=== PATIENT | female | born 1950 | race Caucasian/White ===

== ENCOUNTER 2024-04-02 16:11 | Outpatient (AMB) | payer MEDICARE, SELFPAY ==
--- NOTE | 2024-04-02 16:16 | A.OFFPC_ITS ---
Vital Signs 04/02/24 16:38 Height 4 ft 9 in Weight 235 lb BMI 50.8 BP 140/72 H Blood Pressure Location Rt brachial Position Sitting Respiration 16 Pulse 80 Pulse Source Pulse Oximeter Temp 98.1 F Temp Source Oral Pulse Oximetry (%) 96 Oxygen Delivery Method Room Air Intake Visit Reasons: Establish Care not a transfer Intake Note: patient here for new patient visit. Chiller Hand Required: No Is last menstrual period known: No Post menopausal: No Patient : No Allergies codeine Allergy (Unknown, Verified 04/02/24 16:25) Hives asprin Allergy (Mild, Uncoded 04/02/24 16:25) Stomach Upset Tobacco use date assessed: 04/02/24 Fall risk assessment: 2 + Falls in past year Last assessed Fall Risk: 04/02/24 Dental Screening Dental Screen Date: 04/02/24 Did you have a dental visit in the last 12 months?: Yes Did you have a dental problem in the last 6 months where you did not have access to dental care?: No Was dental information given to patient?: Patient has dentist HPI HPI Comments History of Present Illness Details 73-year-old female with a past medical h istory of myasthenia gravis, post-polio syndrome, lung nodules, asthma/COPD and epilepsy presents to establish care. She transferred from [facility] and [facility]. Records transfer pending. I am seeing the patient for Dr. Stephen who will be PCP. She is here with sister, Sarah. She lives locally. She lives alone. 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 She needs to referrals to pulmonology for COPD/asthma, lung nodules and KAVYA. She was seeing Dr. Hewitt, but her insurance is no longer accepted at [facility]. She needs a referral to a new urologist for overactive bladder. Myasthenia gravis, seizure disorder-her prior neurologist retired. She has aneurology consult with Dr. Johnson on April 21. Rheumatoid/OA-[facility]. [facility]quez [facility]. Last hospitalization was in 01/06/2024 after she fell twice. ROS: Constitutional: No unexplained weight loss, fever, chills Respiratory: No shortness of breath Cardiovascular: No chest pain Psychiatric: No depression or anxiety. No SI/HI. Physical exam: Constitutional: Alert, in no distress. Ambulates with walker. Neck: Supple, Full range of motion. No lymphadenopathy. Respiratory: Clear to auscultation. Cardiovascular: S1 S2 regular. No murmurs. Neurologic: Monotone, mildly slurred speech. [facility] Medical History (Updated 04/02/24 @ 17:23 by YULIANA Womack) Intertrigo Detrusor instability of bladder KAVYA (obstructive sleep apnea) Asthma-COPD overlap syndrome Former smoker Myasthenia gravis Post-polio syndrome Lung nodules Rheumatoid arthritis Osteoarthritis of knees, bilateral Allergic rhinitis Elevated blood pressure reading Seizure disorder Glaucoma Epilepsy Surgical History (Updated 04/02/24 @ 16:53 by YULIANA Womack) History of bilateral cataract extraction Family History (Updated 04/02/24 @ 16:51 by YULIANA oWmack) Father Alcohol abuse Colon cancer CAD (coronary artery disease) Brother Glioblastoma Social History Housing: Apartment Patient Tobacco Use Status: Never used Tobacco e-Cigarette/Vaping Use: Never Used Second Hand Smoke Exposure: No service: No Current occupational status: retired Current occupational exposures/hazards: No Cognitive needs: No Hearing needs: No Vision needs: Yes Questionnaire AUDIT C Alcohol Use Questionnaire (AUDIT-C) 1. How often do you have a drink containing alcohol?: Never Total Score: 0 Score Reviewed/Action Taken: Yes ACT Questionnaire In the past 4 weeks, how much of the time did your asthma keep you from getting as much done at work, school or at home?: None of the time During the past 4 weeks, how often have you had shortness of breath?: Not at all During the past 4 weeks, how often did your asthma symptoms wake you up at night or earlier than usual in the morning?: Not at all During the past 4 weeks, how often have you had to use your rescue inhaler or nebulizer medication?: 2-3 times a week How would you rate your asthma control during the past 4 weeks?: Well controlled Score: 22 Physical exam (Primary Care) Vital Signs: Last Vital Signs Temp 98.1 F 04/02/24 16:38 Pulse 80 04/02/24 16:38 Resp 16 04/02/24 16:38 BP 140/72 H 04/02/24 16:38 Pulse Ox 96 04/02/24 16:38 Oxygen Delivery Method Room Air 04/02/24 16:38 BMI result Body Mass Index 50.8 Tobacco/Smoking Status: Tobacco use Status Tobacco use date assessed 04/02/24 04/02/24 16:43 Patient Tobacco Use Status Never used Tobacco 04/02/24 16:43 e-Cigarette/Vaping Use Never Used 04/02/24 16:43 Assessment and Plan Assessment & Plan (1) Intertrigo: Code(s): L30.4 - Erythema intertrigo (2) Detrusor instability of bladder: Code(s): N32.81 - Overactive bladder (3) Asthma-COPD overlap syndrome: Code(s): J44.89 - Other specified chronic obstructive pulmonary disease (4) KAVYA (obstructive sleep apnea): Code(s): G47.33 - Obstructive sleep apnea (adult) (pediatric) (5) Myasthenia gravis: Code(s): G70.00 - Myasthenia gravis without (acute) exacerbation (6) Rheumatoid arthritis: Code(s): M06.9 - Rheumatoid arthritis, unspecified Qualifiers: Rheumatoid arthritis location: multiple sites Rheumatoid factor presence: unspecified presence Qualified Code(s): M06.9 - Rheumatoid arthritis, unspecified (7) Seizure disorder: Code(s): G40.909 - Epilepsy, unspecified, not intractable, without status epilepticus (8) Elevated blood pressure reading: Code(s): R03.0 - Elevated blood-pressure reading, without diagnosis of hypertension Plan Patient will continue her current medications. She gets intermittent intertrigo so I sent topical medication for her to use as needed. Preventative strategies reviewed. Her blood pressure is mildly elevated today. She does not have a history of hypertension. We will schedule follow up in 6 weeks for recheck. Patient says she is having knee pain today so that might be why it is elevated. Referrals placed for Urogynecology and pulmonology. She has an upcoming appointment with a new neurologist. She is followed by Rheumatology for RA and OA. Patient said she just had blood work done within the past month so we will await transfer records. Follow up in [address] Stephen-30 minutes for complex visit. Orders: Referrals Urogynecology Referral N32.81 - Overactive bladder Pulmonology Referral G47.33 - Obstructive sleep apnea (adult) (pediatric), J44.89 - Other specified chronic obstructive pulmonary disease, R91.8 - Other nonspecific abnormal finding of lung field Medications: New ketoconazole 2% 1 appl topical BID 10 days 30 grams 5RF Coding Level of Care Code New Pt Level 4 (84436) Complex EM visit Add On G2211 Diagnoses Intertrigo L30.4 Detrusor instability of bladder N32.81 Asthma-COPD overlap syndrome J44.89 KAVYA (obstructive sleep apnea) G47.33 Myasthenia gravis G70.00 Rheumatoid arthritis involving multiple sites, unspecified whether rheumatoid factor present M06.9 Rheumatoid arthritis location: multiple sites Rheumatoid factor presence: unspecified presence Seizure disorder G40.909 Elevated blood pressure reading R03.0
[2024-04-02 16:38] VITALS: BP 140/72; PULSE 80; RESP 16; TEMP 36.7; O2SAT 96; BMI 50.8
== END 2024-04-02 17:18 | disposition home or self-care (01) ==
PROVIDERS: PCP Physician Assistant Medical; Visit Provider Physician Assistant Medical
DX: J44.89 Other specified chronic obstructive pulmonary disease (principal); G70.00 Myasthenia gravis without (acute) exacerbation; M06.9 Rheumatoid arthritis, unspecified; G40.909 Epilepsy, unspecified, not intractable, without status epilepticus; L30.4 Erythema intertrigo; N32.81 Overactive bladder; G47.33 Obstructive sleep apnea (adult) (pediatric); R03.0 Elevated blood-pressure reading, without diagnosis of hypertension
CPT/HCPCS: 99204; G2211

== ENCOUNTER 2024-05-22 14:41 | Outpatient (AMB) | payer MEDICARE, SELFPAY ==
--- NOTE | 2024-05-22 14:43 | A.OFFPC_ITS ---
Intake Visit Reasons: 30 minutes complex follow up, BP chec Allergies codeine Allergy (Unknown, Verified 04/02/24 16:25) Hives asprin Allergy (Mild, Uncoded 04/02/24 16:25) Stomach Upset Tobacco use date assessed: 04/02/24 Dental Screening Dental Screen Date: 04/02/24 [facility] Medical History (Updated 04/02/24 @ 17:23 by YULIANA Womack) Intertrigo Detrusor instability of bladder KAVYA (obstructive sleep apnea) Asthma-COPD overlap syndrome Former smoker Myasthenia gravis Post-polio syndrome Lung nodules Rheumatoid arthritis Osteoarthritis of knees, bilateral Allergic rhinitis Elevated blood pressure reading Seizure disorder Glaucoma Epilepsy Surgical History (Updated 04/02/24 @ 16:53 by YULIANA Womack) History of bilateral cataract extraction Family History (Updated 04/02/24 @ 16:51 by YULIANA Womack) Father Alcohol abuse Colon cancer CAD (coronary artery disease) Brother Glioblastoma Social History Housing: Apartment Patient Tobacco Use Status: Never used Tobacco e-Cigarette/Vaping Use: Never Used Second Hand Smoke Exposure: No service: No Current occupational status: retired Current occupational exposures/hazards: No Cognitive needs: No Hearing needs: No Vision needs: Yes Questionnaire PHQ-9 Over the last 2 weeks, how often have you been bothered by any of the following problems? 1. Little interest or pleasure in doing things: not at all 2. Feeling down, depressed, or hopeless: not at all 3. Trouble falling or staying asleep, or sleeping too much: more than half the days 4. Feeling tired or having little energy: more than half the days 5. Poor appetite or overeating: not at all 6. Feeling bad about yourself - or that you are a failure or have let yourself or your family down: not at all 7. Trouble concentrating on things, such as reading the newspaper or watching television: not at all 8. Moving or speaking so slowly that other people could have noticed. Or the opposite - being so fidgety or restless that you have been moving around a lot more than usual: not at all 9. Thoughts that you would be better off or of hurting yourself in some way: not at all Total score: 4 Source: Developed by Drs. Trevin Medrano, Tova Patel, Jared Rose and colleagues, with an educational martinez from [employer]. Thrive Questionnaire Date Thrive assessed: 05/15/24 I am a: Patient What is your living situation today?: I have a steady place to live Within the past 12 months, did the food you bought not last and you didn't have the money to get more?: Never true Within the past 12 months, did you worry whether your food would run out before you got money to buy more?: Never true Do you have trouble paying for medicines?: No Do you have trouble getting transportation to medical appointments?: No Do you have trouble paying your heating and electricity bill?: No Do you have trouble taking care of your child, family member or friend?: No Do you have trouble with day-to-day activities such as bathing, preparing meals, shopping, managing finances, etc.?: Yes Are you currently unemployed and looking for a job?: No Are you interested in more education?: No Please select the resources that you would like help with: None Currently or been in a relationship where the following occur: No concerns reported THRIVE Score: 0 AUDIT C Alcohol Use Questionnaire (AUDIT-C) 1. How often do you have a drink containing alcohol?: Never Total Score: 0 MIYA-7 AMB Questionnaire MIYA-7 Feeling nervous, anxious, or on edge: 0 = Not at all Not being able to stop or control worryin = Not at all Worrying too much about different things: 0 = Not at all Trouble relaxin = Not at all Being so restless that it is hard to sit still: 0 = Not at all Becoming easily annoyed or irritable: 0 = Not at all Feeling afraid as if something awful might happen: 0 = Not at all Total MYIA-7 score (0-4 normal; 5-9 mild; 10-14 moderate; 15-21 severe): 0 Source: Developed by Drs. Trevin Medrano, Jared Putnam and colleagues, with an educational martinez from [employer]. Physical exam (Primary Care) Tobacco/Smoking Status: Tobacco use Status Tobacco use date assessed 04/02/24 04/02/24 16:43 Patient Tobacco Use Status Never used Tobacco 04/02/24 16:43 e-Cigarette/Vaping Use Never Used 04/02/24 16:43 Thrive Assessment: Date of Thrive Assessment Date Thrive assessed 05/15/24 05/15/24 12:29 Currently or been in a relationship where the following occur: No concerns reported Coding
--- NOTE | 2024-05-22 14:44 | A.OFFPC_ITS ---
Vital Signs 05/22/24 14:54 BMI Reason not done Patient refused/unable BP 134/86 Blood Pressure Location Rt brachial Position Sitting Pulse 62 Pulse Source Pulse Oximeter Pulse Oximetry (%) 96 Oxygen Delivery Method Room Air Intake Visit Reasons: 30 minutes complex follow up, BP chec Intake Note: Follow up Allergies codeine Allergy (Unknown, Verified 05/22/24 14:51) Hives asprin Allergy (Mild, Uncoded 05/22/24 14:51) Stomach Upset Tobacco use date assessed: 04/02/24 Dental Screening Dental Screen Date: 04/02/24 HPI HPI Comments History of Present Illness Details 74-year-old female with a past medical h istory of myasthenia gravis, post-polio syndrome, lung nodules, asthma/COPD and epilepsy presents for follow up. Previously seen at [facility], established here recently by geremias Armenta She is here with sister, Sarah. She lives locally. COPD/asthma, lung nodules and KAVYA. Referred to pulmonology. Previously seen by but her insurance is no longer accepted at [facility]. Myasthenia gravis, seizure disorder-Sees neurology Dr Cardozo. She lives alone but has a [employer] for 3 hours per day. Her sister Sarah also helps her day to day. Last hospitalization was in 01/06/2024 after she fell twice. Home nursing provides foot care Rheumatoid/OA-Dr. Henriquez at the [facility] treatment [facility]. She has been having low back pain, leg weakness, heaviness. Urology-Followed with Dr Baez. OAB. Referral to urogynecology Dr Vaughan eye Due for mammogram ROS see HPI PHYSICAL EXAM: GENERAL: Alert and oriented x 3. NAD EYES: EOMI. Anicteric. HENT: Moist mucous membranes. No scleral icterus. No cervical lymphadenopathy. LUNGS: Clear to auscultation bilaterally. CARDIOVASCULAR: Regular rate and rhythm. No murmur. No JVD. ABDOMEN: Soft, non-tender +bs EXTREMITIES: No edema. Non-tender. SKIN: No rashes or lesions. Warm. NEUROLOGIC: No focal neurological deficits. CN II-XII grossly intact PSYCHIATRIC: Cooperative. Appropriate mood and affect [facility] Medical History Intertrigo Detrusor instability of bladder KAVYA (obstructive sleep apnea) Asthma-COPD overlap syndrome Former smoker Myasthenia gravis Post-polio syndrome Lung nodules Rheumatoid arthritis Osteoarthritis of knees, bilateral Allergic rhinitis Elevated blood pressure reading Seizure disorder Glaucoma Epilepsy Surgical History History of bilateral cataract extraction Family History Father Alcohol abuse Colon cancer CAD (coronary artery disease) Brother Glioblastoma Social History Housing: Apartment Patient Tobacco Use Status: Never used Tobacco e-Cigarette/Vaping Use: Never Used Second Hand Smoke Exposure: No service: No Current occupational status: retired Current occupational exposures/hazards: No Cognitive needs: No Hearing needs: No Vision needs: Yes Questionnaire PHQ-9 Over the last 2 weeks, how often have you been bothered by any of the following problems? 1. Little interest or pleasure in doing things: not at all 2. Feeling down, depressed, or hopeless: not at all 3. Trouble falling or staying asleep, or sleeping too much: more than half the days 4. Feeling tired or having little energy: more than half the days 5. Poor appetite or overeating: not at all 6. Feeling bad about yourself - or that you are a failure or have let yourself or your family down: not at all 7. Trouble concentrating on things, such as reading the newspaper or watching television: not at all 8. Moving or speaking so slowly that other people could have noticed. Or the opposite - being so fidgety or restless that you have been moving around a lot more than usual: not at all 9. Thoughts that you would be better off or of hurting yourself in some way: not at all Total score: 4 Depression Screening Interpretation: Negative Depression Screening Done: Yes Source: Developed by Drs. Trevin Medrano, Tova Patel, Jared Rose and colleagues, with an educational martinez from [employer]. Thrive Questionnaire Date Thrive assessed: 05/15/24 I am a: Patient What is your living situation today?: I have a steady place to live Within the past 12 months, did the food you bought not last and you didn't have the money to get more?: Never true Within the past 12 months, did you worry whether your food would run out before you got money to buy more?: Never true Do you have trouble paying for medicines?: No Do you have trouble getting transportation to medical appointments?: No Do you have trouble paying your heating and electricity bill?: No Do you have trouble taking care of your child, family member or friend?: No Do you have trouble with day-to-day activities such as bathing, preparing meals, shopping, managing finances, etc.?: Yes Are you currently unemployed and looking for a job?: No Are you interested in more education?: No Please select the resources that you would like help with: None Currently or been in a relationship where the following occur: No concerns reported THRIVE Score: 0 AUDIT C Alcohol Use Questionnaire (AUDIT-C) 1. How often do you have a drink containing alcohol?: Never Total Score: 0 MIYA-7 AMB Questionnaire MIYA-7 Feeling nervous, anxious, or on edge: 0 = Not at all Not being able to stop or control worryin = Not at all Worrying too much about different things: 0 = Not at all Trouble relaxin = Not at all Being so restless that it is hard to sit still: 0 = Not at all Becoming easily annoyed or irritable: 0 = Not at all Feeling afraid as if something awful might happen: 0 = Not at all Total MIYA-7 score (0-4 normal; 5-9 mild; 10-14 moderate; 15-21 severe): 0 Source: Developed by Drs. Trevin Medrano, Tova Patel, Jared Rose and colleagues, with an educational martinez from [employer]. Physical exam (Primary Care) Vital Signs: Last Vital Signs Pulse 62 05/22/24 14:54 BP 134/86 05/22/24 14:54 Pulse Ox 96 05/22/24 14:54 Oxygen Delivery Method Room Air 05/22/24 14:54 Tobacco/Smoking Status: Tobacco use Status Tobacco use date assessed 04/02/24 05/22/24 14:52 Patient Tobacco Use Status Never used Tobacco 05/22/24 14:52 e-Cigarette/Vaping Use Never Used 05/22/24 14:52 PHQ-9: PHQ-9 Score PHQ-9: Total score 4 05/22/24 15:20 Depression Screening Interpretation: Negative Thrive Assessment: Date of Thrive Assessment Date Thrive assessed 05/15/24 05/22/24 14:52 Currently or been in a relationship where the following occur: No concerns reported Coding Level of Care Code Est Pt Level 5 (61806) Diagnoses Weakness of both lower extremities R29.898 Laterality: bilateral Detrusor instability of bladder N32.81 Asthma-COPD overlap syndrome J44.89 Myasthenia gravis G70.00 Seizure disorder G40.909 Rheumatoid arthritis involving multiple sites, unspecified whether rheumatoid factor present M06.9 Rheumatoid arthritis location: multiple sites Rheumatoid factor presence: unspecified presence Time Spent (min) 43 Assessment & Plan Assessment & Plan (1) Leg weakness: Code(s): R29.898 - Other symptoms and signs involving the musculoskeletal system Category: Medical Qualifiers: Laterality: bilateral Qualified Code(s): R29.898 - Other symptoms and signs involving the musculoskeletal system Plan: xray LS ordered Discussed maybe sequelae of MG (2) Detrusor instability of bladder: Code(s): N32.81 - Overactive bladder Category: Medical Plan: referral to urogynecology placed (3) Asthma-COPD overlap syndrome: Code(s): J44.89 - Other specified chronic obstructive pulmonary disease Category: Medical Plan: referral pending to pulm (4) Myasthenia gravis: Code(s): G70.00 - Myasthenia gravis without (acute) exacerbation Category: Medical Plan: stable. following with neurology (5) Seizure disorder: Code(s): G40.909 - Epilepsy, unspecified, not intractable, without status epilepticus Category: Medical Plan: stable on meds. continue neurology f/up (6) Rheumatoid arthritis: Code(s): M06.9 - Rheumatoid arthritis, unspecified Category: Medical Qualifiers: Rheumatoid arthritis location: multiple sites Rheumatoid factor presence: unspecified presence Qualified Code(s): M06.9 - Rheumatoid arthritis, unspecified Plan: c/w rheumatology Orders: Orders Complete Blood Count Auto Diff 05/22/24 R29.898 - Other symptoms and signs involving the musculoskeletal system, R29.6 - Repeated falls Comprehensive Met. Panel 05/22/24 R29.898 - Other symptoms and signs involving the musculoskeletal system, R29.6 - Repeated falls Hemoglobin A1c 05/22/24 R29.898 - Other symptoms and signs involving the musculoskeletal system, R29.6 - Repeated falls MM screening mammo BI 05/22/24 Z12.31 - Encounter for screening mammogram for malignant neoplasm of breast, R29.898 - Other symptoms and signs involving the musculoskeletal system, R29.6 - Repeated falls TSH reflex Free T4 05/22/24 R29.898 - Other symptoms and signs involving the musculoskeletal system, R29.6 - Repeated falls XR lumbar spine 2-3V 05/28/24 R29.898 - Other symptoms and signs involving the musculoskeletal system, R29.6 - Repeated falls
[2024-05-22 14:54] VITALS: BP 134/86; PULSE 62; O2SAT 96
== END 2024-05-22 15:38 | disposition home or self-care (01) ==
PROVIDERS: PCP Physician Assistant Medical; Visit Provider Internal Medicine
DX: J44.89 Other specified chronic obstructive pulmonary disease (principal); G70.00 Myasthenia gravis without (acute) exacerbation; G40.909 Epilepsy, unspecified, not intractable, without status epilepticus; M06.9 Rheumatoid arthritis, unspecified; R29.898 Other symptoms and signs involving the musculoskeletal system; N32.81 Overactive bladder

== ENCOUNTER → 2024-05-22 14:41 | Outpatient (BNVA) | payer MEDICARE, SELFPAY | PROVIDERS: PCP Physician Assistant Medical; Visit Provider Internal Medicine | DX: R29.898 Other symptoms and signs involving the musculoskeletal system (principal); N32.81 Overactive bladder; J44.89 Other specified chronic obstructive pulmonary disease; G70.00 Myasthenia gravis without (acute) exacerbation; G40.909 Epilepsy, unspecified, not intractable, without status epilepticus; M06.9 Rheumatoid arthritis, unspecified | CPT/HCPCS: 96127; 99212 ==

== ENCOUNTER 2024-05-22 15:43 | Outpatient (REF) | payer MEDICARE, SELFPAY ==
[2024-05-22 17:46] LABS: MANUAL DIFF FLAG NO
[2024-05-22 19:00] LABS: Alanine Aminotransferase 37 U/L (0-31); Albumin Level 4.2 g/dL (3.5-5.0); Alkaline Phosphatase 63 U/L (39-117); Anion Gap 8 (12-20); Aspartate Amino Transferase 32 U/L (5-31); Bilirubin Total 0.2 mg/dL (0.0-1.0); Blood Urea Nitrogen 28 mg/dL (9-16); Calcium 10.4 mg/dL (8.4-10.2); Carbon Dioxide 26 mmol/L (22-29); Chloride 113 mmol/L (96-108); Estimated Glomerular Filt Rate > 60; Glucose Random 100 mg/dL (60-115); Potassium 4.4 mmol/L (3.3-5.1); Sodium 143 mmol/L (135-145); Total Protein 7.2 g/dL (6.5-8.0)
[2024-05-22 19:01] LABS: Estimated Average Glucose 105 mg/dL; Hemoglobin A1C 109.5654 umol/L; Hemoglobin A1c % 5.3 % (<6.0); Total Hemoglobin (HGBA1C) 3219.2961 umol/L
[2024-05-22 19:15] LABS: TSH reflex Free T4 1.82 uIU/mL (0.32-4.0)
[2024-05-22 19:21] LABS: Basophils Absolute Auto 0.1 X10*3/uL (0.0-0.2); Basophils Percent Auto 0.7 % (0-2); Eosinophils Absolute Auto 0.2 X10*3/uL (0.0-0.4); Eosinophils Percent Auto 2.1 % (0-4); Hematocrit 38.2 % (37.0-47.0); Hemoglobin 12.9 g/dl (12.0-16.0); Imm Gran Abs Auto 0.09 X10*3/uL (0.00-0.03); Lymphocytes Absolute Auto 1.7 X10*3/uL (1.2-4.9); Mean Corpuscular HGB Conc 33.8 g/dl (31.0-35.0); Mean Corpuscular Hemoglobin 36.8 pg (27.0-33.0); Mean Corpuscular Volume 108.8 fL (80.0-98.0); Mean Platelet Volume 10.1 fL (9.4-12.3); Monocytes Absolute Auto 1.2 X10*3/uL (0.1-1.2); Monocytes Percent Auto 14.4 % (2-11); Neutrophils Absolute Auto 5.3 x10*3/uL (2.0-8.3); Neutrophils Percent Auto 61.8 % (45-73); Platelet Count 395 X10*3/uL (160-400); Red Blood Count 3.51 X10*6/uL (4.20-5.50); Red Cell Distribution Width 13.8 % (11.0-16.0); White Blood Count 8.6 X10*3/uL (4.8-10.8)
== END 2024-05-22 15:44 | disposition home or self-care (01) ==
LOC: HO.WFDLDS 15:43
PROVIDERS: Visit Provider Internal Medicine
DX: R29.898 Other symptoms and signs involving the musculoskeletal system (principal); R29.6 Repeated falls
CPT/HCPCS: 36415; 80053; 83036; 84443; 85025

== ENCOUNTER 2024-05-28 14:34 | Outpatient (REF) | payer OTHER, SELFPAY | END 2024-05-28 14:35 | disposition home or self-care (01) | LOC: HO.XRAY 14:34 | PROVIDERS: PCP Family Medicine; Visit Provider Internal Medicine | DX: R29.898 Other symptoms and signs involving the musculoskeletal system (principal); R29.6 Repeated falls | CPT/HCPCS: 72100 ==

== ENCOUNTER 2024-06-16 13:17 | Outpatient (AMB) | payer MEDICARE, SELFPAY ==
[2024-06-16 13:30] VITALS: PULSE 63; O2SAT 98; BMI 52.0
--- NOTE | 2024-06-16 13:30 | A.OFFVIS_ITS ---
Vital Signs 06/16/24 13:30 Height 4 ft 9 in Weight 240 lb 4.862 oz BMI 52.0 Pulse 63 Pulse Source Pulse Oximeter Pulse Oximetry (%) 98 Oxygen Delivery Method Room Air Intake Visit Reasons: kavya Clinical Consultant Required: No Allergies codeine Allergy (Unknown, Verified 06/16/24 13:32) Hives asprin Allergy (Mild, Uncoded 06/16/24 13:32) Stomach Upset HPI Comments Details: The patient is here for pulmonary evaluation. The patient is a 74-year-old woman with a very complicated past medical history. 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 Subsequently after that the patient was diagnosed with myasthenia gravis and treated by Neurology and also diagnosed with rheumatoid arthritis. Treated by Rheumatology. She has been on multiple immunosuppressive agents throughout her life. More recently she is on methotrexate 6 tablets weekly. She also takes her medications for the myasthenia gravis. The patient does have history of asthma and she has been on inhalers such as Arnuity and she does also uses a rescue inhaler. I do believe that the patient with her current neuromuscular conditions will benefit from a nebulizer. The patient states that she sometimes has a hard time eating. She does get meals from meals on wheels and she does live alone and has help from a ELECTROMEDICAL EQUIPMENT TECHNICIAN. The patient does use a walker and then when she leaves the home she does have transferred chair. At nighttime the patient does use CPAP. The CPAP therapy has been provided through [employer]. She gets supplies regularly and she does use a nasal mask. She is it move more than 4 hours a night in the therapy has been affecting beneficial for her. The patient does not have any recent x-rays or pulmonary function studies. At this point will request that she undergo a modified barium swallow to assess swallow make sure she is adequately eating without risk of aspiration. And will request pulmonary function studies and a chest x-ray to assess her lung capacity. Depending on the findings we can consider performing a blood gas to make sure that she is not having issues with hypercarbia. Will follow-up after her pulmonary function studies and other studies. [facility] Medical History (Updated 06/16/24 @ 22:12 by Chato Tesfaye MD) Asthma Intertrigo Detrusor instability of bladder KAVYA (obstructive sleep apnea) Asthma-COPD overlap syndrome Former smoker Myasthenia gravis Post-polio syndrome Lung nodules Rheumatoid arthritis Osteoarthritis of knees, bilateral Allergic rhinitis Elevated blood pressure reading Seizure disorder Glaucoma Epilepsy Surgical History History of bilateral cataract extraction Family History Father Alcohol abuse Colon cancer CAD (coronary artery disease) Brother Glioblastoma Social History Housing: Apartment Patient Tobacco Use Status: Never used Tobacco e-Cigarette/Vaping Use: Never Used Second Hand Smoke Exposure: No service: No Current occupational status: retired Current occupational exposures/hazards: No Cognitive needs: No Hearing needs: No Vision needs: Yes Review of Systems Const Denies fever(s) Eyes Reports as per HPI ENT Reports dysphagia and Reports nasal congestion Card Denies chest pain Resp Reports chest congestion, Reports cough and Reports wheezing GI Reports dysphagia Musc Reports as per HPI, Reports abnormal gait and Reports muscle weakness Skin/Breast Denies rash Neuro Reports abnormal gait Gabriel/Lymph Reports no additional complaints Aller/Immun Reports wheezing Physical Exam Vital Signs: Last Vital Signs Pulse 63 06/16/24 13:30 Pulse Ox 98 06/16/24 13:30 Oxygen Delivery Method Room Air 06/16/24 13:30 BMI result Body Mass Index 52.0 Const General: comfortable Limitations: physical limitations, ambulation with walker and wheelchair HEENT Head: Yes normocephalic Neck Neck: Yes supple Chest Chest palpation & inspection: normal inspection of the chest Resp Effort & Inspection: normal respiratory effort Cardio Heart sounds: S1 normal heart sound present and S2 normal heart sound present GI Palpation (GI): Soft to palpation Skin General skin exam: no rashes or lesions noted Extrem General: Yes no clubbing, cyanosis or edema Immunizations pneumoc 20-miles conj-dip cr(PF) 0.5 mL IM syringe Performing Provider: Chato Tesfaye MD Performing Location: [facility] Administered by: Barbie Thompson LPN on 06/16/24 15:21 Dose Route Admin Location Dispensed Lot Number Expiration Date [employer] 0.5 mL IM Right Deltoid 0.5 mL [id number] 08/18/25 3930-1272-52 [employer] VIS Given Date VIS Provided VIS Publication Date 06/16/24 Single Vaccine 22 Eligibility Eligibility Date Funding Source Not [facility] Eligible 06/16/24 Private Assessment & Plan Assessment & Plan (1) Myasthenia gravis: Code(s): G70.00 - Myasthenia gravis without (acute) exacerbation Category: Medical (2) Allergic rhinitis: Code(s): J30.9 - Allergic rhinitis, unspecified Category: Medical Qualifiers: Allergic rhinitis trigger: unspecified Allergic rhinitis seasonality: unspecified Qualified Code(s): J30.9 - Allergic rhinitis, unspecified (3) Asthma-COPD overlap syndrome: Code(s): J44.89 - Other specified chronic obstructive pulmonary disease Category: Medical (4) Rheumatoid arthritis: Code(s): M06.9 - Rheumatoid arthritis, unspecified Category: Medical Qualifiers: Rheumatoid arthritis location: multiple sites Rheumatoid factor presence: unspecified presence Qualified Code(s): M06.9 - Rheumatoid arthritis, unspecified Plan Needs a nebulizer CXR PFTs MBS conitnue Arnuity HERMILA as needed f/u 2-3 Months Orders: Orders FL Modified Barium Swallow Today G70.00 - Myasthenia gravis without (acute) exacerbation XR chest 2V Today G70.00 - Myasthenia gravis without (acute) exacerbation PFT pulmonary function test Today G70.00 - Myasthenia gravis without (acute) exacerbation Pneumococcal 20 Immunization Today Z23 - Encounter for immunization Medications: New albuterol sulfate 2.5 mg (3 mL) inhalation Q6H 30 days PRN 180 mL 11RF shortness of breath or wheezing albuterol sulfate 90 mcg/actuation 2 inhalations inhalation Q6H 30 days PRN 18 grams 12RF shortness of breath or wheezing J44.9 - Chronic obstructive pulmonary disease, unspecified Coding Level of Care Code New Pt Level 4 (59556) Diagnoses Myasthenia gravis G70.00 Allergic rhinitis, unspecified seasonality, unspecified trigger J30.9 Allergic rhinitis trigger: unspecified Allergic rhinitis seasonality: unspecified Asthma-COPD overlap syndrome J44.89 Rheumatoid arthritis involving multiple sites, unspecified whether rheumatoid factor present M06.9 Rheumatoid arthritis location: multiple sites Rheumatoid factor presence: unspecified presence Time Spent (min) 45
== END 2024-06-16 15:52 | disposition home or self-care (01) ==
LOC: HO.HPS 13:18
PROVIDERS: PCP Family Medicine; Visit Provider Hospitalist
DX: G70.00 Myasthenia gravis without (acute) exacerbation (principal); J30.9 Allergic rhinitis, unspecified; J44.89 Other specified chronic obstructive pulmonary disease; M06.9 Rheumatoid arthritis, unspecified; Z23 Encounter for immunization
CPT/HCPCS: 99204

== ENCOUNTER → 2024-06-16 13:17 | Outpatient (BNVA) | payer MEDICARE, SELFPAY | PROVIDERS: PCP Family Medicine; Visit Provider Hospitalist | DX: J44.89 Other specified chronic obstructive pulmonary disease (principal); J30.9 Allergic rhinitis, unspecified; G47.33 Obstructive sleep apnea (adult) (pediatric); G70.00 Myasthenia gravis without (acute) exacerbation; M06.9 Rheumatoid arthritis, unspecified; Z23 Encounter for immunization; Z99.89 Dependence on other enabling machines and devices | CPT/HCPCS: 90471; 90677; 99202 ==

== ENCOUNTER 2024-06-29 14:17 | Outpatient (REF) | payer MEDICARE, SELFPAY ==
--- NOTE | ~2024-06-29 | FL_ITS ---
EXAMINATION: Modified Barium Swallow CLINICAL INFORMATION: Dysphagia COMPARISON: None TECHNIQUE: Modified barium swallow was performed under lateral fluoroscopy with patient in standing position. Barium mixed with solids and liquids of different consistencies was administered by the speech pathologist. Examination was recorded in the fluoroscopy suite. FINDINGS: No laryngeal penetration or aspiration was observed during this examination. There is moderate cricopharyngeal achalasia present. FLUOROSCOPY TIME: 1 minute 32 seconds Number of Spot Images: N/A DOSE AREA PRODUCT: 747.2 uGy-m2 (microgray-meter squared) FL/FL Modified Barium Swallow IMPRESSION: 1. No laryngeal penetration or aspiration was observed. 2. Moderate cricopharyngeal achalasia. Refer to the speech therapy report for further clarification This procedure was performed by Jong Boucher PA-C, and supervised by Dr. Briceño Electronically signed by: Flavio Briceño MD 06/30/2024 11:04 AM [facility]
--- NOTE | 2024-06-29 15:46 | MHC.SL.IMP ---
Date of Plan of Treatment: 06/29/24 Onset of Symptoms/Illness: 06/16/24 Date Treatment Started: 06/29/24 Admitting Diagnosis: G70.00 Myasthenia gravis without (acute) exacerbation Primary Speech & Language Diagnosis: R13.12 Oropharyngeal Phase Dysphagia Reason for Today's Visit: 30552 Modified Barium Swallow Study Medical History: Modified Barium Swallow Study Fluoroscopic Evaluation of Swallowing Function CPT Code 52667 Evaluation Year: 2023 Reason for Study: Patient reporting difficulty swallowing. Referring Physician: Chato Tesfaye MD Evaluating Clinician: Dena Jimenez MA, CCC-ASSISTANT PROFESSOR NURSE EDUCATION Study Number: 1 Patient Name: Chely Qureshi Status: Outpatient, Wheelchair Age: 74 Gender: Female Medical History Medical History (Updated 06/16/24 @ 22:12 by Chato Tesfaye MD) Asthma Intertrigo Detrusor instability of bladder KAVYA (obstructive sleep apnea) Asthma-COPD overlap syndrome Former smoker Myasthenia gravis Post-polio syndrome Lung nodules Rheumatoid arthritis Osteoarthritis of knees, bilateral Allergic rhinitis Elevated blood pressure reading Seizure disorder Glaucoma Epilepsy Surgical History History of bilateral cataract extraction Current (pre-evaluation) Intake/Diet: Route: PO Diet Grade: Regular Liquid Consistencies: Thin Pre-Study Functional Oral Intake Scale (FOIS): 7- Total oral intake with no restrictions Pain: None reported at time of study SUBJECTIVE: Patient is a 74 year old female with past medical history significant for asthma, KAVYA, myasthenia gravis, post-polio syndrome, rheumatoid arthritis, osteoarthritis, allergic rhinitis, and seizure disorder. She presents today for a modified barium swallow study, referred by her milk powder grinder. Patient reports difficulty swallowing mainly solids. She says it ?feels like it gets stuck,? which makes her cough. She denies having trouble swallowing liquids. Patient says she eats regular texture foods and thin liquids and does not feel the need to avoid any particular foods. She receives Meals on Wheels and lives alone w/ DATA INTEGR[employer] SPECIALIST hours. Patient is accompanied to this exam by her sister, Sarah. Oral Motor Exam Facial Symmetry: Symmetrical Mouth Occlusion: Normal Oral-Facial Teeth Characteristics: Intact/Normal Oral-Facial Lip Pucker Description: Normal Oral-Facial Smile (Lips) Description: Normal Oral-Facial Puff Cheeks Description: Normal Tongue Size: Normal Tongue Excursion Description: Normal Tongue Range of Movement Description: Normal Tongue Speed of Movement Description: Normal Tongue Strength of Movement (against opposing pressure): Normal Tongue Movement Characteristics: Normal/Absent Food and Liquid Trials: Oral Impairment: Lip Closure: Did not test Oral Impairment: Tongue Control During Bolus Hold: 1=Escape to lateral buccal cavity/floor of mouth (FOM) Oral Impairment: Bolus Preparation/Mastication: 1=Slow prolonged chewing/mashing with complete re-collection Oral Impairment: Bolus Transport/Lingual Motion: 2=Slowed tongue motion Oral Impairment: Oral Residue: 1=Trace residue lining oral structures Oral Impairment:Initiation of Pharyngeal Swallow: 2=Bolus head at posterior laryngeal surface of epiglottis Pharyngeal Impairment: Soft Palate Elevation: 0=No bolus between soft palate (SP)/pharyngeal wall (PW) Pharyngeal Impairment: Laryngeal Elevation: 0=Complete superior movement of thyroid cartilage (see description) Pharyngeal Impairment: Anterior Hyoid Excursion: 1=Partial anterior movement Pharyngeal Impairment: Epiglottic Movement: 1=Partial inversion Pharyngeal Impairment: Laryngeal Vestibular Closure:: 1=Incomplete: narrow column air/contrast in laryngeal vestibule Pharyngeal Impairment: Pharyngeal Stripping Wave: 0=Present: complete Pharyngeal Impairment: Pharyngeal Contraction: Did not test Pharyngeal Impairment: Pharyngoesophageal Segment Openin=Complete distension and complete duration: no obstruction of flow Pharyngeal Impairment: Tongue Base (TB) Retraction: 1=Trace column of contrast/air between TB and posterior PW Pharyngeal Impairment: Pharyngeal Residue: 2=Collection of residue within or on pharyngeal structures Pharyngeal Impairment: Esophageal Clearance Upright Position: Did not test Impressions and Recommendations Clinical Observations: OBJECTIVE: Time-out: performed at 15:00 Evaluation Start: 14:30; Stop: 14:35 Patient Positioning: Seated 70-90 degrees Viewing Planes: LATERAL ONLY Contrast: MBSImP? Standardized Protocol using commercially prepared, standardized Barium viscosities, including: Varibar? THIN LIQUID (40% w/v, <15 cps) , Varibar? PUDDING (40% w/v, <1299-4988 cps) , 1/2 Shortbread Cookie (1 x1 x.25 ) MBSImP ID: [id number] MBSImP Results: Lip closure for intraoral bolus containment could not be assessed due to logistical reasons not related to physiologic impairment. Tongue control during bolus hold allowed bolus escape to the lateral buccal cavity/floor of mouth. Bolus preparation and mastication resulted in slow, prolonged chewing/mashing but with complete re-collection. Bolus transport/lingual motion was with slowed tongue motion. Oral residue was a collection on oral structures. Initiation of the pharyngeal swallow occurred as the bolus head was at the posterior laryngeal surface of the epiglottis. Soft palate elevation resulted in no bolus between the soft palate and the pharyngeal wall. Laryngeal elevation demonstrated complete superior movement of the thyroid cartilage with complete approximation of the arytenoids to the epiglottic petiole. Anterior hyoid excursion demonstrated partial anterior movement. Epiglottic movement resulted in partial inversion. Laryngeal vestibular closure was incomplete, with a narrow column of air/contrast noted within the laryngeal vestibule at the height of the swallow. Pharyngeal stripping wave was present and complete. Pharyngeal contraction could not be determined due to logistical reasons not related to physiologic impairment. Pharyngoesophageal segment opening was completely distended for complete duration with no obstruction of bolus flow. Tongue base retraction allowed a trace column of contrast or air between the retracted tongue base and the posterior pharyngeal wall. Pharyngeal residue was a collection of residue within or on pharyngeal structures. Esophageal clearance in the upright position could not be assessed due to logistical reasons not related to physiologic impairment. Oral Impairment Score: 8 (absence of score, component 1) Pharyngeal Impairment Score: 5 (absence of score, component 13) Esophageal Impairment Score: --- (absence of score, component 17) Laryngeal Penetration and Aspiration: Penetration was observed in today's study. Thin Contrast entered the airway, remained above the vocal folds, and was ejected from the airway. ASSESSMENT: Clinician Assessment: This exam was conducted by the radiologist and the speech pathologist. Patient was seated upright in a wheelchair for lateral view only. She was able to feed herself without difficulty and trialed the following consistencies: thin liquid barium (single cup sips), puree, ground/soft solid, regular solid. There was some pooling of contrast to the floor of mouth before posterior bolus transport. Lingual motion was slowed. Mastication was also slowed and prolonged. There was mild residue coating the tongue, with patient swallowing twice to clear the oral cavity on each trial. Pharyngeal swallow trigger initiated as the bolus head reached the posterior laryngeal surface of the epiglottis. No evidence of nasopharyngeal reflux. Partial epiglottic inversion and partial laryngeal vestibular closure. There was singular episode of flash penetration with thin liquid. Trace amount of contrast entered the airway above the vocal folds and spontaneously cleared. No evidence of aspiration during this exam. Mild collection of residue on the tongue base, in the valleculae, and in the pyriform sinuses. Reduced residue with self-initiated dry swallows. The following compensatory strategies have not been used until today's study, but when employed, improved swallowing function: Additional Swallow(s) per Bolus decreased Oral Residue, Pharyngeal Residue Liquid Intake Recommendation: Thin Liquid Intake Strategies: Small Sips Dietary Recommendations: Regular Medication Administration: Whole with Liquid Please contact the pharmacy regarding appropriate crushable or liquid drug formulations that are available whenever modified delivery is recommended. Compensatory Strategies Recommended: Sitting Upright (90 deg), Double Swallow, Small Bites and Sips, Alternate Liquids/Solids, Rate of Ingestion Change Recommendation for Speech Therapy: NA:Typical Evaluation Text Comment: Intake Recommendations: Route: PO Diet Grade: Regular Liquid Consistencies: Thin Post-Study Functional Oral Intake Scale (FOIS): 7- Total oral intake with no restrictions Singular episode of flash penetration with spontaneous clearing. No evidence of aspiration during this exam. Mild oral and pharyngeal residue was mostly cleared with self-initiated dry swallows. Discussed behavioral strategies with patient and caregiver after the exam. Patient is recommended strategies to promote oral and pharyngeal clearance: take small bites, chew food well, make sure mouth is clear before taking more bites, dry swallow between bites, alternate bites with sips of liquid. Patient denied having any questions at this time. Recommend patient continue monitoring her dysphagia. If there are any changes or worsening of symptoms, contact PCP/referring provider, at which point a repeat-assessment may be warranted. Therapy Recommendations: Therapy will be discontinued Clinician - Supplemental, Miscellaneous Communication: It is important to note MBSS objective studies are snapshots in time and Patient function might vary with factors such as time of day or concomitant medical conditions. For this reason, the final treatment plan for this patient should rest with their medical care team. Additional recommendations should be considered with the totality of the Patient in mind. Thank for the opportunity to participate in the care of this patient. If you have any questions about the content of this report, please contact the [facility] at [facility]. Education: Education regarding findings from today's study and plans for therapy were provided to Patient and family/caregiver through Verbal Instruction. Understanding was expressed by the Patient and family/caregiver. Ice Skating Teacher Clinician/Clinical Fellow: No Supervisory Statement: N/A Speech Language Pathologist: Dena Jimenez M.A., [facility]-ASSISTANT PROFESSOR NURSE EDUCATION
== END 2024-06-29 14:18 | disposition home or self-care (01) ==
LOC: HO.XRAY 14:17
PROVIDERS: PCP Internal Medicine; Visit Provider Hospitalist
DX: G70.00 Myasthenia gravis without (acute) exacerbation (principal)
CPT/HCPCS: 74230; 92611

== ENCOUNTER → 2024-06-29 14:30 | Outpatient (BNV) | payer MEDICARE, SELFPAY | PROVIDERS: PCP Internal Medicine; Visit Provider Physician Assistant Surgical | DX: R13.10 Dysphagia, unspecified (principal) | CPT/HCPCS: 74230 ==

== ENCOUNTER 2024-07-30 13:33 | Outpatient (AMB) | payer OTHER, SELFPAY ==
--- NOTE | 2024-07-30 14:42 | MHC.OFFWIV ---
Intake Vital Signs 07/30/24 15:14 Height 4 ft 9 in Weight 240 lb BMI 51.9 BP 130/90 H Blood Pressure Location Rt brachial Position Sitting Pulse 74 Pulse Source Pulse Oximeter Temp 98.0 F Temp Source Oral Pulse Oximetry (%) 98 Oxygen Delivery Method Room Air Intake Visit Reasons: EP LT lower leg swollen, hot Intake Note: Patient here is here for left leg pain and swelling and warm to the touch and has been present for a couple of days and worsening. Patient Tobacco Use Status: Never used Tobacco Allergies codeine Allergy (Unknown, Verified 07/30/24 15:17) Hives asprin Allergy (Mild, Uncoded 07/30/24 15:17) Stomach Upset Do you need a note to return to daycare/school/sports/work: No HPI HPI Comments History of Present Illness Details PT is a 74 yo female complaining of left lower extremity pain and redness after dropping a glass 3 days ago and it shattering and cutting her left lower leg. She denies being diabetic or having heart failure or using lasix. She denies fevers. She states her ankles are alwyas a little swollen. She does not wear compression stockings but she raises her legs which alleviates her sweling. Denies hx of MRSA infections. [facility] Medical History (Updated 07/30/24 @ 15:37 by Savanna Mathis PA-C) Asthma Intertrigo Detrusor instability of bladder KAVYA (obstructive sleep apnea) Asthma-COPD overlap syndrome Former smoker Myasthenia gravis Post-polio syndrome Lung nodules Rheumatoid arthritis Osteoarthritis of knees, bilateral Allergic rhinitis Elevated blood pressure reading Seizure disorder Glaucoma Epilepsy Surgical History History of bilateral cataract extraction Family History Father Alcohol abuse Colon cancer CAD (coronary artery disease) Brother Glioblastoma Social History Housing: Apartment Patient Tobacco Use Status: Never used Tobacco e-Cigarette/Vaping Use: Never Used Second Hand Smoke Exposure: No service: No Current occupational status: retired Current occupational exposures/hazards: No Cognitive needs: No Hearing needs: No Vision needs: Yes Review of Systems Const All systems reviewed & are unremarkable except as noted in HPI and below Physical Exam Vital Signs: Last Vital Signs Temp 98.0 F 07/30/24 15:14 Pulse 74 07/30/24 15:14 BP 130/90 H 07/30/24 15:14 Pulse Ox 98 07/30/24 15:14 Oxygen Delivery Method Room Air 07/30/24 15:14 BMI result Body Mass Index 51.9 Const General: cooperative, healthy appearing, comfortable, no acute distress and well developed Orientation/consciousness: patient oriented x3 Limitations: wheelchair HEENT Head: Yes normal to inspection Ears: hearing grossly normal bilaterally General nose exam: Normal external nose present Face and sinus: Yes normal facial exam Eyes General: appearance normal, both eyes and all related structures Neck Neck: Yes normal visual inspection and Yes full ROM Resp Effort & Inspection: normal respiratory effort and able to speak in complete sentences Skin General skin exam: no rashes or lesions noted Neuro General: patient oriented x3 Extrem Other: left lower extremity 1+ pitting edema, erythema and warmth on circumference of ankle to mid calf Assessment & Plan Assessment & Plan (1) Cellulitis: Code(s): L03.90 - Cellulitis, unspecified Qualifiers: Site of cellulitis: extremity Site of cellulitis of extremity: lower extremity Laterality: left Qualified Code(s): L03.116 - Cellulitis of left lower limb Plan: Sent kefflex to pharmacy - if symptoms persist, can come back to add Doxy but no history of MRSA Medications: New cephalexin 500 mg PO Q6H 7 days 28 caps 0RF Coding Level of Care Code Est Pt Level 3 (72978) Diagnoses Cellulitis of left lower extremity L03.116 Site of cellulitis: extremity Site of cellulitis of extremity: lower extremity Laterality: left
[2024-07-30 15:14] VITALS: BP 130/90; PULSE 74; TEMP 36.7; O2SAT 98; BMI 51.9
== END 2024-07-30 16:02 | disposition home or self-care (01) ==
PROVIDERS: PCP Internal Medicine; Visit Provider Physician Assistant
DX: L03.116 Cellulitis of left lower limb (principal)

== ENCOUNTER → 2024-07-30 13:33 | Outpatient (BNVA) | payer OTHER, SELFPAY | PROVIDERS: PCP Internal Medicine; Visit Provider Physician Assistant | DX: L03.116 Cellulitis of left lower limb (principal) | CPT/HCPCS: 99212 ==

== ENCOUNTER 2024-07-31 10:08 | Emergency (ER) | payer OTHER, SELFPAY ==
--- NOTE | ~2024-07-31 | CT_ITS ---
EXAMINATION: CT HEAD WITHOUT CONTRAST CLINICAL INFORMATION: Fall with scalp lac COMPARISON: None available. TECHNIQUE: Contiguous axial imaging was performed from the skull base to vertex without intravenous administration of contrast. This CT examination was performed using dose optimization techniques as appropriate, variously including the following: *Automated exposure control *Adjustment of mA and/or kV according to patient size (this includes techniques or standardized protocols for targeted exams where dose is matched to indication/reason for exam; i.e. extremities or head) *Use of iterative reconstruction technique DLP: 752 mGy-cm FINDINGS: Subcutaneous emphysema and small soft tissue contusion posterior left parietal soft tissue scalp. The bony calvarium is intact. Questionable old traumatic deformity nasal bones. Skull base is intact. No acute intracranial hemorrhage, mass effect, midline shift, hydrocephalus or herniation. Smith-white matter differentiation is normal. Posterior cranial fossa contents demonstrated no acute intracranial hemorrhage or mass effect. Bilateral multifocal patchy deep periventricular white matter hypodensities. Old lacunar infarcts in the basal ganglia/extracapsular and garza radiata white matter. Prominence of the extra-axial CSF spaces, cerebral sulci, cerebellar folia and ventricles. Calcified plaques in the V4 segment right vertebral artery and cavernous supraclinoid segments both ICA. No hematoma within the intraconal or the extraconal compartments of the orbits. No air-fluid levels in the included paranasal sinuses. For pneumatization of the frontal sinuses. Tympanic cavities and mastoid air cells are aerated. Sellar/suprasellar region demonstrated no gross masses.. CT/CT head/brain wo IV con IMPRESSION: Soft tissue contusion and subcutaneous emphysema posterior left parietal without acute calvarial fracture. No acute intracranial hemorrhage. Small vessel occlusive disease. Electronically signed by: Otoniel Solares MD 07/31/2024 01:06 PM [facility]
--- NOTE | ~2024-07-31 | CT_ITS ---
EXAMINATION: CT CERVICAL SPINE WITHOUT CONTRAST CLINICAL INFORMATION: Status post fall. Scalp laceration. COMPARISON: None available. TECHNIQUE: Contiguous axial images through the cervical spine using 3 mm collimation with bone and soft tissue algorithm. Sagittal and coronal reformatted images acquired. This CT examination was performed using dose optimization techniques as appropriate, variously including the following: *Automated exposure control *Adjustment of mA and/or kV according to patient size (this includes techniques or standardized protocols for targeted exams where dose is matched to indication/reason for exam; i.e. extremities or head) *Use of iterative reconstruction technique DLP: 508 mGy-cm FINDINGS: Craniocervical junction is intact. Levoconvex curvature apex at C6-7. Rudimentary ribs at C7, bilaterally. Ankylosis, C6-7. Marginal osteophyte formation, subchondral cyst formation, endplate sclerosis and loss intervertebral disc height, C3-4 and to a lesser extent C4-5. C1 is intact. C2 is intact. C3 is intact. C4 is intact. C5 is intact. C6 is intact. C7 is intact. No prevertebral compartment hematoma. Calcified plaque in the left ICA. Tympanic cavities and mastoid air cells are aerated. CT/CT cervical spine wo IV con IMPRESSION: Multilevel spondylosis, C3-4 to C5-6 and ankylosis C6-7 with a levoconvex scoliosis at cervical thoracic junction. No acute fracture or trauma-related listhesis. Rudimentary ribs at C7, bilaterally. Fleischner guidelines were followed. Electronically signed by: Otoniel Solares MD 07/31/2024 01:12 PM [facility]
--- NOTE | ~2024-07-31 | XR_ITS ---
EXAMINATION: XR BILATERAL HIPS WITH AP PELVIS CLINICAL INFORMATION: pain after fall COMPARISON: None available. TECHNIQUE: AP view of the pelvis and single views of each hip were obtained. FINDINGS: Crosstable lateral view limited by habitus. Otherwise, no definite fracture, dislocation, or suspicious bone lesion. Normal alignment. Mild osteoarthritis in both hip joints. Soft tissues appear normal. XR/XR hip BI w PEL1V IMPRESSION: No acute findings pelvis or bilateral hips. Electronically signed by: Flavio Briceño MD 07/31/2024 12:42 PM [facility]
[2024-07-31 10:13] VITALS: BP 150/62; PULSE 74; RESP 18; TEMP 37; O2SAT 96; BMI 49.8
--- NOTE | 2024-07-31 10:28 | ED_ITS ---
HPI - Fall General Chief Complaint: Fall Stated Complaint: FALL HEAD LAC Time Seen by Provider: 07/31/24 10:13 Source: patient Mode of arrival: EMS History of Present Illness ED Provider: Sky HERNÁNDEZ Narrative: 74-year-old female with history of COPD, seizure disorder, RA, history of multiple falls and myasthenia gravis presents today after a fall where she landed on her bottom and struck the back of her head without loss of consciousness, she denies any use of chronic anticoagulation and now reports some neck pain and hip pain but declined C-collar. Related Data Home Medications ?Medication ?Instructions ?Recorded ?Confirmed acetaminophen 650 mg 650 mg PO Q8H 04/02/24 tablet,extended release fluticasone furoate 100 1 inh inhalation DAILY 04/02/24 mcg/actuation blister powder for inhalation (Arnuity Ellipta) levetiracetam 750 mg tablet 750 mg PO BID 04/02/24 pyridostigmine bromide 60 mg/5 mL 60 mg PO Q6H 04/02/24 oral syrup topiramate 200 mg tablet 200 mg PO DAILY 04/02/24 vibegron 75 mg tablet (Gemtesa) 75 mg PO DAILY 05/22/24 CPAP (CPAP Machine/Device) 06/16/24 calcium carbonate 600 mg PO DAILY 06/16/24 estradiol 0.01% (0.1 mg/gram) 1 g vaginal 2XW 06/16/24 vaginal cream fluticasone propionate 50 2 spray intranasal DAILY 06/16/24 mcg/actuation nasal spray,suspension folic acid 1 mg tablet 1 mg PO DAILY 06/16/24 methotrexate sodium 2.5 mg tablet 2.5 mg PO QWEEK 06/16/24 mirabegron 25 mg tablet,extended 25 mg PO DAILY 06/16/24 release 24 hr (Myrbetriq) multivitamin 1 tab PO DAILY 06/16/24 vitamin E (dl, acetate) 180 mg 180 mg PO DAILY 06/16/24 (400 unit) capsule vitamins A,C,T-baad-hkkgqt 4,296 1 cap PO BID 06/16/24 mcg-226 mg-90 mg capsule (PreserVision AREDS) Previous Rx's ?Medication ?Instructions ?Recorded ketoconazole 2 % topical cream 1 appl topical BID 10 days #30 04/02/24 grams albuterol sulfate 2.5 mg/3 mL 2.5 mg (3 mL) inhalation Q6H PRN 06/16/24 (0.083 %) solution for nebulization shortness of breath or wheezing 30 days #180 mL albuterol sulfate 90 mcg/actuation 2 inh inhalation Q6H PRN shortness 06/16/24 aerosol inhaler of breath or wheezing 30 days #18 grams cephalexin 500 mg capsule 500 mg PO Q6H 7 days #28 caps 07/30/24 amoxicillin 875 mg-potassium 1 tab PO BID 5 days #10 tabs 07/31/24 clavulanate 125 mg tablet Allergies Allergy/AdvReac Type Severity Reaction Status Date / Time codeine Allergy Unknown Hives Verified 07/31/24 10:28 asprin Allergy Mild Stomach Uncoded 07/31/24 10:28 Upset Review of Systems 2 Review of Systems: Pertinent positives and negatives as stated in HPI [facility] Past Medical History Source: nursing notes reviewed Medical History Asthma Intertrigo Detrusor instability of bladder KAVYA (obstructive sleep apnea) Asthma-COPD overlap syndrome Former smoker Myasthenia gravis Post-polio syndrome Lung nodules Rheumatoid arthritis Osteoarthritis of knees, bilateral Allergic rhinitis Elevated blood pressure reading Seizure disorder Glaucoma Epilepsy Surgical History History of bilateral cataract extraction Family History Family History Father Alcohol abuse Colon cancer CAD (coronary artery disease) Brother Glioblastoma Social History Social History Housing: Apartment Patient Tobacco Use Status: Never used Tobacco e-Cigarette/Vaping Use: Never Used Second Hand Smoke Exposure: No Advance Directives: Yes Advance Directives Information Provided: Yes Advance Directives on File: No Do you have a plan to hurt others: No Plan service: No Current occupational status: retired Current occupational exposures/hazards: No Cognitive needs: No Hearing needs: No Vision needs: Yes Physical Exam 2 Vital Signs: Vital Signs: Last Vital Signs Temp 98.6 F 07/31/24 10:13 Pulse 74 07/31/24 10:13 Resp 18 07/31/24 10:13 BP 150/62 H 07/31/24 10:13 Pulse Ox 96 07/31/24 10:13 O2 Del Method Room Air 07/31/24 10:13 BMI result Body Mass Index 49.8 VITAL SIGNS: Reviewed. GENERAL: elevated BMI,Well developed, well nourished, in no acute distress. HEAD: Normocephalic/atraumatic EYES: PERRLA, EOMI EARS: Ext canals without abnormality NOSE: Nares patent bilateral OROPHARYNX: no oral lesions noted, posterior pharynx clear NECK: Supple, no adenopathy LUNGS: Normal breath sounds. No adventitious sounds or accessory muscle use. CARDIOVASCULAR: Regular rate and rhythm without noted murmurs, no JVD or lower extremity edema. ABDOMEN: Soft, non-tender, non-distended with bowel sounds. PELVIS: stable, mild tenderness, no concerning extremity position MUSCULOSKELETAL: No tenderness, deformities, or effusions noted on gross inspection. EXTREMITIES: No cyanosis, clubbing or edema. SKIN: Inspection of the skin reveals no rashes NEUROLOGIC: Alert and oriented x 4. Strength and sensation to light touch were grossly intact x 4. Medical Decision Making Medical Decision Making [facility] Narrative: 74-year-old female with history and clinical presentation, DD DX: Fall will rule out cervical spine / head/pelvic pathologies, patient did have noted erythema and warmth to the left lower extremity / ankle area and will ensure this is no underlying bony abnormality versus a possible cellulitis. I reviewed and interpreted all investigations and there is a leukocytosis without anemia or thrombocytopenia. There is no demonstrate DOUGLAS /electrolyte or liver enzyme derangements. Urinalysis is positive for UTI, in addition patient certainly has a cellulitis and will provide antibiotics that will cover both. My interpretation of CT scan of the head and neck are that there is no evidence of intracranial hemorrhage/ mass effect/fracture or subluxation and otherwise my interpretation is in agreement with radiology's impression. X-ray of the hips negative for fracture or dislocation otherwise my interpretation is in agreement with radiology's impression. Patient has a UTI and a left lower extremity cellulitis which will be treated with Augmentin. Differential Diagnosis Differential Diagnoses: The differential diagnosis associated with the presentation includes As above Admission/Observation Consideration of admission/observation: Escalation of care including admission/observation considered Patient considered for admission but does not meet inpatient level of care. Lab Data [facility] Lab Attestation statement: I reviewed the patient's lab results. See above 07/31/24 11:19 07/31/24 11:19 Labs: Lab Results 07/31/24 07/31/24 Range/Units 11:19 13:03 WBC 13.0 H (4.8-10.8) X10*3/uL RBC 3.56 L (4.20-5.50) X10*6/uL Hgb 12.8 (12.0-16.0) g/dl Hct 37.3 (37.0-47.0) % MCV 104.8 H (80.0-98.0) fL MCH 36.0 H (27.0-33.0) pg MCHC 34.3 (31.0-35.0) g/dl RDW 12.6 (11.0-16.0) % Plt Count 269 D (160-400) X10*3/uL MPV 9.2 L (9.4-12.3) fL Immature Gran % (Auto) 0.8 H (0.0-0.4) % Neut % (Auto) 80.1 H (45-73) % Lymph % (Auto) 8.1 L (20-40) % Edgar % (Auto) 10.5 (2-11) % Eos % (Auto) 0.3 (0-4) % Baso % (Auto) 0.2 (0-2) % Lymph # (Auto) 1.1 L (1.2-4.9) X10*3/uL Edgar # (Auto) 1.4 H (0.1-1.2) X10*3/uL Eos # (Auto) 0.0 (0.0-0.4) X10*3/uL Baso # (Auto) 0.0 (0.0-0.2) X10*3/uL Abs Immat Gran (auto) 0.10 H (0.00-0.03) X10*3/uL Absolute Neuts (auto) 10.4 H (2.0-8.3) x10*3/uL Absolute Nucleated RBC 0.000 (0.0-0.012) X10*3/uL Nucleated RBC % (auto) 0.0 (0.0-0.2) /100WBC Sodium 143 (135-145) mmol/L Potassium 4.4 (3.3-5.1) mmol/L Chloride 114 H (96-108) mmol/L Carbon Dioxide 23 (22-29) mmol/L Anion Gap 10 L (12-20) BUN 30 H (9-16) mg/dL Creatinine 0.73 (0.5-1.4) mg/dL Estim Creat Clear Calc 68.2 Estimated GFR > 60 Random Glucose 97 (60-115) mg/dL Calcium 10.2 (8.4-10.2) mg/dL Total Bilirubin 0.6 (0.0-1.0) mg/dL AST 31 (5-31) U/L ALT 28 (0-31) U/L Alkaline Phosphatase 56 (39-117) U/L Total Protein 6.8 (6.5-8.0) g/dL Albumin 3.8 (3.5-5.0) g/dL Urine Color Yellow Urine Appearance Clear Urine pH 6.5 (5.0-9.0) Ur Specific [place] 1.015 (1.005-1.025) Urine Protein Trace (Neg-Trace) mg/dL Urine Glucose (UA) Negative (Negative) mg/dL Urine Ketones Negative (Negative) mg/dL Urine Blood Negative (Negative) Urine Nitrite Negative (Negative) Ur Leukocyte Esterase Moderate (2+) H (Negative) Urine RBC 0-2 (0-2) /HPF Urine WBC 11-20 H (0-5) /HPF Ur Squamous Epith Cells 6-10 (0-2) /HPF Urine Bacteria None Seen (None Seen) Hyaline Casts 0-2 (0-2) /LPF Independent Interpretation I performed an independent interpretation of an: Plain X-Ray Radiology Impression Discussion of test interpretation with radiology: I have reviewed the radiologist's reading. Radiologist Impression: see above External Record Review External record reviewed: Prior outpatient labs and Prior outpatient radiology Critical Care Time Critical Care Time Critical Care Time: Yes Total Critical Care Time: 30 Attestation: I personally attest to this time spent taking care of the patient. Discharge Plan Discharge Clinical Impression: Falls, Cellulitis, Urinary tract infection Patient Disposition: Home, Self-Care Instructions: Cellulitis (ED), Fall Prevention for Older Adults (ED), Urinary Tract Infection in Older Adults (ED) Additional Instructions: Resume all home medications as prescribed. You have been placed on a course of antibiotics and should complete the entire course, this is to treat both the cellulitis of your left lower leg as well as your urinary tract infection. Please follow-up with your primary care doctor in the next 2-3 days. Return to the ER for any worsening symptoms. Prescriptions: New amoxicillin-pot clavulanate 875-125 mg tablet 1 tab PO BID 5 Days Qty: 10 0RF No Action Arnuity Ellipta 100 mcg/actuation blister with device 1 inh inhalation DAILY levetiracetam 750 mg tablet 750 mg PO BID pyridostigmine bromide 60 mg/5 mL syrup 60 mg PO Q6H topiramate 200 mg tablet 200 mg PO DAILY acetaminophen 650 mg tablet extended release 650 mg PO Q8H ketoconazole 2 % cream 1 appl topical BID 10 Days Qty: 30 5RF Gemtesa 75 mg tablet 75 mg PO DAILY methotrexate sodium 2.5 mg tablet 2.5 mg PO QWEEK folic acid 1 mg tablet 1 mg PO DAILY (DME) CPAP Machine/Device Device See Rx Instructions .ROUTE Rx Instructions: As directed fluticasone propionate 50 mcg/actuation spray,suspension 2 spray intranasal DAILY Rx Instructions: administer into each nostril mirabegron [Myrbetriq] 25 mg tablet extended release 24 hr 25 mg PO DAILY estradiol 0.01 % (0.1 mg/gram) cream 1 g vaginal 2XW PreserVision AREDS 4,296 mcg-226 mg-90 mg capsule 1 cap PO BID calcium carbonate 600 mg calcium (1,500 mg) tablet 600 mg PO DAILY multivitamin Tablet 1 tab PO DAILY vitamin E (dl, acetate) 180 mg (400 unit) capsule 180 mg PO DAILY albuterol sulfate 2.5 mg /3 mL (0.083 %) solution for nebulization 2.5 mg inhalation Q6H PRN (Reason: shortness of breath or wheezing) 30 Days Qty: 180 11RF albuterol sulfate 90 mcg/actuation HFA aerosol inhaler 2 inh inhalation Q6H PRN (Reason: shortness of breath or wheezing) 30 Days Qty: 18 12RF cephalexin 500 mg capsule 500 mg PO Q6H 7 Days Qty: 28 0RF Referrals: Barbie Stephen MD [Primary Care Provider] - Print Language: Yemeni
[2024-07-31 11:23] LABS: MANUAL DIFF FLAG NO
[2024-07-31 11:24] LABS: Basophils Percent Auto 0.2 % (0-2); Eosinophils Percent Auto 0.3 % (0-4); Hematocrit 37.3 % (37.0-47.0); Hemoglobin 12.8 g/dl (12.0-16.0); Imm Gran Pct Auto 0.8 % (0.0-0.4); Lymphocytes Absolute Auto 1.1 X10*3/uL (1.2-4.9); Lymphocytes Percent Auto 8.1 % (20-40); Mean Corpuscular HGB Conc 34.3 g/dl (31.0-35.0); Mean Corpuscular Volume 104.8 fL (80.0-98.0); Mean Platelet Volume 9.2 fL (9.4-12.3); Monocytes Absolute Auto 1.4 X10*3/uL (0.1-1.2); Monocytes Percent Auto 10.5 % (2-11); Neutrophils Absolute Auto 10.4 x10*3/uL (2.0-8.3); Neutrophils Percent Auto 80.1 % (45-73); Platelet Count 269 X10*3/uL (160-400); Red Blood Count 3.56 X10*6/uL (4.20-5.50); Red Cell Distribution Width 12.6 % (11.0-16.0)
[2024-07-31 11:39] LABS: Alanine Aminotransferase 28 U/L (0-31); Albumin Level 3.8 g/dL (3.5-5.0); Alkaline Phosphatase 56 U/L (39-117); Anion Gap 10 (12-20); Aspartate Amino Transferase 31 U/L (5-31); Bilirubin Total 0.6 mg/dL (0.0-1.0); Blood Urea Nitrogen 30 mg/dL (9-16); Calcium 10.2 mg/dL (8.4-10.2); Carbon Dioxide 23 mmol/L (22-29); Chloride 114 mmol/L (96-108); Creatinine Clr Calc Pharmacy 68.2; Estimated Glomerular Filt Rate > 60; Glucose Random 97 mg/dL (60-115); Potassium 4.4 mmol/L (3.3-5.1); Sodium 143 mmol/L (135-145); Total Protein 6.8 g/dL (6.5-8.0)
[2024-07-31 13:11] LABS: Appearance Urine Clear; Color Urine Yellow; Glucose Urine UA Negative (Negative); Leukocyte Esterase Urine Moderate (2+) (Negative); Nitrite Urine Negative (Negative); PH 6.5 (5.0-9.0); Specific Gravity - Urine 1.015 (1.005-1.025); UMIC TRIGGER UACC YES; Urine Blood Negative (Negative); Urine Ketones Negative (Negative); Urine Protein Trace mg/dL (Neg-Trace)
[2024-07-31 13:17] LABS: Bacteria Urine None Seen (None Seen); Hyaline Casts Urine 0-2 /LPF (0-2); RBC Urine 0-2 /HPF (0-2); UACC Culture Trigger YES
--- NOTE | 2024-07-31 14:42 | PC.NURSE ---
PCt at bedside cleaning head wound
[2024-07-31 14:44] VITALS: BP 148/50; PULSE 74; RESP 19; TEMP 37; O2SAT 99
[2024-07-31] MEDS: Amoxicillin/Potassium Clav 875 MG TABLET PO (15:24)
--- NOTE | 2024-07-31 15:44 | MHC.EDTECH ---
Nurse asked for an ambulation trial for this patient and patient was not able to lift her left leg or take a step. Patient scooted her feet across the floor. This marine underwriter made nurse aware.
[2024-07-31 16:33] VITALS: BP 131/41; PULSE 64; RESP 18; TEMP 36.8
--- NOTE | 2024-07-31 16:37 | PC.NURSE ---
Beefy red cellulitis LLE to garza. Tender to touch. No drainage. Pt did not ambulate with walker well and this RN requesting PT eval for safe D/C. Pt is aware of adjustment to plan of care.
--- NOTE | 2024-07-31 18:00 | MHC.CM.ED ---
CM met with patient at the request of Dr. Swanson. Pt is A&Ox3. Lives alone in senior housing. Uses a rollator. Has MATHEMATICIAN 5 days/week, for 3 hours/day from [facility]. Has MOW Family also helps. Sister drives her to medical appointments. PCP and insurance verified. PT is pending for the am. Will place local [facility] referrals. Pt has no preference. Pt is aware that her insurance must authorize payment for her to go to STR. If denied, then home PT may be arranged for her. Pt acknowledges understanding.
[2024-07-31] MEDS: Acetaminophen 325 MG TABLET 650 MG PO (18:17)
[2024-07-31 19:17] VITALS: BP 161/69; PULSE 72; RESP 16; TEMP 36.3; O2SAT 96
--- NOTE | 2024-07-31 19:20 | MHC.EDTECH ---
This pct assumed care at 1900 ,Patient was moved into a hospital bed for comfort ,Patient was given care and change into a gown ,Patient was set up with sandwich and noris lucero for dinner ,Patient belongings list done .All safety measure in Place .
--- NOTE | 2024-07-31 21:19 | PHA.MEDREC ---
Pharmacy Consult ? Medication Reconciliation Pharmacy reviewed med rec done by nursing. I got the list that the list used to confirm it and then I asked the patient more about it and she stated her Health Care Proxy made the list and that it should be up to date with her medications. I updated a few medications that the nurse confirmed, the nurse confirmed the Methotrexate 2.5mg for 2.5mg once a week and in claims and on the list provided it stated take 6 tabs po on Saturdays , she also confirmed a Pyridostigmine Alpine 60mg/5mL solution with the directions 60mg Q6H and in claims and on the list it has down Pyridostigmine Alpine 60mg tab taking 1 tablet twice a day, The nurse confirmed Topiramate 200mg tab daily and in claims and on the list it is indicated that the Topirmate 200mg tab is taken 1 tab twice daily. Everything else matched the list and claims that was confirmed on the med rec.
[2024-07-31 21:25] VITALS: BP 148/66; PULSE 58; RESP 16; TEMP 36.8; O2SAT 97
--- NOTE | 2024-07-31 21:28 | MHC.EDTECH ---
2200 Rounding done ,vitals taken ,Patient resting quietly with eyes closed ,All safety measure in Place .
[2024-07-31] MEDS: Topiramate 100 MG TABLET 200 MG PO (22:07)
[2024-07-31] MEDS: levETIRAcetam 250 MG TABLET 750 MG PO (22:08)
--- NOTE | 2024-07-31 23:43 | MHC.EDTECH ---
0000 rounding done ,Patient sleeping ,all safety measure in Place .
[2024-08-01] VITALS (8 sets, daily range): BP systolic 116–165; BP diastolic 40–67; PULSE 56–65; RESP 14–18; TEMP 36.4–37.3; O2SAT 95–99
--- NOTE | 2024-08-01 05:30 | MHC.EDTECH ---
Patient awake ,vitals taken ,Patient wasassisted unto bedside commode ,void Heather care given ,Patient back in bed ,all safety measure in Place .
[2024-08-01] MEDS: Fluticasone Propionate 100 MCG BLST.W.DEV 1 PUFF INHALE ×2 (08:45→20:18)
[2024-08-01] MEDS: Fluticasone Propionate Nasal 16 GM SPRAY 2 SPRAY NOSTRIL-B (09:15)
[2024-08-01] MEDS: Topiramate 100 MG TABLET 200 MG PO ×2 (09:16→21:03)
[2024-08-01] MEDS: Multivitamin TABLET 1 TAB PO (09:17)
[2024-08-01] MEDS: levETIRAcetam 250 MG TABLET 750 MG PO ×2 (09:17→21:04)
[2024-08-01] MEDS: pyRIDostigmine bromide 60 MG TABLET PO ×2 (09:17→21:04)
[2024-08-01] MEDS: Folic Acid 1 MG TABLET PO (09:18)
[2024-08-01] MEDS: metHOTREXate sodium 2.5 MG TABLET 15 MG PO (09:51)
--- NOTE | 2024-08-01 10:58 | PC.NURSE ---
Resumed care of pt at 0700, pt sitting up in bed eating breakfast. A/ox3, respirations even and unlabored, no increased wob/sob noted, s1 and s2 heard, abdomen soft, non-tender on palpation. No c/o julian/cp/sob. Pt assisted onto bed pain, cleaned up and repositioned. Updated on plan of care, call stoddard within reach, all needs met at this time.
--- NOTE | 2024-08-01 11:55 | MHC.CM.PN ---
Addendum entered by Shabnam Raymond 08/01/24 12:42: CM SPOKE WITH HCP/[facility] PER PT'S REQUEST WITH AN UPDATE. SISTER WILL BRING PT CLOTHES AND HOME C PAP MACHINE FOR REHAB. Original Note: CM MET WITH PT AT BEDSIDE IN ED. P[facility]T. HAS REC [facility] OFFERED A BED PENDING INSURANCE AUTH AND PT ACCEPTS BED OFFER. [facility] WAS NOTIFIED TO START AUTH PROCESS.
[2024-08-01] MEDS: Amoxicillin/Potassium Clav 875 MG TABLET PO (12:28)
[2024-08-02] MEDS: Amoxicillin/Potassium Clav 875 MG TABLET PO ×2 (00:56→11:28)
[2024-08-02] MEDS: Acetaminophen 325 MG TABLET 975 MG PO (01:09)
--- NOTE | 2024-08-02 06:03 | PC.NURSE ---
pt resting comfortably throughout the night, no apparent distress noted at this time. breathing even and unlabored, call stoddard w/in reach
[2024-08-02 06:40] VITALS: BP 147/62; PULSE 54; RESP 12; TEMP 36.8; O2SAT 94
[2024-08-02] MEDS: Fluticasone Propionate 100 MCG BLST.W.DEV 1 PUFF INHALE ×2 (07:58→21:01)
[2024-08-02 07:59] VITALS: PULSE 64; RESP 16; O2SAT 97
[2024-08-02] MEDS: Topiramate 100 MG TABLET 200 MG PO ×2 (08:54→21:12)
[2024-08-02] MEDS: Folic Acid 1 MG TABLET PO (08:55)
[2024-08-02] MEDS: Multivitamin TABLET 1 TAB PO (08:55)
[2024-08-02] MEDS: levETIRAcetam 250 MG TABLET 750 MG PO ×2 (08:55→21:12)
[2024-08-02] MEDS: pyRIDostigmine bromide 60 MG TABLET PO ×2 (08:56→21:13)
--- NOTE | 2024-08-02 14:53 | MHC.CM.PN ---
PT REMAINS IN ED AWAITING INSURANCE AUTH TO ADMIT TO [facility]. CM WILL CONTINUE TO FOLLOW.
[2024-08-02 17:29] VITALS: BP 160/73; PULSE 60; RESP 18; TEMP 37.1; O2SAT 96
--- NOTE | 2024-08-02 18:15 | PC.NURSE ---
Pt alert and oriented, breathing even and unlabored, skin warm and dry. No pain or complaints. Ate all her meals today, swallowed pills whole one at a time
--- NOTE | 2024-08-02 20:44 | PC.NURSE ---
Patient alert and oriented x3, no signs of distress. Patient denies any pain at present. Purewick in place for comfort, call stoddard in reach. Plan of care ongoing.
[2024-08-02 21:02] VITALS: PULSE 60; RESP 16; O2SAT 97
--- NOTE | 2024-08-02 21:46 | PC.NURSE ---
Patient medicated per MAR, patient takes medications whole with water.
[2024-08-03] MEDS: Amoxicillin/Potassium Clav 875 MG TABLET PO ×2 (00:03→12:04)
[2024-08-03 06:20] VITALS: BP 136/61; PULSE 60; RESP 16; TEMP 36.8; O2SAT 95
--- NOTE | 2024-08-03 06:36 | PC.NURSE ---
Pericare provided, purewick replaced.
[2024-08-03 06:47] VITALS: BP 140/72; PULSE 58; RESP 15; TEMP 36.9; O2SAT 95
[2024-08-03] MEDS: Fluticasone Propionate 100 MCG BLST.W.DEV 1 PUFF INHALE (07:28)
[2024-08-03 07:29] VITALS: PULSE 58; RESP 15; O2SAT 98
--- NOTE | 2024-08-03 08:57 | MHC.CM.ED ---
Patient remains in ER. [address] [facility] is in the process of obtaining insurance auth. Continue to monitor for d/c needs.
[2024-08-03] MEDS: Folic Acid 1 MG TABLET PO (09:19)
[2024-08-03] MEDS: Multivitamin TABLET 1 TAB PO (09:19)
[2024-08-03] MEDS: levETIRAcetam 250 MG TABLET 750 MG PO (09:19)
[2024-08-03] MEDS: Topiramate 100 MG TABLET 200 MG PO (09:19)
--- NOTE | 2024-08-03 10:12 | PC.NURSE ---
Awaiting Mestinon per pharmacy at this time
[2024-08-03] MEDS: pyRIDostigmine bromide 60 MG TABLET PO (12:04)
[2024-08-03 12:36] VITALS: BP 139/70; PULSE 55; RESP 18; TEMP 36.9; O2SAT 95
--- NOTE | 2024-08-03 12:51 | MHC.CM.ED ---
Insurance auth has been obtained by [facility]. Patient can leave at 4pm. Ruy GOODWIN booked. Med [facility] with chart. Patient, Jina MCKEON and Joya BRIDGES aware. Spoke with patient's sister, Sarah, via telephone at [phone]. Sarah verbalizes understanding. She will not be available after 330pm today. She will bring clothes and her sister's cpap tomorrow morning. Continue to monitor for d/c needs.
[2024-08-03 14:28] VITALS: BP 151/62; PULSE 59; RESP 18; TEMP 36.8; O2SAT 96
[2024-08-03 16:27] VITALS: BP 151/62; PULSE 59; RESP 18; TEMP 36.8; O2SAT 96
--- NOTE | 2024-08-03 16:28 | MHC.EDTECH ---
Patient changed and repositioned
== END 2024-08-03 16:43 | disposition skilled nursing facility (03) ==
PROVIDERS: Emergency Provider Student in an Organized Health Care Education/Training Program; PCP Internal Medicine
DX: N39.0 Urinary tract infection, site not specified (principal); L03.90 Cellulitis, unspecified; Z91.81 History of falling; S09.90XA Unspecified injury of head, initial encounter; W19.XXXA Unspecified fall, initial encounter; Y93.9 Activity, unspecified; Y92.9 Unspecified place or not applicable; Y99.9 Unspecified external cause status; J44.9 Chronic obstructive pulmonary disease, unspecified; M06.9 Rheumatoid arthritis, unspecified; G70.00 Myasthenia gravis without (acute) exacerbation; Z79.899 Other long term (current) drug therapy
CPT/HCPCS: 36415; 70450; 72125; 73521; 80053; 81001; 85025; 87086; 94640; 94664; 97162; 99285

== ENCOUNTER → 2024-07-31 10:25 | Outpatient (BNV) | payer OTHER, SELFPAY | PROVIDERS: Emergency Provider Student in an Organized Health Care Education/Training Program; PCP Internal Medicine; Visit Provider Radiology Diagnostic Radiology | DX: T79.7XXA Traumatic subcutaneous emphysema, initial encounter (principal); M45.2 Ankylosing spondylitis of cervical region; M41.83 Other forms of scoliosis, cervicothoracic region; Q76.5 Cervical rib; S00.83XA Contusion of other part of head, initial encounter; M16.0 Bilateral primary osteoarthritis of hip | CPT/HCPCS: 70450; 72125; 73521 ==

== ENCOUNTER 2024-10-06 14:54 | Outpatient (REF) | payer OTHER, SELFPAY ==
[2024-10-06 10:52] VITALS: PULSE 67; O2SAT 99
--- NOTE | 2024-10-06 14:58 | PFT_ITS ---
Flows: FEV1: 97 % of predicted at 1.56 L FVC: 94 % of predicted at 1.94 L FEV1/FVC: 80 % Bronchodilator response: Present in small to medium airways only Volumes: Total lung capacity: 85 % of predicted at 3.22 L Residual volume: 78 % of predicted at 1.27 L Slow vital capacity: 90 % of predicted at 1.95 L Expiratory reserve volume: 21 % of predicted at 0.10 L Diffusion capacity: Moderately decreased. Impression: No obstructive or restrictive ventilatory defect. Bronchodilator response is present in small to medium airways only. Decreased expiratory reserve volume suggests extrathoracic restriction likely secondary to abdominal obesity. Decreased diffusion capacity suggests emphysema. MTDD
--- OUTSIDE RECORDS SUMMARY | 2024-10-06 15:53 | XMS_ITS | Encounter Summary ---
Author Organization [facility] Address [address] [facility] [facility] [place] [address] Care Team Providers Care Limnologist Name Role Phone Karma Wayne MD Primary Care Prov ider Rocky Najera MD Unavailable Unavailab Tashia Stubbs MD Unavailable Andres Henriquez MD Unavailable Unavailable Deysi Howe MD Unavailable Jassi Vaughan MD Unavailable Unavailable Sadiq Valverde MD Primary Care Provider Unav ailable Reason for Visit * Reason Comments E-prescribe Rx Request Encounter Details Date Type Department Care Team Description 12/05/2023 Refill Urogynecology [address] [id number] Deysi Howe MD [address] [place] [address] [place] [address] E-prescribe Rx Request Social History Tobacco Use Types Packs/Day Years Used Date Smoking Tobacco: Former Smokeless Tobacco: Never Comments:quit 1983 Alcohol Use Standard Drinks/Week Comments No 0 (1 standard drink = 0.6 oz pur e alcohol) Sex Assigned at Date Recorded Female 04/18/2022 1:31 PM E DT Job Start Date Occupation Industry Not on file Not on file Not on file documented as of this encounter Plan of Treatment Not on file documented as of this encounter Visit Diagnoses Not on filedocumented in this encounter Care Teams Limnologist Relationship Specialty Start Date End Date Karma Wayne MD [address] [place] [id number] PCP - General Internal Medicine 04/17/22 03/10/24 Sadiq Valverde MD [address] [place] [address] [place] [address] PCP - General Family Practice 03/11/24 Rocky Najera MD [address] [place] [id number] Specialist Neurology 08/22/22 Tashia Hewitt MD [address] [phone] Specialist Pulmonology 08/22/22 Andres Henriquez MD [address] [phone] Specialist Rheumatology 08/22/22 Deysi Howe MD [address] [place] [address] [place] [address] Specialist UROGYNECOLOGY 04/29/23 Jassi Vaughan MD [address] [place] [address] [place] [address] Specialist Ophthalmology 04/29/23 documented as of this encounter
--- OUTSIDE RECORDS SUMMARY | 2024-10-06 15:53 | XMS_ITS | Clinical Summary ---
Author Organization [facility] Address [address] [place] [address] Care Team Providers Care Medical Translator Name Role Phone Unavailable Primary Care Provider Unavailabl e Source Comments PLEASE NOTE, if this patient is a minor, it may be UNLAWFUL to discuss sensitive information that is contained in these records (such as FAMILY PLANNING, MENTAL HEALTH or SUBSTANCE ABUSE) with the minor patient's parent or other person without the patient's specific authorization.[facility] Social History Tobacco Use Types Packs/Day Years Used Date Smoking Tobacco: Never Assessed Comments Unknown Sex and Gender Information Value Date Recorded Sex Assigned at Not on file Legal Sex Female 12:22 PM PDT Gender Identity Not on file Sexual Orientation Not on file Last Filed Vital Signs Vital Sign Reading Time Taken Comments Blood Pressure - - Pulse - - Temperature - - Respiratory Rate - - Oxygen Saturation - - Inhaled Oxygen Concentration - - Weight 83.9 kg (185 lb) 03/08/2015 11:06 AM EDT Height 144.8 cm (4' 9 ) 03/08/2015 11:06 AM EDT Body Mass Index 40.03 03/08/2015 11:06 AM EDT Plan of Treatment [place] on file [place]
--- OUTSIDE RECORDS SUMMARY | 2024-10-06 15:53 | XMS_ITS | Encounter Summary ---
Author Organization [facility] Address [address] [place] [address] Care Team Providers Care Blocker Automatic Name Role Phone Karma Wayne MD Primary Care Prov ider Rocky Najera MD Unavailable Unavailab Tashia Stubbs MD Unavailable Andres Henriquez MD Unavailable Unavailable Deysi Howe MD Unavailable Jassi Vaughan MD Unavailable Unavailable Sadiq Valverde MD Primary Care Provider Unav ailable Reason for Visit * Reason Onset Date Comments Medication 03/09/2024 refill request 03/09/2024 Encounter Details Date Type Department Care Team Description 03/09/2024 Refill Pulmonology - [place] [address] [address] Tashia Hewitt MD 175 [facility] 200 [place] [phone] Medication; refill request Social History Tobacco Use Types Packs/Day Years Used Date Smoking Tobacco: Former Smokeless Tobacco: Never Comments:quit 1983 Alcohol Use Standard Drinks/Week Comments No 0 (1 standard drink = 0.6 oz pur e alcohol) Sex Assigned at Date Recorded Female 04/18/2022 1:31 PM E DT Job Start Date Occupation Industry Not on file Not on file Not on file documented as of this encounter Miscellaneous Notes * Telephone Encounter - Bridgette Castillo - 03/09/2024 10:24 AM EDT [place] 10/28/23 NOV - patient has [facility] patient is also requesting for provider to reffer her out to a new [address] . Please advice REFILL REQUEST for Fluticasone Furoate (Arnuity Ellipta) 100 MCG/ACT AEROSOL POWDER,BREATH ACTIVATED documented in this encounter Plan of Treatment Not on file documented as of this encounter Visit Diagnoses Diagnosis Chronic obstructive pulmonary disease, unspecified COPD type (HCC) documented in this encounter Care Teams Blocker Automatic Relationship Specialty Start Date End Date Karma Wayne MD [address] [place] [address] PCP - General Internal Medicine 04/17/22 03/10/24 Sadiq Valverde MD [address] [place] [address] [place] [address] PCP - General Family Practice 03/11/24 Rocky Najera MD [address] [place] [address] Specialist Neurology 08/22/22 Tashia Hewitt MD [address] [address] Specialist Pulmonology 08/22/22 Andres Henriquez MD [address] [phone] Specialist Rheumatology 08/22/22 Deysi Howe MD [address] [place] [address] [place] [address] Specialist UROGYNECOLOGY 04/29/23 Jassi Vaughan MD [address] [place] [address] [place] [address] Specialist Ophthalmology 04/29/23 documented as of this encounter
--- OUTSIDE RECORDS SUMMARY | 2024-10-06 15:53 | XMS_ITS | Encounter Summary ---
Author Organization [facility] Address [address] [facility] [place] [address] Care Team Providers Care Grinder Name Role Phone Jayleen Oneill DO Primary Care Pro vider Unavailable Trevin Douglas DO Primary Care Provider Carin vailable Dylan Edmond MD Primary Care Provider UnaBeto Rogers MD Unavailable Unavail able Adis Joe PA-C Unavailable Carin vailable Karma Wayne MD Primary Care Prov ider Rocky Najera MD Unavailable Unavailab Tashia Stubsb MD Unavailable Andres Henriquez MD Unavailable Unavailable Deysi Howe MD Unavailable Jassi Vaughan MD Unavailable Unavailable Sadiq Valverde MD Primary Care Provider Unav ailable Encounter Details Date Type Department Care Team Description 02/15/2020 Refill Pulmonology - [place] 175 [facility] [address] [place] [address] Ray Graham MD 175 [facility] [address] [place] [address] Social History Tobacco Use Types Packs/Day Years [...] on filedocumented in this encounter Care Teams Grinder Relationship Specialty Start Date End Date Jayleen Oneill DO PCP - General Internal Medicine 09/02/14 02/07/21 Trevin Douglas DO PCP - General Internal Medicine 02/08/21 Dylan Cruz MD PCP - General Internal Medicine 05/25/21 04/16/22 Karma Wayne MD [address] [place] [address] PCP - General Internal Medicine 04/17/22 03/10/24 Sadiq Valverde MD [address] [place] [address] [place] [address] PCP - General Family Practice 03/11/24 Beto Montes MD Specialist Neurology 08/17/21 08/21/22 Adis Joe PA-C Specialist ORTHOPEDICS 08/17/2106/10 Rocky Najera MD [address] [place] [address] Specialist Neurology 08/22/22 Tashia Hewitt MD [address] [phone] Specialist Pulmonology 08/22/22 Andres Henriquez MD [address] [address] Specialist Rheumatology 08/22/22 Deysi Howe MD [address] [place] [address] [place] [address] Specialist UROGYNECOLOGY 04/29/23 Jassi Vaughan MD [address] [place] [address] [place] [address] Specialist Ophthalmology 04/29/23 documented as of this encounter
--- OUTSIDE RECORDS SUMMARY | 2024-10-06 15:53 | XMS_ITS | Encounter Summary ---
Author Organization [facility] Address [address] [facility] [place] [address] Care Team Providers Care Solar Sales Specialist Name Role Phone Adis Joe PA-C Unavailable Carin vailable Karma Wayne MD Primary Care Prov ider Rocky Najera MD Unavailable Unavailab Tashia Stubbs MD Unavailable Andres Henriquez MD Unavailable Unavailable Deysi Howe MD Unavailable Jassi Vaughan MD Unavailable Unavailable Sadiq Valverde MD Primary Care Provider Unav ailable Encounter Details Date Type Department Care Team Description 02/27/2023 Orders Only Pulmonology - [place] 175 [facility] [address] [place] [address] Cheri Aquino MD 175 [place] [address] Chronic obstructive pulmonary disease, unspecified COPD type (HCC) (Primary Dx) Social History Tobacco Use Types Packs/Day Years [...] Chronic obstructive pulmonary disease, unspecified COPD type (HCC)- Primary documented in this encounter Care Teams Solar Sales Specialist Relationship Specialty Start Date End Date Karma Wayne MD [address] [place] [address] PCP - General Internal Medicine 04/17/22 03/10/24 Sadiq Valverde MD [address] [place] [address] [place] [address] PCP - General Family Practice 03/11/24 Adis Joe PA-C Specialist ORTHOPEDICS 08/17/2106/10 Rocky Najera MD [address] [place] [address] Specialist Neurology 08/22/22 Tashia Hewitt MD [address] [address] Specialist Pulmonology 08/22/22 Andres Henriquez MD [address] [address] Specialist Rheumatology 08/22/22 Deysi Howe MD [address] [place] [address] [place] [address] Specialist UROGYNECOLOGY 04/29/23 Jassi Vaughan MD [address] [place] [address] [place] [address] Specialist Ophthalmology 04/29/23 documented as of this encounter
--- OUTSIDE RECORDS SUMMARY | 2024-10-06 15:53 | XMS_ITS | Encounter Summary ---
Author Organization [facility] Address [address] [place] [address] Care Team Providers Care Bar Finish Operator Name Role Phone Karma Wayne MD Primary Care Prov ider Rocky Najera MD Unavailable Unavailab Tashia Stubbs MD Unavailable Andres Henriquez MD Unavailable Unavailable Deysi Howe MD Unavailable Jassi Vaughan MD Unavailable Unavailable Sadiq Valverde MD Primary Care Provider Unav ailable Encounter Details Date Type Department Care Team Description 11/25/2023 Telephone Adult Medicine [facility] [address] [place] [address] Karma Wayne MD [address] [place] [address] [phone] Social History Tobacco Use Types Packs/Day Years [...] encounter Miscellaneous Notes * Telephone Encounter - Ramon Vela.P.N. - 11/25/2023 2:49 PM EDT See FYI from triage nurse * Telephone Encounter - Maria Alejandra Rosa R.N - 11/25/2023 2:30 PM EDT Pt has appt for bp tomorrow Will forward to vna pool about ot services * Telephone Encounter - Shelia Holcomb - 11/25/2023 2:24 PM EDT VNA CALL Which [facility]NA office is calling? [facility] Full name of caller: Rayna The caller is An Occupational Therapist Is the caller at the patients home?: YES Reason for call: To let the provider know that her BP was elevated today 134/75 and that patient isbeing discharged from OT. Does caller need an urgent call back? NO Was CONTACT Telephone # obtained above?: YES Fax #: documented in this encounter Plan of Treatment Not on file documented as of this encounter Visit Diagnoses Not on filedocumented in this encounter Care Teams Bar Finish Operator Relationship Specialty Start Date End Date Karma Wayne MD [address] [place] [address] PCP - General Internal Medicine 04/17/22 03/10/24 Sadiq Valverde MD [address] [place] [address] [place] [address] PCP - General Family Practice 03/11/24 Rocky Najera MD [address] [place] [address] Specialist Neurology 08/22/22 Tashia Hewitt MD [address] [address] Specialist Pulmonology 08/22/22 Andres Henriquez MD [address] [phone] Specialist Rheumatology 08/22/22 Deysi Howe MD [address] [facility] [place] [address] Specialist UROGYNECOLOGY 04/29/23 Jassi Vaughan MD [address] [facility] [place] [address] Specialist Ophthalmology 04/29/23 documented as of this encounter
--- OUTSIDE RECORDS SUMMARY | 2024-10-06 15:53 | XMS_ITS | Encounter Summary ---
Author Organization [facility] Address [address] [place] [address] Care Team Providers Care Adult Basic Studies Teacher Name Role Phone Dylan Edmond MD Primary Care Provider Beto Mejias MD Unavailable Unavail able Adis Joe PA-C Unavailable Carin vailable Karma Wayne MD Primary Care Prov ider Rocky Najera MD Unavailable Unavailab Tashia Stubbs MD Unavailable Andres Henriquez MD Unavailable Unavailable Deysi Howe MD Unavailable Jassi Vaughan MD Unavailable Unavailable Sadiq Valverde MD Primary Care Provider Unav ailable Encounter Details Date Type Department Care Team Description 01/17/2022 Concrete Boom Operator Report Medical Records [address] [place] [address] Beto Montes MD Social History Tobacco Use Types Packs/Day Years [...] on filedocumented in this encounter Care Teams Adult Basic Studies Teacher Relationship Specialty Start Date End Date Dylan Edmond MD PCP - General Internal Medicine 05/25/21 04/16/22 Karma Wayne MD [address] [place] [address] PCP - General Internal Medicine 04/17/22 03/10/24 Sadiq Valverde MD [address] [place] [address] [place] [address] PCP - General Family Practice 03/11/24 Beto Montes MD Specialist Neurology 08/17/21 08/21/22 Adis Joe PA-C Specialist ORTHOPEDICS 08/17/2106/10 Rocky Najera MD [address] [place] [address] Specialist Neurology 08/22/22 Tashia Hewitt MD [address] [phone] Specialist Pulmonology 08/22/22 Andrse Henriquez MD [address] [phone] Specialist Rheumatology 08/22/22 Deysi Howe MD [address] [place] [address] [place] [address] Specialist UROGYNECOLOGY 04/29/23 Jassi Vaughan MD [address] [place] [address] [place] [address] Specialist Ophthalmology 04/29/23 documented as of this encounter
--- OUTSIDE RECORDS SUMMARY | 2024-10-06 15:53 | XMS_ITS | Encounter Summary ---
Author Organization [facility] Address [address] [place] [address] Care Team Providers Care Wire Taper Name Role Phone Sadiq Valverde MD Primary Care Provider [phone] Encounter Details Date Type Department Care Team (Late Contact Info) Description 08/04/2024 Lab Requisition [facility] - Main Lab [address] [facility] [place] [address] Yulia Orantes MD [address] [place] [address] Myasthenia gravis without (acute) exacerbation (CMS/HCC) Social History Tobacco Use Types Packs/Day Years Used Date Smoking Tobacco: Former Smokeless Tobacco: Never Alcohol Use Standard Drinks/Week Comments No 0 (1 standard drink = 0.6 oz pur e alcohol) Comments Unknown Sex and Gender Information Value Date Recorded Sex Assigned at Not on file Legal Sex Female 11:41 PM EST Gender Identity Not on file Sexual Orientation Not on file documented as of this encounter Plan of Treatment Upcoming Encounters Date Type Department Care Team (Late Contact Info) Description 10/30/2024 1:20 PM EDT Appointment Radiology Department - [address] [address] documented as of this encounter Procedures Procedure Name Priority Date/Time Associated Diagnosis Comments COMPLETE BLOOD COUNT Routine 08/04/2024 6:39 AM EST Myasthenia gravis without (acute) exacerbation (CMS/HCC) BASIC METABOLIC PANEL Routine 08/04/2024 6:39 AM EST Myasthenia gravis without (acute) exacerbation ([facility]) documented in this encounter Results * (ABNORMAL) Basic metabolic panel (08/04/2024 6:39 AM EST) Sodium 144 133 - 145 mmol/L LAB CHEMISTRY METHOD 08/04/2024 8:20 AM [facility] Potassium 4.8 3.5 - 5.5 mmol/L LAB CHEMISTRY METHOD 08/04/2024 8:20 AM [facility] Chloride 111(H) 96 - 110 mmol/L LAB CHEMISTRY METHOD 08/04/2024 8:20 AM [facility] CO2 25 21 - 32 mmol/L LAB CHEMISTRY METHOD 08/04/2024 8:20 AM [facility] Anion Gap 8 3 - 11 LAB CHEMISTRY METHOD 08/04/2024 8:20 AM [facility] Glucose 99 70 - 100 mg/dL LAB CHEMISTRY METHOD 08/04/2024 8:20 AM [facility] BUN 28(H) 5 - 25 mg/dL LAB CHEMISTRY METHOD 08/04/2024 8:20 AM [facility] Creatinine 0.91 0.50 - 1.10 mg/dL LAB CHEMISTRY METHOD 08/04/2024 8:20 AM [facility] eGFR 66 >=60 mL/min/1. 73m2 LAB CHEMISTRY METHOD 08/04/2024 8:20 AM [facility] Comment:Calculation based on the??Chronic Kidney Disease Epidemiology Collaboration (CKD-EPI) equation refit??without adjustment for race. BUN/Creatinine Ratio 30.8 LAB CHEMISTRY METHOD 08/04/2024 8:20 AM [facility] Calcium 10.4 8.5 - 10.5 mg/dL LAB CHEMISTRY METHOD 08/04/2024 8:20 AM [facility] Blood Venous blood specimen / Unknown Venipuncture / Unknown 08/04/2024 6:39 AM EST 08/04/2024 7:46 AM EST us Yulia Orantes MD LAB BLOOD ORDERABLES Final Resul t [facility] [address] [place] [address], [place] [phone] * (ABNORMAL) Complete blood count (08/04/2024 6:39 AM EST) WBC 9.5 4.8 - 10.8 K/mcL LAB HEMETOLOGY METHOD 08/04/2024 8:06 AM [facility] RBC 3.80 3.80 - 4.80 M/mcL LAB HEMETOLOGY METHOD 08/04/2024 8:06 AM [facility] Hemoglobin 13.1 11.5 - 16.0 g/dL LAB HEMETOLOGY METHOD 08/04/2024 8:06 AM [facility] Hematocrit 40.6 35.0 - 47.0 % LAB HEMETOLOGY METHOD 08/04/2024 8:06 AM [facility] MCV 107.7(H) 79.0 - 98.0 FL LAB HEMETOLOGY METHOD 08/04/2024 8:06 AM [facility] MCH 34.7(H) 27.0 - 32.0 pcg LAB HEMETOLOGY METHOD 08/04/2024 8:06 AM [facility] MCHC 32.3 32.0 - 37.0 g/dL LAB HEMETOLOGY METHOD 08/04/2024 8:06 AM [facility] RDW 12.3 11.0 - 15.0 % LAB HEMETOLOGY METHOD 08/04/2024 8:06 AM [facility] Platelets 346 130 - 400 K/mcL LAB HEMETOLOGY METHOD 08/04/2024 8:06 AM [facility] MPV 9.4 7.0 - 11.0 FL LAB HEMETOLOGY METHOD 08/04/2024 8:06 AM EST [facility] NRBC 0.0 <1.0 % LAB HEMETOLOGY METHOD 08/04/2024 8:06 AM EST [facility] NRBC Absolute 0.00 <0.10 K/mcL LAB HEMETOLOGY METHOD 08/04/2024 8:06 AM EST [facility] Blood Venous blood specimen / Unknown Venipuncture / Unknown 08/04/2024 6:39 AM EST 08/04/2024 7:46 AM EST us Yulia Orantes MD LAB BLOOD ORDERABLES Final Resul t [facility] [address] [place] [address], documented in this encounter Visit Diagnoses Diagnosis Myasthenia gravis without (acute) exacerbation ([facility]) Encounter for screening mammogram for breast cancer documented in this encounter Additional Health Concerns Infection Onset Date Last Indicated Resolved Time Respiratory Rule-Out 09/22/2024 09/21/2024 025 1:02 PM EST documented as of this encounter Care Teams Wire Taper Relationship Specialty Start Date End Date Sadiq Valverde MD [address] [place] [address] Dr Debi [place] PCP - General 03/11/24 documented as of this encounter
--- OUTSIDE RECORDS SUMMARY | 2024-10-06 15:53 | XMS_ITS | Encounter Summary ---
Author Organization [facility] Address [address] [place] [address] Care Team Providers Care Chicken Hatchery Helper Name Role Phone Jayleen Oneill DO Primary [...] for Visit * Reason Onset Date Comments Testing 10/01/2019 DXA bone density study 1+ sits axial skel Encounter Details Date Type Department Care Team Description 10/01/2019 Telephone Adult Medicine [address] [address] Cassandra Alvarez MD Testing (DXA bone density study 1+ sits axial skel) Social History Tobacco Use Types Packs/Day Years [...] encounter Miscellaneous Notes * Telephone Encounter - Mellissa Babcock M.A. - 10/05/2019 3:44 PM EST Order cancelled. * Telephone Encounter - Jayleen Wong DO - 10/02/2019 2:26 PM EST Okay to cancel * Telephone Encounter - Mellissa Babcock M.A. - 10/01/2019 2:59 PM EST DXA bone density study 1+ sits axial skel was ordered on 03/18/19, do you want to complete the orderor cancel it? Please route message back to me. documented in this encounter Plan of Treatment Not on file documented as of this encounter Visit Diagnoses Not on filedocumented in this encounter Care Teams Chicken Hatchery Helper Relationship Specialty Start Date End Date Jayleen Oneill DO PCP - General Internal Medicine 09/02/14 02/07/21 Trevin Douglas DO PCP - General Internal Medicine 02/08/21 1 Dylan Edmond MD PCP - General Internal Medicine 05/25/21 04/16/22 Karma Wayne MD [address] [place] [address] PCP - General Internal Medicine 04/17/22 03/10/24 Sadiq Valverde MD [address] [place] [address] [place] [address] PCP - General Family Practice 03/11/24 Beto Montes MD Specialist Neurology 08/17/21 08/21/22 Adis Joe PA-C Specialist ORTHOPEDICS 08/17/2106/10 Rocky Najera MD [address] [place] [address] Specialist Neurology 08/22/22 Tashia Hewitt MD [address] [address] Specialist Pulmonology 08/22/22 Andres Henriquez MD [address] [address] Specialist Rheumatology 08/22/22 Deysi Howe MD [address] [place] [address] [place] [address] Specialist UROGYNECOLOGY 04/29/23 Jassi Vaughan MD [address] [place] [address] [place] [address] Specialist Ophthalmology 04/29/23 documented as of this encounter
--- OUTSIDE RECORDS SUMMARY | 2024-10-06 15:53 | XMS_ITS | Encounter Summary ---
Author Organization [facility] Address [address] [place] [address] Care Team Providers Care Meeting/Event Planner Name Role Phone Sadiq Valverde MD Primary Care Provider Encounter Details Date Type Department Care Team (Late Contact Info) Description 09/22/2024 Lab Requisition [facility] - Main Lab [address] [facility] [place] [address] Yulia Orantes MD [address] [place] [address] Nasal congestion; Headache, unspecified Social History Tobacco Use Types Packs/Day Years [...] 1:20 PM EDT Appointment Radiology Department - [address] [phone] documented as of this encounter Procedures Procedure Name Priority Date/Time Associated Diagnosis Comments [id number], RSV, FLU A AND B QUALITATIVE RT-PCR, LOCAL REFERENCE LAB Routine 09/21/2024 12:00 AM EST Nasal congestion Headache, unspecified documented in this encounter Results * [id number], RSV, Influenza A and B qualitative RT-PCR (09/21/2024 12:00 AM EST) SARS COV-2 Not Detected Not Detected LAB MOLECULAR DIAGNOSTICS METHOD 09/22/2024 1:02 PM [facility] Comment: Disclaimer: The manner in which this information is used to guide patient care is the responsibility of the healthcare provider. Testing was performed using the KYCK.comniVerid m SARS-CoV-2 test. This test has been authorized by FDA under an Emergency Use Authorization (EUA). This test is only authorized for the duration of time the declaration that circumstances exist justifying the authorization of the emergency use of in vitro diagnostic tests for detection of SARS-CoV-2 virus and/or diagnosis of COVID-19 infection under section 564(b)(1) of the Act, 21 U.S.C. 360bbb- 3(b)(1), unless the authorization is terminated or revoked sooner. Fact sheet for Healthcare Providers can be found at: https://www.fda.gov/media/994498/download Fact sheet for Patients can be found at: https://www.fda.gov/media/437438/download Influenza A PCR Not Detected Not Detected LAB MOLECULAR DIAGNOSTICS METHOD 09/22/2024 1:02 PM [facility] Influenza B PCR Not Detected Not Detected LAB MOLECULAR DIAGNOSTICS METHOD 09/22/2024 1:02 PM [facility] RSV PCR Not Detected Not Detected LAB MOLECULAR DIAGNOSTICS METHOD 09/22/2024 1:02 PM [facility] Swab Nasopharyngeal structure / Unknown Non-blood Collection / Unknown 09/21/2024 09/22/2024 10:49 AM EST Yulia Orantes MD LAB MICROBIOLOGY - GENERAL ORDER SHARMAINE Final Result [facility] [address] [place] [address], documented in this encounter Visit Diagnoses Diagnosis Nasal congestion Other diseases of nasal cavity and sinuses Headache, unspecified Encounter for screening mammogram for breast cancer documented in this encounter Additional Health Concerns Infection Onset Date Last Indicated Resolved Time Respiratory Rule-Out 09/22/2024 09/21/2024 025 1:02 PM EST documented as of this encounter Care Teams Meeting/Event Planner Relationship Specialty Start Date End Date Sadiq Valverde MD [address] [place] [address] Dr German [address] CHARLES Byrnes PCP - General 03/11/24 documented as of this encounter
--- OUTSIDE RECORDS SUMMARY | 2024-10-06 15:53 | XMS_ITS | Encounter Summary ---
Author Organization [facility] Address [address] [place] [address] Care Team Providers Care Business Communications Instructor Name Role Phone Trevin Douglas DO Primary Care Provider Carin vailable Dylan Edmond MD Primary Care Provider Beto [...] Details Date Type Department Care Team Description 05/05/2021 Director Medical Report Medical Records [address] [place] [id number] Jose Luis Perkins MD Social History Tobacco Use Types Packs/Day Years Used Date Smoking Tobacco: Former Smokeless Tobacco: Never Comments:quit 1983 Alcohol Use Standard Drinks/Week Comments No 0 (1 standard drink = 0.6 oz pur e alcohol) Sex Assigned at Date Recorded Female 04/18/2022 1:31 PM E DT Job Start Date Occupation Industry Not on file Not on file Not on file COVID-19 Exposure Response Date Recorded In the last month, have you been in contact with someone who was confirmed or suspected to have Coronavirus / COVID-19? No / Unsure 04/27/2021 1:15 PM EDT documented as of this encounter Plan of Treatment Not on file documented as of this encounter Visit Diagnoses Not on filedocumented in this encounter Care Teams Business Communications Instructor Relationship Specialty Start Date End Date Trevin Douglas DO PCP - General Internal Medicine 02/08/21 1 Dylan Edmond MD PCP - General Internal Medicine 05/25/21 04/16/22 Karma Wayne MD [address] [place], [place] [phone] PCP - General Internal Medicine 04/17/22 03/10/24 Sadiq Valverde MD [address] [place] [address] [place] [address] PCP - General Family Practice 03/11/24 Beto Montes MD Specialist Neurology 08/17/21 08/21/22 Adis Joe PA-C Specialist ORTHOPEDICS 08/17/2106/10 Rocky Najera MD [address] [place] [address] Specialist Neurology 08/22/22 Tashia Hewitt MD [address] [phone] Specialist Pulmonology 08/22/22 Andres Henriquez MD [address] [phone] Specialist Rheumatology 08/22/22 Deysi Howe MD [address] [place] [address] [place] [address] Specialist UROGYNECOLOGY 04/29/23 Jassi Vaughan MD [address] [place] [address] [place] [address] Specialist Ophthalmology 04/29/23 documented as of this encounter
--- OUTSIDE RECORDS SUMMARY | 2024-10-06 15:53 | XMS_ITS | Encounter Summary ---
Author Organization [facility] Address [address] [facility] [place] [address] Care Team Providers Care Business Analytics Analyst Name Role Phone Karma Wayne MD Primary Care Prov ider Rocky Najera MD Unavailable Unavailab Tashia Stubbs MD Unavailable Andres Henriquez MD Unavailable Unavailable Deysi Howe MD Unavailable Jassi Vaughan MD Unavailable Unavailable Sadiq Valverde MD Primary Care Provider Unav ailable Encounter Details Date Type Department Care Team Description 11/25/2023 Business Rules Developer Report Medical Records [address] [place] [phone] Abstract, Provider Social History Tobacco Use Types Packs/Day Years [...] filedocumented in this encounter Care Teams Business Analytics Analyst Relationship Specialty Start Date End Date Karma Wayne MD [address] [place] [address] PCP - General Internal Medicine 04/17/22 03/10/24 Sadiq Valverde MD [address] [facility] [place] [address] PCP - General Family Practice 03/11/24 Rocky Najera MD [address] [place] [address] Specialist Neurology 08/22/22 Tashia Hewitt MD [address] [phone] Specialist Pulmonology 08/22/22 Andres Henriquez MD [address] [phone] Specialist Rheumatology 08/22/22 Deysi Howe MD [address] [place] [address] [place] [address] Specialist UROGYNECOLOGY 04/29/23 Jassi Vaughan MD [address] [place] [address] [place] [address] Specialist Ophthalmology 04/29/23 documented as of this encounter
--- OUTSIDE RECORDS SUMMARY | 2024-10-06 15:53 | XMS_ITS | Encounter Summary ---
Author Organization [facility] Address [address] [place] [address] Care Team Providers Care Glue Bone Crusher Name Role Phone Sadiq Valverde MD Primary Care Provider Encounter Details Date Type Department Care Team (Late Contact Info) Description 08/21/2024 Lab Requisition [facility] - Main Lab [address] [facility] [place] [address] Yulia Orantes MD [address] [place] [address] Unspecified convulsions (CMS/HCC) Social History Tobacco Use Types Packs/Day [...] 1:20 PM EDT Appointment Radiology Department - [address] [phone] documented as of this encounter Procedures Procedure Name Priority Date/Time Associated Diagnosis Comments COMPLETE BLOOD COUNT Routine 08/24/2024 9:47 AM EST Unspecified convulsions (CMS/HCC) BASIC METABOLIC PANEL Routine 08/24/2024 9:47 AM EST Unspecified convulsions (CMS/HCC) documented in this encounter Results * (ABNORMAL) Basic metabolic panel (08/24/2024 9:47 AM EST) Sodium 140 133 - 145 mmol/L LAB CHEMISTRY METHOD 08/24/2024 2:54 PM [facility] Potassium 4.3 3.5 - 5.5 mmol/L LAB CHEMISTRY METHOD 08/24/2024 2:54 PM [facility] Chloride 111(H) 96 - 110 mmol/L LAB CHEMISTRY METHOD 08/24/2024 2:54 PM [facility] CO2 24 21 - 32 mmol/L LAB CHEMISTRY METHOD 08/24/2024 2:54 PM [facility] Anion Gap 5 3 - 11 LAB CHEMISTRY METHOD 08/24/2024 2:54 PM [facility] Glucose 101(H) 70 - 100 mg/dL LAB CHEMISTRY METHOD 08/24/2024 2:54 PM [facility] BUN 18 5 - 25 mg/dL LAB CHEMISTRY METHOD 08/24/2024 2:54 PM [facility] Creatinine 0.88 0.50 - 1.10 mg/dL LAB CHEMISTRY METHOD 08/24/2024 2:54 PM [facility] eGFR 69 >=60 mL/min/1. 73m2 LAB CHEMISTRY METHOD 08/24/2024 2:54 PM [facility] Comment:Calculation based on the??Chronic Kidney Disease Epidemiology Collaboration (CKD-EPI) equation refit??without adjustment for race. BUN/Creatinine Ratio 20.5 LAB CHEMISTRY METHOD 08/24/2024 2:54 PM [facility] Calcium 9.6 8.5 - 10.5 mg/dL LAB CHEMISTRY METHOD 08/24/2024 2:54 PM [facility] Blood Venous blood specimen / Unknown Venipuncture / Unknown 08/24/2024 9:47 AM EST 08/24/2024 1:30 PM EST us Yulia Orantes MD LAB BLOOD ORDERABLES Final Resul t [facility] [address] [place] [address], [place] [phone] * (ABNORMAL) Complete blood count (08/24/2024 9:47 AM EST) WBC 8.5 4.8 - 10.8 K/mcL LAB HEMETOLOGY METHOD 08/24/2024 2:04 PM [facility] RBC 4.10 3.80 - 4.80 M/mcL LAB HEMETOLOGY METHOD 08/24/2024 2:04 PM [facility] Hemoglobin 14.2 11.5 - 16.0 g/dL LAB HEMETOLOGY METHOD 08/24/2024 2:04 PM [facility] Hematocrit 44.0 35.0 - 47.0 % LAB HEMETOLOGY METHOD 08/24/2024 2:04 PM [facility] MCV 106.5(H) 79.0 - 98.0 FL LAB HEMETOLOGY METHOD 08/24/2024 2:04 PM [facility] MCH 34.4(H) 27.0 - 32.0 pcg LAB HEMETOLOGY METHOD 08/24/2024 2:04 PM [facility] MCHC 32.3 32.0 - 37.0 g/dL LAB HEMETOLOGY METHOD 08/24/2024 2:04 PM [facility] RDW 13.2 11.0 - 15.0 % LAB HEMETOLOGY METHOD 08/24/2024 2:04 PM [facility] Platelets 368 130 - 400 K/mcL LAB HEMETOLOGY METHOD 08/24/2024 2:04 PM [facility] MPV 10.2 7.0 - 11.0 FL LAB HEMETOLOGY METHOD 08/24/2024 2:04 PM EST [facility] NRBC 0.0 <1.0 % LAB HEMETOLOGY METHOD 08/24/2024 2:04 PM EST [facility] NRBC Absolute 0.00 <0.10 K/mcL LAB HEMETOLOGY METHOD 08/24/2024 2:04 PM EST [facility] Blood Venous blood specimen / Unknown Venipuncture / Unknown 08/24/2024 9:47 AM EST 08/24/2024 1:30 PM EST us Yulia Orantes MD LAB BLOOD ORDERABLES Final Resul t [facility] [address] [place] [address], documented in this encounter Visit Diagnoses Diagnosis Unspecified convulsions (CMS/[facility]) Encounter for screening mammogram for breast cancer documented in this encounter Additional Health Concerns Infection Onset Date Last Indicated Resolved Time Respiratory Rule-Out 09/22/2024 09/21/2024 025 1:02 PM EST documented as of this encounter Care Teams Glue Bone Crusher Relationship Specialty Start Date End Date Sadiq Valverde MD [address] [place] [address] Dr Debi [place] PCP - General 03/11/24 documented as of this encounter
--- OUTSIDE RECORDS SUMMARY | 2024-10-06 15:53 | XMS_ITS | Clinical Summary ---
Author Organization [employer] Address [address] [facility] [address] [place] [address] Care Team Providers Care Litigation Claim Representative Name Role Phone Unavailable Primary Care Provider Unavailabl e Allergies Active Allergy Reactions Criticality Noted Date Comments Aspirin Nausea Only 10/20/2014 Codeine Dizziness,Other 05/04/2013 Seizure Medications albuterol 108 (90 Base) MCG/ACT inhaler Inhale 2 puffs. 1 Active fluticasone (Flonase) 50 MCG/ACT nasal spray USE 2 SPRAY(S) IN EACH NOSTRIL ONCE DAILY 3 Active Flovent HFA 110 MCG/ACT inhaler Inhale 1 puff 2 times daily. 3 Active folic acid (Folvite) 1 MG tablet Take 1,000 mcg by mouth in the morning. 3 Active levETIRAcetam (Keppra) 750 MG tablet Take 1 tablet by mouth 2 times daily. 3 Active methotrexate 2.5 MG tablet TAKE 6 TABLETS BY MOUTH ONCE WEEKLY ON Saturdays 3 Active Multiple Vitamins-Minera ls (PreserVision AREDS 2) capsule Take 2 capsules by mouth. Active Oxybutynin Chloride 2.5 MG tablet Take 1 tablet by mouth. 3 Active topiramate (Topamax) 200 MG tablet Take 200 mg by mouth 2 times daily. 3 Active Vitamin E 400 units tablet Take 1 tablet by mouth in the morning. Active Calcium Carbonate-Vitam in D 250-3.125 MG-MCG tablet Take by mouth 3 times daily. Active levETIRAcetam (Keppra) 750 MG tablet Take 1 tablet by mouth 2 times daily. 0 Active folic acid-vit B6-vit B12 2.5-25-1 MG tablet tablet Active azithromycin (Zithromax) 250 MG tablet Take two tablets on day one followed by one tablet from day two until gone. 6 tablet 4 Active Arnuity Ellipta 100 MCG/ACT inhaler Inhale 1 puff Once per day. Active Myrbetriq 25 MG 24 hr tablet Take 25 mg by mouth Once per day. Active pyridostigmine (Mestinon) 60 MG tablet Take 60 mg by mouth 2 times daily. Active Gemtesa 75 MG tablet Take 1 tablet by mouth Once per day. 4 Active Active Problems Problem Noted Date Diagnosed Date Left foot drop 03/05/2024 Overview (03/05/2024): Due childhood polio Had bilateral foot surgeries as a teenager for deformities Dysarthria 04/29/2023 Myasthenia gravis 04/07/2021 Overview (03/05/2024): Dx 2020. MuSK antibody positive. Sees Dr. Montes Immunosuppressive therapy with prednisone; Rituxan started 05/2021. DNR (do not resuscitate) 02/08/2021 Overview (03/05/2024): dnr/dni Medical orders for life-sust aining treatment (MOLST) form in chart 02/08/2021 Epilepsy 10/27/2020 Overview (03/05/2024): Dr. Cristopher George Overview: Dr. Cristopher George RA (rheumatoid arthritis) 10/27/2020 Overview (03/05/2024): Onset ~ 2013 Prior treatments: Methotrexate and Plaquenil started late 2013 sulfasalazine added 01/31 Plaquenil stopped 05/04 - not helping Enbrel added 05/[address] of Enbrel and sulfasalazine (inadequate Response) 12/04: Prednisone added for myasthenia gravis. We will stop the Xeljanz but continue methotrexate neuro is planning additional treatment for the myasthenia with rituximab. Overview: Onset ~ 2013 Prior treatments: Methotrexate and Plaquenil started late 2013 sulfasalazine added 01/31 Plaquenil stopped 05/04 - not helping Enbrel added 05/[address] of Enbrel and sulfasalazine (inadequate Response) 12/04 Osteoarthritis of both knees 09/23/2019 Overview (03/05/2024): L>R Gel injections summer 2018, 10/08 for left knee Overview: L>R Gel injections summer 2018, 10/08 for left knee Chronic idiopathic granulomatous disease 019 Chronic obstructive pulmonary disease 05/11/2019 Physical deconditioning 05/11/2019 Gait instability 03/18/2019 Osteoporosis 03/18/2019 Morbid obesity 07/04/2018 Morbid obesity with BMI of 50.0-59.9, adult 06/19 Obstructive sleep apnea syndrome 05/30/2018 Overview (03/05/2024): [facility] Home Polysomnogram: Date 05/27/2018; AHI 8, Unclassified apneas 0; Obstructive apneas 8; Central apneas 1; Mixed apneas 0; hypopneas 45; average oxygen saturation 94% (lowest 84% without saturations <88% for 5% or more of study) [facility] Polysomnogram treatment study. Date 06/28/2018. SE 61 % SM 72 %; spent 5 % of the study in REM. On CPAP @ 6; RDI 1 (AHI 1), Central apneas 1; Obstructive apneas 1; Mixed apneas 0; hypopneas 1; RERAs 0; and, average oxygen saturation was 95%. For the entire study, PLMs ~9. - Obstructive Sleep Apnea - mild; mostly hypopneas with some obstructive apneas; without sleep related hypoventilation by 2018 home polysomnogram. - CPAP @ 6 corrective. Overview: [facility] Home Polysomnogram: Date 05/27/2018; AHI 8, Unclassified apneas 0; Obstructive apneas 8; Central apneas 1; Mixed apneas 0; hypopneas 45; average oxygen saturation 94% (lowest 84% without saturations <88% for 5% or more of study) [facility] Polysomnogram treatment study. Date 06/28/2018. SE 61 % SM 72 %; spent 5 % of the study in REM. On CPAP @ 6; RDI 1 (AHI 1), Central apneas 1; Obstructive apneas 1; Mixed apneas 0; hypopneas 1; RERAs 0; and, average oxygen saturation was 95%. For the entire study, PLMs ~9. - Obstructive Sleep Apnea - mild; mostly hypopneas with some obstructive apneas; without sleep related hypoventilation by 2018 home polysomnogram. - CPAP @ 6 corrective. 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 Social History Tobacco Use Types Packs/Day Years Used Date Smoking Tobacco: Never Smokeless Tobacco: Never Tobacco Cessation:Counseling Given: Not Answered Comments Unknown Sex and Gender Information Value Date Recorded Sex Assigned at Female 06/18/2022 10:24 AM EDT Legal Sex Female 10:24 AM EDT Gender Identity Female 06/18/2022 10:24 AM EDT Sexual Orientation Straight 06/18/2022 10 :24 AM EDT Last Filed Vital Signs Vital Sign Reading Time Taken Comments Blood Pressure 134/78 07/28/2024 2:43 PM EST Pulse 80 07/01/2024 2:38 PM EST Temperature - - Respiratory Rate - - Oxygen Saturation - - Inhaled Oxygen Concentration - - Weight - - Height - - Body Mass Index - - Plan of Treatment Health Maintenance Due Date Last Done Comments CT Colonography 1949 Colonoscopy 1949 Colorectal Cancer Screening 1949 Depression Screening 1949 FIT DNA/Cologuard 1949 FIT 1949 FOBT 1949 Lipid Panel 1949 SDOH Screening 1949 Sigmoidoscopy 1949 Alcohol/Substance Use Screening 1961 Hepatitis C Screening 1967 RSV Patients and Patients Aged 60 years or older (1 - 1-dose 75+ series) 2024 COVID-19 Vaccine ( season) 2024 05/12/2024, 05/17/2023, 08/27/2022, Additional history exists Dental Oral Exam 08/12/2024 02/10/2024 Dental Prophylaxis 12/30/2024 07/01/2024, 02/10/2024 Dental X-Ray: Bitewings 02/10/2025 02/10/2024, 12/11 Tobacco Screening 07/28/2025 07/28/2024 Dental X-Ray: Full Mouth 02/10/2027 02/10/2024 DTaP/Tdap/Td Vaccines (2 - Td or Tdap) 10/05/2031 10/05/2021, 05/04/2008, 04/24/2008 Hepatitis B Vaccines Completed 11/08/2017, 06/12/2017, 05/15/2017 Zoster Vaccines Completed 02/07/2021, 12/06/2020 Influenza Vaccine Completed 05/12/2024, , 04/29/2023, Additional history exists Pneumococcal Vaccine: 50+ Years Completed 06/16/2024, 06/16/2024, 11/01/2015, Additional history exists HIB Vaccines Aged Out No longer eligi ble based on patient's age to complete this topic HPV Vaccines Aged Out No longer eligi ble based on patient's age to complete this topic Hepatitis A Vaccines Aged Out No long er eligible based on patient's age to complete this topic IPV Vaccines Aged Out No longer eligi ble based on patient's age to complete this topic Meningococcal Vaccine Aged Out No viridiana altagracia eligible based on patient's age to complete this topic RSV under 20 months Aged Out No longe r eligible based on patient's age to complete this topic Rotavirus Vaccines Aged Out No longer eligible based on patient's age to complete this topic Procedures Procedure Name Priority Date/Time Associated Diagnosis Comments 14 DLL(V) RESIN-BASED COMPOSITE - 2 SURF, POSTERIOR Routine 07/28/2024 2:00 PM EST Dental caries Reversible pulpitis PROPHYLAXIS - ADULT Routine 07/01/2024 3 :00 PM EST INTRAORAL - COMPLETE SERIES OF RADIOGRAPHIC IMAGES Routine 02/10/2024 3:00 PM EDT Dental calculus Secondary dental caries associated with failed or defective dental jew PERIODIC ORAL EVALUATION - ESTABLISHED PATIENT Routine 02/10/2024 3:00 PM EDT Dental calculus Secondary dental caries associated with failed or defective dental jew from Last 3 Months or Most Recently Relevant to Health Maintenance Insurance DENTAL - [place] [address] CHARLES PEREZ [id number] CHARLES PEREZ [id number]
--- OUTSIDE RECORDS SUMMARY | 2024-10-06 15:53 | XMS_ITS | Encounter Summary ---
Author Organization [facility] Address [address] [facility] [place] [facility] [place] [address] Care Team Providers Care Websphere Commerce Developer Name Role Phone Jayleen Oneill DO Primary [...] Primary Care Provider Unav ailable Reason for Referral * EXTERNAL (Routine) - Authorized/Booked Specialty Diagnoses / Procedures Referred By Contac t Referred To Contact Oncology/Hematology Procedures REFERRAL TO ONCOLOGY/HEMATOLOGY (IN NETWORK) Jayleen Oneill DO [address] [place] [address] [facility] [address] [place] [address] Referral ID Status Reason Start Date Expiration Date V isits Requested Visits Authorized SEE NOTE Authorized/B ooked 09/29/2020 12/27/2020 1 1 Encounter Details Date Type Department Care Team Description 09/29/2020 Orders Only Adult Medicine [address] [address] Jayleen Oneill DO Social History Tobacco Use Types Packs/Day Years [...] have Coronavirus / COVID-19? No / Unsure 09/28/2020 8:00 AM EST documented as of this encounter Plan of Treatment Not on file documented as of this encounter Visit Diagnoses Not on filedocumented in this encounter Care Teams Websphere Commerce Developer Relationship Specialty Start Date End Date Jayleen Oneill DO PCP - General Internal Medicine 09/02/14 02/07/21 Trevin Douglas DO PCP - General Internal Medicine 02/08/21 1 Dylan [place] MD PCP - General Internal Medicine 05/25/21 04/16/22 Karma Wayne MD [address] [place] [address] PCP - General Internal Medicine 04/17/22 03/10/24 Sadiq Valverde MD [address] [place] [address] [place] [address] PCP - General Family Practice 03/11/24 Beto Montes MD Specialist Neurology 08/17/21 08/21/22 Adis Joe PA-C Specialist ORTHOPEDICS 08/17/2106/10 Rocky Najera MD [address] [place] [address] Specialist Neurology 08/22/22 Tashia Hewitt MD [address] [place] [phone] Specialist Pulmonology 08/22/22 Andres Henriquez MD [address] [facility] [address] [place] [address] Specialist Rheumatology 08/22/22 Deysi Howe MD [address] [facility] [place] [address] Specialist UROGYNECOLOGY 04/29/23 Jassi Vaughan MD [address] [facility] [place] [address] Specialist Ophthalmology 04/29/23 documented as of this encounter
--- OUTSIDE RECORDS SUMMARY | 2024-10-06 15:53 | XMS_ITS | Encounter Summary ---
Author Organization [facility] Address [address] [place] [address] Care Team Providers Care Document Processor Name Role Phone Dylan [place] MD Primary Care Provider Beto Mejias MD Unavailable Unavail able Adis oJe PA-C Unavailable Carin vailable Karma Wayne MD Primary Care Prov ider Rocky Najera MD Unavailable Unavailab Tashia Stubbs MD Unavailable Andres Henriquez MD Unavailable Unavailable Deysi Howe MD Unavailable Jassi Vaughan MD Unavailable Unavailable Sadiq Valverde MD Primary Care Provider Unav ailable Encounter Details Date Type Department Care Team Description 07/01/2021 Director Hospice Operations Report Medical Records [address] [place] [address] Beto Montes MD Social History Tobacco Use [...] have Coronavirus / COVID-19? No / Unsure 06/13/2021 2:22 PM EDT documented as of this encounter Plan of Treatment Not on file documented as of this encounter Visit Diagnoses Not on filedocumented in this encounter Care Teams Document Processor Relationship Specialty Start Date End Date Dylan [place] MD PCP - General Internal Medicine 05/25/21 04/16/22 Karma Wayne MD [address] [place] [address] PCP - General Internal Medicine 04/17/22 03/10/24 Sadiq Valverde MD [address] [place] [address] [place] [address] PCP - General Family Practice 03/11/24 Beto Montes MD Specialist Neurology 08/17/21 08/21/22 Adis Joe PA-C Specialist ORTHOPEDICS 08/17/2106/10 Rocky Najera MD [address] [place] [address] Specialist Neurology 08/22/22 Tashia Hewitt MD [address] [phone] Specialist Pulmonology 08/22/22 Andres Henriquez MD [address] [phone] Specialist Rheumatology 08/22/22 Deysi Howe MD [address] [place] [address] [place] [address] Specialist UROGYNECOLOGY 04/29/23 Jassi Vaughan MD [address] [place] [address] [place] [address] Specialist Ophthalmology 04/29/23 documented as of this encounter
--- OUTSIDE RECORDS SUMMARY | 2024-10-06 15:53 | XMS_ITS | Encounter Summary ---
Author Organization [employer] Address [address] [facility] [address] [address] [place] [address] Care Team Providers Care Digital Asset Specialist Name Role Phone Unavailable Primary Care Provider Unavailabl e Reason for Visit * Reason Onset Date Comments Prior Authorization 01/17/2023 Encounter Details Date Type Department Care Team (Late st Contact Info) Description 01/17/2023 Telephone [facility] [address] [place] [address] Michi Hitchcock DDS [address] [place] [address] Prior Authorization Social History Tobacco Use Types Packs/Day Years Used Date Smoking Tobacco: Never Smokeless Tobacco: Never Comments Unknown Sex and Gender Information Value Date Recorded Sex Assigned at Female 06/18/2022 10:24 AM EDT Legal Sex Female 10:24 AM EDT Gender Identity Female 06/18/2022 10:24 AM EDT Sexual Orientation Straight 06/18/2022 10 :24 AM EDT COVID-19 Exposure Response Date Recorded In the last 10 days, have yo u been in contact with someone who was confirmed or suspected to have Coronavirus/COVID-19? No / Unsure 01/20/2023 3:36 PM EDT documented as of this encounter Miscellaneous Notes * Telephone Encounter - Irma Peng - 01/17/2023 8:54 AM EDT YULIANA for RCT approved and expires 07/07/2023. Patient is looking to schedule appt with Dr. Hitchcock. documented in this encounter Plan of Treatment Not on file documented as of this encounter Visit Diagnoses Not on filedocumented in this encounter
--- OUTSIDE RECORDS SUMMARY | 2024-10-06 15:53 | XMS_ITS | Encounter Summary ---
Author Organization [employer] Address [address] [place] [address] Care Team Providers Care Customer Service Sales Associate Name Role Phone Unavailable Primary Care Provider Unavailabl e Encounter Details Date Type Department Care Team (Latest Contact Info) Description 07/20/2019 Abstract [facility] CONVERSIONS Dental, Provider, DDS Social History Tobacco Use Types Packs/Day Years Used Date Smoking Tobacco: Never Assessed Comments Unknown Sex and Gender Information Value Date Recorded Sex Assigned at Female 06/18/2022 10:24 AM EDT Legal Sex Female 10:24 AM EDT Gender Identity Female 06/18/2022 10:24 AM EDT Sexual Orientation Straight 06/18/2022 10 :24 AM EDT documented as of this encounter Plan of Treatment Not on file documented as of this encounter Visit Diagnoses Not on filedocumented in this encounter
--- OUTSIDE RECORDS SUMMARY | 2024-10-06 15:53 | XMS_ITS | Encounter Summary ---
Author Organization [facility] Address [address] [place] [address] Care Team Providers Care German Tutor Name Role Phone Sadiq Valverde MD Primary Care Provider Encounter Details Date Type Department Care Team (Late Contact Info) Description 08/15/2024 Lab Requisition [facility] - Main Lab [address] [facility] [place] [address] Yulia Orantes MD [address] [place] [address] Unspecified convulsions (CMS/HCC) Social History Tobacco Use [...] 1:20 PM EDT Appointment Radiology Department - [address] [phone] documented as of this encounter Procedures Procedure Name Priority Date/Time Associated Diagnosis Comments COMPLETE BLOOD COUNT Routine 08/17/2024 6:17 AM EST Unspecified convulsions (CMS/HCC) BASIC METABOLIC PANEL Routine 08/17/2024 6:17 AM EST Unspecified convulsions (CMS/HCC) documented in this encounter Results * (ABNORMAL) Basic metabolic panel (08/17/2024 6:17 AM EST) Sodium 141 133 - 145 mmol/L LAB CHEMISTRY METHOD 08/17/2024 12:[address] [facility] Potassium 4.2 3.5 - 5.5 mmol/L LAB CHEMISTRY METHOD 08/17/2024 12:[address] [facility] Chloride 112(H) 96 - 110 mmol/L LAB CHEMISTRY METHOD 08/17/2024 12:[address] [facility] CO2 25 21 - 32 mmol/L LAB CHEMISTRY METHOD 08/17/2024 12:[address] [facility] Anion Gap 4 3 - 11 LAB CHEMISTRY METHOD 08/17/2024 12:[address] [facility] Glucose 91 70 - 100 mg/dL LAB CHEMISTRY METHOD 08/17/2024 12:[address] [facility] BUN 23 5 - 25 mg/dL LAB CHEMISTRY METHOD 08/17/2024 12:[address] [facility] Creatinine 0.80 0.50 - 1.10 mg/dL LAB CHEMISTRY METHOD 08/17/2024 12:[address] [facility] eGFR 77 >=60 mL/min/1. 73m2 LAB CHEMISTRY METHOD 08/17/2024 12:[address] [facility] Comment:Calculation based on the??Chronic Kidney Disease Epidemiology Collaboration (CKD-EPI) equation refit??without adjustment for race. BUN/Creatinine Ratio 28.8 LAB CHEMISTRY METHOD 08/17/2024 12:[address] [facility] Calcium 10.1 8.5 - 10.5 mg/dL LAB CHEMISTRY METHOD 08/17/2024 12:[address] [facility] Blood Venous blood specimen / Unknown Venipuncture / Unknown 08/17/2024 6:17 AM EST 08/17/2024 10:56 AM EST us Yulia Orantes MD LAB BLOOD ORDERABLES Final Resul t [facility] [address] [place] [address], * (ABNORMAL) Complete blood count (08/17/2024 6:17 AM EST) WBC 8.5 4.8 - 10.8 K/mcL LAB HEMETOLOGY METHOD 08/17/2024 12:[address] [facility] RBC 3.90 3.80 - 4.80 M/mcL LAB HEMETOLOGY METHOD 08/17/2024 12:[address] [facility] Hemoglobin 13.1 11.5 - 16.0 g/dL LAB HEMETOLOGY METHOD 08/17/2024 12:[address] [facility] Hematocrit 41.4 35.0 - 47.0 % LAB HEMETOLOGY METHOD 08/17/2024 12:[address] [facility] MCV 107.0(H) 79.0 - 98.0 FL LAB HEMETOLOGY METHOD 08/17/2024 12:[address] [facility] MCH 33.9(H) 27.0 - 32.0 pcg LAB HEMETOLOGY METHOD 08/17/2024 12:[address] [facility] MCHC 31.6(L) 32.0 - 37.0 g/dL LAB HEMETOLOGY METHOD 08/17/2024 12:[address] [facility] RDW 13.1 11.0 - 15.0 % LAB HEMETOLOGY METHOD 08/17/2024 12:[address] [facility] Platelets 374 130 - 400 K/mcL LAB HEMETOLOGY METHOD 08/17/2024 12:[address] [facility] MPV 9.9 7.0 - 11.0 FL LAB HEMETOLOGY METHOD 08/17/2024 12:48 PM EST [facility] NRBC 0.0 <1.0 % LAB HEMETOLOGY METHOD 08/17/2024 12:48 PM EST [facility] NRBC Absolute 0.00 <0.10 K/mcL LAB HEMETOLOGY METHOD 08/17/2024 12:48 PM EST [facility] Blood Venous blood specimen / Unknown Venipuncture / Unknown 08/17/2024 6:17 AM EST 08/17/2024 10:56 AM EST us Yulia Orantes MD LAB BLOOD ORDERABLES Final Resul t [facility] [address] [place] [address], documented in this encounter Visit Diagnoses Diagnosis Unspecified convulsions (CMS/[facility]) Encounter for screening mammogram for breast cancer documented in this encounter Additional Health Concerns Infection Onset Date Last Indicated Resolved Time Respiratory Rule-Out 09/22/2024 09/21/2024 025 1:02 PM EST documented as of this encounter Care Teams German Tutor Relationship Specialty Start Date End Date Sadiq Valverde MD [address] [place] [address] Dr Debi [place] PCP - General 03/11/24 documented as of this encounter
--- OUTSIDE RECORDS SUMMARY | 2024-10-06 15:53 | XMS_ITS | Encounter Summary ---
Author Organization [facility] Address [address] [facility] [place] [facility] [place] [address] Care Team Providers Care Metalizer Name Role Phone Jayleen Oneill DO Primary [...] for Visit * Reason Onset Date Comments DME Request 11/27/2019 CPAP supplies Encounter Details Date Type Department Care Team Description 11/27/2019 Telephone Pulmonology - [place] [address] [facility] [facility] [address] [place] [address] Leticia Garcia FNP [address] [place] [address] DME Request (CPAP supplies) Social History Tobacco Use Types Packs/Day Years [...] encounter Miscellaneous Notes * Telephone Encounter - Geena Atwood M.A. - 11/27/2019 2:05 PM EDT Order, demo, and notes faxed to [facility] for CPAP supplies documented in this encounter Plan of Treatment Not on file documented as of this encounter Visit Diagnoses Not on filedocumented in this encounter Care Teams Metalizer Relationship Specialty Start Date End Date Jayleen Oneill, PCP - General Internal Medicine 09/02/14 02/07/21 Trevin Douglas DO PCP - General Internal Medicine 02/08/21 1 Dylan Edmond MD PCP - General Internal Medicine 05/25/21 04/16/22 Karma Wayne MD [address] [place] [address] PCP - General Internal Medicine 04/17/22 03/10/24 Sadiq Valverde MD [address] [place] [address] [place] [address] PCP - General Family Practice 03/11/24 Beto Montes MD Specialist Neurology 08/17/21 08/21/22 Adis Joe PA-C Specialist ORTHOPEDICS 08/17/2106/10 Rocky Najera MD [address] [place] [address] Specialist Neurology 08/22/22 Tashia Hewitt MD [address] [place] [phone] Specialist Pulmonology 08/22/22 Andres Henriquez MD [address] [phone] Specialist Rheumatology 08/22/22 Deysi Howe MD [address] [facility] [place] [address] Specialist UROGYNECOLOGY 04/29/23 Jassi Vaughan MD [address] [facility] [place] [address] Specialist Ophthalmology 04/29/23 documented as of this encounter
--- OUTSIDE RECORDS SUMMARY | 2024-10-06 15:53 | XMS_ITS ---
Author Name Matt CERVANTES Cary Address [address] [place] [address] Phone [phone] [facility] Care Team Providers Care Information Systems Auditor Name Role Phone Cary Gutierrez Unavailable [phone] Unavailable Unavailable Unavailable Unavailable Unavailable Unavailable Reason for Referral Not Available Allergies, adverse reactions, alerts Allergen Type Reaction Severity Status Onset Date Aspirin Allergy to substance (disorder) Unknown Active N/A Codeine Allergy to substance (disorder) Unknown Active N/A History of medication use Medication Class Instructions Start Date End Date Arnuity Ellipta 100 MCG/ACT Aerosol Powder Breath Activated Inhalation INHALE 1 PUFF BY MOUTH ONCE DAILY 2023-10-21 No Data Available Folic Acid 1 mg Tab TAKE 1 TABLET BY RONALD TH ONCE DAILY 2023-07-24 No Data Available levETIRAcetam 750 mg Tab TAKE 1 TABLET B Y MOUTH TWICE DAILY 2023-11-22 No Data Available Methotrexate Sodium 2.5 mg Tab TAKE 6 TABLETS BY MOUTH EVERY Saturday2023-11-12 No Data Available Myrbetriq 25 mg Tab ER 24hr TAKE 1 TABLE T BY MOUTH ONCE DAILY 2023-10-28 2024-05-26 Topiramate 200 mg Tab TAKE 1 TABLET BY M OUTH TWICE DAILY 2023-12-09 No Data Available pyRIDostigmine Carney 60 mg Tab TAKE 1 TABLET BY MOUTH TWICE DAILY 2023-01-15 No Data Available Albuterol Sulfate HFA 108 (9 0 Base) MCG/ACT Aerosol Solution Inhalation 2 puffs Q 4-6H PRN cough, wheezing, SOB 2024-03-23 No Data Available Fluticasone Propionate 50 MCG/ACT Suspension Nasal use 1 spray in each nostril daily 2024-03-23 No Data Available Estradiol 0.1 mg/GM Crm Vaginal Uses twice a week 2024-03-23 No Data Available Amoxicillin 500 mg Cap TAKE 1 CAPSULE BY MOUTH EVERY 8 HOURS FOR 7 DAYS 2023-12-12 No Data Available Azithromycin 250 mg Tab TAKE 2 TABLETS B Y MOUTH ON DAY 1, AND THEN TAKE 1 TABLET BY MOUTH ONCE A DAY ON DAY 2 THROUGH DAY 5 2024-01-16 No Data Available Ketoconazole 2 % Crm APPLY 1 APPLICATION OF CREAM TOPICALLY TWICE DAILY FOR 10 DAYS 2024-04-02 No Data Available Gemtesa 75 mg Tab 1 tablet orally daily 2024-05-26 N o Data Available Myrbetriq 25 mg Tab ER 24hr TAKE 1 TABLE T BY MOUTH ONCE DAILY 2024-03-09 2024-06-19 Cephalexin 500 mg Cap TAKE 1 CAPSULE BY MOUTH EVERY 6 HOURS FOR 7 DAYS 2024-07-30 No Data Available Problem List Problem Status Onset Date Resolved Date Myasthenia gravis Active 2024-03-23 N/A Class 1 obesity due to exces s calories with serious comorbidity and body mass index (BMI) of 34.0 to 34.9 in adult Active 2024-03-23 N/A 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 Active 2024-03-23 N/A KAVYA (obstructive sleep apnea) Active 2024-04-29 N/A Bipolar disorder Active 2024-03-23 N/A Other problems related to [facility] facilities and other health care Active 2024-03-23 N/A Rheumatoid arthritis Active 2024-03-23 N/A Overactive bladder Active 2024-05-26 N/A COPD (chronic obstructive pulmonary disease) Active 2024-03-23 N/A History of fall Active 2024-08-21 N/A Encounters Encounters Type Facility Date of Service Diagnosis/Co mplaint New patient,40-59min; chronic exacerbation, 2 stable chronic or 1 acute illness add add modifier 95 for video (do not use for phone, instead use [id number]) [facility], ([place] Chronic obstructive pulmonar y disease, unspecifiedBipolar disorder, unspecifiedRheumatoid arthritis, unspecifiedMyasthenia gravis without (acute) exacerbationImmunodeficiency due to conditions classified elsewherePersonal history of nicotine dependenceOther problems related to medical facilities and other health careOther obesity due to excess caloriesBody mass index (bmi) 34.0-34.9, adult New patient,40-59min; chronic exacerbation, 2 stable chronic or 1 acute illness add add modifier 95 for video (do not use for phone, instead use [id number]) [facility], ([place] New patient,40-59min; chronic exacerbation, 2 stable chronic or 1 acute illness add add modifier 95 for video (do not use for phone, instead use 11761-58) [facility], ([place]) 03/23/2024 New patient,40-59min; chronic exacerbation, 2 stable chronic or 1 acute illness add add modifier 95 for video (do not use for phone, instead use [id number]) [facility], ([place]) 03[place]23/20[place] New patient,40-59min; chronic exacerbation, 2 stable chronic or 1 acute illness add add modifier 95 for video (do not use for phone, instead use [id number]) [facility], ([place] 03[place] New patient,40-59min; chronic exacerbation, 2 stable chronic or 1 acute illness add add modifier 95 for video (do not use for phone, instead use [id number]) [facility], ([place]) 03/23/2024 New patient,40-59min; chronic exacerbation, 2 stable chronic or 1 acute illness add add modifier 95 for video (do not use for phone, instead use 23869-43) [facility], ([place]) 03/23/20[place] New patient,40-59min; chronic exacerbation, 2 stable chronic or 1 acute illness add add modifier 95 for video (do not use for phone, instead use [id number]) [facility] ([place] 03/[place]/2024 No Data Available [facility] 04[place]2024 Chronic obstructive pulmonar y disease, unspecifiedObstructive sleep apnea (adult) (pediatric)Other problems related to medical facilities and other health careRheumatoid arthritis, unspecified No Data Available [facility] 04[place]2024 No Data Available [facility]2024 Overactive bladderChronic obstructive pulmonary disease, unspecifiedOther problems related to medical facilities and other health care No Data Available [facility] 05[place]2024 No Data Available [facility] 06[place]2024 Chronic obstructive pulmonar y disease, unspecifiedOveractive bladderOther problems related to medical facilities and other health care No Data Available [facility] No Data Available [facility] Chronic obstructive pulmonar y disease, unspecifiedOther problems related to medical facilities and other health care No Data Available [facility] ([place] Estab. patient 10-29min; 1 minor problem; add add modifier 95 for video, modifier 93 for phone [facility] ([place]2024 Injury, unspecified, subsequ ent encounterUnspecified fall, subsequent encounterOther problems related to medical facilities and other health care Estab. patient 10-29min; 1 minor problem; add add modifier 95 for video, modifier 93 for phone [facility] [place] 08/[place]/2024 Vital Signs Date of Collection Vitals 2024-03-23 12:42:20 Height - 175.26 cmWe ight - 105.69 kgBody Mass Index (BMI) - 34.41 kg/m2BP Diastolic - 58.0 mm[Hg]BP Systolic - 145.0 mm[Hg] Social History Social History Social History Observation Description Effec tive Time Current Smoking Status Former smoker 2024-09-19 7 Sex Female History of Procedures Procedures Service Procedure code Service date Servicing provider Phone# New patient,40-59min; chronic exacerbation, 2 stable chronic or 1 acute illness add add modifier 95 for video (do not use for phone, instead use [id number]) 86100 2024-03-23 No Data Available No Data Availa ble Pain Assessment - NO pain present (1126F) 1126F 2024-03-23 No Data Available No Data A vailable Medication List Documented (1159F) 1159F 2024-03-23 No Data Available No Data Michelle ilable Advance Care Directive Advance care planning discussion documented in the medical record (1158F) 1158F 2024-03-23 No Data Available No Data Availa ble BMI obtained (3008F) 3008F 2024-03-23 No Data Availab le No Data Available Advance care planning discussed and documented ? advance care plan or surrogate decision-maker was documented in the medical record. (1123F) 1123F 2024-03-23 No Data Available No Data Availa ble SBP >= 140 3077F 2024-03-23 No Data Available No Data Available DBP <80 (3078F) 3078F 2024-03-23 No Data Available No Data Available No Data Available [id number] 2024-04-29 No Data Available No Data Available Medication List Documented (1159F) 1159F 2024-04-29 No Data Available No Data Michelle ilable No Data Available [id number] 2024-05-26 No Data Available No Data Available Medication List Documented (1159F) 1159F 2024-05-26 No Data Available No Data Michelle ilable No Data Available [id number] 2024-06-19 No Data Available No Data Available Medication List Documented (1159F) 1159F 2024-06-19 No Data Available No Data Michelle ilable No Data Available [id number] 2024-07-15 No Data Available No Data Available Medication List Documented (1159F) 1159F 2024-07-15 No Data Available No Data Michelle ilable Estab. patient 10-29min; 1 minor problem; add add modifier 95 for video, modifier 93 for phone [id number] 2024-08-21 No Data Available No Data Availa ble Medication List Documented (1159F) 1159F 2024-08-21 No Data Available No Data Imchelle ilable Functional Status Functional Category Effective Dates Rollator to ambulate 2024-03-23 Mental Status No Information Assessments Date of Service Assessments 2024-03-23 12:42:20 COPD (chronic obstru ctive pulmonary disease)Arnuity Ellipta & Albuterol Call for any worsening SOB to see about adding a nebulizer to your current plan. Rinse mouth out with water if using inhalers with a steroid in them. If you have thick sputum call. Plans would be to order Mucinex to thin the secretions. If you use this medication you must drink a full glass of water with this medication to help liquefy the secretions. Avoid things that make your COPD worse i.e. pet dander, dust, fumes etc. If you start sneezing use a OTC nasal spray. If you have runny eyes or nose take a allergy pill or you may need to switch your allergy pill d/t tolerance has built up. May need to change bed linen or clothes more frequently d/t allergens in the air. Will consider Lab and CXR and use of Abx to prevent treatment failure. Will consider Steroid 40mg daily x 5-10 days Quit smoking or stay away from secondhand smoke. Stay away from sick contacts.Other problems related to medical facilities and other health careCOPD CONTINGENCY PLANDELETE ME!!!Why was the member in the hospital or ER most recently? Why are they most likely to go back? What specific symptoms does this person have that is likely to take them back to the ER?Member to call for the following symptoms: Breathing loudly??/ WheezingPlanned intervention: Increase use of albuterol inhaler to q2h PRN cough, breathlessnessBipolar disorderlevETIRAcetam & Topiramate Periodic rechecking of PHQ9 to reassess mood. Observe for changes in hygiene, flow of speech, use or lack of eye contact. Member should report any worsening S&S of depression for the ability to check PHQ9 result.Rheumatoid arthritisTakes MethotrexateD/t multiple joints involvement consider Prednisone burst pack. If a maintenance dose is required always wean prednisone to the lowest dose. Member is taking a DMARD to have good glycemic control and to prevent increase with infections if you think it is d/t RA. Check Sed Rate & CRP and RA markers.Myasthenia gravispyRIDostigmine BromideCondition involves muscle weakness that worsens after periods of activity and improves with periods of rest. Certain muscles such as eyes, eyelids movements, facial expressions, chewing, and swallowing are often involved. F/u with Rheumatoid MD or Neurologist or both as needed.Myasthenia gravispyRIDostigmine BromideCondition involves muscle weakness that worsens after periods of activity and improves with periods of rest. Certain muscles such as eyes, eyelids movements, facial expressions, chewing, and swallowing are often involved. F/u with Rheumatoid MD or Neurologist or both as needed.Class 1 obesity due to excess calories with serious comorbidity and body mass index (BMI) of 34.0 to 34.9 in adultRecommend a DASH diet and count calories and increase activity gradually. Consider oupt weight loss center.Immunodeficiency due to conditions classified elsewhereD/t medication for her RA that impact the immune system. Weakened immune system, encourage hand washing, avoid large crowds, stay up to date on vaccines (annual flu), monitor for and report early any s/s of infection 2024-04-29 13:25:09 COPD (chronic obstru ctive pulmonary disease)KAVYA (obstructive sleep apnea)Rheumatoid arthritisOther problems related to medical facilities and other health care 2024-05-26 14:12:38 Overactive bladderCO PD (chronic obstructive pulmonary disease)Other problems related to medical facilities and other health care 2024-06-19 12:26:34 COPD (chronic obstru ctive pulmonary disease)Overactive bladderOther problems related to medical facilities and other health care 2024-07-15 07:21:10 COPD (chronic obstru ctive pulmonary disease)Other problems related to medical facilities and other health care 2024-08-21 08:40:42 History of fallOther problems related to medical facilities and other health care Plan of Care Date of Service Plans 2024-03-23 12:42:20 Change levETIRAcetam 750 mg Tab TAKE 1 TABLET BY MOUTH TWICE DAILY #180 each RFx0 Do NOT substitute - CLAUDINE.Change Arnuity Ellipta 100 MCG/ACT Aerosol Powder Breath Activated Inhalation INHALE 1 PUFF BY MOUTH ONCE DAILY #90 each RFx0 Do NOT substitute - CLAUDINE.Change Methotrexate Sodium 2.5 mg Tab TAKE 6 TABLETS BY MOUTH EVERY SATURDAY #24 each RFx0 Do NOT substitute - CLAUDINE.Change Topiramate 200 mg Tab TAKE 1 TABLET BY MOUTH TWICE DAILY #180 each RFx0 Do NOT substitute - CLAUDINE.Change pyRIDostigmine Carney 60 mg Tab TAKE 1 TABLET BY MOUTH TWICE DAILY #180 each RFx0 Do NOT substitute - CLAUDINE.Pain Assessment - NO pain documented (1126F)Medication Review by prescribing provider or pharmacist documented (1160F)Medication List Documented (1159F)Functional Status Assessed (1170F)Advance Care Directive Advance care planning discussion documented in the medical record (1158F)BMI obtained (3008F)SBP >= 140DBP <80 (3078F)Televideo new patient,40-59min; chronic exacerbation, 2 stable chronic or 1 acute illness add modifier 95Advance care planning discussed and documented ? advance care plan or surrogate decision-maker was documented in the medical record. (1123F)Continue to see PCP. Follow-up with [facility] as needed for any acute or disease education needs that may arise. 2024-04-29 13:25:09 Phone (patient, pare nt, or guardian); 11-20 minutes of medical discussion (no modifier 95)Continue to see PCP. Follow-up with [facility] as needed for any acute or disease education needs that may arise 11/03.Arnuity Ellipta & Albuterol Call for any worsening SOB to see about adding a nebulizer to your current plan. Rinse mouth out with water if using inhalers with a steroid in them. If you have thick sputum call. Plans would be to order Mucinex to thin the secretions. If you use this medication you must drink a full glass of water with this medication to help liquefy the secretions. Avoid things that make your COPD worse i.e. pet dander, dust, fumes etc. If you start sneezing use a OTC nasal spray. If you have runny eyes or nose take a allergy pill or you may need to switch your allergy pill d/t tolerance has built up. May need to change bed linen or clothes more frequently d/t allergens in the air. Will consider Lab and CXR and use of Abx to prevent treatment failure. Will consider Steroid 40mg daily x 5-10 days Quit smoking or stay away from secondhand smoke. Stay away from sick contacts. 04/29/24: Stable. Seeing PCP 06/11.on CPAP04/29/24: AdherentTakes MethotrexateD/t multiple joints involvement consider Prednisone burst pack. If a maintenance dose is required always wean prednisone to the lowest dose. Member is taking a DMARD to have good glycemic control and to prevent increase with infections if you think it is d/t RA. Check Sed Rate & CRP and RA markers.04/29/24: Looking to get a new walker, break is broken on current one. Member was made aware she will need to call company she got it from and ask for replacement. Member has receipt and able to locate phone number. Instructed to call CB if any issues or assistance needed.COPD CONTINGENCY PLANWhy was the member in the hospital or ER most recently? Why are they most likely to go back? What specific symptoms does this person have that is likely to take them back to the ER?Member to call for the following symptoms: Breathing loudly??/ WheezingPlanned intervention: Increase use of albuterol inhaler to q2h PRN cough, breathlessness 2024-05-26 14:12:38 Phone (patient, pare nt, or guardian); 5-10 minutes of medical discussion (no modifier 95)Continue to see PCP. Follow-up with [facility] as needed for any acute or disease education needs that may arise 11/03.PCP recently started on Gemtesa 35mg in 05/2024no longer on MyrbetriqArnuity Ellipta & Albuterol Call for any worsening SOB to see about adding a nebulizer to your current plan. Rinse mouth out with water if using inhalers with a steroid in them. If you have thick sputum call. Plans would be to order Mucinex to thin the secretions. If you use this medication you must drink a full glass of water with this medication to help liquefy the secretions. Avoid things that make your COPD worse i.e. pet dander, dust, fumes etc. If you start sneezing use a OTC nasal spray. If you have runny eyes or nose take a allergy pill or you may need to switch your allergy pill d/t tolerance has built up. May need to change bed linen or clothes more frequently d/t allergens in the air. Will consider Lab and CXR and use of Abx to prevent treatment failure. Will consider Steroid 40mg daily x 5-10 days Quit smoking or stay away from secondhand smoke. Stay away from sick contacts. 04/29/24: Stable. Seeing PCP 06/11.05/26/24: Saw PCP several days agoCOPD CONTINGENCY PLANWhy was the member in the hospital or ER most recently? Why are they most likely to go back? What specific symptoms does this person have that is likely to take them back to the ER?Member to call for the following symptoms: Breathing loudly??/ WheezingPlanned intervention: Increase use of albuterol inhaler to q2h PRN cough, breathlessness 2024-06-19 12:26:34 Phone (patient, pare nt, or guardian); 5-10 minutes of medical discussion (no modifier 95)Continue to see PCP. Follow-up with [facility] as needed for any acute or disease education needs that may arise 11/03.Arnuity Ellipta & Albuterol Call for any worsening SOB to see about adding a nebulizer to your current plan. Rinse mouth out with water if using inhalers with a steroid in them. If you have thick sputum call. Plans would be to order Mucinex to thin the secretions. If you use this medication you must drink a full glass of water with this medication to help liquefy the secretions. Avoid things that make your COPD worse i.e. pet dander, dust, fumes etc. If you start sneezing use a OTC nasal spray. If you have runny eyes or nose take a allergy pill or you may need to switch your allergy pill d/t tolerance has built up. May need to change bed linen or clothes more frequently d/t allergens in the air. Will consider Lab and CXR and use of Abx to prevent treatment failure. Will consider Steroid 40mg daily x 5-10 days Quit smoking or stay away from secondhand smoke. Stay away from sick contacts. 04/29/24: Stable. Seeing PCP 06/11.05/26/24: Saw PCP several days ago06/19/24: Breathing stable, no cough, increased sputum production, fever. Continues inhalers as prescribed. No changes have been made to her regimen.PCP recently started on Gemtesa 35mg in 05/2024no longer on MyrbetriqCOPD CONTINGENCY PLANWhy was the member in the hospital or ER most recently? Why are they most likely to go back? What specific symptoms does this person have that is likely to take them back to the ER?Member to call for the following symptoms: Breathing loudly??/ WheezingPlanned intervention: Increase use of albuterol inhaler to q2h PRN cough, breathlessness 2024-07-15 07:21:10 Phone (patient, pare nt, or guardian); 5-10 minutes of medical discussion (no modifier 95)Continue to see PCP. Follow-up with [facility] as needed for any acute or disease education needs that may arise 11/03.Arnuity Ellipta & Albuterol Call for any worsening SOB to see about adding a nebulizer to your current plan. Rinse mouth out with water if using inhalers with a steroid in them. If you have thick sputum call. Plans would be to order Mucinex to thin the secretions. If you use this medication you must drink a full glass of water with this medication to help liquefy the secretions. Avoid things that make your COPD worse i.e. pet dander, dust, fumes etc. If you start sneezing use a OTC nasal spray. If you have runny eyes or nose take a allergy pill or you may need to switch your allergy pill d/t tolerance has built up. May need to change bed linen or clothes more frequently d/t allergens in the air. Will consider Lab and CXR and use of Abx to prevent treatment failure. Will consider Steroid 40mg daily x 5-10 days Quit smoking or stay away from secondhand smoke. Stay away from sick contacts. 04/29/24: Stable. Seeing PCP 06/11.05/26/24: Saw PCP several days ago06/19/24: Breathing stable, no cough, increased sputum production, fever. Continues inhalers as prescribed. No changes have been made to her regimen.07/15/24: Stable, has her inhalers, feels well.COPD CONTINGENCY PLANWhy was the member in the hospital or ER most recently? Why are they most likely to go back? What specific symptoms does this person have that is likely to take them back to the ER?Member to call for the following symptoms: Breathing loudly??/ WheezingPlanned intervention: Increase use of albuterol inhaler to q2h PRN cough, breathlessness 2024-08-21 08:40:42 Phone (patient, pare nt, or guardian); 5-10 minutes of medical discussion (no modifier 95)Continue to see PCP. Follow-up with [facility] as needed for any acute or disease education needs that may arise 11/03.08/21/24: Per member's sister, [facility] July 2024[facility]ANWhy was the member in the hospital or ER most recently? Why are they most likely to go back? What specific symptoms does this person have that is likely to take them back to the ER?Member to call for the following symptoms: Breathing loudly??/ WheezingPlanned intervention: Increase use of albuterol inhaler to q2h PRN cough, breathlessness Goals Date Goal 2024-03-23 Please call CB for a ll non-emergent care issues, prior to going to the ER. Take medication as prescribed. Keep f/u appointments as scheduled. Call if you need a medication refill if you cannot get a response from your PCP. Call us for any red flag issues, call us nights, weekends, holidays and If you cannot get a response from your PCP. Health Concerns Date Concern 2024-08-21 Visit completed via audio by telephone. Patient/Guardian agreed to visit via telehealth.Time spent in visit: 4 minutes 2024-08-21 Most recent hospital stay(s) or ER visit(s) and precipitating factors: Per member's sister, fell in July 2024, now at [facility] 2024-08-21 HEDIS review: Closed 2024-08-21 Spoke with member's sister Adelejesusita
--- OUTSIDE RECORDS SUMMARY | 2024-10-06 15:53 | XMS_ITS | Encounter Summary ---
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 CONVERSIONS Dental, Provider, DDS Social History [...]
--- OUTSIDE RECORDS SUMMARY | 2024-10-06 15:53 | XMS_ITS | Encounter Summary ---
Author Organization [facility] Address [address] [place] [address] Care Team Providers Care Cloth Edge Singer Name Role Phone Jayleen Oneill DO Primary [...] Details Date Type Department Care Team Description 10/27/2020 Operations Engineer Report Medical Records [address] [place] [address] Jose Luis Perkins MD Social History Tobacco [...] or suspected to have Coronavirus / COVID-19? Unable to assess 10/13/2020 7:50 AM EST documented as of this encounter Plan of Treatment Not on file documented as of this encounter Visit Diagnoses Not on filedocumented in this encounter Care Teams Cloth Edge Singer Relationship Specialty Start Date End Date Jayleen Oneill DO PCP - General Internal Medicine 09/02/14 02/07/21 Trevin Douglas DO PCP - General Internal Medicine 02/08/21 Dylan Cruz MD PCP - General Internal Medicine 05/25/21 04/16/22 Karma Wayne MD [address] [place] [address] PCP - General Internal Medicine 04/17/22 03/10/24 Sadiq Valverde MD [address] [place] [address] [place] [address] PCP - General Family Practice 03/11/24 Beto Montes MD Specialist Neurology 08/17/21 08/21/22 Adis Joe PA-C Specialist ORTHOPEDICS 08/17/2106/10 Rocky Najera MD [address] [place] [address] Specialist Neurology 08/22/22 Tashia eHwitt MD [address] [phone] Specialist Pulmonology 08/22/22 Andres Henriquez MD [address] [phone] Specialist Rheumatology 08/22/22 Deysi Howe MD [address] [place] [address] [place] [address] Specialist UROGYNECOLOGY 04/29/23 Jassi Vaughan MD [address] [place] [address] [place] [address] Specialist Ophthalmology 04/29/23 documented as of this encounter
--- OUTSIDE RECORDS SUMMARY | 2024-10-06 15:53 | XMS_ITS | Encounter Summary ---
Author Organization [facility] Address [address] [place] [address] Care Team Providers Care Drying Unit Felting Machine Operator Name Role Phone Karma Wayne MD Primary Care Prov ider Rocky Najera MD Unavailable Unavailab Tashia Stubbs MD Unavailable Andres Henriquez MD Unavailable Unavailable Deysi Howe MD Unavailable Jassi Vaughan MD Unavailable Unavailable Sadiq Valverde MD Primary Care Provider Unav ailable Encounter Details Date Type Department Care Team Description 11/12/2023 Sergeant Missile Crewman Report Medical Records [address] [place] [address] Andres Henriquez MD Social History Tobacco Use Types Packs/Day [...] on filedocumented in this encounter Care Teams Drying Unit Felting Machine Operator Relationship Specialty Start Date End Date Karma Wayne MD [address] [place], [place] [id number] PCP - General Internal Medicine 04/17/22 03/10/24 Sadiq Valverde MD [address] [place] [address] [place] [address] PCP - General Family Practice 03/11/24 Rocky Najera MD [address] [place] [address] Specialist Neurology 08/22/22 Tashia Hewitt MD [address] [phone] Specialist Pulmonology 08/22/22 Andres Henriquez MD [address] [phone] Specialist Rheumatology 08/22/22 Deysi Howe MD [address] [place] [address] [place] [address] Specialist UROGYNECOLOGY 04/29/23 Jassi Vaughan MD [address] [place] [address] [place] [address] Specialist Ophthalmology 04/29/23 documented as of this encounter
--- OUTSIDE RECORDS SUMMARY | 2024-10-06 15:53 | XMS_ITS | Encounter Summary ---
Author Organization [facility] Address [address] [facility] [place] [address] Care Team Providers Care Honey Extractor Name Role Phone Dylan Edmond MD Primary [...] Details Date Type Department Care Team Description 04/14/2022 Refill Pulmonology - [place] [address] [facility] [address] [place] [phone] Dylan Edmond MD E-prescribe Rx Request Social History Tobacco Use [...] encounter Miscellaneous Notes * Telephone Encounter - Diego Morel M.A. - 04/17/2022 2:43 PM EDT Last ov 10/05/2021 next ov 05/15/2022 with new pcp Lab Results Component Value Date NA 144 09/23/2020 K 4.5 09/23/2020 CO2 25 09/23/2020 CL 111 09/23/2020 BUN 33 09/23/2020 CREAT 0.92 10/05/2021 GLU 90 09/23/2020 CA 10.1 09/23/2020 GFR 60 10/05/2021 * Telephone Encounter - Maria Del Carmen Chatman - 04/17/2022 1:50 PM EDT Patient would like script to be: E-PRESCRIBED/FAXED TO PHARMACY WHEN WAS THE PATIENT'S LAST APPOINTMENT IN ADULT MEDICINE? 10/05/21 WHEN WAS THE LAST TIME THE PATIENT SAW THEIR PCP? New to pcp Does patient have an upcoming appointment? Yes 05/15/22 (THE MEDICATION REQUESTED IS ON THE MED LIST ABOVE) All of the medications requested were on the CURRENT MEDS list Did you check the Pharmacy information above?: YES Patient wants: 30 -day supply Is this a mail order prescription request ? NO If the refill is from a FAXED refill request what is the RX # listed on the fax? N/A Patients current insurance carrier is: Payor: [employer] / Plan: [employer] $0 [id number] / Product Type: HMO [id number] documented in this encounter Plan of Treatment Not on file documented as of this encounter Visit Diagnoses Diagnosis KAVYA and COPD overlap syndrome (HCC) Chronic obstructive pulmonary disease, unspecified COPD type (HCC) Physical deconditioning Debility, unspecified Former smoker Personal history of tobacco use, presenting hazards to health Abnormality of lung on CXR Chronic idiopathic granulomatous disease (HCC) Atelectasis Pulmonary collapse Pulmonary nodules Other nonspecific abnormal finding of lung field Scarring of lung 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, unspecified laterality (HCC) Post-nasal drainage Unspecified sinusitis (chronic) documented in this encounter Care Teams Honey Extractor Relationship Specialty Start Date End Date Dylan Edmond MD PCP - General Internal Medicine 05/25/21 04/16/22 Karma Wayne MD [address] [place] [address] PCP - General Internal Medicine 04/17/22 03/10/24 Sadiq Valverde MD [address] [place] [address] [place] [address] PCP - General Family Practice 03/11/24 Beto Montes MD Specialist Neurology 08/17/21 08/21/22 Adis Joe PA-C Specialist ORTHOPEDICS 08/17/2106/10 Rocky Najera MD [address] [place] [address] Specialist Neurology 08/22/22 Tashia Hewitt MD [address] [phone] Specialist Pulmonology 08/22/22 Andres Henriquez MD [address] [phone] Specialist Rheumatology 08/22/22 Deysi Howe MD [address] [place] [address] [place] [address] Specialist UROGYNECOLOGY 04/29/23 Jassi Vaughan MD [address] [place] [address] [place] [address] Specialist Ophthalmology 04/29/23 documented as of this encounter
--- OUTSIDE RECORDS SUMMARY | 2024-10-06 15:53 | XMS_ITS | Encounter Summary ---
Author Organization [facility] Address [address] [place] [address] Care Team Providers Care Station Baggage Porter Name Role Phone Jayleen Oneill DO Primary [...] Details Date Type Department Care Team Description 06/09/2020 Orders Only Radiology - [address] [address] Jayleen Oneill DO Social History Tobacco Use [...] have Coronavirus / COVID-19? No / Unsure 06/08/2020 8:50 AM EDT documented as of this encounter Plan of Treatment Not on file documented as of this encounter Visit Diagnoses Not on filedocumented in this encounter Care Teams Station Baggage Porter Relationship Specialty Start Date End Date Jayleen Oneill DO PCP - General Internal Medicine 09/02/14 02/07/21 Trevin Douglas DO PCP - General Internal Medicine 02/08/21 Dylan Cruz MD PCP - General Internal Medicine 05/25/21 04/16/22 Karma Wayne MD [address] [place] [address] PCP - General Internal Medicine 04/17/22 03/10/24 Sadiq Valverde MD [address] [place] [address] [place] [address] PCP - General Family Practice 03/11/24 Beto Montes MD Specialist Neurology 08/17/21 08/21/22 Adis Joe PA-C Specialist ORTHOPEDICS 08/17/2106/10 Rocky Najera MD [address] [place] [address] Specialist Neurology 08/22/22 Tashai Hewitt MD [address] [phone] Specialist Pulmonology 08/22/22 Andres Henriquez MD [address] [phone] Specialist Rheumatology 08/22/22 Deysi Howe MD [address] [place] [address] [facility] [place] [place] [address] Specialist UROGYNECOLOGY 04/29/23 Jassi Vaughan MD [address] [place] [address] [place] [address] Specialist Ophthalmology 04/29/23 documented as of this encounter
--- OUTSIDE RECORDS SUMMARY | 2024-10-06 15:53 | XMS_ITS | Clinical Summary ---
Author Organization [address] Address [address] [place] [address] Phone Care Team Providers Care Medical Insurance Biller Name Role Phone Sadiq Valverde MD Primary Care Provider Encounters Date Type Department Care Team Description 09/22/2024 Lab Requisition [facility] [address] [place] [phone] Yulia Orantes MD Nasal congestion; Headache, unspecified 08/21/2024 Lab Requisition [facility] [address] [place] [address] Yulia Orantes MD Unspecified convulsions ([facility]) 08/15/2024 Lab Requisition [facility] [address] [place] [address] Yulia Orantes MD Unspecified convulsions ([facility]) 08/09/2024 Lab Requisition [facility] [address] [place] [phone] Yulia Orantes MD Unspecified convulsions ([facility]) 08/04/2024 Lab Requisition [facility] [address] [place] [phone] Yulia Orantes MD Myasthenia gravis without (acute) exacerbation (CMS/HCC) from Last 3 Months Immunizations Name Administration Dates Next Due Pfizer SARS-CoV-2 COVID-19, mRNA, LNP-S, preservative free 11/16/2020,10/27/2020 Surgical History Surgery Date Site/Laterality Comments COLONOSCOPY PROCEDURE: HISTORICAL COLONOSCOPY COLONOSCOPY 2004 PROCEDURE: HISTORICAL COLONOSCOPY; COMMENT: date approx; done in [facility], negative. COLONOSCOPY 2014 PROCEDURE: HISTORICAL COLONOSCOPY; COMMENT: RBMG; no polyps BUNIONECTOMY 12/29/2015 Right PROCEDURE: UT CORRJ HLX VLGS BNCTY SESMDC W/DOUBLE OSTEOTOMY BREAST BIOPSY Right PROCEDURE: BX BREAST; PERC NEEDLE CORE W/IMAG GUID; COMMENT: B9 ANKLE SURGERY Left PROCEDURE: HISTORICAL ANKLE SURGERY; COMMENT: Fusion Medical History Medical History Date Comments RA (rheumatoid arthritis) ([facility]) DX:RA (rheumatoid arthritis) ([facility]) History of post-polio syndrome D X:History of post-polio syndrome Left foot drop DX:Left foot joan p Epilepsy ([facility]) DX:Epilepsy ( [facility]); COMMENT: dr. Cristopher George; now joe Macrocytosis DX:Macrocytosis Patient has healthcare proxy DX: Patient has healthcare proxy DNR (do not resuscitate) DX:DNR (do not resuscitate); COMMENT: dnr/dni Medical orders for life-sust aining treatment (MOLST) form in chart DX:Medical orders for life-sustaining treatment (MOLST) form in chart Myasthenia gravis ([facility]) 04/07/2021 DX:M yasthenia gravis ([facility]); COMMENT: Dx 2020. MuSK antibody positive. Sees Dr. Montes Immunosuppressive therapy with azathioprine or Rituxan is planned. Morbid obesity with BMI of 50.0-59.9, adult ([facility]) 07/04/2018 DX:Morbid obesity with BMI of 50.0-59.9, adult ([facility]) Dysarthria 04/29/2023 DX:Dysarthria Family History Medical History Relation Name Comments Other: epilepsy Brother brain tumor Stomach cancer Father may have had colon cancer as well. Asthma Mother Diabetes Sister Breast cancer Neg Hx Relation Name Status Comments Brother Father Mother Sister Social History Tobacco Use Types Packs/Day Years Used Date Smoking Tobacco: Former Smokeless Tobacco: Never Alcohol Use Standard Drinks/Week Comments No 0 (1 standard drink = 0.6 oz pur e alcohol) Comments Unknown Sex and Gender Information Value Date Recorded Sex Assigned at Not on file Legal Sex Female 11:41 PM EST Gender Identity Not on file Sexual Orientation Not on file Obstetrics History Last Filed Vital Signs Vital Sign Reading Time Taken Comments Blood Pressure 130/68 02/27/2024 2:31 PM EDT Pulse 72 02/27/2024 2:31 PM EDT Temperature - - Respiratory Rate - - Oxygen Saturation - - Inhaled Oxygen Concentration - - Weight 107 kg (236 lb) 02/27/2024 2:31 PM EDT Height 144.8 cm (4' 9 ) 02/27/2024 2:31 PM EDT Body Mass Index 51.07 02/27/2024 2:31 PM EDT Plan of Treatment Upcoming Encounters Date Type Department Care Team ([facility] st Contact Info) Description 10/30/2024 1:20 PM EDT Appointment Radiology Department [address] [phone] Health Maintenance Due Date Last Done Comments Cholesterol Screening (Lipid Panel) 07/28/2022 Colorectal Cancer Screening: Colonoscopy 07/28/2022 Depression Screening 07/28/2022 Falls Risk Assessment 07/28/2022 Hepatitis C Screening 07/28/2022 Social Influencers of Health Screening 07/28/2022 COVID-19 Vaccine ( season) 2024 05/17/2023, 04/03/2022, 10/24/2021, Additional history exists Influenza Vaccine (#1) 2024 , 05/15/2022, 06/13/2021, Additional history exists RSV Immunization Patients 60+ Years Old (1 - 1-dose 75+ series) 2024 DTaP,Tdap,and Td Vaccines (6 - Td or Tdap) 10/05/2031 10/05/2021, 10/24/2018, 10/24/2018, Additional history exists Osteoporosis Screening (Bone Density Screening) 06/15/2032 06/15/2022, 10/21/2019, 11/27/2016 Pneumococcal Vaccine: 50+ Years Completed 11/01/2015, 10/22/2014 Hepatitis B Vaccines Completed 11/08/2017, 06/12/2017, 05/15/2017 Zoster Vaccines Completed 02/07/2021, 12/06/2020 Breast Cancer Screening Discontinued 10/22/19 24, 10/15/2022, 10/11/2021, Additional history exists HIB Vaccines Aged Out [...] on patient's age to complete this topic MMR Vaccines Aged Out No longer eligi ble based on patient's age to complete this topic Meningococcal ACWY Vaccine Aged Out N o longer eligible based on patient's age to complete this topic Meningococcal B Vacine Aged Out No lo nger eligible based on patient's age to complete this topic RSV Immunization Patients Under 20 months Aged Out No longer eligible based on patient's age to complete this topic Varicella Vaccines Aged Out No longer eligible based on patient's age to complete this topic Procedures Procedure Name Priority Date/Time Associated Diagnosis Comments [id number], RSV, FLU A AND B QUALITATIVE RT-PCR, LOCAL REFERENCE LAB Routine 09/21/2024 12:00 AM EST Nasal congestion Headache, unspecified BASIC METABOLIC PANEL Routine 08/24/2024 9:47 AM EST Unspecified convulsions (CMS/HCC) COMPLETE BLOOD COUNT Routine 08/24/2024 9:47 AM EST Unspecified convulsions (CMS/HCC) BASIC METABOLIC PANEL Routine 08/17/2024 6:17 AM EST Unspecified convulsions (CMS/HCC) COMPLETE BLOOD COUNT Routine 08/17/2024 6:17 AM EST Unspecified convulsions (CMS/HCC) BASIC METABOLIC PANEL Routine 08/10/2024 6:19 AM EST Unspecified convulsions (CMS/HCC) COMPLETE BLOOD COUNT Routine 08/10/2024 6:19 AM EST Unspecified convulsions (CMS/HCC) BASIC METABOLIC PANEL Routine 08/04/2024 6:39 AM EST Myasthenia gravis without (acute) exacerbation (CMS/HCC) COMPLETE BLOOD COUNT Routine 08/04/2024 6:39 AM EST Myasthenia gravis without (acute) exacerbation (CMS/HCC) SCREENING MAMMOGRAPHY BI 2-VIEW BREAST INC CAD Routine 10/22/2023 1:57 PM EST Encounter for other screening for malignant neoplasm of breast DXA BONE DENSITY STUDY 1+ SITS AXIAL SKEL Routine 06/15/2022 2:19 PM EDT Encounter for immunization Obstructive sleep apnea (adult) (pediatric) Chronic obstructive pulmonary disease, unspecified (CMS/HCC) Other malaise Epilepsy, unspecified, not intractable, without status epilepticus (CMS/HCC) Rheumatoid arthritis with rheumatoid factor of multiple sites without organ or systems involvement (CMS/HCC) from Last 3 Months or Most Recently Relevant to Health Maintenance Results * [id number], RSV, Influenza A and B qualitative RT-PCR (09/21/2024 12:00 AM EST) SARS COV-2 Not Detected Not Detected LAB MOLECULAR DIAGNOSTICS METHOD 09/22/2024 1:02 PM EST [facility] Comment: Disclaimer: The manner in which this information is used to guide patient care is the responsibility of the healthcare provider. Testing was performed using the Picocent Alinity m SARS-CoV-2 test. This test has been [...] for Healthcare Providers can be found at: https://www.fda.gov/media/987444/download Fact sheet for Patients can be found at: https://www.fda.gov/media/390043/download Influenza A PCR Not Detected Not Detected LAB MOLECULAR DIAGNOSTICS METHOD 09/22/2024 1:02 PM [facility] Influenza B PCR Not Detected Not Detected LAB MOLECULAR DIAGNOSTICS METHOD 09/22/2024 1:02 PM [facility] RSV PCR Not Detected Not Detected LAB MOLECULAR DIAGNOSTICS METHOD 09/22/2024 1:02 PM [facility] Swab Nasopharyngeal structure / Unknown Non-blood Collection / Unknown 09/21/2024 09/22/2024 10:49 AM EST Yulia Orantes MD LAB MICROBIOLOGY - GENERAL ORDER SHARMAINE Final Result [facility] [address] [place] [address], [place] [phone] * (ABNORMAL) Complete blood count (08/24/2024 9:47 AM EST) Only the most recent of4 resultswithin the time period is included. WBC 8.5 4.8 - 10.8 K/mcL LAB HEMETOLOGY METHOD 08/24/2024 2:04 PM [facility] RBC 4.10 3.80 - 4.80 M/mcL LAB HEMETOLOGY METHOD 08/24/2024 2:04 PM [facility] Hemoglobin 14.2 11.5 - 16.0 g/dL LAB HEMETOLOGY METHOD 08/24/2024 2:04 PM [facility] Hematocrit 44.0 35.0 - 47.0 % LAB HEMETOLOGY METHOD 08/24/2024 2:04 PM [facility] MCV 106.5(H) 79.0 - 98.0 FL LAB HEMETOLOGY METHOD 08/24/2024 2:04 PM [facility] MCH 34.4(H) 27.0 - 32.0 pcg LAB HEMETOLOGY METHOD 08/24/2024 2:04 PM EST [facility] MCHC 32.3 32.0 - 37.0 g/dL LAB HEMETOLOGY METHOD 08/24/2024 2:04 PM EST [facility] RDW 13.2 11.0 - 15.0 % LAB HEMETOLOGY METHOD 08/24/2024 2:04 PM [facility] Platelets 368 130 - 400 K/mcL LAB HEMETOLOGY METHOD 08/24/2024 2:04 PM [facility] MPV 10.2 7.0 - 11.0 FL LAB HEMETOLOGY METHOD 08/24/2024 2:04 PM [facility] NRBC 0.0 <1.0 % LAB HEMETOLOGY METHOD 08/24/2024 2:04 PM [facility] NRBC Absolute 0.00 <0.10 K/mcL LAB HEMETOLOGY METHOD 08/24/2024 2:04 PM [facility] Blood Venous blood specimen / Unknown Venipuncture / Unknown 08/24/2024 9:47 AM EST 08/24/2024 1:30 PM EST us Yulia Orantes MD LAB BLOOD ORDERABLES Final Resul t [facility] [address] [place] [address], * (ABNORMAL) Basic metabolic panel (08/24/2024 9:47 AM EST) Only the most recent of4 resultswithin the time period is included. Sodium 140 133 - 145 mmol/L LAB CHEMISTRY METHOD 08/24/2024 2:54 PM [facility] Potassium 4.3 3.5 - 5.5 mmol/L LAB CHEMISTRY METHOD 08/24/2024 2:54 PM [facility] Chloride 111(H) 96 - 110 mmol/L LAB CHEMISTRY METHOD 08/24/2024 2:54 PM [facility] CO2 24 21 - 32 mmol/L LAB CHEMISTRY METHOD 08/24/2024 2:54 PM [facility] Anion Gap 5 3 - 11 LAB CHEMISTRY METHOD 08/24/2024 2:54 PM [facility] Glucose 101(H) 70 - 100 mg/dL LAB CHEMISTRY METHOD 08/24/2024 2:54 PM [facility] BUN 18 5 - 25 mg/dL LAB CHEMISTRY METHOD 08/24/2024 2:54 PM [facility] Creatinine 0.88 0.50 - 1.10 mg/dL LAB CHEMISTRY METHOD 08/24/2024 2:54 PM [facility] eGFR 69 >=60 mL/min/1. 73m2 LAB CHEMISTRY METHOD 08/24/2024 2:54 PM [facility] Comment:Calculation based on the??Chronic Kidney Disease Epidemiology Collaboration (CKD-EPI) equation refit??without adjustment for race. BUN/Creatinine Ratio 20.5 LAB CHEMISTRY METHOD 08/24/2024 2:54 PM [facility] Calcium 9.6 8.5 - 10.5 mg/dL LAB CHEMISTRY METHOD 08/24/2024 2:54 PM [facility] Blood Venous blood specimen / Unknown Venipuncture / Unknown 08/24/2024 9:47 AM EST 08/24/2024 1:30 PM EST us Yulia Orantes MD LAB BLOOD ORDERABLES Final Resul t [facility] [address] [place] [address], * SCREENING MAMMOGRAPHY BI 2-VIEW BREAST INC CAD (10/22/2023 1:57 PM EST) Anatomical Region Laterality Modality Radiographic Alie ging 10/15/2022 1:21 PM EST Narrative 10/23/2023 9:21 AM EST This is a summary report. The complete report is available in the patient's medical record. If you cannot access the medical record, please contact the sending organization for a detailed fax or copy. Study: SCREENING MAMMOGRAPHY BI 2-VIEW BREAST INC CAD Technique: Bilateral full-field digital screening mammography is obtained and read in conjunction with computer aided detection. ??Tomosynthesis as well as 2D C-View imaging were obtained. Comparison: Comparison made to multiple prior, most recent October 15, 2022, and most remote January 14, 2019. Breast composition: There are scattered areas of fibroglandular density. Bilateral breasts: No significant masses, suspicious calcifications or other abnormalities are seen in either breast. IMPRESSION: Impression: Bilateral breasts: Negative, no specific mammographic evidence of malignancy. ??Normal interval follow-up is recommended in 12 months. BI-RADS: Category 1: Negative Procedure Note Aurelia Johnson MD - 04/06/2024 This is a summary report. The complete report is available in thepatient's medical record. If you cannot access the medical record, pleasecontact the sending organization for a detailed fax or copy. Study: SCREENING MAMMOGRAPHY BI 2-VIEW BREAST INC CAD Technique: Bilateral full-field digital screening mammography is obtainedand read in conjunction with computer aided detection. Tomosynthesis aswell as 2D C-View imaging were obtained. Comparison: Comparison made to multiple prior, most recent September, and most remote January 14, 2019. Breast composition: There are scattered areas of fibroglandular density. Bilateral breasts: No significant masses, suspicious calcifications orother abnormalities are seen in either breast. IMPRESSION: Impression: Bilateral breasts: Negative, no specific mammographic evidence ofmalignancy. Normal interval follow-up is recommended in 12 months. BI-RADS: Category 1: Negative us Karma Castillo MD IMG XR PROCEDURES Final Result * DXA BONE DENSITY STUDY 1+ SITS AXIAL SKEL (06/15/2022 2:19 PM EDT) Anatomical Region Laterality Modality Bone Densitometr y 05/15/2022 9:45 AM EDT Narrative 06/18/2022 5:08 PM EDT BONE DENSITY SCAN (DEXA): FINDINGS: Lumbar Spine T-score is -1.7. ?? (SD relative to 20-29 y/o adult) Z-score is 0.6. ??(SD relative to age matched peers) This is considered osteopenia by WHO criteria. Left Hip T-score is -2.5. Z-score is -0.6. This is considered osteoporosis by WHO criteria. Comparison exam(s): 11/10/2019 and as far back as 10/22/2014. Lumbar spine: 4.0% loss of bone mineral density compared with 2019, statistically significant at the 95% confidence level. ??No statistically significant change compared with the baseline exam. Left hip: No statistically significant change in bone mineral density compared with 2019. ??7.1% increase in bone mineral density compared with 2014, statistically significant at the 95% confidence level. IMPRESSION: IMPRESSION: ?? Osteoporosis by WHO criteria. The [facility] Department of Internal Medicine recommends using National Osteoporosis Foundation (NOF) guidelines in treatment decisions related to osteoporosis. NOF guidelines suggest considering treatment for postmenopausal women and men aged 50 or older presenting with the following: History of hip or vertebral fracture. T-score = -2.5 (DXA) at the femoral neck, total hip, or spine, after appropriate evaluation to exclude secondary causes. Low bone mass (T-score between -1.0 and -2.5 at the femoral neck or spine) AND a 10-year probability of a hip fracture = 3% OR a 10-year probability of a major osteoporosis-related fracture = 20% based on the [place]-adapted WHO algorithm Please note that all treatment decisions require clinical judgment and consideration of individual patient factors, including patient preferences, co-morbidities, previous drug use, risk factors not captured in the FRAX model (e.g., frailty, falls, vitamin D deficiency, increased bone turnover, interval significant decline in bone density) and possible under- or over-estimation of fracture risk by FRAX. Optional alternative screening schedule based on anders Briceno., [facility] September 06, 2011 for patients with osteopenia (based on hip BMD T-score) is as follows: * ??advanced osteopenia (T scores -2.00 to -2.49), BMD testing every year * ??moderate osteopenia (T scores -1.50 to -1.99), BMD testing every 5 years mild osteopenia or normal BMD (T scores -1.50 and higher), BMD testing every 15 years Procedure Note Chio Francisco MD - 08/07/2022 BONE DENSITY SCAN (DEXA): FINDINGS: Lumbar Spine T-score is -1.7. (SD relative to 20-29 y/o adult) Z-score is 0.6. (SD relative to age matched peers) This is considered osteopenia by WHO criteria. Left Hip T-score is -2.5. Z-score is -0.6. This is considered osteoporosis by WHO criteria. Comparison exam(s): 11/10/2019 and as far back as 10/22/2014. Lumbar spine: 4.0% loss of bone mineral density compared with 2019,statistically significant at the 95% confidence level. No statistically significant change comparedwith the baseline exam. Left hip: No statistically significant change in bone mineral densitycompared with 2019. 7.1% increase in bone mineral density compared with 2014, statisticallysignificant at the 95% confidence level. IMPRESSION: IMPRESSION: Osteoporosis by WHO criteria. The [facility] Department of Internal Medicine recommendsusing National Osteoporosis Foundation (NOF) guidelines in treatment decisions related toosteoporosis. NOF guidelines suggest considering treatment for postmenopausal women and menaged 50 or older presenting with the following: History of hip or vertebral fracture. T-score = -2.5 (DXA) at the femoral neck, total hip, or spine, afterappropriate evaluation to exclude secondary causes. Low bone mass (T-score between -1.0 and -2.5 at the femoral neck or spine)AND a 10-year probability of a hip fracture = 3% OR a 10-year probability of a majorosteoporosis-related fracture = 20% based on the [place]-adapted WHO algorithm Please note that all treatment decisions require clinical judgment andconsideration of individual patient factors, including patient preferences, co- morbidities,previous drug use, risk factors not captured in the FRAX model (e.g., frailty, falls, vitaminD deficiency, increased bone turnover, interval significant decline in bone density) andpossible under- or over-estimation of fracture risk by FRAX. Optional alternative screening schedule based on doug Briceno al., NEJMJanuary 2011 for patients with osteopenia (based on hip BMD T-score) is as follows: * advanced osteopenia (T scores -2.00 to -2.49), BMD testing every year * moderate osteopenia (T scores -1.50 to -1.99), BMD testing every 5years mild osteopenia or normal BMD (T scores -1.50 and higher), BMD testingevery 15 years Karma Castillo MD IMG DXA PROCEDURES Final Result from Last 3 Months or Most Recently Relevant to Health Maintenance Insurance [facility] [place] [id number] MEDICAID - [place] Advance Directives Documents on File Type Date Recorded Patient Color Laboratory Technician Expl anation Health Care Decision (hx) 08/20/2023 AD BATES DIRECTIVE Health Care Decision (hx) 08/20/2023 AD BATES DIRECTIVE Care Teams Medical Insurance Biller Relationship Specialty Start Date End Date Sadiq Valverde MD [address] [place] [address] Dr Debi [place] PCP - General 03/11/24
--- OUTSIDE RECORDS SUMMARY | 2024-10-06 15:53 | XMS_ITS | Encounter Summary ---
Author Organization [facility] Address [address] [place] [address] Care Team Providers Care Curer Acid Drum Name Role Phone Jayleen Oneill DO Primary Care Pro vider Unavailable Trevin Douglas DO Primary Care Provider Carin vailable Dylan Edmond MD Primary Care Provider Unavai Beto Nix MD Unavailable Unavail able Adis Joe PA-C Unavailable Carin vailable Karma Wayne MD Primary Care Prov ider Rocky Najera MD Unavailable Unavailab Tashia Stubbs MD Unavailable Andres Henriquez MD Unavailable Unavailable Deysi Howe MD Unavailable Jassi Vaughan MD Unavailable Unavailable Sadiq Valverde MD Primary Care Provider Unav ailable Encounter Details Date Type Department Care Team Description 05/17/2020 Camera Repairer Report Medical Records [address] [place] [address] Beto Montes MD Social History Tobacco Use [...] have Coronavirus / COVID-19? No / Unsure 04/27/2020 9:20 AM EDT documented as of this encounter Plan of Treatment Not on file documented as of this encounter Visit Diagnoses Not on filedocumented in this encounter Care Teams Curer Acid Drum Relationship Specialty Start Date End Date Jayleen Oneill DO PCP - General Internal Medicine 09/02/14 02/07/21 Trevin Douglas DO PCP - General Internal Medicine 02/08/21 Dylan Cruz MD PCP - General Internal Medicine 05/25/21 04/16/22 Karma Wayen MD [address] [place] [address] PCP - General Internal Medicine 04/17/22 03/10/24 Sadiq Valverde MD [address] [place] [address] [place] [address] PCP - General Family Practice 03/11/24 Beto Montes MD Specialist Neurology 08/17/21 08/21/22 Adis Joe PA-C Specialist ORTHOPEDICS 08/17/2106/10 Rocky Najera MD [address] [place] [address] Specialist Neurology 08/22/22 Tashia Hewitt MD [address] [phone] Specialist Pulmonology 08/22/22 Andres Henriquez MD [address] [phone] Specialist Rheumatology 08/22/22 Deysi Howe MD [address] [place] [address] [place] [address] Specialist UROGYNECOLOGY 04/29/23 Jassi Vaughan MD [address] [place] [address] [place] [address] Specialist Ophthalmology 04/29/23 documented as of this encounter
--- OUTSIDE RECORDS SUMMARY | 2024-10-06 15:53 | XMS_ITS | Encounter Summary ---
Author Organization [facility] Address [address] [place] [address] Care Team Providers Care Tail Trimmer Name Role Phone Jayleen Oneill DO Primary [...] Details Date Type Department Care Team Description 06/28/2020 Amr Physician Report Medical Records [address] [place] [address] Kerri Zhu MD [address] [phone] Social History Tobacco Use Types Packs/Day Years [...] have Coronavirus / COVID-19? No / Unsure 06/17/2020 2:18 PM EDT documented as of this encounter Plan of Treatment Not on file documented as of this encounter Visit Diagnoses Not on filedocumented in this encounter Care Teams Tail Trimmer Relationship Specialty Start Date End Date Jayleen Oneill DO PCP - General Internal Medicine 09/02/14 02/07/21 Trevin Douglas DO PCP - General Internal Medicine 02/08/21 1 Dylan Edmond MD PCP - General Internal Medicine 05/25/21 04/16/22 Karma Wayne MD [address] [place] [address] PCP - General Internal Medicine 04/17/22 03/10/24 Sadiq Valverde MD [address] [place] [address] [place] [address] PCP - General Family Practice 03/11/24 Beto Montes MD Specialist Neurology 08/17/21 08/21/22 Adis Joe PA-C Specialist ORTHOPEDICS 08/17/2106/10 Rocky Najera MD [address] [place] [address] Specialist Neurology 08/22/22 Tashia Hewitt MD [address] [place] [place] [phone] Specialist Pulmonology 08/22/22 Andres Henriquez MD [address] [phone] Specialist Rheumatology 08/22/22 Deysi Howe MD [address] [place] [address] [place] [address] Specialist UROGYNECOLOGY 04/29/23 Jassi Vaughan MD [address] [facility] [place] [address] Specialist Ophthalmology 04/29/23 documented as of this encounter
--- OUTSIDE RECORDS SUMMARY | 2024-10-06 15:53 | XMS_ITS | Encounter Summary ---
Author Organization [facility] Address [address] [place] [address] Care Team Providers Care Dependency Program Director Name Role Phone Karma Wayne MD Primary Care Prov ider Rocky Najera MD Unavailable Unavailab Tashia Stubbs MD Unavailable Andres Henriquez MD Unavailable Unavailable Deysi Howe MD Unavailable Jassi Vaughan MD Unavailable Unavailable Sadiq Valverde MD Primary Care Provider Unav ailable Reason for Visit * Reason Onset Date Comments refill request 12/03/2023 Encounter Details Date Type Department Care Team Description 12/03/2023 Refill Urogynecology [address] [phone] Deysi Howe MD [address] [place] [address] [place] [address] refill request Social History Tobacco Use Types [...] encounter Miscellaneous Notes * Telephone Encounter - Whitney Estes - 12/03/2023 10:15 AM EDT Patient would like script to be: E-PRESCRIBED/FAXED TO PHARMACY All of the medications requested were on the CURRENT MEDS list Did you check the Pharmacy information above?: YES Is this a mail order prescription request ? NO If the refill is from a FAXED refill request what is the RX # listed on the fax? N/A Patients current insurance carrier is: Payor: [employer] / Plan: Stalkthis $Edith BUI TOBAR [id number] / Product Type: HMO [id number] documented in this encounter Plan of Treatment Not on file documented as of this encounter Visit Diagnoses Not on filedocumented in this encounter Care Teams Dependency Program Director Relationship Specialty Start Date End Date Karma Wayne MD [address] [place] [address] PCP - General Internal Medicine 04/17/22 03/10/24 Sadiq Valverde MD [address] [place] [address] [place] [address] PCP - General Family Practice 03/11/24 Rocky Najera MD [address] [place] [address] Specialist Neurology 08/22/22 Tashia Hewitt MD [address] [address] Specialist Pulmonology 08/22/22 Andres Henriquez MD [address] [phone] Specialist Rheumatology 08/22/22 Deysi Hwoe MD [address] [place] [address] [place] [address] Specialist UROGYNECOLOGY 04/29/23 Jassi Vaughan MD [address] [place] [address] [place] [address] Specialist Ophthalmology 04/29/23 documented as of this encounter
--- OUTSIDE RECORDS SUMMARY | 2024-10-06 15:53 | XMS_ITS | Encounter Summary ---
Author Organization [facility] Address [address] [place] [address] Care Team Providers Care Lehr Cutter Name Role Phone Dylan Edmond MD Primary [...] for Visit * Reason Onset Date Comments Provider Call Back 07/26/2021 Encounter Details Date Type Department Care Team Description 07/26/2021 Telephone Adult Medicine [address] [address] Dylan Edmond MD Provider Call Back Social History Tobacco Use Types Packs/Day Years [...] have Coronavirus / COVID-19? No / Unsure 07/20/2021 12:16 PM EST documented as of this encounter Miscellaneous Notes * Telephone Encounter - Jong Michelle - 07/26/2021 2:01 PM EST The patient is calling today because she was told by the [facility] to request records of her latest x-ray, CT scan, bone density test, MRI, and the latest blood tests before 08/16/21. She has an appointment there that day. documented in this encounter Plan of Treatment Not on file documented as of this encounter Visit Diagnoses Not on filedocumented in this encounter Care Teams Lehr Cutter Relationship Specialty Start Date End Date Dylan Edmnod MD PCP - General Internal Medicine 05/25/21 04/16/22 Karma Wayne MD [address] [place] [address] PCP - General Internal Medicine 04/17/22 03/10/24 Sadiq Valverde MD [address] [place] [address] [place] [address] PCP - General Family Practice 03/11/24 Beto Montes MD Specialist Neurology 08/17/21 08/21/22 Adis Joe PA-C Specialist ORTHOPEDICS 08/17/2106/10 Rocky Najera MD [address] [place] [address] Specialist Neurology 08/22/22 Tashia Hewitt MD [address] [address] Specialist Pulmonology 08/22/22 Andres Henriquez MD [address] [address] Specialist Rheumatology 08/22/22 Deysi Howe MD [address] [place] [address] [place] [address] Specialist UROGYNECOLOGY 04/29/23 Jassi Vaughan MD [address] [facility] [place] [address] Specialist Ophthalmology 04/29/23 documented as of this encounter
--- OUTSIDE RECORDS SUMMARY | 2024-10-06 15:53 | XMS_ITS | Encounter Summary ---
Author Organization [facility] Address [address] [place] [address] Care Team Providers Care Cold Roll Catcher Name Role Phone Jayleen Oneill DO Primary [...] Details Date Type Department Care Team Description 01/21/2020 Orders Only Lab - [address] [address] Jayleen Oneill DO Social History Tobacco Use [...] on filedocumented in this encounter Care Teams Cold Roll Catcher Relationship Specialty Start Date End Date Jayleen nOeill DO PCP - General Internal Medicine 09/02/14 02/07/21 Trevin Douglas DO PCP - General Internal Medicine 02/08/21 Dylan Cruz MD PCP - General Internal Medicine 05/25/21 04/16/22 Karma Wayne MD [address] [place] [address] PCP - General Internal Medicine 04/17/22 03/10/24 Sadiq Valverde MD [address] [place] [address] [place] [address] PCP - General Family Practice 03/11/24 Beto Montes MD Specialist Neurology 08/17/21 08/21/22 Adis Joe PA-C Specialist ORTHOPEDICS 08/17/2106/10 Rocky Najera MD [address] [place] [address] Specialist Neurology 08/22/22 Tashia Hewitt MD [address] [place] [phone] Specialist Pulmonology 08/22/22 Andres Henriquez MD [address] [address] Specialist Rheumatology 08/22/22 Deysi Howe MD [address] [place] [address] [place] [address] Specialist UROGYNECOLOGY 04/29/23 Jassi Vaughan MD [address] [place] [address] [place] [address] Specialist Ophthalmology 04/29/23 documented as of this encounter
--- OUTSIDE RECORDS SUMMARY | 2024-10-06 15:53 | XMS_ITS | Encounter Summary ---
Author Organization [facility] Address [address] [place] [address] Care Team Providers Care Survey Director Name Role Phone Karma Wayne MD Primary Care Prov ider Rocky Najera MD Unavailable Unavailab Tashia Stubbs MD Unavailable Andres Henriquez MD Unavailable Unavailable Deysi Howe MD Unavailable Jassi Vaughan MD Unavailable Unavailable Sadiq Valverde MD Primary Care Provider Unav ailable Encounter Details Date Type Department Care Team Description 12/31/2023 Telephone Adult Medicine [address] [address] Billy Faustin, PA-C [address] [place] [address] [phone] Social History Tobacco Use Types Packs/Day Years [...] encounter Miscellaneous Notes * Telephone Encounter - Rosy Murphy C.N.A. - 01/07/2024 9:48 AM EDT Patient has been informed * Telephone Encounter - Billy Faustin PA-C - 01/06/2024 4:42 PM EDT Please inform pt/ her sister that urine testing came back and shows no more blood and there is alsono infection. If she is still having frequent symptoms, she should see urology and I can place a referral. Just let me know. Thanks, Billy * Telephone Encounter - Whitney Powell M.A. - 12/31/2023 9:15 AM EDT I spoke with Pt sister,Sarah, she will bring Chely to the lab next Saturday and we can calll her with result but she is going on vacation on Saturday then we can call her other sister,Alix Vargas, as Chely will be staying with alix while Sarah is away. [phone] * Telephone Encounter - Billy Faustin PA-C - 12/31/2023 8:40 AM EDT Please call pt's sister. Renal ultrasound came back normal, but they could not fully evaluate the bladder. I am ordering a repeat urine sample (can be done anytime in the next 3 weeks), if this is still abnormal, pt would benefit from urology consult. If she has any new or worsening symptoms they should let me know right away. documented in this encounter Plan of Treatment Not on file documented as of this encounter Results * (ABNORMAL) UA WITH CULTURE IF INDICATED (01/01/2024 1:43 PM EDT) GLUCOSE, URINE (UA) NEGATIVE NEGATIVE mg/dL 01/01/2024 4:25 PM EDT [facility] BILIRUBIN URINE NEGATIVE NEGATIVE 01/01/2024 4:25 PM EDT [facility] KETONE, URINE NEGATIVE NEGATIVE mg/dL 01/01/2024 4:25 PM EDT [facility] SPECIFIC GRAVITY, URINE 1.014 1.003 - 1.030 01/01/2024 4:25 PM EDT [facility] BLOOD, URINE NEGATIVE NEGATIVE 01/01/2024 4:25 PM EDT [facility] PH, URINE 6.0 5.0 - 8.0 01/01/2024 4:25 PM EDT [facility] PROTEIN, URINE NEGATIVE <= TRACE mg/dl 01/01/2024 4:25 PM EDT [facility] UROBILINOGEN, URINE 0.2 0.2 - 1.0 E.U./dL 01/01/2024 4:25 PM EDT [facility] NITRITE,URINE NEGATIVE NEGATIVE 01/01/2024 4:25 PM EDT [facility] LEUKOCYTE ESTERASE, URINE LARGE(A) NEGATIVE 01/01/2024 4:25 PM EDT [facility] RBC-Urine 4 0 - 4 /HPF 01/01/2024 5:00 PM EDT [facility] WBC, URINE 105(H) 0 - 4 /HPF 01/01/2024 5:00 PM EDT [facility] EPITH CELLS, URINE 24 0 - 60 /LPF 01/01/2024 5:00 PM EDT [facility] BACTERIA, URINE LIGHT NEGATIVE 01/01/2024 5:00 PM EDT [facility] HYALINE CAST, URINE 1 0 - 3 /LPF 01/01/2024 5:00 PM EDT [facility] [employer] 01/01/2024 1:43 PM EDT 01/01/2024 1:43 PM EDT Narrative [facility] - 01/01/2024 5:00 PM EDT Release to patient->Immediate Billy Faustin PA-C LAB [facility] documented in this encounter Visit Diagnoses Diagnosis Hematuria, unspecified type- Primary documented in this encounter Care Teams Survey Director Relationship Specialty Start Date End Date Karma Wayne MD [address] [place] [address] PCP - General Internal Medicine 04/17/22 03/10/24 Sadiq Valverde MD [address] [place] [address] [place] [address] PCP - General Family Practice 03/11/24 Rocky Najera MD [address] [place] [address] Specialist Neurology 08/22/22 Tashia Hewitt MD [address] [phone] Specialist Pulmonology 08/22/22 Andres Henriquez MD [address] [phone] Specialist Rheumatology 08/22/22 Deysi Howe MD [address] [place] [address] [place] [address] Specialist UROGYNECOLOGY 04/29/23 Jassi Vaughan MD [address] [facility] [place] [address] Specialist Ophthalmology 04/29/23 documented as of this encounter
--- OUTSIDE RECORDS SUMMARY | 2024-10-06 15:53 | XMS_ITS | Encounter Summary ---
Author Organization [facility] Address [address] [facility] [place] [address] Care Team Providers Care Stone Fabricator Name Role Phone Karma Wayne MD Primary Care Prov ider Rocky Najera MD Unavailable Unavailab Tashia Stubbs MD Unavailable Andres Henriquez MD Unavailable Unavailable Deysi Howe MD Unavailable Jassi Vaughan MD Unavailable Unavailable Sadiq Valverde MD Primary Care Provider Unav ailable Reason for Visit * Reason Onset Date Comments DME Request 10/30/2023 Encounter Details Date Type Department Care Team Description 10/30/2023 Telephone Pulmonology - [place] 175 [facility] [address] [place] [address] Tashia Hewitt MD 175 [facility] [address] [place] [address] DME Request Social History Tobacco Use Types Packs/Day [...] encounter Miscellaneous Notes * Telephone Encounter - Ghazala Quigley M.A. - 10/30/2023 8:57 AM EDT Faxed supply order to [facility] documented in this encounter Plan of Treatment Not on file documented as of this encounter Visit Diagnoses Not on filedocumented in this encounter Care Teams Stone Fabricator Relationship Specialty Start Date End Date Karma Wayne MD [address] [place] [address] PCP - General Internal Medicine 04/17/22 03/10/24 Sadiq Valverde MD [address] [place] [address] [place] [address] PCP - General Family Practice 03/11/24 Rocky Najera MD [address] [place] [address] Specialist Neurology 08/22/22 Tashia Hewitt MD [address] [phone] Specialist Pulmonology 08/22/22 Andres Henriquez MD [address] [phone] Specialist Rheumatology 08/22/22 Deysi Howe MD [address] [place] [address] [place] [address] Specialist UROGYNECOLOGY 04/29/23 Jassi Vaughan MD [address] [place] [address] [place] [address] Specialist Ophthalmology 04/29/23 documented as of this encounter
--- OUTSIDE RECORDS SUMMARY | 2024-10-06 15:53 | XMS_ITS | Encounter Summary ---
Author Organization [facility] Address [address] [place] [address] Care Team Providers Care Improvement Manager Name Role Phone Trevin Douglas DO Primary [...] Details Date Type Department Care Team Description 03/03/2021 Pallet Assembler Report Medical Records [address] [place] [address] Beto Montes MD Social History Tobacco Use [...] have Coronavirus / COVID-19? No / Unsure 02/08/2021 8:01 AM EDT documented as of this encounter Plan of Treatment Not on file documented as of this encounter Visit Diagnoses Not on filedocumented in this encounter Care Teams Improvement Manager Relationship Specialty Start Date End Date Trevin Douglas DO PCP - General Internal Medicine 02/08/21 1 Dylan Edmond MD PCP - General Internal Medicine 05/25/21 04/16/22 Karma Wayne MD [address] [place] [address] PCP - General Internal Medicine 04/17/22 03/10/24 Sadiq Valverde MD [address] [place] [address] [place] [address] PCP - General Family Practice 03/11/24 Beto Montes MD Specialist Neurology 08/17/21 08/21/22 Adis Joe PA-C Specialist ORTHOPEDICS 08/17/2106/10 Rocky Najera MD [address] [place] [address] Specialist Neurology 08/22/22 Tashia Hewitt MD [address] [address] Specialist Pulmonology 08/22/22 Andres Henriquez MD [address] [phone] Specialist Rheumatology 08/22/22 Deysi Howe MD [address] [place] [address] [place] [address] Specialist UROGYNECOLOGY 04/29/23 Jassi Vaughan MD [address] [place] [address] [place] [address] Specialist Ophthalmology 04/29/23 documented as of this encounter
--- OUTSIDE RECORDS SUMMARY | 2024-10-06 15:53 | XMS_ITS | Encounter Summary ---
Author Organization [facility] Address [address] [place] [address] Care Team Providers Care County Assessor Name Role Phone Sadiq Valverde MD Primary Care Provider Encounter Details Date Type Department Care Team (Late Contact Info) Description 08/09/2024 Lab Requisition [facility] - Main Lab [address] [facility] [place] [address] Yulia Orantes MD [address] [place] [address] Unspecified convulsions (CMS/HCC) Social History Tobacco Use [...] 1:20 PM EDT Appointment Radiology Department - [address] [phone] documented as of this encounter Procedures Procedure Name Priority Date/Time Associated Diagnosis Comments COMPLETE BLOOD COUNT Routine 08/10/2024 6:19 AM EST Unspecified convulsions (CMS/HCC) BASIC METABOLIC PANEL Routine 08/10/2024 6:19 AM EST Unspecified convulsions (CMS/HCC) documented in this encounter Results * (ABNORMAL) Basic metabolic panel (08/10/2024 6:19 AM EST) Sodium 142 133 - 145 mmol/L LAB CHEMISTRY METHOD 08/10/2024 10:51 AM [facility] Potassium 4.7 3.5 - 5.5 mmol/L LAB CHEMISTRY METHOD 08/10/2024 10:51 AM [facility] Chloride 113(H) 96 - 110 mmol/L LAB CHEMISTRY METHOD 08/10/2024 10:51 AM [facility] CO2 25 21 - 32 mmol/L LAB CHEMISTRY METHOD 08/10/2024 10:51 AM [facility] Anion Gap 4 3 - 11 LAB CHEMISTRY METHOD 08/10/2024 10:51 AM [facility] Glucose 86 70 - 100 mg/dL LAB CHEMISTRY METHOD 08/10/2024 10:51 AM [facility] BUN 20 5 - 25 mg/dL LAB CHEMISTRY METHOD 08/10/2024 10:51 AM [facility] Creatinine 0.76 0.50 - 1.10 mg/dL LAB CHEMISTRY METHOD 08/10/2024 10:51 AM [facility] eGFR 82 >=60 mL/min/1. 73m2 LAB CHEMISTRY METHOD 08/10/2024 10:51 AM [facility] Comment:Calculation based on the??Chronic Kidney Disease Epidemiology Collaboration (CKD-EPI) equation refit??without adjustment for race. BUN/Creatinine Ratio 26.3 LAB CHEMISTRY METHOD 08/10/2024 10:51 AM [facility] Calcium 9.8 8.5 - 10.5 mg/dL LAB CHEMISTRY METHOD 08/10/2024 10:51 AM [facility] Blood Venous blood specimen / Unknown Venipuncture / Unknown 08/10/2024 6:19 AM EST 08/10/2024 10:05 AM EST us Yulia Orantes MD LAB BLOOD ORDERABLES Final Resul t [facility] [address] [place] [address], * (ABNORMAL) Complete blood count (08/10/2024 6:19 AM EST) WBC 11.7(H) 4.8 - 10.8 K/mcL LAB HEMETOLOGY METHOD 08/10/2024 10:36 AM EST [facility] RBC 3.70(L) 3.80 - 4.80 M/mcL LAB HEMETOLOGY METHOD 08/10/2024 10:36 AM [facility] Hemoglobin 12.8 11.5 - 16.0 g/dL LAB HEMETOLOGY METHOD 08/10/2024 10:36 AM [facility] Hematocrit 40.4 35.0 - 47.0 % LAB HEMETOLOGY METHOD 08/10/2024 10:36 AM [facility] MCV 108.6(H) 79.0 - 98.0 FL LAB HEMETOLOGY METHOD 08/10/2024 10:36 AM [facility] MCH 34.4(H) 27.0 - 32.0 pcg LAB HEMETOLOGY METHOD 08/10/2024 10:36 AM [facility] MCHC 31.7(L) 32.0 - 37.0 g/dL LAB HEMETOLOGY METHOD 08/10/2024 10:36 AM [facility] RDW 12.9 11.0 - 15.0 % LAB HEMETOLOGY METHOD 08/10/2024 10:36 AM [facility] Platelets 351 130 - 400 K/mcL LAB HEMETOLOGY METHOD 08/10/2024 10:36 AM [facility] MPV 9.7 7.0 - 11.0 FL LAB HEMETOLOGY METHOD 08/10/2024 10:36 AM EST [facility] NRBC 0.0 <1.0 % LAB HEMETOLOGY METHOD 08/10/2024 10:36 AM EST [facility] NRBC Absolute 0.00 <0.10 K/mcL LAB HEMETOLOGY METHOD 08/10/2024 10:36 AM EST [facility] Blood Venous blood specimen / Unknown Venipuncture / Unknown 08/10/2024 6:19 AM EST 08/10/2024 9:58 AM EST us Yulia Orantes MD LAB BLOOD ORDERABLES Final Resul t [facility] [address] [place] [address], documented in this encounter Visit Diagnoses Diagnosis Unspecified convulsions (CMS/[facility]) Encounter for screening mammogram for breast cancer documented in this encounter Additional Health Concerns Infection Onset Date Last Indicated Resolved Time Respiratory Rule-Out 09/22/2024 09/21/2024 025 1:02 PM EST documented as of this encounter Care Teams County Assessor Relationship Specialty Start Date End Date Sadiq Valverde MD [address] [place] [address] Dr Debi [place] PCP - General 03/11/24 documented as of this encounter
--- OUTSIDE RECORDS SUMMARY | 2024-10-06 15:53 | XMS_ITS | Encounter Summary ---
Author Organization [employer] [facility] Address [address] [place] [address] Care Team Providers Care Garbage Collector Supervisor Name Role Phone Karma Wayne MD Primary Care Prov ider Rocky Najera MD Unavailable Unavailab Tashia Stubbs MD Unavailable Andres Henriquez MD Unavailable Unavailable Deysi Howe MD Unavailable Jassi Vaughan MD Unavailable Unavailable Sadiq Valverde MD Primary Care Provider Unav ailable Encounter Details Date Type Department Care Team Description 10/31/2023 Clerk General Office Report Medical Records [address] [place] [address] Rocky Najera MD Social History Tobacco Use Types Packs/Day [...] on filedocumented in this encounter Care Teams Garbage Collector Supervisor Relationship Specialty Start Date End Date Karma Wayne MD [address] [place], [place] [phone] PCP - General Internal Medicine 04/17/22 03/10/24 Sadiq Valverde MD [address] [place] [address] [place] [address] PCP - General Family Practice 03/11/24 Rocky Najera MD [address] [place] [address] Specialist Neurology 08/22/22 Tashia Hewitt MD [address] [address] Specialist Pulmonology 08/22/22 Andres Henriquez MD [address] [phone] Specialist Rheumatology 08/22/22 Deysi Howe MD [address] [place] [address] [place] [address] Specialist UROGYNECOLOGY 04/29/23 Jassi Vaughan MD [address] [place] [address] [place] [address] Specialist Ophthalmology 04/29/23 documented as of this encounter
--- OUTSIDE RECORDS SUMMARY | 2024-10-06 15:53 | XMS_ITS | Encounter Summary ---
Author Organization [facility] Address [address] [place] [address] Care Team Providers Care Charge Authorizer Name Role Phone Adis Joe PA-C Unavailable Carin vailable Karma Wayne MD Primary Care Prov ider Rocky Najera MD Unavailable Unavailab Tashia Stubbs MD Unavailable Andres Henriquez MD Unavailable Unavailable Deysi Howe MD Unavailable Jassi Vaughan MD Unavailable Unavailable Sadiq Valverde MD Primary Care Provider Unav ailable Reason for Visit * Reason Onset Date Comments Prior Authorization 12/25/2022 Encounter Details Date Type Department Care Team Description 12/25/2022 Telephone Adult Medicine [facility] [address] [place] [address] [phone] Karma Wayne MD [address] [place] [address] [phone] Prior Authorization Social History Tobacco Use Types [...] suspected to have Coronavirus/COVID-19? No / Unsure 12/24/2022 12:25 PM EDT documented as of this encounter Miscellaneous Notes * Telephone Encounter - Kristine Yanez M.A. - 01/08/2023 4:18 PM EDT OXYBUTYNIN TAB 2.5MG, use as directed, is approved for a non-formulary exception through 08/18/2023 Kristine Bailey Auth Dep Ext [id number] * Telephone Encounter - Kristine Yanez M.A. - 12/25/2022 1:18 PM EDT AUTH SENT WITH COVER MY MEDS [id number] TRIED SOLIFENACIN, OXYBUTYNIN 5MG Kristine Bailey Auth Dep Ext [id number] * Telephone Encounter - Frank Thorpe - 12/25/2022 11:26 AM EDT Prior Authorization for Medication-do not complete and send this encounter unless you have the fax from the pharmacy. Is this a Cover My Meds request: Yes -- Heller Code [id number] Name of Medication Oxybutynin Chloride Dose of Medication 2.5 MG Tab What is the RX # from the faxed refill? How does patient take this med? Take 1 Tablet by mouth 2 times daily as needed (For hyperactive bladder). - Oral What Pharmacy did the fax come from: [facility] fax #: [phone] [employer] Information from fax: What Prescription Plan does the patient have? BIN/PCN if applicable: Cardholder ID: Person Code: Relationship Code: Help desk phone: documented in this encounter Plan of Treatment Not on file documented as of this encounter Visit Diagnoses Not on filedocumented in this encounter Care Teams Charge Authorizer Relationship Specialty Start Date End Date Karma Wayne MD [address] [place] [address] PCP - General Internal Medicine 04/17/22 03/10/24 Sadiq Valverde MD [address] [place] [address] [place] [address] PCP - General Family Practice 03/11/24 Adis Joe PA-C Specialist ORTHOPEDICS 08/17/2106/10 Rocky Najera MD [address] [place] [address] Specialist Neurology 08/22/22 Tashia Hewitt MD [address] [address] Specialist Pulmonology 08/22/22 Andres Henriquez MD [address] [phone] Specialist Rheumatology 08/22/22 Deysi Howe MD [address] [place] [address] [place] [address] Specialist UROGYNECOLOGY 04/29/23 Jassi Vaughan MD [address] [place] [address] [place] [address] Specialist Ophthalmology 04/29/23 documented as of this encounter
--- OUTSIDE RECORDS SUMMARY | 2024-10-06 15:53 | XMS_ITS | Encounter Summary ---
Author Organization [facility] Address [address] [place] [address] Care Team Providers Care User Interface Developer Name Role Phone Karma Wayne MD Primary Care Prov ider Rocky Najera MD Unavailable Unavailab Tashia Stubbs MD Unavailable Andres Henriquez MD Unavailable Unavailable Deysi Howe MD Unavailable Jassi Vaughan MD Unavailable Unavailable Sadiq Valverde MD Primary Care Provider Unav ailable Encounter Details Date Type Department Care Team Description 09/02/2023 Orders Only Medical Records [address] [place] [address] Andres Henriquez MD Social History Tobacco Use [...] on file documented as of this encounter Procedures Procedure Name Priority Date/Time Associated Diagnosis Comments OUTSIDE LAB Routine 12/20/2022 documented in this encounter Results * OUTSIDE LAB (12/20/2022) Andres Henriquez MD LAB documented in this encounter Visit Diagnoses Not on filedocumented in this encounter Care Teams User Interface Developer Relationship Specialty Start Date End Date Karma Wayne MD [address] [place] [address] PCP - General Internal Medicine 04/17/22 03/10/24 Sadiq Valverde MD [address] [place] [address] [place] [address] PCP - General Family Practice 03/11/24 Rocky Najera MD [address] [place] [address] Specialist Neurology 08/22/22 Tashia Hewitt MD [address] [phone] Specialist Pulmonology 08/22/22 Andres Henriquez MD [address] [phone] Specialist Rheumatology 08/22/22 Deysi Howe MD [address] [place] [address] [place] [address] Specialist UROGYNECOLOGY 04/29/23 Jassi Vaughan MD [address] [place] [address] [place] [address] Specialist Ophthalmology 04/29/23 documented as of this encounter
--- OUTSIDE RECORDS SUMMARY | 2024-10-06 15:53 | XMS_ITS | Encounter Summary ---
Author Organization [facility] Address [address] [place] [address] Care Team Providers Care Basket Sorter Name Role Phone Jayleen Oneill DO Primary [...] Details Date Type Department Care Team Description 12/14/2019 Telephone Rheumatology - [address] [address] Oswaldo Fortune MD Social History Tobacco Use Types Packs/Day [...] encounter Miscellaneous Notes * Telephone Encounter - Oswaldo Fortune MD - 12/14/2019 10:24 AM EDT That seems OK Oswaldo Fortune MD * Telephone Encounter - Wilian Fish M.A. - 12/14/2019 10:19 AM EDT Patient calling to let you know she will be doing her May labs in January due to covid. documented in this encounter Plan of Treatment Not on file documented as of this encounter Visit Diagnoses Not on filedocumented in this encounter Care Teams Basket Sorter Relationship Specialty Start Date End Date Jayleen Oneill DO PCP - General Internal Medicine 09/02/14 02/07/21 Trevin Douglas DO PCP - General Internal Medicine 02/08/21 Dylan Cruz MD PCP - General Internal Medicine 05/25/21 04/16/22 Karma Wayne MD [address] [place] [address] PCP - General Internal Medicine 04/17/22 03/10/24 Sadiq Valverde MD [address] [place] [address] [place] [address] PCP - General Family Practice 03/11/24 Beto Montes MD Specialist Neurology 08/17/21 08/21/22 Adis Joe PA-C Specialist ORTHOPEDICS 08/17/2106/10 Rocky Najera MD [address] [place] [address] Specialist Neurology 08/22/22 Tashia Hewitt MD [address] [place] [phone] Specialist Pulmonology 08/22/22 Andres Henriquez MD [address] [facility] [address] [place] [address] Specialist Rheumatology 08/22/22 Deysi Howe MD [address] [facility] [place] [address] Specialist UROGYNECOLOGY 04/29/23 Jassi Vaughan MD [address] [facility] [place] [address] Specialist Ophthalmology 04/29/23 documented as of this encounter
--- OUTSIDE RECORDS SUMMARY | 2024-10-06 15:53 | XMS_ITS | Encounter Summary ---
Author Organization [facility] Address [address] [place] [address] Care Team Providers Care Horologist Apprentice Name Role Phone Jayleen Oneill DO Primary [...] Details Date Type Department Care Team Description 07/02/2019 Blacksmith Supervisor Report Medical Records [address] [place] [address] [facility] Social History Tobacco Use Types Packs/Day Years [...] on filedocumented in this encounter Care Teams Horologist Apprentice Relationship Specialty Start Date End Date Jayleen Oneill, PCP - General Internal Medicine 09/02/14 02/07/21 Trevin Douglas DO PCP - General Internal Medicine 02/08/21 1 Dylan Edmond MD PCP - General Internal Medicine 05/25/21 04/16/22 Karma Wayne MD [address] [place] [address] PCP - General Internal Medicine 04/17/22 03/10/24 Sadiq Valverde MD [address] [place] [address] [place] [address] PCP - General Family Practice 03/11/24 Beto Montes MD Specialist Neurology 08/17/21 08/21/22 Adis Joe PA-C Specialist ORTHOPEDICS 08/17/2106/10 Rocky Najera MD [address] [place] [address] Specialist Neurology 08/22/22 Tashia Hewitt MD [address] [phone] Specialist Pulmonology 08/22/22 Andres Henriquez MD [address] [phone] Specialist Rheumatology 08/22/22 Deysi Howe MD [address] [place] [address] [place] [address] Specialist UROGYNECOLOGY 04/29/23 Jassi Vaughan MD [address] [place] [address] [place] [address] Specialist Ophthalmology 04/29/23 documented as of this encounter
--- OUTSIDE RECORDS SUMMARY | 2024-10-06 15:53 | XMS_ITS | Encounter Summary ---
Author Organization [facility] Address [address] [place] [address] Care Team Providers Care Sprue Knocker Name Role Phone Jayleen Oneill DO Primary [...] * Reason Onset Date Comments refill request 02/15/2020 Encounter Details Date Type Department Care Team Description 02/15/2020 Refill Adult Medicine [address] [address] Jayleen Oneill DO refill request Social History Tobacco Use Types [...] encounter Miscellaneous Notes * Telephone Encounter - Clemencia Brien - 02/15/2020 10:33 AM EDT Patient would like script to be: E-PRESCRIBED/FAXED TO PHARMACY WHEN WAS THE PATIENT'S LAST APPOINTMENT IN ADULT MEDICINE? 11-20-19 WHEN WAS THE LAST TIME THE PATIENT SAW THEIR PCP? Same as above Does patient have an upcoming appointment? Yes 03-21-20 (THE MEDICATION REQUESTED IS ON THE MED [...] N/A Patients current insurance carrier is: Payor: [employer] / Plan: Bot[employer] $0 [facility] [id number] / Product Type: HMO [id number] documented in this encounter Plan of Treatment Not on file documented as of this encounter Visit Diagnoses Not on filedocumented in this encounter Care Teams Sprue Knocker Relationship Specialty Start Date End Date Jayleen Oneill DO PCP - General Internal Medicine 09/02/14 02/07/21 Trevin Douglas DO PCP - General Internal Medicine 02/08/21 1 Dylan Edmond MD PCP - General Internal Medicine 05/25/21 04/16/22 Calvin Vaz, Karma Sweeney MD [address] [place] [address] PCP - General Internal Medicine 04/17/22 03/10/24 Sadiq Valverde MD [address] [place] [address] [place] [address] PCP - General Family Practice 03/11/24 Beto Montes MD Specialist Neurology 08/17/21 08/21/22 Adis Joe PA-C Specialist ORTHOPEDICS 08/17/2106/10 Rocky Najera MD [address] [place] [address] Specialist Neurology 08/22/22 Tashia Hewitt MD [address] [address] Specialist Pulmonology 08/22/22 Andres Henriquez MD [address] [address] Specialist Rheumatology 08/22/22 Deysi Howe MD [address] [place] [address] [place] [address] Specialist UROGYNECOLOGY 04/29/23 Jassi Vaughan MD [address] [place] [address] [place] [address] Specialist Ophthalmology 04/29/23 documented as of this encounter
--- OUTSIDE RECORDS SUMMARY | 2024-10-06 15:53 | XMS_ITS | Clinical Summary ---
Author Organization [facility] Address [address] [place] [address] Care Team Providers Care Manufacturing Plant Controller Name Role Phone Karma Wayne MD Primary Care Prov ider Allergies Active Allergy Reactions Criticality Noted Date Comments Aspirin 10/27/2020 Codeine 10/27/2020 Medications Medication Sig Dispensed Refills Start Date End Date Status methotrexate 2.5 MG tablet Take 15 mg by mouth once a week. 0 Active Tofacitinib Citrate 5 MG TABS Take 5 mg by mouth 2 (two) times a day. 0 Active fluticasone (FLOVENT HFA) 110 MCG/ACT inhaler Inhale 1 puff into the lungs 2 (two) times a day. 0 Active levETIRAcetam (KEPPRA) 750 MG tablet Take 750 mg by mouth 2 (two) times a day. 0 Active Albuterol Sulfate 108 (90 Base) MCG/ACT AEPB Inhale 2 puffs into the lungs every 6 (six) hours as needed. 0 Active folic acid (FOLVITE) tablet 1 mg Take 1 mg by mouth daily. 0 Active Cholecalciferol 50 MCG (2000 UT) TABS Take by mouth daily. 0 Active Multiple Vitamins-Minerals (PRESERVISION AREDS 2+MULTI VIT) CAPS Take 2 capsules by mouth daily. 0 Active vitamin E 400 UNIT capsule Take 400 Units by mouth daily. 0 Active topiramate (TOPAMAX) 200 MG tablet Take 200 mg by mouth 2 (two) times a day. 0 Active CALCIUM CARBONATE-VITAMIN D PO Take 1 tablet by mouth 3 (three) times a day. 0 Active Fluticasone Furoate (Arnuity Ellipta) 100 MCG/ACT AEPB Inhale into the lungs. 0 Active Active Problems Problem Noted Date Diagnosed Date Myasthenia gravis, MuSK antibody positive 2020 Epilepsy 10/27/2020 Overview: Overview: Dr. Cristopher George RA (rheumatoid arthritis) 10/27/2020 Overview: Overview: Onset ~ 2013 Prior treatments: Methotrexate and Plaquenil started late 2013 sulfasalazine added 01/31 Plaquenil stopped 05/04 - not helping Enbrel added 05/[address] of Enbrel and sulfasalazine (inadequate Response) 12/04 Osteoarthritis of both knees 09/23/2019 Overview: Overview: L>R Gel injections summer 2018, 10/08 for left knee Chronic idiopathic granulomatous disease 019 Chronic obstructive pulmonary disease 05/11/2019 Gait instability 03/18/2019 Osteoporosis 03/18/2019 Morbid obesity 07/04/2018 Obstructive sleep apnea syndrome 05/30/2018 Overview: Overview: [facility] Home Polysomnogram: Date 05/27/2018; AHI 8, Unclassified apneas 0; Obstructive apneas 8; Central apneas 1; Mixed apneas 0; hypopneas 45; average oxygen saturation 94% (lowest 84% without saturations <88% for 5% or more of study) [facility] Polysomnogram treatment study. Date 06/28/2018. SE 61 [...] home polysomnogram. - CPAP @ 6 corrective. 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 Personal history of poliomyelitis 10/04/2014 Family History Medical History Relation Name Comments Brain cancer Brother Colon cancer Father Asthma Mother Diabetes Sister Stroke Sister Relation Name Status Comments Brother (Age 53) Father (Age 81) Mother (Age 55) Sister Alive Social History Tobacco Use Types Packs/Day Years Used Date Smoking Tobacco: Former Cigarettes Q uit: 1984 Smokeless Tobacco: Never Alcohol Use Standard Drinks/Week Comments No 0 (1 standard drink = 0.6 oz pur e alcohol) Sex and Gender Information Value Date Recorded Sex Assigned at Not on file Gender Identity Not on file Sexual Orientation Not on file Job Start Date Occupation Industry Not on file Not on file Not on file Last Filed Vital Signs Vital Sign Reading Time Taken Comments Blood Pressure 145/58 08/02/2022 2:15 PM EST Pulse 81 08/02/2022 2:15 PM EST Temperature 36.2 ??C (97.1 ??F) 02/22/2022 10:35 AM E DT Respiratory Rate - - Oxygen Saturation 98% 08/02/2022 2:15 PM EST Inhaled Oxygen Concentration - - Weight 110.7 kg (244 lb) 08/02/2022 2:15 PM EST Height 144.8 cm (4' 9 ) 08/02/2022 2:15 PM EST Body Mass Index 52.8 08/02/2022 2:15 PM EST Plan of Treatment Health Maintenance Due Date Last Done Comments Hepatitis C Screening 1949 Depression Screening 1961 BMI Counseling 1967 Preventative Health Evaluation 1967 Colon Cancer Screening (Colonoscopy) 1994 Fall Risk Assessment 2014 Osteoporosis Screening (DEXA Scan) 2014 COVID-19 Vaccine ( season) 2024 04/03/2022, 10/24/2021, 11/16/2020, Additional history exists Influenza Vaccine (#1) 2024 2, 06/13/2021, 05/23/2020, Additional history exists RSV Adult > 60+ Yrs or (1 - 1-dose 75+ series) 2024 DTap / Tdap / Td (3 - Td or Tdap) 10/05/2031 10/05/2021, 10/24/2018, 04/24/2008 Pneumococcal Vaccine Completed 11/01/2015, 10/23/19 Shingrix-Zoster Vaccine Completed 02/07/2021, 12/06 Hepatitis B Vaccines Aged Out No long er eligible based on patient's age to complete this topic RSV Ped < 20 months Aged Out No longe r eligible based on patient's age to complete this topic Care Teams Manufacturing Plant Controller Relationship Specialty Start Date End Date Karma Wayne MD [address] [place] [address] PCP - General Internal Medicine 08/02/22
--- OUTSIDE RECORDS SUMMARY | 2024-10-06 15:54 | XMS_ITS | Encounter Summary ---
Author Organization [facility] Address [address] [place] [address] Care Team Providers Care Acid Regenerator Name Role Phone Jayleen Oneill DO Primary [...] for Visit * Reason Onset Date Comments Faxed Order 09/16/2017 Encounter Details Date Type Department Care Team Description 09/16/2017 Telephone Adult Medicine [address] [address] Jayleen Oneill DO Faxed Order Social History Tobacco Use Types Packs/Day Years Used Date Smoking Tobacco: Former Comments:quit 1983 Alcohol Use Standard Drinks/Week Comments Not Asked 0 (1 standard drink = 0.6 oz pur e alcohol) Sex Assigned at Date Recorded Female 04/18/2022 1:31 PM E DT Job Start Date Occupation Industry Not on file Not on file Not on file documented as of this encounter Miscellaneous Notes * Telephone Encounter - Adalgisa Mcmanusulices - 09/16/2017 8:51 AM EST [facility] IS FAXING ORDERS TO BE SIGNED AND FAX BACK TO [phone]. ?? documented in this encounter Plan of Treatment Not on file documented as of this encounter Visit Diagnoses Not on filedocumented in this encounter Care Teams Acid Regenerator Relationship Specialty Start Date End Date Jayleen Oneill, DO PCP - General Internal Medicine 09/02/14 02/07/21 Trevin Douglas DO PCP - General Internal Medicine 02/08/21 1 Dylan Edmond MD PCP - General Internal Medicine 05/25/21 04/16/22 Karma Wayne MD [address] [place] [address] PCP - General Internal Medicine 04/17/22 03/10/24 Sadiq Valverde MD [address] [place] [address] [place] [address] PCP - General Family Practice 03/11/24 Beto Montes MD Specialist Neurology 08/17/21 08/21/22 Adis Joe PA-C Specialist ORTHOPEDICS 08/17/2106/10 Rocky Najera MD [address] [place] [address] Specialist Neurology 08/22/22 Tashia Hewitt MD [address] [address] Specialist Pulmonology 08/22/22 Andres Henriquez MD [address] [address] Specialist Rheumatology 08/22/22 Deysi Howe MD [address] [place] [address] [place] [address] Specialist UROGYNECOLOGY 04/29/23 Jassi Vaughan MD [address] [facility] [place] [address] Specialist Ophthalmology 04/29/23 documented as of this encounter
--- OUTSIDE RECORDS SUMMARY | 2024-10-06 15:54 | XMS_ITS | Encounter Summary ---
Author Organization [facility] Address [address] [place] [address] Care Team Providers Care Sales And Service Technician Name Role Phone Jayleen Oneill DO Primary [...] * Reason Onset Date Comments refill request 12/29/2018 Encounter Details Date Type Department Care Team Description 12/29/2018 Refill Adult Medicine [address] [address] Jayleen Oneill DO refill request Social History [...] Telephone Encounter - Oswaldo Fortune MD - 12/29/2018 12:46 PM EDT Jovita, please call patient [phone] (home) Needs labs done and appt scheduled Dr. Fortune * Telephone Encounter - Indigo Zavala M.A. - 12/29/2018 9:35 AM EDT Given by Rheumatology * Telephone Encounter - Shania Skinner - 12/29/2018 8:56 AM EDT Patient would like script to be: E-PRESCRIBED/FAXED TO PHARMACY WHEN WAS THE PATIENT'S LAST APPOINTMENT IN ADULT MEDICINE? 11/03/2018 WHEN WAS THE LAST TIME THE PATIENT SAW THEIR PCP? Same as above Does patient have an upcoming appointment? Yes 03/13/2019 (THE MEDICATION REQUESTED IS ON THE MED [...] N/A Patients current insurance carrier is: Payor: [employer] / Plan: CSMG $0 [place] [id number] [id number] / Product Type: HMO [id number] documented in this encounter Plan of Treatment Not on file documented as of this encounter Results * CREATININE, BLOOD ASSAY (01/07/2019 11:30 AM EDT) CREAT 0.87 0.5 - 1.1 mg/dL 01/07/2019 3:53 PM EDT [facility] GLOMERULAR FILTRATION RATE > 60 01/07/2019 3:53 PM EDT [facility] Comment: If patient is -Austrian, multiply result by 1.21 Chronic Kidney Disease: < 60 ml/min/1.73 square meters Kidney Failure: < 15 ml/min/1.73 square meters 01/07/2019 11:3 0 AM EDT 01/07/2019 11:31 AM EDT Oswaldo Fortune MD LAB Performing Organization Address [facility]/ZIP Co de Phone Number [facility] [email or web address] * TRANSAMINASE (SGPT)(ALT) UV- (01/07/2019 11:30 AM EDT) SGPT 31 10 - 60 U/L 01/07/2019 3:53 PM EDT [facility] [email or web address] 01/07/2019 11:3 0 AM EDT 01/07/2019 11:31 AM EDT Oswaldo Fortune MD LAB Performing Organization Address [facility] Co de Phone Number [facility] [email or web address] * TRANSAMINASE (SGOT)(AST) UV- (01/07/2019 11:30 AM EDT) SGOT 27 10 - 42 U/L 01/07/2019 3:53 PM EDT [facility] [email or web address] 01/07/2019 11:3 0 AM EDT 01/07/2019 11:31 AM EDT Oswaldo Fortune MD LAB Performing Organization Address City/[facility]/ZIP Co de Phone Number [facility] [email or web address] * (ABNORMAL) CBC (AUTO DIFF PLATELET) (01/07/2019 11:30 AM EDT) [facility] WHITE BLOOD COUNT 8.9 4.8 - 10.8 x10-3/uL 01/07/2019 3:30 PM EDT [facility] RED BLOOD COUNT 3.8 3.8 - 4.8 x10-6/uL 01/07/2019 3:[address] [facility] Hemoglobin 13.4 11.5 - 16.0 g/dL 01/07/2019 3:30 PM EDT [facility] Hematocrit 40.8 35 - 47 % 01/07/2019 3:[address] [facility] MEAN CORPUSCULAR VOLUME 106.8(H) 79 - 98 fL 01/07/2019 3:[address] [facility] CORPUSCULAR HEMOGLOBIN 35.1(H) 27 - 32 pg 01/07/2019 3:[address] [facility] [facility]US[facility] HGB CONC 32.8 32 - 37 g/dL 01/07/2019 3:[address] [facility] RED CELL DISTRIBUTION WIDTH 12.9 11 - 15 % 01/07/2019 3:30 PM EDT [facility] PLT COUNT 291 130 - 400 x10-3/uL 01/07/2019 3:30 PM EDT [facility] MEAN PLATELET VOLUME 11.0 7 - 11 fL 01/07/2019 3:[address] [facility] NRBC % AUTO 0.0 <1 % 01/07/2019 3:30 PM EDT [facility] NEUTROPHILS % 58.4 % 01/07/2019 3:30 PM EDT [facility] LYMPH % 31.3 % 01/07/2019 3:30 PM EDT [facility] MONO % 8.6 % 01/07/2019 3:30 PM EDT [facility] EOS % 1.0 % 01/07/2019 3:30 PM EDT [facility] BASO % 0.4 % 01/07/2019 3:30 PM EDT [facility] IMMATURE GRANULOCYTES % 0.3 % 01/07/2019 3:[address] [facility] [facility] NRBC # AUTO 0.00 <0.1 x10-3/uL 01/07/2019 3:30 PM EDT [facility] NEUT # 5.19 1.5 - 7.0 x10-3/uL 01/07/2019 3:30 PM EDT [facility] LYMPH # 2.79 1 - 5.0 x10-3/uL 01/07/2019 3:30 PM EDT [facility] MONO # 0.77 0.2 - 1.0 x10-3/uL 01/07/2019 3:30 PM EDT [facility] EOS # 0.09 0 - 0.5 x10-3/uL 01/07/2019 3:30 PM EDT [facility] BASO # 0.04 0 - 0.2 x10-3/uL 01/07/2019 3:30 PM EDT [facility] IMMATURE GRANULOCYTES # 0.03 0 - 0.03 x10-3/uL 01/07/2019 3:30 PM EDT [facility] 01/07/2019 11:3 0 AM EDT 01/07/2019 11:31 AM EDT Oswaldo Fortune MD LAB Performing Organization Address City/[facility]/ZIP Co de Phone Number [facility] * C-REACTIVE PROTEIN (01/07/2019 11:30 AM EDT) C-REACTIVE PROTEIN 0.33 <0.5 mg/dl 01/07/2019 3:53 PM EDT [facility] 01/07/2019 11:3 0 AM EDT 01/07/2019 11:31 AM EDT Oswaldo Fortune MD LAB [facility] [email or web address] * RBC SEDIMENTATION RATE, NON-AUTO (01/07/2019 11:30 AM EDT) ERYTHROCYTE SEDIMENTATION RATE 16 0 - 30 mm/hr 01/07/2019 4:05 PM EDT [facility] 01/07/2019 11:3 0 AM EDT 01/07/2019 11:31 AM EDT Oswaldo Fortune MD LAB Performing Organization Address City/[facility]/ZIP Co de Phone Number [facility] documented in this encounter Visit Diagnoses Diagnosis Rheumatoid arthritis involving multiple sites with positive rheumatoid factor (HCC)- Primary Long-term use of immunosuppressant medication Encounter for long-term (current) use of other medications documented in this encounter Care Teams Sales And Service Technician Relationship Specialty Start Date End Date Jayleen Oneill DO PCP - General Internal Medicine 09/02/14 02/07/21 Trevin Douglas DO PCP - General Internal Medicine 02/08/21 Dylan Cruz MD PCP - General Internal Medicine 05/25/21 04/16/22 Karma Wayne MD [address] [place] [address] PCP - General Internal Medicine 04/17/22 03/10/24 Sadiq Valverde MD [address] [place] [address] [place] [address] PCP - General Family Practice 03/11/24 Beto Montes MD Specialist Neurology 08/17/21 08/21/22 Adis Joe PA-C Specialist ORTHOPEDICS 08/17/2106/10 Rocky Najera MD [address] [place] [address] Specialist Neurology 08/22/22 Tashia Hewitt MD [address] [phone] Specialist Pulmonology 08/22/22 Andres Henriquez MD [address] [address] Specialist Rheumatology 08/22/22 Deysi Howe MD [address] [place] [address] [place] [address] Specialist UROGYNECOLOGY 04/29/23 Jassi Vaughan MD [address] [place] [address] [place] [address] Specialist Ophthalmology 04/29/23 documented as of this encounter
--- OUTSIDE RECORDS SUMMARY | 2024-10-06 15:54 | XMS_ITS | Encounter Summary ---
Author Organization [facility] Address [address] [place] [address] Care Team Providers Care Aircraft Tool Maker Name Role Phone Jayleen Oneill DO Primary [...] Details Date Type Department Care Team Description 08/01/2016 Semiconductor Engineer Report Medical Records [address] [place] [address] Cristopher Oliver MD Social History Tobacco Use Types Packs/Day [...] on filedocumented in this encounter Care Teams Aircraft Tool Maker Relationship Specialty Start Date End Date Jayleen Oneill DO PCP - General Internal Medicine 09/02/14 02/07/21 Trevin Douglas DO PCP - General Internal Medicine 02/08/21 Dylan Cruz MD PCP - General Internal Medicine 05/25/21 04/16/22 Karma Wayne MD [address] [place] [address] PCP - General Internal Medicine 04/17/22 03/10/24 Sadiq Valverde MD [address] [place] [address] [place] [address] PCP - General Family Practice 03/11/24 Beto Montes MD Specialist Neurology 08/17/21 08/21/22 Adis Joe PA-C Specialist ORTHOPEDICS 08/17/2106/10 Rocky Najera MD [address] [place] [address] Specialist Neurology 08/22/22 Tashia Hewitt MD [address] [phone] Specialist Pulmonology 08/22/22 Andres Henriquez MD [address] [phone] Specialist Rheumatology 08/22/22 Deysi Howe MD [address] [place] [address] [place] [address] Specialist UROGYNECOLOGY 04/29/23 Jassi Vaughan MD [address] [place] [address] [place] [address] Specialist Ophthalmology 04/29/23 documented as of this encounter
--- OUTSIDE RECORDS SUMMARY | 2024-10-06 15:54 | XMS_ITS | Encounter Summary ---
Author Organization [facility] Address [address] [place] [address] Care Team Providers Care Cannery Worker Name Role Phone Jayleen Oneill DO Primary [...] Details Date Type Department Care Team Description 08/23/2016 SCAN Medical Records [address] [place] [address] Abstract, Provider Social History Tobacco Use Types [...] on filedocumented in this encounter Care Teams Cannery Worker Relationship Specialty Start Date End Date Jayleen Oneill DO PCP - General Internal Medicine 09/02/14 02/07/21 Trevin Douglas DO PCP - General Internal Medicine 02/08/21 Dylan Cruz MD PCP - General Internal Medicine 05/25/21 04/16/22 Karma Wayne MD [address] [place] [address] PCP - General Internal Medicine 04/17/22 03/10/24 Sadiq Valverde MD [address] [place] [address] [place] [address] PCP - General Family Practice 03/11/24 Beto Montes MD Specialist Neurology 08/17/21 08/21/22 Adis Joe PA-C Specialist ORTHOPEDICS 08/17/2106/10 Rocky Najera MD [address] [place] [address] Specialist Neurology 08/22/22 Tashia Hewitt MD [address] [address] Specialist Pulmonology 08/22/22 Andres Henriquez MD [address] [phone] Specialist Rheumatology 08/22/22 Deysi Howe MD [address] [place] [address] [place] [address] Specialist UROGYNECOLOGY 04/29/23 Jassi Vaughan MD [address] [place] [address] [place] [address] Specialist Ophthalmology 04/29/23 documented as of this encounter
--- OUTSIDE RECORDS SUMMARY | 2024-10-06 15:54 | XMS_ITS | Encounter Summary ---
Author Organization [facility] Address [address] [place] [address] Care Team Providers Care Analog Circuit Designer Name Role Phone Jayleen Oneill DO Primary [...] Details Date Type Department Care Team Description 02/21/2017 Orders Only Adult Medicine [address] [address] Jayleen Oneill DO Social History Tobacco Use [...] on filedocumented in this encounter Care Teams Analog Circuit Designer Relationship Specialty Start Date End Date Jayleen Oneill, PCP - General Internal Medicine 09/02/14 02/07/21 Trevin Douglas DO PCP - General Internal Medicine 02/08/21 1 Dylan Edmond MD PCP - General Internal Medicine 05/25/21 04/16/22 Karma Wayne MD [address] [place] [address] PCP - General Internal Medicine 04/17/22 03/10/24 Sadiq Valverde MD [address] [place] [address] [place] [address] PCP - General Family Practice 03/11/24 Beto Montes MD Specialist Neurology 08/17/21 08/21/22 Adis Joe PA-C Specialist ORTHOPEDICS 08/17/2106/10 Rocky Najera MD [address] [place] [address] Specialist Neurology 08/22/22 Tashia Hewitt MD [address] [place] [phone] Specialist Pulmonology 08/22/22 Andres Henriquez MD [address] [phone] Specialist Rheumatology 08/22/22 Deysi Howe MD [address] [place] [address] [place] [address] Specialist UROGYNECOLOGY 04/29/23 Jassi Vaughan MD [address] [place] [address] [place] [address] Specialist Ophthalmology 04/29/23 documented as of this encounter
--- OUTSIDE RECORDS SUMMARY | 2024-10-06 15:54 | XMS_ITS | Encounter Summary ---
Author Organization [facility] Address [address] [facility] [place] [address] Care Team Providers Care Piano Regulator Inspector Name Role Phone Jayleen Oneill DO Primary Care Pro vider Unavailable Trevin Duoglas DO Primary Care Provider Carin vailable Dylan [...] * Reason Onset Date Comments DME Request 07/14/2018 Encounter Details Date Type Department Care Team Description 07/14/2018 Telephone Pulmonology - [place] 175 [facility] [address] [place] [address] Leticia Garcia FNP [address] [place] [address] DME Request Social History Tobacco Use Types [...] encounter Miscellaneous Notes * Telephone Encounter - ROSIE Christianson - 07/14/2018 2:01 PM EST Order under letters. Takes 2-3 weeks to process. * Telephone Encounter - Mary Beth Tesfaye - 07/14/2018 1:54 PM EST Patient calling because Dr. Kelly mention to her that she was going to order a CPAP machine on her visit on 07/04/18 (I don't see any order) documented in this encounter Plan of Treatment Not on file documented as of this encounter Visit Diagnoses Not on filedocumented in this encounter Care Teams Piano Regulator Inspector Relationship Specialty Start Date End Date Jayleen Oneill DO PCP - General Internal Medicine 09/02/14 02/07/21 Trevin Douglas DO PCP - General Internal Medicine 02/08/21 1 Dylan Edmond MD PCP - General Internal Medicine 05/25/21 04/16/22 Karma Wayne MD [address] [place] [address] PCP - General Internal Medicine 04/17/22 03/10/24 Sadiq Valverde MD [address] [place] [address] [place] [address] PCP - General Family Practice 03/11/24 Beto Montes MD Specialist Neurology 08/17/21 08/21/22 Adis Joe PA-C Specialist ORTHOPEDICS 08/17/2106/10 Rocky Najera MD [address] [place] [address] Specialist Neurology 08/22/22 Tashia Hewitt MD 175 [facility] [address] [place] [phone] Specialist Pulmonology 08/22/22 Andres Henriquez MD 175 [facility] [address] [place] [address] Specialist Rheumatology 08/22/22 Deysi Howe MD [address] [facility] [place] [address] Specialist UROGYNECOLOGY 04/29/23 Jassi Vaughan MD [address] [facility] [place] [address] Specialist Ophthalmology 04/29/23 documented as of this encounter
--- OUTSIDE RECORDS SUMMARY | 2024-10-06 15:54 | XMS_ITS | Encounter Summary ---
Author Organization [facility] Address [address] [place] [address] Care Team Providers Care Team Otr Truck Driver Name Role Phone Jayleen Oneill DO Primary [...] Provider Unav ailable Reason for Referral * Radiology Services (Routine) - Closed Specialty Diagnoses / Procedures Referred By Contac t Referred To Contact Radiology Diagnoses Pulmonary nodules Abnormal CT of the chest Former smoker Procedures CAT SCAN OF CHEST NO CONTRAST Ray Graham MD [address] [place] [address] [facility] [address] [place] [id number] Referral ID Status Reason Start Date Expiration Date V isits Requested Visits Authorized NO AUTH REQUIRED Closed 03/04/2018 03/04/2019 1 1 Encounter Details Date Type Department Care Team Description 12/06/2017 Telephone Pulmonology [address] [place] [address] Ray Graham MD 175 [facility] 200 [place] [address] Social History Tobacco Use Types [...] encounter Miscellaneous Notes * Telephone Encounter - Ray Graham MD - 12/06/2017 2:44 PM EDT I called and I spoke with her. CT multiples bilateral Lung Nodule. I will repeat the CT scan in 03/27 2018 for reevaluation. All questions were answered documented in this encounter Plan of Treatment Not on file documented as of this encounter Results * CAT SCAN OF CHEST NO CONTRAST (04/07/2018 9:42 AM EDT) 04/07/2018 2:56 PM EDT Impressions [facility] - 04/07/2018 3:08 PM EDT IMPRESSION: Stable pulmonary nodules when compared with baseline 12/04/2017. Consider follow-up noncontrast CT 1 year. Narrative [facility] EX[facility] - 04/07/2018 3:08 PM EDT Noncontrast chest CT: HISTORY: Follow-up multiple lung nodules COMPARISON: 12/04/2017 TECHNIQUE: Scans were obtained through the chest without intravenous contrast. Radiation dose: ctdi 10.88 mGy Pulmonary nodules: * ??4 mm right upper lobe pulmonary nodule (image 73/266) stable. * ??6 mm superior segment left lower lobe pulmonary nodule (image 89/266) stable. * ??Adjacent 3.5 mm and 2 mm pulmonary nodules right lower lobe (image 139/266) stable on review. No active lung disease. Mild linear scarring right middle lobe, lingula and lung bases unchanged. Thyroid gland appears normal. No lymphadenopathy. No pleural effusion. Small pericardial effusion unchanged. Limited sections of the upper abdomen appear normal. Accessory spleen noted. No destructive bone lesions. Procedure Note Oswaldo Card MD - 04/07/[address]: HISTORY: Follow-up multiple lung nodules COMPARISON: 12/04/2017 TECHNIQUE: Scans were obtained through the chest without intravenouscontrast. Radiation dose: ctdi 10.88 mGy Pulmonary nodules: * 4 mm right upper lobe pulmonary nodule (image 73/266) stable. * 6 mm superior segment left lower lobe pulmonary nodule (image 89/266)stable. * Adjacent 3.5 mm and 2 mm pulmonary nodules right lower lobe ([id number]) stable on review. No active lung disease. Mild linear scarring right middle lobe, lingulaand lung bases unchanged. Thyroid gland appears normal. No lymphadenopathy. No pleural effusion.Small pericardial effusion unchanged. Limited sections of the upper abdomen appear normal.Accessory spleen noted. No destructive bone lesions. IMPRESSION IMPRESSION: Stable pulmonary nodules when compared with baseline12/04/2017. Consider follow-up noncontrast CT [address]. Ray Graham MD CT SCANS [facility] documented in this encounter Visit Diagnoses Diagnosis Pulmonary nodules- Primary Other nonspecific abnormal finding of lung field Abnormal CT of the chest Nonspecific (abnormal) findings on radiological and other examination of other intrathoracic organs Former smoker Personal history of tobacco use, presenting hazards to health Pulmonary nodules Other nonspecific abnormal finding of lung field Abnormal CT of the chest Nonspecific (abnormal) findings on radiological and other examination of other intrathoracic organs Former smoker Personal history of tobacco use, presenting hazards to health documented in this encounter Care Teams Team Otr Truck Driver Relationship Specialty Start Date End Date Jayleen Oneill DO PCP - General Internal Medicine 09/02/14 02/07/21 Trevin Douglas DO PCP - General Internal Medicine 02/08/21 1 Dylan Edmond MD PCP - General Internal Medicine 05/25/21 04/16/22 Karma Wayne MD [address] [place] [address] PCP - General Internal Medicine 04/17/22 03/10/24 Sadiq Valverde MD [address] [place] [address] [place] [address] PCP - General Family Practice 03/11/24 Beto Montes MD Specialist Neurology 08/17/21 08/21/22 Adis Joe PA-C Specialist ORTHOPEDICS 08/17/2106/10 Rocky Najera MD [address] [place] [address] Specialist Neurology 08/22/22 Tashia Hewitt MD [address] [phone] Specialist Pulmonology 08/22/22 Andres Henriquez MD [address] [phone] Specialist Rheumatology 08/22/22 Deysi Howe MD [address] [place] [address] [place] [address] Specialist UROGYNECOLOGY 04/29/23 Jassi Vaughan MD [address] [place] [address] [place] [address] Specialist Ophthalmology 04/29/23 documented as of this encounter
--- OUTSIDE RECORDS SUMMARY | 2024-10-06 15:54 | XMS_ITS | Encounter Summary ---
Author Organization [facility] Address [address] [place] [address] Care Team Providers Care Metal Temperer Name Role Phone Jayleen Oneill DO Primary [...] Details Date Type Department Care Team Description 04/13/2015 Business Doc Medical Records [address] [place] [address] Abstract, Provider Social History Tobacco Use Types [...] on filedocumented in this encounter Care Teams Metal Temperer Relationship Specialty Start Date End Date Jayleen Oneill DO PCP - General Internal Medicine 09/02/14 02/07/21 Trevin Douglas DO PCP - General Internal Medicine 02/08/21 Dylan Curz MD PCP - General Internal Medicine 05/25/21 04/16/22 Karma Wayne MD [address] [place] [address] PCP - General Internal Medicine 04/17/22 03/10/24 Sadiq Valverde MD [address] [place] [address] [place] [address] PCP - General Family Practice 03/11/24 Beto Montes MD Specialist Neurology 08/17/21 08/21/22 Adis Joe PA-C Specialist ORTHOPEDICS 08/17/2106/10 Rocky Najera MD [address] [place] [address] Specialist Neurology 08/22/22 Tashia Hewitt MD [address] [phone] Specialist Pulmonology 08/22/22 Andres Henriquez MD [address] [phone] Specialist Rheumatology 08/22/22 Deysi Howe MD [address] [place] [address] [place] [address] Specialist UROGYNECOLOGY 04/29/23 Jassi Vaughan MD [address] [place] [address] [place] [address] Specialist Ophthalmology 04/29/23 documented as of this encounter
--- OUTSIDE RECORDS SUMMARY | 2024-10-06 15:54 | XMS_ITS | Encounter Summary ---
Author Organization [facility] Address [address] [place] [address] Care Team Providers Care Compliance Consultant Name Role Phone Jayleen Oneill DO Primary [...] Details Date Type Department Care Team Description 04/27/2018 Refill Rheumatology - [place] [address] [place] [address] Veronica Aggarwal DO E-prescribe Rx Request Social History Tobacco Use [...] encounter Miscellaneous Notes * Telephone Encounter - Ca Gardner - 04/28/2018 9:56 AM EDT Patient would like script to be: E-PRESCRIBED/FAXED TO PHARMACY WHEN WAS THE PATIENT'S LAST APPOINTMENT IN ADULT MEDICINE? 01/20/18 WHEN WAS THE LAST TIME THE PATIENT SAW THEIR PCP? Same as above () Does patient have an upcoming appointment? 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, unspecified laterality (HCC) On methotrexate therapy On sulfasalazine therapy documented in this encounter Care Teams Compliance Consultant Relationship Specialty Start Date End Date Jayleen Oneill DO PCP - General Internal Medicine 09/02/14 02/07/21 Trevin Douglas DO PCP - General Internal Medicine 02/08/21 1 Dylan Edmond MD PCP - General Internal Medicine 05/25/21 04/16/22 Karma Wayne MD [address] [place] [address] PCP - General Internal Medicine 04/17/22 03/10/24 Sadiq Valverde MD [address] [place] [address] [place] [address] PCP - General Family Practice 03/11/24 Beto Montes MD Specialist Neurology 08/17/21 08/21/22 Adis Joe PA-C Specialist ORTHOPEDICS 08/17/2106/10 Rocky Najera MD [address] [place] [address] Specialist Neurology 08/22/22 Tashia Hewitt MD [address] [phone] Specialist Pulmonology 08/22/22 Andres Henriquez MD [address] [phone] Specialist Rheumatology 08/22/22 Deysi Howe MD [address] [place] [address] [place] [address] Specialist UROGYNECOLOGY 04/29/23 Jassi Vaughan MD [address] [place] [address] [place] [address] Specialist Ophthalmology 04/29/23 documented as of this encounter
--- OUTSIDE RECORDS SUMMARY | 2024-10-06 15:54 | XMS_ITS | Encounter Summary ---
Author Organization [facility] Address [address] [place] [address] Care Team Providers Care Mechanical Operator Name Role Phone Jayleen Oneill DO Primary [...] Details Date Type Department Care Team Description 03/21/2019 Orders Only Adult Urgent Care - [address] [address] Jayleen Oneill DO Social History Tobacco Use [...] on filedocumented in this encounter Care Teams Mechanical Operator Relationship Specialty Start Date End Date Jayleen Oneill DO PCP - General Internal Medicine 09/02/14 02/07/21 Trevin Douglas DO PCP - General Internal Medicine 02/08/21 1 Dylan Edmond MD PCP - General Internal Medicine 05/25/21 04/16/22 Karma Wayne MD [address] [place] [address] PCP - General Internal Medicine 04/17/22 03/10/24 Sadiq Valverde MD [address] [place] [address] [place] [address] PCP - General Family Practice 03/11/24 Beto Montes MD Specialist Neurology 08/17/21 08/21/22 Adis Joe PA-C Specialist ORTHOPEDICS 08/17/2106/10 Rocky Najera MD [address] [place] [address] Specialist Neurology 08/22/22 Tashia Hewitt MD [address] [phone] Specialist Pulmonology 08/22/22 Andres Henriquez MD [address] [phone] Specialist Rheumatology 08/22/22 Deysi Howe MD [address] [place] [address] [place] [address] Specialist UROGYNECOLOGY 04/29/23 Jassi Vaughan MD [address] [place] [address] [place] [address] Specialist Ophthalmology 04/29/23 documented as of this encounter
--- OUTSIDE RECORDS SUMMARY | 2024-10-06 15:54 | XMS_ITS | Encounter Summary ---
Author Organization [facility] Address [address] [place] [address] Care Team Providers Care Wood Room Supervisor Name Role Phone Jayleen Oneill DO Primary [...] Details Date Type Department Care Team Description 09/03/2017 Home Health Certification Medical Records [address] [place] [address] Social History Tobacco Use Types Packs/Day Years [...] on filedocumented in this encounter Care Teams Wood Room Supervisor Relationship Specialty Start Date End Date Jayleen Oneill DO PCP - General Internal Medicine 09/02/14 02/07/21 Trevin Douglas DO PCP - General Internal Medicine 02/08/21 Dylan Cruz MD PCP - General Internal Medicine 05/25/21 04/16/22 Karma Wayne MD [address] [place] [address] PCP - General Internal Medicine 04/17/22 03/10/24 Sadiq Valverde MD [address] [place] [address] Urogynecology [place] [phone] PCP - General Family Practice 03/11/24 Beto Montes MD Specialist Neurology 08/17/21 08/21/22 Adis Joe PA-C Specialist ORTHOPEDICS 08/17/2106/10 Rocky Najera MD [address] [place] [address] Specialist Neurology 08/22/22 Tashia Hewitt MD [address] [phone] Specialist Pulmonology 08/22/22 Andres Henriquez MD [address] [phone] Specialist Rheumatology 08/22/22 Deysi Howe MD [address] [place] [address] [place] [address] Specialist UROGYNECOLOGY 04/29/23 Jassi Vaughan MD [address] [place] [address] [place] [address] Specialist Ophthalmology 04/29/23 documented as of this encounter
--- OUTSIDE RECORDS SUMMARY | 2024-10-06 15:54 | XMS_ITS | Encounter Summary ---
Author Organization [facility] Address [address] [place] [address] Care Team Providers Care Mannequin Maker Name Role Phone Jayleen Oneill DO Primary Care Pro vider Unavailable Trevin Douglas DO Primary Care Provider Carin vailable Dylan Edmond MD Primary Care Provider UnaBeto Rogers MD Unavailable Unavail able Adis Joe PA-C Unavailable Carin vailable Karma Wayne MD Primary Care Prov ider Rocky Najera MD Unavailable Unavailab Tasiha Stubbs MD Unavailable Andres Henriquez MD Unavailable Unavailable Deysi Howe MD Unavailable Jassi Vaughan MD Unavailable Unavailable Sadiq Valverde MD Primary Care Provider Unav ailable Encounter Details Date Type Department Care Team Description 05/30/2018 Orders Only Medical Records [address] [place] [address] Ray Graham MD 175 [facility] 200 [place] [address] Social History Tobacco Use Types [...] Name Priority Date/Time Associated Diagnosis Comments OUTSIDE SLEEP STUDY Routine 05/27/2018 documented in this encounter Results * OUTSIDE SLEEP STUDY (05/27/2018) Ray Graham MD PULMONOLOG Y documented in this encounter Visit Diagnoses Not on filedocumented in this encounter Care Teams Mannequin Maker Relationship Specialty Start Date End Date Jayleen Oneill, PCP - General Internal Medicine 09/02/14 02/07/21 Trevin Douglas DO PCP - General Internal Medicine 02/08/21 Dylan Cruz MD PCP - General Internal Medicine 05/25/21 04/16/22 Karma Wayne MD [address] [place] [address] PCP - General Internal Medicine 04/17/22 03/10/24 Sadiq Valverde MD [address] [place] [address] [place] [address] PCP - General Family Practice 03/11/24 Beto Montes MD Specialist Neurology 08/17/21 08/21/22 Adis Joe PA-C Specialist ORTHOPEDICS 08/17/2106/10 Rocky Najera MD [address] [place] [address] Specialist Neurology 08/22/22 Tashia Hewitt MD [address] [phone] Specialist Pulmonology 08/22/22 Andres Henriquez MD [address] [phone] Specialist Rheumatology 08/22/22 Deysi Howe MD [address] [place] [address] [place] [address] Specialist UROGYNECOLOGY 04/29/23 Jassi Vaughan MD 444 [facility] [place] [address] Specialist Ophthalmology 04/29/23 documented as of this encounter
--- OUTSIDE RECORDS SUMMARY | 2024-10-06 15:54 | XMS_ITS | Encounter Summary ---
Author Organization [facility] Address [address] [place] [address] Care Team Providers Care Landscape Painter Name Role Phone Jayleen Oneill DO Primary [...] Provider Unav ailable Reason for Referral * Non DAVIS (Routine) - Canceled Specialty Diagnoses / Procedures Referred By Contac t Referred To Contact Pulmonology Procedures REFERRAL TO PULMONOLOGY WatsonRay Saini MD [address] [facility] [address] [place] [address] Pulmo/Spfld 175 [address] [facility] [address] [place] [address] Referral ID Status Reason Start Date Expiration Date V isits Requested Visits Authorized [id number] Canceled 06/05/2018 06/05/2019 1 1 * Non DAVIS (Routine) - Closed Specialty Diagnoses / Procedures Referred By Contkevin t Referred To Contact Pulmonology Procedures REFERRAL TO PULMONOLOGY Ray Graham MD [address] [address] Pulmo/[place] [address] [address] Referral ID Status Reason Start Date Expiration Date Visits Re quested Visits Authorized [id number] Closed 06/05/2018 06/05/2019 1 1 Encounter Details Date Type Department Care Team Description 06/05/2018 Telephone Pulmonology [address] [place] [address] Ray Graham MD [address] [address] Social History Tobacco Use Types Packs/Day Years Used Date Smoking Tobacco: Former Smokeless Tobacco: Never Comments:quit 1984 Alcohol Use Standard Drinks/Week Comments Not Asked 0 (1 standard drink = 0.6 oz pur e alcohol) Sex Assigned at Date Recorded Female 04/18/2022 1:31 PM E DT Job Start Date Occupation Industry Not on file Not on file Not on file documented as of this encounter Miscellaneous Notes * Telephone Encounter - Ray Graham MD - 06/05/2018 12:47 PM EDT Patient had a Polysomnography done recently which demonstrated sleep apnea, Polysomnography + CPAP titration as well as referral to sleep specialist have been requested. Letter with copy and information sent to the patient. 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 Problem list updated. Please order the treatment sleep study from the 'sleep studies smart set' that has the order + diagnoses available for destini with epilepsy. Also, please order a referral to pulmo to manage unless you plan to manage. Please review official reading by interpreting physician for additional comments. Please notify the patient of the results. documented in this encounter Plan of Treatment Not on file documented as of this encounter Visit Diagnoses Diagnosis Obstructive sleep apnea- Primary Obstructive sleep apnea (adult) (pediatric) documented in this encounter Care Teams Landscape Painter Relationship Specialty Start Date End Date Jayleen Oneill DO PCP - General Internal Medicine 09/02/14 02/07/21 Trevin Douglas DO PCP - General Internal Medicine 02/08/21 1 Dylan Edmond MD PCP - General Internal Medicine 05/25/21 04/16/22 Karma Wayne MD [address] [place] [address] PCP - General Internal Medicine 04/17/22 03/10/24 Sadiq Valverde MD [address] [place] [address] [place] [address] PCP - General Family Practice 03/11/24 Beto Montes MD Specialist Neurology 08/17/21 08/21/22 Adis Joe PA-C Specialist ORTHOPEDICS 08/17/2106/10 Rocky Najera MD [address] [place] [address] Specialist Neurology 08/22/22 Tashia Hewitt MD [address] [address] Specialist Pulmonology 08/22/22 Andres Henriquez MD [address] [address] Specialist Rheumatology 08/22/22 Deysi Howe MD 444 [facility] [place] [address] Specialist UROGYNECOLOGY 04/29/23 Jassi Vaughan MD [address] [facility] [place] [address] Specialist Ophthalmology 04/29/23 documented as of this encounter
--- OUTSIDE RECORDS SUMMARY | 2024-10-06 15:54 | XMS_ITS | Encounter Summary ---
Author Organization [facility] Address [address] [facility] [place] [address] Care Team Providers Care Osha Inspector Name Role Phone Jayleen Oneill DO [...] Details Date Type Department Care Team Description 04/03/2016 Release of Information Medical Records [address] [place] [address] Abstract, Provider Social History Tobacco Use Types [...] on filedocumented in this encounter Care Teams Osha Inspector Relationship Specialty Start Date End Date Jayleen Oneill DO PCP - General Internal Medicine 09/02/14 02/07/21 Trevin Douglas DO PCP - General Internal Medicine 02/08/21 Dylan Cruz MD PCP - General Internal Medicine 05/25/21 04/16/22 Karma Wayne MD [address] [place] [address] PCP - General Internal Medicine 04/17/22 03/10/24 Sadiq Valverde MD [address] [place] [address] [place] [address] PCP - General Family Practice 03/11/24 Beto Montes MD Specialist Neurology 08/17/21 08/21/22 Adis Joe PA-C Specialist ORTHOPEDICS 08/17/2106/10 Rocky Najera MD [address] [place] [address] Specialist Neurology 08/22/22 Tashia Hewitt MD [address] [address] Specialist Pulmonology 08/22/22 Andres Henriquez MD [address] [address] Specialist Rheumatology 08/22/22 Deysi Howe MD [address] [place] [address] [place] [address] Specialist UROGYNECOLOGY 04/29/23 Jassi Vaughan MD [address] [place] [address] [place] [address] Specialist Ophthalmology 04/29/23 documented as of this encounter
--- OUTSIDE RECORDS SUMMARY | 2024-10-06 15:54 | XMS_ITS | Encounter Summary ---
Author Organization [facility] Address [address] [place] [address] Care Team Providers Care Rn Transition Name Role Phone Jayleen Oneill DO Primary [...] Details Date Type Department Care Team Description 05/20/2016 Refill Rheumatology - [place] [address] [place] [address] Mar Wood MD E-prescribe Rx Request Social History Tobacco [...] encounter Miscellaneous Notes * Telephone Encounter - Caro Mcgraw - 05/20/2016 2:03 PM EDT Patient would like script to be: E-PRESCRIBED/FAXED TO PHARMACY WHEN WAS THE PATIENT'S LAST APPOINTMENT IN ADULT MEDICINE? 03/27/16 WHEN WAS THE LAST TIME THE PATIENT SAW THEIR PCP? 12/12/15 Does patient have an upcoming appointment? Yes 05/22/16 (THE MEDICATION REQUESTED IS ON THE MED LIST ABOVE) All of the medications requested were on the CURRENT MEDS list Did you check the Pharmacy information above?: YES Patient wants: 30 -day supply Is this a mail order prescription request ? NO Patients current insurance carrier is: Payor: [employer] / Plan: [employer] $0 [facility] [id number] / Product Type: LearnStreet[employer] [id number] documented in this encounter Plan of Treatment Not on file documented as of this encounter Visit Diagnoses Not on filedocumented in this encounter Care Teams Rn Transition Relationship Specialty Start Date End Date Jayleen Oneill DO PCP - General Internal Medicine 09/02/14 02/07/21 Trevin Douglas DO PCP - General Internal Medicine 02/08/21 1 Dylan Edmond MD PCP - General Internal Medicine 05/25/21 04/16/22 Karma Wayne MD [address] [place] [address] PCP - General Internal Medicine 04/17/22 03/10/24 Sadiq Valverde MD [address] [place] [address] [place] [address] PCP - General Family Practice 03/11/24 Beto Montes MD Specialist Neurology 08/17/21 08/21/22 Adis Joe PA-C Specialist ORTHOPEDICS 08/17/2106/10 Rocky Najera MD [address] [place] [address] Specialist Neurology 08/22/22 Tashia Hewitt MD [address] [address] Specialist Pulmonology 08/22/22 Andres Henriquez MD [address] [address] Specialist Rheumatology 08/22/22 Deysi Howe MD [address] [place] [address] [place] [address] Specialist UROGYNECOLOGY 04/29/23 Jassi Vaughan MD [address] [place] [address] [place] [address] Specialist Ophthalmology 04/29/23 documented as of this encounter
--- OUTSIDE RECORDS SUMMARY | 2024-10-06 15:54 | XMS_ITS | Encounter Summary ---
Author Organization [facility] Address [address] [place] [address] Care Team Providers Care International Affairs Vice President Name Role Phone Jayleen Oneill DO Primary [...] * Reason Onset Date Comments Faxed Order 09/02/2017 Encounter Details Date Type Department Care Team Description 09/02/2017 Telephone Adult Medicine [address] [address] Jayleen Oneill DO Faxed Order Social History [...] Miscellaneous Notes * Telephone Encounter - Adalgisa Park - 09/02/2017 7:09 PM EST [facility] IS FAXING ORDER TO BE SIGNED AND FAX BACK TO [phone] documented in this encounter Plan of Treatment Not on file documented as of this encounter Visit Diagnoses Not on filedocumented in this encounter Care Teams International Affairs Vice President Relationship Specialty Start Date End Date Jayleen Oneill, PCP - General Internal Medicine 09/02/14 02/07/21 Trevin Douglas DO PCP - General Internal Medicine 02/08/21 1 Dylan Edmond MD PCP - General Internal Medicine 05/25/21 04/16/22 Calvin Vaz, Karma Sweeney MD [address] [place] [address] PCP - General Internal Medicine 04/17/22 03/10/24 Sadiq Valverde MD [address] [place] [address] [place] [address] PCP - General Family Practice 03/11/24 Beto Montes MD Specialist Neurology 08/17/21 08/21/22 Adis Joe PA-C Specialist ORTHOPEDICS 08/17/2106/10 Rocky Najera MD [address] [place] [address] Specialist Neurology 08/22/22 Tashia Hewitt MD [address] [address] Specialist Pulmonology 08/22/22 Andres Henriquez MD [address] [address] Specialist Rheumatology 08/22/22 Deysi Howe MD [address] [place] [address] [place] [address] Specialist UROGYNECOLOGY 04/29/23 Jassi Vaughan MD [address] [facility] [place] [address] Specialist Ophthalmology 04/29/23 documented as of this encounter
--- OUTSIDE RECORDS SUMMARY | 2024-10-06 15:54 | XMS_ITS | Encounter Summary ---
Author Organization [facility] Address [address] [place] [address] Care Team Providers Care Allergist/Immunologist Name Role Phone Jayleen Oneill DO Primary Care Pro vider Unavailable Trevin Douglas DO Primary Care Provider Carin vailable Dylan Edmond MD Primary Care Provider UnaBeto Rogers MD Unavailable Unavail able Aids [place] PA-C Unavailable Carin vailable Karma Wayne MD Primary Care Prov ider Rocky Najera MD Unavailable Unavailab Tashia Stubbs MD Unavailable Andres Henriquez MD Unavailable Unavailable Deysi Howe MD Unavailable Jassi Vaughan MD Unavailable Unavailable Sadiq Valverde MD Primary Care Provider Unav ailable Encounter Details Date Type Department Care Team Description 10/26/2014 Business Doc Medical Records [address] [place] [address] Abstract, Provider Social History Tobacco Use Types [...] on filedocumented in this encounter Care Teams Allergist/Immunologist Relationship Specialty Start Date End Date Jayleen Oneill DO PCP - General Internal Medicine 09/02/14 02/07/21 Trevin Douglas DO PCP - General Internal Medicine 02/08/21 Dylan Cruz MD PCP - General Internal Medicine 05/25/21 04/16/22 Karma Wayne MD [address] [place] [address] PCP - General Internal Medicine 04/17/22 03/10/24 Sadiq Valverde MD [address] [place] [address] [place] [address] PCP - General Family Practice 03/11/24 Beto Montes MD Specialist Neurology 08/17/21 08/21/22 Adis Joe PA-C Specialist ORTHOPEDICS 08/17/2106/10 Rocky Najera MD [address] [place] [address] Specialist Neurology 08/22/22 Tashia Hewitt MD [address] [address] Specialist Pulmonology 08/22/22 Andres Henriquez MD [address] [address] Specialist Rheumatology 08/22/22 Deysi Howe MD [address] [place] [address] [place] [address] Specialist UROGYNECOLOGY 04/29/23 Jassi Vaughan MD [address] [place] [address] [place] [address] Specialist Ophthalmology 04/29/23 documented as of this encounter
--- OUTSIDE RECORDS SUMMARY | 2024-10-06 15:54 | XMS_ITS | Encounter Summary ---
Author Organization [facility] Address [address] [place] [address] Care Team Providers Care Purchase Request Editor Name Role Phone Jayleen Oneill DO Primary Care Pro vider Unavailable Treivn Douglas DO Primary Care Provider Carin vailable Dylan Edmond MD Primary Care Provider Unavai Beto Nix MD Unavailable Unavail able Adis Joe PA-C Unavailable Carin vailable Karma Wayne MD Primary Care Prov ider Rocky Najrea MD Unavailable Unavailab Tashia Stubbs MD Unavailable Andres Henriquez MD Unavailable Unavailable Deysi Howe MD Unavailable Jassi Vaughan MD Unavailable Unavailable Sadiq Valverde MD Primary Care Provider Unav ailable Encounter Details Date Type Department Care Team Description 05/08/2019 Equipment Tech Report Medical Records [address] [place] [address] Beto Montes MD Social History Tobacco Use [...] on filedocumented in this encounter Care Teams Purchase Request Editor Relationship Specialty Start Date End Date Jayleen Oneill, PCP - General Internal Medicine 09/02/14 02/07/21 Trevin Douglas DO PCP - General Internal Medicine 02/08/21 1 Dylan Edmond MD PCP - General Internal Medicine 05/25/21 04/16/22 Karma Wayne MD [address] [place] [address] PCP - General Internal Medicine 04/17/22 03/10/24 Sadiq Valverde MD [address] [place] [address] [place] [address] PCP - General Family Practice 03/11/24 Beto Montes MD Specialist Neurology 08/17/21 08/21/22 Adis Joe PA-C Specialist ORTHOPEDICS 08/17/2106/10 Rocky Najera MD [address] [place] [address] Specialist Neurology 08/22/22 Tashia Hewitt MD [address] [address] Specialist Pulmonology 08/22/22 Andres Henriquez MD [address] [address] Specialist Rheumatology 08/22/22 Deysi Howe MD [address] [place] [address] [place] [address] Specialist UROGYNECOLOGY 04/29/23 Jassi Vaughan MD [address] [place] [address] [place] [address] Specialist Ophthalmology 04/29/23 documented as of this encounter
--- OUTSIDE RECORDS SUMMARY | 2024-10-06 15:54 | XMS_ITS | Encounter Summary ---
Author Organization [facility] Address [address] [place] [address] Care Team Providers Care Molding Machine Operator Name Role Phone Jayleen Oneill DO [...] Details Date Type Department Care Team Description 08/18/2015 Bi Report Developer Report Medical Records [address] [place] [address] Social History Tobacco Use Types Packs/Day Years [...] on filedocumented in this encounter Care Teams Molding Machine Operator Relationship Specialty Start Date End Date Jayleen Oneill DO PCP - General Internal Medicine 09/02/14 02/07/21 Trevin Douglas DO PCP - General Internal Medicine 02/08/21 Dylan Cruz MD PCP - General Internal Medicine 05/25/21 04/16/22 Karma Wayne MD [address] [place] [address] PCP - General Internal Medicine 04/17/22 03/10/24 Sadiq Valverde MD [address] [place] [address] Urogynecology [place] [phone] PCP - General Family Practice 03/11/24 Beto Montes MD Specialist Neurology 08/17/21 08/21/22 Adis Joe PA-C Specialist ORTHOPEDICS 08/17/2106/10 Rocky Najera MD [address] [place] [address] Specialist Neurology 08/22/22 Tashia Hewitt MD [address] [phone] Specialist Pulmonology 08/22/22 Andres Henriquez MD [address] [address] Specialist Rheumatology 08/22/22 Deysi Howe MD [address] [place] [address] [place] [address] Specialist UROGYNECOLOGY 04/29/23 Jassi Vaughan MD [address] [place] [address] [place] [address] Specialist Ophthalmology 04/29/23 documented as of this encounter
--- OUTSIDE RECORDS SUMMARY | 2024-10-06 15:54 | XMS_ITS | Encounter Summary ---
Author Organization [facility] Address [address] [place] [address] Care Team Providers Care Manager Eligibility Name Role Phone Jayleen Oneill DO Primary [...] for Visit * Reason Onset Date Comments hospital follow up 08/20/2017 Encounter Details Date Type Department Care Team Description 08/20/2017 Telephone Adult Medicine [address] [address] Jayleen Oneill DO hospital follow up Social History Tobacco Use Types Packs/Day Years [...] encounter Miscellaneous Notes * Telephone Encounter - Faith Peters R.N. - 08/20/2017 9:28 AM EST Pt booked for 08/28 at 10:[address] Jayleen Capone for [facility] f/u * Telephone Encounter - Cate Rivera - 08/20/2017 9:24 AM EST Hospital follow up appointment needed Hospital patient was treated at: [facility] Was this only an ER visit or was the patient admitted to the hospital? Admitted to hospital Date of visit if ER visit only: N/A If patient was admitted what was the date of discharge? 08/18/2017 Reason/diagnosis for visit or stay: pneumonia When was the patient told to follow up? Garry Was visit or stay related to an injury? NO If yes, what was the date of injury (DOI)? If yes, was the injury due to N/A documented in this encounter Plan of Treatment Not on file documented as of this encounter Visit Diagnoses Not on filedocumented in this encounter Care Teams Manager Eligibility Relationship Specialty Start Date End Date Jayleen Oneill DO PCP - General Internal Medicine 09/02/14 02/07/21 Trevin Douglas DO PCP - General Internal Medicine 02/08/21 1 Dylan Edmond MD PCP - General Internal Medicine 05/25/21 04/16/22 Karma Wayne MD [address] [place] [address] PCP - General Internal Medicine 04/17/22 03/10/24 Sadiq Valverde MD [address] [place] [address] [place] [address] PCP - General Family Practice 03/11/24 Beto Montes MD Specialist Neurology 08/17/21 08/21/22 Adis Joe PA-C Specialist ORTHOPEDICS 08/17/2106/10 Rocky Najera MD [address] [place] [address] Specialist Neurology 08/22/22 Tashia Hewitt MD [address] [address] Specialist Pulmonology 08/22/22 Andres Henriquez MD [address] [address] Specialist Rheumatology 08/22/22 Deysi Howe MD [address] [place] [address] [place] [address] Specialist UROGYNECOLOGY 04/29/23 Jassi Vaughan MD [address] [place] [address] [place] [address] Specialist Ophthalmology 04/29/23 documented as of this encounter
== END 2024-10-06 14:55 | disposition home or self-care (01) ==
LOC: HO.RESP 14:54
PROVIDERS: PCP Internal Medicine; Visit Provider Hospitalist
DX: G70.00 Myasthenia gravis without (acute) exacerbation (principal)
CPT/HCPCS: 94010; 94640; 94727; 94729

== ENCOUNTER → 2024-10-06 14:58 | Outpatient (BNV) | payer OTHER, SELFPAY | PROVIDERS: PCP Internal Medicine; Visit Provider Internal Medicine Pulmonary Disease | DX: J43.9 Emphysema, unspecified (principal) | CPT/HCPCS: 94060; 94727; 94729 ==

== ENCOUNTER 2024-11-06 14:37 | Outpatient (AMB) | payer OTHER, SELFPAY ==
--- NOTE | 2024-11-06 14:43 | A.OFFVIS_ITS ---
Vital Signs 11/06/24 15:27 Height 4 ft 9 in Weight 240 lb 4.862 oz BMI 52.0 BP 158/86 H Blood Pressure Location Rt brachial Position Sitting Pulse 59 Pulse Source Pulse Oximeter Pulse Oximetry (%) 97 Oxygen Delivery Method Room Air Intake Visit Reasons: Myasthenia Gravis Allergies codeine Allergy (Unknown, Verified 11/06/24 15:36) Hives asprin Allergy (Mild, Uncoded 11/06/24 15:36) Stomach Upset HPI Comments Details: The patient is a 74-year-old woman with a very complicated past medical history. 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 Subsequently after that the patient was diagnosed with myasthenia gravis and treated by Neurology and also diagnosed with rheumatoid arthritis. Treated by Rheumatology. She has been on multiple immunosuppressive agents throughout her life. More recently she is on methotrexate 6 tablets weekly. She also takes her medications for the myasthenia gravis. The patient does have history of asthma and she has been on inhalers such as Arnuity and she does also uses a rescue inhaler. I do believe that the patient with her current neuromuscular conditions will benefit from a nebulizer. The patient states that she sometimes has a hard time eating. She does get meals from meals on wheels and she does live alone and has help from a CLAMPER. The patient does use a walker and then when she leaves the home she does have transferred chair. At nighttime the patient does use CPAP. The CPAP therapy has been provided through [employer]. She gets supplies regularly and she does use a nasal mask. She is it move more than 4 hours a night in the therapy has been affecting beneficial for her. The patient does not have any recent x-rays or pulmonary function studies. At this point will request that she undergo a modified barium swallow to assess swallow make sure she is adequately eating without risk of aspiration. And will request pulmonary function studies and a chest x-ray to assess her lung capacity. Depending on the findings we can consider performing a blood gas to make sure that she is not having issues with hypercarbia. Will follow-up after her pulmonary function studies and other studies. 11/06/2024 the patient is here for a pulmonary follow-up visit. Overall she is doing okay. Now she is at a long term. She did undergo pulmonary function studies and actually her spirometry and lung volumes are excellent. The only thing that is a little bit office her diffusing capacity but I think that was maneuver limitation because of her wheelchair. The patient did also have a her modified barium swallow demonstrating some difficulties with some residual food but she did not have any evidence of aspiration. The patient did also have a regular barium swallow demonstrating some degree of achalasia resulting in some difficulty swallowing symptoms. But overall she is doing okay. Specially now that she is a long term and she would be monitor closely. She has been using the CPAP at nighttime. The CPAP therapy has been affecting beneficial. And the patient does tolerate the therapy all night. However, her nose is very irritated from the irritation from the nasal mask affecting her nasal bridge. Therefore I will request an N30 I mask small for her from her test company company, [employer]. She will continue with current respiratory therapy and I did encourage her to consider an Acapella valve and incentive spirometer for chest physical therapy. The patient will continue with the current therapy and will follow-up in 4-6 months. If she has any difficulty she will call for an earlier assessment. [facility] Medical History Asthma Intertrigo Detrusor instability of bladder KAVYA (obstructive sleep apnea) Asthma-COPD overlap syndrome Former smoker Myasthenia gravis Post-polio syndrome Lung nodules Rheumatoid arthritis Osteoarthritis of knees, bilateral Allergic rhinitis Elevated blood pressure reading Seizure disorder Glaucoma Epilepsy Surgical History History of bilateral cataract extraction Family History Father Alcohol abuse Colon cancer CAD (coronary artery disease) Brother Glioblastoma Social History Housing: Apartment Patient Tobacco Use Status: Never used Tobacco e-Cigarette/Vaping Use: Never Used Second Hand Smoke Exposure: No service: No Current occupational status: retired Current occupational exposures/hazards: No Cognitive needs: No Hearing needs: No Vision needs: Yes Review of Systems Const Denies fever(s) Eyes Reports as per HPI ENT Reports dysphagia and Reports nasal congestion Card Denies chest pain Resp Reports chest congestion, Reports cough and Reports wheezing GI Reports dysphagia Musc Reports as per HPI, Reports abnormal gait and Reports muscle weakness Skin/Breast Denies rash Neuro Reports abnormal gait Gabriel/Lymph Reports no additional complaints Aller/Immun Reports wheezing Physical Exam Vital Signs: Last Vital Signs Pulse 59 11/06/24 15:27 BP 158/86 H 11/06/24 15:27 Pulse Ox 97 11/06/24 15:27 Oxygen Delivery Method Room Air 11/06/24 15:27 BMI result Body Mass Index 52.0 Const General: comfortable Limitations: physical limitations, ambulation with walker and wheelchair HEENT Head: Yes normocephalic Neck Neck: Yes supple Chest Chest palpation & inspection: normal inspection of the chest Resp Effort & Inspection: normal respiratory effort Cardio Heart sounds: S1 normal heart sound present and S2 normal heart sound present GI Palpation (GI): Soft to palpation Skin General skin exam: no rashes or lesions noted Extrem General: Yes no clubbing, cyanosis or edema Assessment & Plan Assessment & Plan (1) Myasthenia gravis: Code(s): G70.00 - Myasthenia gravis without (acute) exacerbation Category: Medical (2) Allergic rhinitis: Code(s): J30.9 - Allergic rhinitis, unspecified Category: Medical Qualifiers: Allergic rhinitis seasonality: unspecified Allergic rhinitis trigger: unspecified Qualified Code(s): J30.9 - Allergic rhinitis, unspecified (3) Asthma-COPD overlap syndrome: Code(s): J44.89 - Other specified chronic obstructive pulmonary disease Category: Medical (4) Rheumatoid arthritis: Code(s): M06.9 - Rheumatoid arthritis, unspecified Category: Medical Qualifiers: Rheumatoid arthritis location: multiple sites Rheumatoid factor presence: unspecified presence Qualified Code(s): M06.9 - Rheumatoid arthritis, unspecified (5) KAVYA (obstructive sleep apnea): Code(s): G47.33 - Obstructive sleep apnea (adult) (pediatric) Category: Medical Plan Conitnue APAP, requesting N30i small from her DME CPT with acapella valve and ISS conitnue Arnuity HERMILA as needed f/u 4-6 Months Coding Level of Care Code Est Pt Level 4 (57508) Complex EM visit Add On G2211 Diagnoses Myasthenia gravis G70.00 Allergic rhinitis, unspecified seasonality, unspecified trigger J30.9 Allergic rhinitis seasonality: unspecified Allergic rhinitis trigger: unspecified Asthma-COPD overlap syndrome J44.89 Rheumatoid arthritis involving multiple sites, unspecified whether rheumatoid factor present M06.9 Rheumatoid arthritis location: multiple sites Rheumatoid factor presence: unspecified presence KAVYA (obstructive sleep apnea) G47.33 Time Spent (min) 17
[2024-11-06 15:27] VITALS: BP 158/86; PULSE 59; O2SAT 97; BMI 52.0
--- OUTSIDE RECORDS SUMMARY | 2024-11-06 16:49 | XMS_ITS | Encounter Summary ---
Author Organization [facility] Address [address] [place] [address] Care Team Providers Care Investigation Division Captain Name Role Phone Jayleen Oneill DO Primary [...] Care Team Description 02/15/2020 Refill Adult Medicine [address] [address] Jayleen Oneill DO refill request Social History [...] N/A Patients current insurance carrier is: Payor: [place] [employer] / Plan: [employer] $0 [facility] [id number] / Product Type: HMO [id number] documented in this encounter Plan of Treatment Not on file documented as of this encounter Visit Diagnoses Not on filedocumented in this encounter Care Teams Investigation Division Captain Relationship Specialty Start Date End Date Jayleen Oenill DO PCP - General Internal Medicine 09/02/14 02/07/21 Trevin Douglas DO PCP - General Internal Medicine 02/08/21 1 Dylan Edmond MD PCP - General Internal Medicine 05/25/21 04/16/22 Calvin Vaz, Karma Sweeney MD [address] [place] [address] PCP - General Internal Medicine 04/17/22 03/10/24 Sadiq Valverde MD [address] [place] [address] [place] [address] PCP - General Family Practice 03/11/24 Beto Montes MD Specialist Neurology 08/17/21 08/21/22 Adis Joe PA-C Specialist ORTHOPEDICS 08/17/2106/10 Rocky Najera MD [address] [place] [address] Specialist Neurology 08/22/22 Tashia Hewitt MD [address] [phone] Specialist Pulmonology 08/22/22 Andres Henriquez MD [address] [phone] Specialist Rheumatology 08/22/22 Deysi Howe MD [address] [place] [address] [place] [address] Specialist UROGYNECOLOGY 04/29/23 Jassi Vaughan MD [address] [place] [address] [place] [address] Specialist Ophthalmology 04/29/23 documented as of this encounter
--- OUTSIDE RECORDS SUMMARY | 2024-11-06 16:49 | XMS_ITS | Encounter Summary ---
Author Organization [facility] Address [address] [facility] [place] [address] Care Team Providers Care Actuarial Associate Name Role Phone Beto Montes MD Unavailable Unavail able Adis Joe PA-C Unavailable Carin vailable Karma Wayne MD Primary Care Prov ider Rocky Najera MD Unavailable Unavailab Tashia Stubbs MD Unavailable Andres Henriquez MD Unavailable Unavailable Deysi Howe MD Unavailable Jassi Vaughan MD Unavailable Unavailable Sadiq Valverde MD Primary Care Provider Unav ailable Encounter Details Date Type Department Care Team Description 08/02/2022 Manager Purchasing Report Medical Records [address] [place] [phone] Ruth Guaman MD Social History Tobacco Use Types Packs/Day [...] on filedocumented in this encounter Care Teams Actuarial Associate Relationship Specialty Start Date End Date Karma Wayne MD [address] [place] [id number] PCP - General Internal Medicine 04/17/22 03/10/24 Sadiq Valverde MD [address] [place] [address] [place] [address] PCP - General Family Practice 03/11/24 Beto Montes MD Specialist Neurology 08/17/21 08/21/22 Adis Joe PA-C Specialist ORTHOPEDICS 08/17/2106/10 Rocky Najera MD [address] [place] [address] Specialist Neurology 08/22/22 Tashia Hewitt MD [address] [phone] Specialist Pulmonology 08/22/22 Andres Henriquez MD [address] [phone] Specialist Rheumatology 08/22/22 Deysi Howe MD [address] [place] [address] [place] [address] Specialist UROGYNECOLOGY 04/29/23 Jassi Vaughan MD [address] [place] [address] [place] [address] Specialist Ophthalmology 04/29/23 documented as of this encounter
--- OUTSIDE RECORDS SUMMARY | 2024-11-06 16:49 | XMS_ITS | Encounter Summary ---
Author Organization [facility] Address [address] [place] [address] Care Team Providers Care Water Pump Operator Name Role Phone Sadiq Valverde MD Primary Care Provider Encounter Details Date Type Department Care Team (Late st Contact Info) Description 08/04/2024 Lab Requisition [facility] Lab [address] [facility] [place] [address] Yulia Orantes MD [address] [place] [address] Myasthenia gravis without (acute) exacerbation (CMS/HCC) Social [...] EST Myasthenia gravis without (acute) exacerbation (CMS/HCC) documented in this encounter Results * [...] MD LAB BLOOD ORDERABLES Final Resul t [facility] [address] [place] [address], * (ABNORMAL) Complete blood count (08/04/2024 6:39 AM EST) [facility] Signature WBC 9.5 4.8 - 10.8 K/mcL LAB HEMETOLOGY METHOD 08/04/2024 8:06 AM EST [facility] RBC 3.80 3.80 - 4.80 M/mcL [...] AM [facility] NRBC 0.0 <1.0 % LAB HEMETOLOGY METHOD 08/04/2024 8:06 AM EST [facility] NRBC Absolute 0.00 <0.10 K/mcL LAB HEMETOLOGY METHOD 08/04/2024 8:06 AM EST [facility] Blood Venous blood specimen / Unknown Venipuncture / Unknown 08/04/2024 6:39 AM EST 08/04/2024 7:46 AM EST us Yulia Orantes MD LAB BLOOD ORDERABLES Final Resul t [facility] [address] [place] [address], documented in this encounter Visit Diagnoses Diagnosis Myasthenia gravis without (acute) exacerbation documented in this encounter Additional Health Concerns Infection Onset Date Last Indicated Resolved Time Respiratory Rule-Out 09/22/2024 09/21/2024 025 1:02 PM EST documented as of this encounter Care Teams Water Pump Operator Relationship Specialty Start Date End Date Sadiq Valverde MD [address] [place] [address] Dr Debi [place] PCP - General 03/11/24 documented as of this encounter
--- OUTSIDE RECORDS SUMMARY | 2024-11-06 16:49 | XMS_ITS | Encounter Summary ---
Author Organization [facility] Address [address] [facility] [place] [address] Care Team Providers Care Economic Development Manager Name Role Phone Beto Montes MD Unavailable Unavail able Adis Joe PA-C Unavailable Carin vailable Karma Wayne MD Primary Care Prov ider Rocky Najera MD Unavailable Unavailab Tashia Stubbs MD Unavailable Andres Henriquez MD Unavailable Unavailable Deysi Howe MD Unavailable Jassi Vaughan MD Unavailable Unavailable Sadiq Valverde MD Primary Care Provider Unav ailable Encounter Details Date Type Department Care Team Description 06/01/2022 Telephone Pulmonology - [place] [address] [facility] [address] [place] [address] Tashia Hewitt MD 175 [facility] [address] [place] [phone] Social History Tobacco Use Types Packs/Day Years [...] suspected to have Coronavirus/COVID-19? No / Unsure 05/31/2022 10:09 AM EDT documented as of this encounter Miscellaneous Notes * Telephone Encounter - Chely Moreno M.A. - 06/01/2022 10:51 AM EDT Increase cpap order faxed to [facility] documented in this encounter Plan of Treatment Not on file documented as of this encounter Visit Diagnoses Not on filedocumented in this encounter Care Teams Economic Development Manager Relationship Specialty Start Date End Date Karma Wayne MD [address] [place] [address] PCP - General Internal Medicine 04/17/22 03/10/24 Sadiq Valverde MD [address] [place] [address] [place] [address] PCP - General Family Practice 03/11/24 Beto Montes MD Specialist Neurology 08/17/21 08/21/22 Adis Joe PA-C Specialist ORTHOPEDICS 08/17/2106/10 Rocky Najera MD [address] [place] [address] Specialist Neurology 08/22/22 Tashia Hewitt MD [address] [address] [phone] Specialist Pulmonology 08/22/22 Andres Henriquez MD [address] [phone] Specialist Rheumatology 08/22/22 Deysi Howe MD [address] [place] [address] [place] [address] Specialist UROGYNECOLOGY 04/29/23 Jassi Vaughan MD [address] [place] [address] [place] [address] Specialist Ophthalmology 04/29/23 documented as of this encounter
--- OUTSIDE RECORDS SUMMARY | 2024-11-06 16:49 | XMS_ITS | Encounter Summary ---
Author Organization [facility] Address [address] [place] [address] Care Team Providers Care Property Management Specialist Name Role Phone Adis Joe PA-C Unavailable Carin vailable Karma Wayne MD Primary Care Prov ider Rocky Najera MD Unavailable Unavailab Tashia Stubbs MD Unavailable Andres Henriquez MD Unavailable Unavailable Deysi Howe MD Unavailable Jassi Vaughan MD Unavailable Unavailable Sadiq Valverde MD Primary Care Provider Unav ailable Encounter Details Date Type Department Care Team Description 10/31/2022 Technical Lead Report Medical Records [address] [place] [address] Rocky Najera MD Social History Tobacco Use [...] suspected to have Coronavirus/COVID-19? No / Unsure 10/29/2022 12:38 PM EDT documented as of this encounter Plan of Treatment Not on file documented as of this encounter Visit Diagnoses Not on filedocumented in this encounter Care Teams Property Management Specialist Relationship Specialty Start Date End Date Karma Wayne MD [address] [place] [address] PCP - General Internal Medicine 04/17/22 03/10/24 Sadiq Valverde MD [address] [place] [address] [place] [address] PCP - General Family Practice 03/11/24 Adis Joe PA-C Specialist ORTHOPEDICS 08/17/2106/10 Rocky Najera MD [address] [place] [address] Specialist Neurology 08/22/22 Tashia Hewitt MD [address] [phone] Specialist Pulmonology 08/22/22 Andres Henriquez MD [address] [phone] Specialist Rheumatology 08/22/22 Deysi Howe MD [address] [place] [address] [place] [address] Specialist UROGYNECOLOGY 04/29/23 Jassi Vaughan MD [address] [place] [address] [place] [address] Specialist Ophthalmology 04/29/23 documented as of this encounter
--- OUTSIDE RECORDS SUMMARY | 2024-11-06 16:49 | XMS_ITS | Encounter Summary ---
Author Organization [employer] Address [address] [facility] [address] [address] [place] [address] Care Team Providers Care Underwriting Analyst Name Role Phone Unavailable Primary Care Provider Unavailabl e Encounter Details Date Type Department Care Team (Latest Contact Info) Description 01/13/2021 Abstract [facility] CONVERSIONS Dental, Provider, DDS Social History [...]
--- OUTSIDE RECORDS SUMMARY | 2024-11-06 16:49 | XMS_ITS | Encounter Summary ---
Author Organization [facility] Address [address] [place] [address] Care Team Providers Care Incident Response Engineer Name Role Phone Jayleen Oneill DO Primary [...] Details Date Type Department Care Team Description 03/23/2020 Pt. Non Urgent Medic al Question Adult Medicine [address] [address] Jayleen Oneill DO Social History Tobacco Use [...] on file documented as of this encounter Progress Notes * Jayleen Linwood Wong DO - 03/23/2020 5:58 PM EDT She can take the 600 twice a day long as it does not bother her stomach or cause constipation documented in this encounter Miscellaneous Notes * Telephone Encounter - Saida Head M.A. - 03/23/2020 3:45 PM EDTFrom: Chely Qureshi To: Jayleen Wong DO Sent: 03/23/2020 3:45 PM EDT Subject: Calcium , I have some calcium but it in November 2018 their 500 can I still take them? I also bought 600mg because that???s all they had, can I take two of them. documented in this encounter Plan of Treatment Not on file documented as of this encounter Visit Diagnoses Not on filedocumented in this encounter Care Teams Incident Response Engineer Relationship Specialty Start Date End Date Jayleen Oneill DO PCP - General Internal Medicine 09/02/14 02/07/21 Trevin Douglas DO PCP - General Internal Medicine 02/08/21 1 Dylan Edmond MD PCP - General Internal Medicine 05/25/21 04/16/22 Karma Wayne MD [address] [place] [address] PCP - General Internal Medicine 04/17/22 03/10/24 Sadiq Valverde MD [address] [place] [address] [place] [address] PCP - General Family Practice 03/11/24 Beto Montes MD Specialist Neurology 08/17/21 08/21/22 Adis Joe PA-C Specialist ORTHOPEDICS 08/17/2106/10 Rocky Najera MD [address] [place] [address] Specialist Neurology 08/22/22 Tashia Hewitt MD [address] [phone] Specialist Pulmonology 08/22/22 Andres Henriquez MD [address] [phone] Specialist Rheumatology 08/22/22 Deysi Howe MD [address] [place] [address] [place] [address] Specialist UROGYNECOLOGY 04/29/23 Jassi Vaughan MD [address] [place] [address] [place] [address] Specialist Ophthalmology 04/29/23 documented as of this encounter
--- OUTSIDE RECORDS SUMMARY | 2024-11-06 16:49 | XMS_ITS | Encounter Summary ---
Author Organization [facility] Address [address] [place] [address] Care Team Providers Care Coal Drier Operator Name Role Phone Sadiq Valverde MD Primary Care Provider Encounter Details Date Type Department Care Team (Late st Contact Info) Description 10/08/[address] [facility] - Main Lab [address] [place] [address] Yulia Orantes MD [address] [place] [address] Frequency of micturition Social History Tobacco Use Types Packs/Day Years [...] Procedure Name Priority Date/Time Associated Diagnosis Comments URINALYSIS WITH REFLEX MICROSCOPIC AND CULTURE Routine 10/08/2024 9:03 AM EST Frequency of micturition SMITH URINE CULTURE TUBE Routine 10/08/2024 9:03 AM EST Frequency of micturition URINALYSIS WITH REFLEX MICROSCOPIC AND CULTURE Routine 10/08/2024 9:03 AM EST Frequency of micturition CULTURE URINE Routine 10/08/2024 9:03 AM EST Frequency of micturition documented in this encounter Results * (ABNORMAL) Culture urine (10/08/2024 9:03 AM EST) Pathologist [facility] Culture, Urine >100,000 CFU/mL Escherichia coli(A) KIRTI 10/10/2024 11:42 AM EST [facility] Urine Urine specimen obtained by clean catch procedure / Unknown 10/08/2024 9:03 AM EST 10/08/2024 11:48 AM EST Narrative Organism Antibiotic Method Susceptibility Escherichia coli Amoxicillin/Clavulanate KIRTI 16 ug/ml: Intermediate Escherichia coli Ampicillin/Sulbactam KIRTI >=32 ug/ml: Resistant Escherichia coli Piperacillin/Tazobactam KIRTI 8 ug/ml: Susceptible Escherichia coli Cefazolin (Urine) KIRTI 16 ug/ml: Susceptible Escherichia coli Cefoxitin KIRTI <=4 ug/ml: Susceptible Escherichia coli Ceftazidime KIRTI <=0.5 ug/ml: Susceptible Escherichia coli Ceftriaxone KIRTI <=0.25 ug/ml: Susceptible Escherichia coli Cefepime KIRTI <=0.12 ug/ml: Susceptible Escherichia coli Meropenem KIRTI <=0.25 ug/ml: Susceptible Escherichia coli Amikacin KIRTI 2 ug/ml: Susceptible Escherichia coli Gentamicin KIRTI >=16 ug/ml: Resistant Escherichia coli Ciprofloxacin KIRTI <=0.06 ug/ml: Susceptible Escherichia coli Levofloxacin KIRTI <=0.12 ug/ml: Susceptible Escherichia coli Nitrofurantoin KIRTI <=16 ug/ml: Susceptible Escherichia coli Trimethoprim/Sulfamethoxazole KIRTI >=320 ug/ml: Resistant us Yulia Orantes MD LAB MICROBIOLOGY - GENERAL ORDER SHARMAINE Final Result [facility] [address] [place] [address], * (ABNORMAL) Urinalysis with reflex microscopic and culture (10/08/2024 9:03 AM EST) Pathologist [facility] Specific [place] Urine 1.019 1.003 - 1.030 LAB URINALYSIS - AUTOMATED METHOD 10/08/2024 3:17 PM [facility] pH, Urine 6.0 5.0 - 8.0 pH LAB URINALYSIS - AUTOMATED METHOD 10/08/2024 3:17 PM [facility] Leukocytes, Urine Large(A) Negative LAB URINALYSIS - AUTOMATED METHOD 10/08/2024 3:17 PM [facility] Nitrite, Urine Positive(A) Negative LAB URINALYSIS - AUTOMATED METHOD 10/08/2024 3:17 PM [facility] Protein, Urine 30(A) <=Trace mg/dL LAB URINALYSIS - AUTOMATED METHOD 10/08/2024 3:17 PM [facility] Glucose, Urine Negative Negative mg/dL LAB URINALYSIS - AUTOMATED METHOD 10/08/2024 3:17 PM [facility] Ketones, Urine Negative Negative mg/dL LAB URINALYSIS - AUTOMATED METHOD 10/08/2024 3:17 PM [facility] Urobilinogen , Urine 0.2 0.2 - 1.0 mg/dL LAB URINALYSIS - AUTOMATED METHOD 10/08/2024 3:17 PM [facility] Bilirubin, Urine Negative Negative LAB URINALYSIS - AUTOMATED METHOD 10/08/2024 3:17 PM [facility] Blood, Urine Negative Negative LAB URINALYSIS - AUTOMATED METHOD 10/08/2024 3:17 PM [facility] RBC, Urine 3.0 0 - 4 /HPF LAB URINALYSIS - AUTOMATED METHOD 10/08/2024 3:17 PM [facility] WBC, Urine 401.6(H) 0 - 4 /HPF LAB URINALYSIS - AUTOMATED METHOD 10/08/2024 3:17 PM [facility] Squamous Epithelial, Urine 19 0 - 60 /LPF LAB URINALYSIS - AUTOMATED METHOD 10/08/2024 3:17 PM [facility] Crystals, Urine Light Calcium Oxalate crystals. /LPF LAB URINALYSIS - AUTOMATED METHOD 10/08/2024 3:17 PM [facility] Bacteria, Urine Few(A) Negative /HPF LAB URINALYSIS - AUTOMATED METHOD 10/08/2024 3:17 PM [facility] Hyaline Casts, Urine 0.8 0 - 3 /LPF LAB URINALYSIS - AUTOMATED METHOD 10/08/2024 3:17 PM [facility] Urine Urine specimen obtained by clean catch procedure / Unknown 10/08/2024 9:03 AM EST 10/08/2024 10:54 AM EST us Yulia Orantes MD LAB URINE ORDERABLES Edited Resu lt - Final Performing Organization Address City/[facility]/ZIP Co de Phone Number [facility] [address] [place] [address], [place] [phone] * [place] urine culture tube (10/08/2024 9:03 AM EST) Extra Tube Hold for add-ons. 10/08/2024 12:01 PM [facility] Comment:Auto resulted. Urine Urine specimen obtained by clean catch procedure / Unknown 10/08/2024 9:03 AM EST 10/08/2024 10:54 AM EST us Yulia Orantes MD LAB URINE ORDERABLES Final Resul t Performing Organization Address City/[facility]/ZIP Co de Phone Number [facility] [address] [place] [address], [place] [phone] documented in this encounter Visit Diagnoses Diagnosis Frequency of micturition Urinary frequency documented in this encounter Care Teams Coal Drier Operator Relationship Specialty Start Date End Date Sadiq Valverde MD [address] [place] [address] Dr Debi [place] PCP - General 03/11/24 documented as of this encounter
--- OUTSIDE RECORDS SUMMARY | 2024-11-06 16:49 | XMS_ITS | Encounter Summary ---
Author Organization [facility] Address [address] [place] [address] Care Team Providers Care Radio Technician Name Role Phone Jayleen Oneill DO [...] Details Date Type Department Care Team Description 07/25/2020 Director Of Student Financial Aid Report Medical Records [address] [place] [address] Kerri Zhu MD [address] [phone] Social History Tobacco Use Types Packs/Day Years [...] on filedocumented in this encounter Care Teams Radio Technician Relationship Specialty Start Date End Date Jayleen Oneill DO PCP - General Internal Medicine 09/02/14 02/07/21 Trevin [place] DO PCP - General Internal Medicine 02/08/21 Dylan Cruz MD PCP - General Internal Medicine 05/25/21 04/16/22 Karma Wayne MD [address] [place] [address] PCP - General Internal Medicine 04/17/22 03/10/24 Sadiq Valverde MD [address] [place] [address] [place] [address] PCP - General Family Practice 03/11/24 Beto Montes MD Specialist Neurology 08/17/21 08/21/22 Adis Joe PA-C Specialist ORTHOPEDICS 08/17/2106/10 Rocky Najera MD [address] [place] [address] Specialist Neurology 08/22/22 Tashia Hewitt MD [address] [phone] Specialist Pulmonology 08/22/22 Andres Henriquez MD [address] [phone] Specialist Rheumatology 08/22/22 Deysi Howe MD [address] [place] [address] [place] [address] Specialist UROGYNECOLOGY 04/29/23 Jassi Vaughan MD [address] [place] [address] [place] [address] Specialist Ophthalmology 04/29/23 documented as of this encounter
--- OUTSIDE RECORDS SUMMARY | 2024-11-06 16:49 | XMS_ITS | Encounter Summary ---
Author Organization [facility] Address [address] [place] [address] Care Team Providers Care Tuft Machine Operator Name Role Phone Adis Joe PA-C Unavailable Carin vailable Karma Wayne MD Primary Care Prov ider Rocky Najera MD Unavailable Unavailab Tashia Stubbs MD Unavailable Andres Henriquez MD Unavailable Unavailable Deysi Howe MD Unavailable Jassi Vaughan MD Unavailable Unavailable Sadiq Valverde MD Primary Care Provider Unav ailable Encounter Details Date Type Department Care Team Description 04/04/2023 Decorative Cutting Machine Tender Report Medical Records [address] [place] [address] Rocky Najera MD Social History Tobacco Use [...] suspected to have Coronavirus/COVID-19? No / Unsure 03/05/2023 1:57 PM EDT documented as of this encounter Plan of Treatment Not on file documented as of this encounter Visit Diagnoses Not on filedocumented in this encounter Care Teams Tuft Machine Operator Relationship Specialty Start Date End Date Karma Wyane MD [address] [place] [address] PCP - General Internal Medicine 04/17/22 03/10/24 Sadiq Valverde MD [address] [place] [address] [place] [address] PCP - General Family Practice 03/11/24 Adis Joe PA-C Specialist ORTHOPEDICS 08/17/2106/10 Rocky Najera MD [address] [place] [address] Specialist Neurology 08/22/22 Tashia Hewitt MD [address] [phone] Specialist Pulmonology 08/22/22 Andres Henriquez MD [address] [phone] Specialist Rheumatology 08/22/22 Deysi Howe MD [address] [place] [address] [place] [address] Specialist UROGYNECOLOGY 04/29/23 Jassi Vaughan MD [address] [place] [address] [place] [address] Specialist Ophthalmology 04/29/23 documented as of this encounter
--- OUTSIDE RECORDS SUMMARY | 2024-11-06 16:49 | XMS_ITS | Encounter Summary ---
Author Organization [facility] Address [address] [place] [address] Care Team Providers Care Commercial Loan Underwriter Name Role Phone Jayleen Oneill DO Primary Care Pro vider Unavailable Trevin [place] DO Primary Care Provider Carin vailable Dylan Edmond MD Primary Care Provider UnaBeto Rogers MD Unavailable Unavail able Adis Joe PA-C Unavailable Carin vailable Karma Wayne MD Primary Care Prov ider Rocky Najera MD Unavailable Unavailab Tashai Stubbs MD Unavailable Andres Henriquez MD Unavailable Unavailable Deysi Howe MD Unavailable Jassi Vaughan MD Unavailable Unavailable Sadiq Valverde MD Primary Care Provider Unav ailable Encounter Details Date Type Department Care Team Description 08/02/2020 Telephone Adult Medicine [address] [address] Brianna Rebollar PA-C Social History Tobacco Use Types Packs/Day Years [...] Telephone Encounter - Mellissa Babcock M.A. - 08/03/2020 3:11 PM EST Requested fax. * Telephone Encounter - Brianna Amaya PA-C - 08/02/2020 1:22 PM EST Patient was referred to [facility] orthopedics. Can you please fax request for the office notes and any imaging they had done. documented in this encounter Plan of Treatment Not on file documented as of this encounter Visit Diagnoses Not on filedocumented in this encounter Care Teams Commercial Loan Underwriter Relationship Specialty Start Date End Date Jayleen Oneill DO PCP - General Internal Medicine 09/02/14 02/07/21 Trevin [place] DO PCP - General Internal Medicine 02/08/21 Dylan Cruz MD PCP - General Internal Medicine 05/25/21 04/16/22 Karma Wayne MD [address] [place] [address] PCP - General Internal Medicine 04/17/22 03/10/24 Sadiq Valverde MD [address] [place] [address] [place] [address] PCP - General Family Practice 03/11/24 Beto Montes MD Specialist Neurology 08/17/21 08/21/22 Adis Joe PA-C Specialist ORTHOPEDICS 08/17/2106/10 Rocky Najera MD [address] [place] [address] Specialist Neurology 08/22/22 Tashia Hewitt MD [address] [phone] Specialist Pulmonology 08/22/22 Andres Henriquez MD 175 [facility] [address] [place] [address] Specialist Rheumatology 08/22/22 Deysi Howe MD 444 [facility] [place] [address] Specialist UROGYNECOLOGY 04/29/23 Jassi Vaughan MD [address] [facility] [place] [address] Specialist Ophthalmology 04/29/23 documented as of this encounter
--- OUTSIDE RECORDS SUMMARY | 2024-11-06 16:49 | XMS_ITS | Encounter Summary ---
Author Organization [employer] Address [address] [facility] [address] [place] [address] Care Team Providers Care Glassware Defect Repairer Name Role Phone Unavailable Primary Care Provider Unavailabl e Reason for Visit * Reason Onset Date Comments Prior Authorization 01/17/2023 Encounter Details Date Type Department Care Team (Late st Contact Info) Description 01/17/2023 Telephone [facility] [address] [place] [address] Michi Hitchcock DDS [address] [place] [address] Prior Authorization Social History Tobacco Use Types [...]
--- OUTSIDE RECORDS SUMMARY | 2024-11-06 16:49 | XMS_ITS | Encounter Summary ---
Author Organization [facility] Address [address] [facility] [place] [address] Care Team Providers Care Extruding Press Adjuster Name Role Phone Dylan Edmond MD Primary Care Provider Beot Mejias MD Unavailable Unavail able Adis Joe [...] Care Team Description 04/14/2022 Refill Pulmonology - [place] [address] [facility] [address] [place] [address] Dylan Edmond MD E-prescribe Rx Request Social [...] N/A Patients current insurance carrier is: Payor: [employer] / Plan: MagTag $0 [id number] / Product Type: HMO [id number] documented in this encounter Plan of Treatment [...] (chronic) documented in this encounter Care Teams Extruding Press Adjuster Relationship Specialty Start Date End Date Dylan Edmond MD PCP - General Internal Medicine 05/25/21 04/16/22 Karma Wayne MD [address] [place] [address] PCP - General Internal Medicine 04/17/22 03/10/24 Sadiq Valverde MD [address] [place] [address] [place] [address] PCP - General Family Practice 03/11/24 Beto Montes MD Specialist Neurology 08/17/21 08/21/22 Adis Joe PA-C Specialist ORTHOPEDICS 08/17/2106/10 Rocky Najera MD [address] [place] [address] Specialist Neurology 08/22/22 Tashia Hewitt MD [address] [phone] Specialist Pulmonology 08/22/22 Andres Henriquez MD [address] [phone] Specialist Rheumatology 08/22/22 Deysi Howe MD [address] [place] [address] [place] [address] Specialist UROGYNECOLOGY 04/29/23 Jassi Vaughan MD [address] [place] [address] [place] [address] Specialist Ophthalmology 04/29/23 documented as of this encounter
--- OUTSIDE RECORDS SUMMARY | 2024-11-06 16:49 | XMS_ITS | Encounter Summary ---
Author Organization [facility] Address [address] [place] [address] Care Team Providers Care Component Technician Name Role Phone Adis Joe PA-C Unavailable Carin vailable Karma Wayne MD Primary Care Prov ider Rocky Najera MD Unavailable Unavailab Tashia Stubbs MD Unavailable Andres Henriquez MD Unavailable Unavailable Deysi Howe MD Unavailable Jasis Vaughan MD Unavailable Unavailable Sadiq Valverde MD Primary Care Provider Unav ailable Reason for Visit * Reason Onset Date Comments Prior Authorization 12/25/2022 Encounter Details Date Type Department Care Team Description 12/25/2022 Telephone Adult Medicine [facility] [address] [place] [address] Karma Wayne MD [address] [place] [phone] Prior Authorization Social History Tobacco Use Types [...] through 08/18/2023 Kristine Bailey Auth Dep Ext [id number] * Telephone Encounter - Kristine Yanez M.A. - 12/25/2022 1:18 PM EDT AUTH SENT WITH COVER MY MEDS DX:[id number] TRIED SOLIFENACIN, OXYBUTYNIN 5MG Kristine Bailey Auth Dep Ext [id number] * Telephone Encounter - Frank Thorpe - 12/25/2022 11:26 AM EDT Prior Authorization for Medication-do not complete and send this encounter unless you have the fax from the pharmacy. Is this a Cover My Meds request: Yes -- Heller Code [id number] Name of Medication Oxybutynin Chloride Dose of Medication 2.5 MG Tab What is the RX # from the faxed refill? How does patient take this med? Take 1 Tablet by mouth 2 times daily as needed (For hyperactive bladder). - Oral What Pharmacy did the fax come from: [facility] fax #: [phone] [employer] Information from fax: What Prescription Plan does the patient have? BIN/PCN if applicable: Cardholder ID: Person Code: Relationship Code: Help desk phone: documented in this encounter Plan of Treatment Not on file documented as of this encounter Visit Diagnoses Not on filedocumented in this encounter Care Teams Component Technician Relationship Specialty Start Date End Date Karma Wayne MD [address] [place] [address] PCP - General Internal Medicine 04/17/22 03/10/24 Sadiq Valverde MD [address] [place] [address] [place] [address] PCP - General Family Practice 03/11/24 Adis Joe PA-C Specialist ORTHOPEDICS 08/17/2106/10 Rocky Najera MD [address] [place] [address] Specialist Neurology 08/22/22 Tashia Hewitt MD [address] [address] Specialist Pulmonology 08/22/22 Andres Henriquez MD [address] [phone] Specialist Rheumatology 08/22/22 Deysi Howe MD [address] [place] [address] [place] [address] Specialist UROGYNECOLOGY 04/29/23 Jassi Vaughan MD [address] [place] [address] [place] [address] Specialist Ophthalmology 04/29/23 documented as of this encounter
--- OUTSIDE RECORDS SUMMARY | 2024-11-06 16:49 | XMS_ITS | Encounter Summary ---
Author Organization [employer] Address [address] [facility] [address] 7[address] [place] [address] Care Team Providers Care Siebel Administrator Name Role Phone Unavailable Primary Care Provider Unavailabl e Encounter Details Date Type Department Care Team (Latest Contact Info) Description 07/20/2019 Abstract [facility] CONVERSIONS Dental, Provider, DDS Social History [...]
--- OUTSIDE RECORDS SUMMARY | 2024-11-06 16:49 | XMS_ITS | Encounter Summary ---
Author Organization [facility] Address [address] [place] [address] Care Team Providers Care Log Deck Tender Name Role Phone Jayleen Oneill DO Primary [...] Team Description 01/21/2020 Orders Only Lab - [facility] [address] [place] [address] Jayleen Oneill DO Social History Tobacco Use [...] on filedocumented in this encounter Care Teams Log Deck Tender Relationship Specialty Start Date End Date Jayleen Oneill DO PCP - General Internal Medicine 09/02/14 02/07/21 Trevin [place] DO PCP - General Internal Medicine 02/08/21 Dylan Cruz MD PCP - General Internal Medicine 05/25/21 04/16/22 Karma Wayne MD [address] [place] [address] PCP - General Internal Medicine 04/17/22 03/10/24 Sadiq Valverde MD [address] [place] [address] [place] [address] PCP - General Family Practice 03/11/24 Beto Montes MD Specialist Neurology 08/17/21 08/21/22 Adis Joe PA-C Specialist ORTHOPEDICS 08/17/2106/10 Rocky Najera MD [address] [place] [address] Specialist Neurology 08/22/22 Tashia Hewitt MD [address] [place] [phone] Specialist Pulmonology 08/22/22 Andres Henriquez MD [address] [address] Specialist Rheumatology 08/22/22 Deysi Howe MD [address] [place] [address] [place] [address] Specialist UROGYNECOLOGY 04/29/23 Jassi Vaughan MD [address] [place] [address] [place] [address] Specialist Ophthalmology 04/29/23 documented as of this encounter
--- OUTSIDE RECORDS SUMMARY | 2024-11-06 16:50 | XMS_ITS | Encounter Summary ---
Author Organization [facility] Address [address] [place] [address] Care Team Providers Care Geographical Historian Name Role Phone Sadiq Valverde MD Primary Care Provider Encounter Details Date Type Department Care Team (Late st Contact Info) Description 08/09/2024 Lab Requisition [facility] - Main Lab [address] [facility] [place] [address] Yulia Orantes MD [address] [place] [address] Unspecified convulsions (CMS/HCC) Social History Tobacco Use [...] mmol/L LAB CHEMISTRY METHOD 08/10/2024 10:51 AM [facility] Potassium 4.7 3.5 - 5.5 mmol/L LAB CHEMISTRY METHOD 08/10/2024 10:51 AM [facility] Chloride 113(H) 96 - 110 mmol/L LAB CHEMISTRY METHOD 08/10/2024 10:51 AM [facility] CO2 25 21 - 32 mmol/L LAB CHEMISTRY METHOD 08/10/2024 10:51 AM [facility] Anion Gap 4 3 - 11 LAB CHEMISTRY METHOD 08/10/2024 10:51 AM [facility] Glucose 86 70 - 100 mg/dL LAB CHEMISTRY METHOD 08/10/2024 10:51 AM [facility] BUN 20 5 - 25 mg/dL LAB CHEMISTRY METHOD 08/10/2024 10:51 AM [facility] Creatinine 0.76 0.50 - 1.10 mg/dL LAB CHEMISTRY METHOD 08/10/2024 10:51 AM [facility] eGFR 82 >=60 mL/min/1. 73m2 LAB CHEMISTRY METHOD 08/10/2024 10:51 AM [facility] Comment:Calculation based on the??Chronic Kidney Disease Epidemiology Collaboration (CKD-EPI) equation refit??without adjustment for race. BUN/Creatinine Ratio 26.3 LAB CHEMISTRY METHOD 08/10/2024 10:51 AM [facility] Calcium 9.8 8.5 - 10.5 mg/dL LAB CHEMISTRY METHOD 08/10/2024 10:51 AM [facility] Blood Venous blood specimen / Unknown Venipuncture / Unknown 08/10/2024 6:19 AM EST 08/10/2024 10:05 AM EST us Yulia Orantes MD LAB BLOOD ORDERABLES Final Resul t [facility] [address] [place] [address], * (ABNORMAL) Complete blood count (08/10/2024 6:19 AM EST) [facility] WBC 11.7(H) 4.8 - 10.8 K/mcL LAB HEMETOLOGY METHOD 08/10/2024 10:36 AM [facility] RBC 3.70(L) 3.80 - 4.80 M/mcL LAB HEMETOLOGY METHOD 08/10/2024 10:36 AM [facility] Hemoglobin 12.8 11.5 - 16.0 g/dL LAB HEMETOLOGY METHOD 08/10/2024 10:36 AM [facility] Hematocrit 40.4 35.0 - 47.0 % LAB HEMETOLOGY METHOD 08/10/2024 10:36 AM [facility] MCV 108.6(H) 79.0 - 98.0 FL LAB HEMETOLOGY METHOD 08/10/2024 10:36 AM [facility] MCH 34.4(H) 27.0 - 32.0 pcg LAB HEMETOLOGY METHOD 08/10/2024 10:36 AM [facility] MCHC 31.7(L) 32.0 - 37.0 g/dL LAB HEMETOLOGY METHOD 08/10/2024 10:36 AM [facility] RDW 12.9 11.0 - 15.0 % LAB HEMETOLOGY METHOD 08/10/2024 10:36 AM [facility] Platelets 351 130 - 400 K/mcL LAB HEMETOLOGY METHOD 08/10/2024 10:36 AM [facility] MPV 9.7 7.0 - 11.0 FL LAB HEMETOLOGY METHOD 08/10/2024 10:36 AM [facility] NRBC 0.0 <1.0 % LAB HEMETOLOGY METHOD 08/10/2024 10:36 AM EST [facility] NRBC Absolute 0.00 <0.10 K/mcL LAB HEMETOLOGY METHOD 08/10/2024 10:36 AM EST [facility] Blood Venous blood specimen / Unknown Venipuncture / Unknown 08/10/2024 6:19 AM EST 08/10/2024 9:58 AM EST us Yulia Orantes MD LAB BLOOD ORDERABLES Final Resul t [facility] [address] [place] [address], documented in this encounter Visit Diagnoses Diagnosis Unspecified convulsions (CMS/HCC) documented in this encounter Additional Health Concerns Infection Onset Date Last Indicated Resolved Time Respiratory Rule-Out 09/22/2024 09/21/2024 025 1:02 PM EST documented as of this encounter Care Teams Geographical Historian Relationship Specialty Start Date End Date Sadiq Valverde MD [address] [place] [address] Dr Debi [place] PCP - General 03/11/24 documented as of this encounter
--- OUTSIDE RECORDS SUMMARY | 2024-11-06 16:50 | XMS_ITS | Encounter Summary ---
Author Organization [facility] Address [address] [place] [address] Care Team Providers Care Music Department Chair Name Role Phone Jayleen Oneill DO Primary [...] Date Type Department Care Team Description 05/08/2019 Pipe Fitter Supervisor Report Medical Records [address] [place] [address] Beto Montes MD Social History Tobacco Use [...] on filedocumented in this encounter Care Teams Music Department Chair Relationship Specialty Start Date End Date Jayleen Oneill, PCP - General Internal Medicine 09/02/14 02/07/21 Trevin Douglas DO PCP - General Internal Medicine 02/08/21 1 Dylan Edmond MD PCP - General Internal Medicine 05/25/21 04/16/22 Karma Wayne MD [address] [place] [address] PCP - General Internal Medicine 04/17/22 03/10/24 Sadiq Valverde MD [address] [place] [address] [place] [address] PCP - General Family Practice 03/11/24 Beto Montes MD Specialist Neurology 08/17/21 08/21/22 Adis Joe PA-C Specialist ORTHOPEDICS 08/17/2106/10 Rocky Najera MD [address] [place] [address] Specialist Neurology 08/22/22 Tashia Hewitt MD [address] [phone] Specialist Pulmonology 08/22/22 Andres Henriquez MD [address] [phone] Specialist Rheumatology 08/22/22 Deysi Howe MD [address] [place] [address] [place] [address] Specialist UROGYNECOLOGY 04/29/23 Jassi Vaughan MD [address] [place] [address] [place] [address] Specialist Ophthalmology 04/29/23 documented as of this encounter
--- OUTSIDE RECORDS SUMMARY | 2024-11-06 16:50 | XMS_ITS | Encounter Summary ---
Author Organization [facility] Address [address] [facility] [place] [address] Care Team Providers Care Data Integration Analyst Name Role Phone Karma Wayne MD Primary Care Prov ider Rocky Najera MD Unavailable Unavailab Tashia Stubbs MD Unavailable Andres Henriquez MD Unavailable Unavailable Deysi Howe MD Unavailable Jassi Vaughan MD Unavailable Unavailable Sadiq Valverde MD Primary Care Provider Unav ailable Reason for Visit * Reason Onset Date Comments Prior Authorization 06/17/2023 Encounter Details Date Type Department Care Team Description 06/17/2023 Telephone U[address] [phone] Deysi Howe MD [address] [place] [address] [place] [address] Prior Authorization Social History Tobacco Use Types [...] suspected to have Coronavirus/COVID-19? No / Unsure 06/14/2023 12:53 PM EDT documented as of this encounter Miscellaneous Notes * Telephone Encounter - Martha Anders - 06/17/2023 2:09 PM EDT Prior Authorization for Medication-do not complete and send this encounter unless you have the fax from the pharmacy. Is this a Cover My Meds request: Yes -- Heller Code [id number] Name of Medication Trospium Chloride ER Dose of Medication 60 MG What is the RX # from the faxed refill? How does patient take this med? Take 1 Capsule by mouth daily What Pharmacy did the fax come from: [facility] fax #: [phone] Third Alliance Party Information from fax: What Prescription Plan does the patient have? BIN/PCN if applicable: Cardholder ID: Person Code: Relationship Code: Help desk phone: documented in this encounter Plan of Treatment Not on file documented as of this encounter Visit Diagnoses Not on filedocumented in this encounter Care Teams Data Integration Analyst Relationship Specialty Start Date End Date Karma Wayne MD [address] [place] [address] PCP - General Internal Medicine 04/17/22 03/10/24 Sadiq Valverde MD [address] [place] [address] [place] [address] PCP - General Family Practice 03/11/24 Rocky Najera MD [address] [place] [address] Specialist Neurology 08/22/22 Tashia Hewitt MD [address] [place] [phone] Specialist Pulmonology 08/22/22 Andres Henriquez MD [address] [phone] Specialist Rheumatology 08/22/22 Deysi Howe MD [address] [place] [address] [place] [address] Specialist UROGYNECOLOGY 04/29/23 Jassi Vaughan MD [address] [facility] [place] [address] Specialist Ophthalmology 04/29/23 documented as of this encounter
--- OUTSIDE RECORDS SUMMARY | 2024-11-06 16:50 | XMS_ITS | Encounter Summary ---
Author Organization [facility] Address [address] [place] [address] Care Team Providers Care Information Technology Account Manager Name Role Phone Dylan Edmond MD Primary [...] Details Date Type Department Care Team Description 08/30/2021 Medical Office Assistant Report Medical Records [address] [place] [address] Andres Henriquez MD Social History Tobacco Use [...] have Coronavirus / COVID-19? No / Unsure 08/17/2021 1:38 PM EST documented as of this encounter Plan of Treatment Not on file documented as of this encounter Visit Diagnoses Not on filedocumented in this encounter Care Teams Information Technology Account Manager Relationship Specialty Start Date End Date Dylan Edmond MD PCP - General Internal Medicine 05/25/21 04/16/22 Karma Wayne MD [address] [place] [address] PCP - General Internal Medicine 04/17/22 03/10/24 Sadiq Valverde MD [address] [place] [address] [place] [address] PCP - General Family Practice 03/11/24 Beto Montes MD Specialist Neurology 08/17/21 08/21/22 Adis Joe PA-C Specialist ORTHOPEDICS 08/17/2106/10 Rocky Najera MD [address] [place] [address] Specialist Neurology 08/22/22 Tashia Hewitt MD [address] [phone] Specialist Pulmonology 08/22/22 Andres Henriquez MD [address] [address] Specialist Rheumatology 08/22/22 Deysi Howe MD [address] [place], [place] [address] [address] Specialist UROGYNECOLOGY 04/29/23 Jassi Vaughan MD [address] [place] [address] [place] [address] Specialist Ophthalmology 04/29/23 documented as of this encounter
--- OUTSIDE RECORDS SUMMARY | 2024-11-06 16:50 | XMS_ITS | Encounter Summary ---
Author Organization [facility] Address [address] [place] [address] Care Team Providers Care Guide Dog Instructor Name Role Phone Karma Wayne MD Primary Care Prov ider Rocky Najera MD Unavailable Unavailab Tashia Stubbs MD Unavailable Andres Henriquez MD Unavailable Unavailable Deysi Howe MD Unavailable Jassi Vaughan MD Unavailable Unavailable Sadiq Valverde MD Primary Care Provider Unav ailable Encounter Details Date Type Department Care Team Description 12/25/2023 Telephone Adult Medicine [address] [address] Billy Faustin PA-C [address] [place] [phone] Social History Tobacco Use Types Packs/Day Years [...] encounter Miscellaneous Notes * Telephone Encounter - Billy Faustin PA-C - 12/25/2023 9:18 AM EDT Please inform radiology that I just placed an ultrasound of the kidneys and bladder for this patient, her Sister Sarah is the boat person to schedule the appointment, I was hoping to get this ultrasound done in 1 to 2 weeks, because her sister will be traveling starting January 02. documented in this encounter Plan of Treatment Not on file documented as of this encounter Results * SONO RETROPERITONEAL COMPLETE (12/30/2023 6:54 PM EDT) 12/31/2023 7:36 AM EDT Impressions LUIZ KENYON OTHER EXTERNAL - 12/31/2023 7:40 AM EDT IMPRESSION: Partially limited examination. ??No renal stones or hydronephrosis seen. Narrative LUIZ KENYON OTHER EXTERNAL - 12/31/2023 7:40 AM EDT SONO RETROPERITONEAL COMPLETE TECHNIQUE: Complete ultrasound evaluation of the retroperitoneum was performed. ?? COMPARISON: Right upper quadrant ultrasound on June 27, 2023 Reason for the study: hematuria FINDINGS: Limited examination due to patient's body habitus and patient's limited mobility. RIGHT KIDNEY: Size: 10.4 cm. No shadowing stones or hydronephrosis. Previously suggested exophytic cyst in the upper pole is tentatively measured as 0.4 x 0.3 x 0.4 cm. LEFT KIDNEY: ??Size: 9.6 cm. No shadowing stones or hydronephrosis. BLADDER: ??Urinary bladder is under distended, which limits evaluation. Ureteral jets not seen. Prevoid urinary bladder volume measures 28.1 cc. Procedure Note Aurelia Johnson MD - 12/31/2023 SONO RETROPERITONEAL COMPLETE TECHNIQUE: Complete ultrasound evaluation of the retroperitoneum was performed. COMPARISON: Right upper quadrant ultrasound on June 27, 2023 Reason for the study: hematuria FINDINGS: Limited examination due to patient's body habitus and patient's limitedmobility. RIGHT KIDNEY: Size: 10.4 cm. No shadowing stones or hydronephrosis.Previously suggested exophytic cyst in the upper pole is tentatively measured as 0.4 x 0.3 x0.4 cm. LEFT KIDNEY: Size: 9.6 cm. No shadowing stones or hydronephrosis. BLADDER: Urinary bladder is under distended, which limits evaluation.Ureteral jets not seen. Prevoid urinary bladder volume measures 28.1 cc. IMPRESSION IMPRESSION: Partially limited examination. No renal stones or hydronephrosis seen. Billy Faustin PA-C [facility] OTHER EXTERNAL documented in this encounter Visit Diagnoses Diagnosis Hematuria, unspecified type- Primary Hematuria, unspecified type documented in this encounter Care Teams Guide Dog Instructor Relationship Specialty Start Date End Date Karma Wayne MD [address] [place] [address] PCP - General Internal Medicine 04/17/22 03/10/24 Sadiq Valverde MD [address] [place] [address] [place] [address] PCP - General Family Practice 03/11/24 Rocky Najera MD [address] [place] [address] Specialist Neurology 08/22/22 Tashia Hewitt MD [address] [phone] Specialist Pulmonology 08/22/22 Andres Henriquez MD [address] [phone] Specialist Rheumatology 08/22/22 Deysi Howe MD [address] [place] [address] [place] [address] Specialist UROGYNECOLOGY 04/29/23 Jassi Vaughan MD [address] [place] [address] [place] [address] Specialist Ophthalmology 04/29/23 documented as of this encounter
--- OUTSIDE RECORDS SUMMARY | 2024-11-06 16:50 | XMS_ITS | Clinical Summary ---
Author Organization [facility] Address [address] [place] [address] Care Team Providers Care Commercial Pest Control Technician Name Role Phone Unavailable Primary Care Provider [...] Plan of Treatment [place] on file [place]
--- OUTSIDE RECORDS SUMMARY | 2024-11-06 16:50 | XMS_ITS | Clinical Summary ---
Author Organization [facility] Address [address] [place] [address] Care Team Providers Care Sinter Machine Operator Name Role Phone Karma Wayne [...] Obstructive sleep apnea syndrome 05/30/2018 Overview: Overview: [facility] Home Polysomnogram: Date 05/27/2018; AHI 8, Unclassified apneas 0; Obstructive apneas 8; Central apneas 1; Mixed apneas 0; hypopneas 45; average oxygen saturation 94% (lowest 84% without saturations <88% for 5% or more of study) [facility] Polysomnogram treatment study. Date 06/28/2018. SE 61 [...] age to complete this topic Care Teams Sinter Machine Operator Relationship Specialty Start Date End Date Karma Wayne MD [address] [place] [address] PCP - General Internal Medicine 08/02/22
--- OUTSIDE RECORDS SUMMARY | 2024-11-06 16:50 | XMS_ITS | Encounter Summary ---
Author Organization [facility] Address [address] [place] [address] Care Team Providers Care Dot Compliance Coordinator Name Role Phone Karma Wayne MD Primary Care Prov ider Rocky Najera MD Unavailable Unavailab Tashia Stubbs MD Unavailable Andres Henriquez MD Unavailable Unavailable Deysi Howe MD Unavailable Jassi Vaughan MD Unavailable Unavailable Sadiq Valverde MD Primary Care Provider Unav ailable Reason for Visit * Reason Onset Date Comments refill request 12/03/2023 Encounter Details Date Type Department Care Team Description 12/03/2023 Refill Urogy[address] [phone] Deysi Howe MD [address] [place] [address] [place] [address] refill request Social History Tobacco Use Types [...] N/A Patients current insurance carrier is: Payor: [employer]in / Plan: Pluromed $Edith BUI TOBAR [id number] / Product Type: HMO [id number] documented in this encounter Plan of Treatment Not on file documented as of this encounter Visit Diagnoses Not on filedocumented in this encounter Care Teams Dot Compliance Coordinator Relationship Specialty Start Date End Date Karma Wayne MD [address] [place] [address] PCP - General Internal Medicine 04/17/22 03/10/24 Sadiq Valverde MD [address] [place] [address] [place] [address] PCP - General Family Practice 03/11/24 Rocky Najera MD [address] [place] [address] Specialist Neurology 08/22/22 Tashia Hewitt MD [address] [phone] Specialist Pulmonology 08/22/22 Andres Henriquez MD [address] [address] Specialist Rheumatology 08/22/22 Deysi Howe MD [address] [place] [address] [place] [address] Specialist UROGYNECOLOGY 04/29/23 Jassi Vaughan MD [address] [place] [address] [place] [address] Specialist Ophthalmology 04/29/23 documented as of this encounter
--- OUTSIDE RECORDS SUMMARY | 2024-11-06 16:50 | XMS_ITS | Encounter Summary ---
Author Organization [facility] Address [address] [place] [address] Care Team Providers Care Dining Room Helper Name Role Phone Jayleen Oneill DO [...] Care Team Description 05/20/2016 Refill Rheumatology - [place] [address] [place] [address] Mar Wood MD E-prescribe Rx Request Social [...] NO Patients current insurance carrier is: Payor: [employer] / Plan: [employer] $0 [facility] [id number] / Product Type: [employer] Systems[employer] [id number] documented in this encounter Plan of Treatment Not on file documented as of this encounter Visit Diagnoses Not on filedocumented in this encounter Care Teams Dining Room Helper Relationship Specialty Start Date End Date Jayleen Oneill DO PCP - General Internal Medicine 09/02/14 02/07/21 Trevin Douglas DO PCP - General Internal Medicine 02/08/21 1 Dylan Edmond MD PCP - General Internal Medicine 05/25/21 04/16/22 Karma Wayne MD [address] [place] [address] PCP - General Internal Medicine 04/17/22 03/10/24 Sadiq Valverde MD [address] [place] [address] [place] [address] PCP - General Family Practice 03/11/24 Beto Montes MD Specialist Neurology 08/17/21 08/21/22 Adis Joe PA-C Specialist ORTHOPEDICS 08/17/2106/10 Rocky Najera MD [address] [place] [address] Specialist Neurology 08/22/22 Tashia Hewitt MD [address] [phone] Specialist Pulmonology 08/22/22 Andres Henriquez MD [address] [phone] Specialist Rheumatology 08/22/22 Deysi Howe MD [address] [place] [address] [place] [address] Specialist UROGYNECOLOGY 04/29/23 Jassi Vaughan MD [address] [place] [address] [place] [address] Specialist Ophthalmology 04/29/23 documented as of this encounter
--- OUTSIDE RECORDS SUMMARY | 2024-11-06 16:50 | XMS_ITS | Encounter Summary ---
Author Organization [facility] [place] [facility] Address [address] [place] [address] Care Team Providers Care Wood Cutter Name Role Phone Dylan Edmond MD [...] Care Team Description 07/26/2021 Telephone Adult Medicine [address] [address] Dylan Edmond MD Provider Call Back Social [...] filedocumented in this encounter Care Teams Wood Cutter Relationship Specialty Start Date End Date Dylan Edmond MD PCP - General Internal Medicine 05/25/21 04/16/22 Karma Wayne MD [address] [place] [address] PCP - General Internal Medicine 04/17/22 03/10/24 Sadiq Valverde MD [address] [place] [address] [place] [address] PCP - General Family Practice 03/11/24 Beto Montes MD Specialist Neurology 08/17/21 08/21/22 Adis Joe PA-C Specialist ORTHOPEDICS 08/17/2106/10 Rocky Najera MD [address] [place] [address] Specialist Neurology 08/22/22 Tashia Hewitt MD [address] [phone] Specialist Pulmonology 08/22/22 Andres Henriquez MD [address] [address] Specialist Rheumatology 08/22/22 Deysi Howe MD [address] [place] [address] [place] [address] Specialist UROGYNECOLOGY 04/29/23 Jassi Vaughan MD [address] [facility] [place] [address] Specialist Ophthalmology 04/29/23 documented as of this encounter
--- OUTSIDE RECORDS SUMMARY | 2024-11-06 16:50 | XMS_ITS | Encounter Summary ---
Author Organization [facility] Address [address] [place] [address] Care Team Providers Care Plum Packer Name Role Phone Jayleen Oneill DO Primary [...] Visit * Reason Onset Date Comments Medication 05/14/2017 Encounter Details Date Type Department Care Team Description 05/14/2017 Telephone Rheumatology - [address] [address] Veronica Aggarwal DO Medication Social History Tobacco Use Types Packs/Day Years [...] encounter Miscellaneous Notes * Telephone Encounter - Tsering WaynePEvaristoNEvaristo - 05/14/2017 9:02 AM EDT Yes she does and Deyanira is starting it. * Telephone Encounter - Veronica Aggarwal DO - 05/14/2017 6:33 AM EDT Order placed to her [facility] pharmacy. Does she need a prior auth? Thanks. * Telephone Encounter - Veronica Aggarwal DO - 05/14/2017 6:32 AM EDT ----- Message from Theodora Dhaliwal M.A. sent at 05/13/2017 11:37 AM EDT ----- Pt called and informed. She is seeing her PCP this week and will discuss setting up Hep B vaccine series. Pt has decided she would like to use Enbrel. documented in this encounter Plan of Treatment Not on file documented as of this encounter Visit Diagnoses Diagnosis Rheumatoid arthritis involving multiple sites, unspecified rheumatoid factor presence- Primary documented in this encounter Care Teams Plum Packer Relationship Specialty Start Date End Date Jayleen Oneill DO PCP - General Internal Medicine 09/02/14 02/07/21 Trevin Douglas DO PCP - General Internal Medicine 02/08/21 1 Dylan Edmond MD PCP - General Internal Medicine 05/25/21 04/16/22 Karma Wayne MD [address] [place] [address] PCP - General Internal Medicine 04/17/22 03/10/24 Sadiq Valverde MD [address] [place] [address] [place] [address] PCP - General Family Practice 03/11/24 Beto Montes MD Specialist Neurology 08/17/21 08/21/22 Adis Joe PA-C Specialist ORTHOPEDICS 08/17/2106/10 Rocky Najera MD [address] [place] [address] Specialist Neurology 08/22/22 Tashia Hewitt MD [address] [phone] Specialist Pulmonology 08/22/22 Andres Henriquez MD [address] [address] Specialist Rheumatology 08/22/22 Deysi Howe MD [address] [place] [address] [place] [address] Specialist UROGYNECOLOGY 04/29/23 Jassi Vaughan MD 4 [facility] [place] [address] Specialist Ophthalmology 04/29/23 documented as of this encounter
--- OUTSIDE RECORDS SUMMARY | 2024-11-06 16:50 | XMS_ITS | Encounter Summary ---
Author Organization [facility] Address [address] [facility] [place] [address] Care Team Providers Care Senior Investigator Name Role Phone Karma Wayne MD Primary Care Prov ider Rocky Najera MD Unavailable Unavailab Tashia Stubbs MD Unavailable Andres Henriquez MD Unavailable Unavailable Deysi Howe MD Unavailable Jassi Vaughan MD Unavailable Unavailable Sadiq Valverde MD Primary Care Provider Unav ailable Encounter Details Date Type Department Care Team Description 11/25/2023 Sole Rounder Report Medical Records [address] [place] [address] Abstract, Provider Social History Tobacco Use Types [...] on filedocumented in this encounter Care Teams Senior Investigator Relationship Specialty Start Date End Date Karma Wayne MD [address] [place] [address] PCP - General Internal Medicine 04/17/22 03/10/24 Sadiq Valverde MD [address] [facility] [place] [address] PCP - General Family Practice 03/11/24 Rocky Najera MD [address] [place] [address] Specialist Neurology 08/22/22 Tashia Hewitt MD [address] [phone] Specialist Pulmonology 08/22/22 Andres Henriquez MD [address] [address] Specialist Rheumatology 08/22/22 Deysi Howe MD [address] [place] [address] [place] [address] Specialist UROGYNECOLOGY 04/29/23 Jassi Vaughan MD [address] [place] [address] [place] [address] Specialist Ophthalmology 04/29/23 documented as of this encounter
--- OUTSIDE RECORDS SUMMARY | 2024-11-06 16:50 | XMS_ITS | Encounter Summary ---
Author Organization [facility] Address [address] [place] [address] Care Team Providers Care Chimney Mechanic Name Role Phone Jayleen Oneill DO Primary [...] Details Date Type Department Care Team Description 09/30/2019 Geophysical Data Technician Report Medical Records [address] [place] [address] Kerri Zhu MD [address] [phone] Social History Tobacco Use Types Packs/Day Years [...] on filedocumented in this encounter Care Teams Chimney Mechanic Relationship Specialty Start Date End Date Jayleen Oneill DO PCP - General Internal Medicine 09/02/14 02/07/21 Trevin Douglas DO PCP - General Internal Medicine 02/08/21 Dylan Cruz MD PCP - General Internal Medicine 05/25/21 04/16/22 Karma Wayne MD [address] [place] [address] PCP - General Internal Medicine 04/17/22 03/10/24 Sadiq Valverde MD [address] [place] [address] [place] [address] PCP - General Family Practice 03/11/24 Beto Montes MD Specialist Neurology 08/17/21 08/21/22 Adis Joe PA-C Specialist ORTHOPEDICS 08/17/2106/10 Rocky Najera MD [address] [place] [address] Specialist Neurology 08/22/22 Tashia Hewitt MD [address] [phone] Specialist Pulmonology 08/22/22 Andres Henriquez MD [address] [phone] Specialist Rheumatology 08/22/22 Deysi Howe MD [address] [place] [address] [place] [address] Specialist UROGYNECOLOGY 04/29/23 Jassi Vaughan MD [address] [place] [address] [place] [address] Specialist Ophthalmology 04/29/23 documented as of this encounter
--- OUTSIDE RECORDS SUMMARY | 2024-11-06 16:50 | XMS_ITS | Encounter Summary ---
Author Organization [facility] Address [address] [place] [address] Care Team Providers Care Profiling Machine Set Up Operator Name Role Phone Karma Wayne MD Primary Care Prov ider Rocky Njaera MD Unavailable Unavailab Tashia Stubbs MD Unavailable Andres Henriquez MD Unavailable Unavailable Deysi Howe MD Unavailable Jassi Vaughan MD Unavailable Unavailable Sadiq Valverde MD Primary Care Provider Unav ailable Encounter Details Date Type Department Care Team Description 06/08/2023 Orders Only Pulmonology - [place] [address] [place] [id number] Tashia Hewitt MD [address] [facility] [address] [place] [address] of the chest (Primary Dx) Social History Tobacco Use Types [...] suspected to have Coronavirus/COVID-19? No / Unsure 06/05/2023 2:15 PM EDT documented as of this encounter Plan of Treatment Not on file documented as of this encounter Results * US SOFT TISSUE ABDOMEN/BACK, LIMITED ABD (06/27/2023 8:09 AM EST) 06/27/2023 8:18 AM EST Impressions [facility] OTHER EXTERNAL - 06/27/2023 8:26 AM EST IMPRESSION: ?? Limited exam. Cholelithiasis. Probable small exophytic right renal cyst. ??Recommend 6 month follow-up ultrasound to ensure stability as the lesion is difficult to confirm with certainty as a cyst due to limitations on this exam. POS [id number] Narrative [facility] OTHER EXTERNAL - 06/27/2023 8:26 AM EST EXAM: Abdomen ultrasound limited. HISTORY: Possible gallbladder sludge on CT. COMPARISON: ??None, correlation with chest CT 06/05/2023 FINDINGS: Exam limited by patient body habitus. Liver: Normal in size measuring 17.7 cm in craniocaudad extent. ??Parenchymal echotexture appears within normal limits without lesions detected. Gallbladder/Biliary Tree: Multiple shadowing echogenic gallstones. ??No gallbladder wall thickening or pericholecystic fluid. No intra or extrahepatic biliary ductal dilatation. The common bile duct measures 0.3 cm. Pancreas: No abnormality in the visualized pancreas, the tail is obscured by bowel gas. Right kidney: Normal in size measuring 10.5 cm in craniocaudad extent. ??No hydronephrosis or shadowing stones. ??0.8 x 0.8 x 0.5 cm exophytic anechoic to hypoechoic avascular lesion arising from the upper kidney could represent a cyst but this is difficult to determine with certainty due to limitations on this exam. Vasculature: Hepatopedal flow in the main portal vein. ??Visualized IVC is unremarkable. Procedure Note Chio Francisco MD - 06/27/2023 EXAM: Abdomen ultrasound limited. HISTORY: Possible gallbladder sludge on CT. COMPARISON: None, correlation with chest CT 06/05/2023 FINDINGS: Exam limited by patient body habitus. Liver: Normal in size measuring 17.7 cm in craniocaudad extent.Parenchymal echotexture appears within normal limits without lesions detected. Gallbladder/Biliary Tree: Multiple shadowing echogenic gallstones. Nogallbladder wall thickening or pericholecystic fluid. No intra or extrahepatic biliaryductal dilatation. The common bile duct measures 0.3 cm. Pancreas: No abnormality in the visualized pancreas, the tail is obscuredby bowel gas. Right kidney: Normal in size measuring 10.5 cm in craniocaudad extent. Nohydronephrosis or shadowing stones. 0.8 x 0.8 x 0.5 cm exophytic anechoic to hypoechoicavascular lesion arising from the upper kidney could represent a cyst but this is difficult todetermine with certainty due to limitations on this exam. Vasculature: Hepatopedal flow in the main portal vein. Visualized IVC isunremarkable. IMPRESSION IMPRESSION: Limited exam. Cholelithiasis. Probable small exophytic right renal cyst. Recommend 6 month follow-upultrasound to ensure stability as the lesion is difficult to confirm with certainty as a cystdue to limitations on this exam. POS [id number] Tashia Hewitt MD ULTRASOUND [facility] OTHER EXTERNAL * (ABNORMAL) CHG COMPREHENSIVE METABOLIC PANEL (06/14/2023 12:35 PM EDT) GLUCOSE 96 70 - 100 mg/dL 06/14/2023 4:52 PM EDT [facility] Comment:Reference range appl icable to fasting specimens only Blood Urea Nitrogen 25 5 - 25 mg/dL 06/14/2023 4:52 PM EDT [facility] [employer] CREAT 0.85 0.5 - 1.1 mg/dL 06/14/2023 4:52 PM EDT [facility] [employer] GLOMERULAR FILTRATION RATE 72 >60 06/14/2023 4:52 PM EDT [facility] [employer] Comment: This eGFR result was calculated using the CKD-EPI 2020 Creatinine Equation NA 143 135 - 145 mEq/L 06/14/2023 4:52 PM EDT [facility] [employer] K 4.6 3.5 - 5.5 mmol/L 06/14/2023 4:52 PM EDT [facility] [employer] CL 112(H) 96 - 110 mmol/L 06/14/2023 4:52 PM EDT [facility] CARBON DIOXIDE (CO2) 26 21 - 32 mmol/L 06/14/2023 4:52 PM EDT [facility] ANION GAP 5 3 - 11 06/14/2023 4:52 PM EDT [facility] CALCIUM 9.9 8.5 - 10.5 mg/dL 06/14/2023 4:52 PM EDT [facility] Albumin 3.6 3.2 - 5.0 G/dL 06/14/2023 4:52 PM EDT [facility] SGPT 45 10 - 60 U/L 06/14/2023 4:52 PM EDT [facility] TOTAL PROTEIN (TP) 6.5 6.0 - 8.0 G/dL 06/14/2023 4:58 PM EDT [facility] SGOT 30 10 - 42 U/L 06/14/2023 4:58 PM EDT [facility] ALK PHOS 69 42 - 121 U/L 06/14/2023 4:58 PM EDT [facility] BILIRUBIN TOTAL 0.3 0.0 - 1.4 mg/dL 06/14/2023 5:03 PM EDT [facility] 06/14/2023 12:3 5 PM EDT 06/14/2023 12:36 PM EDT Narrative [facility] - 06/14/2023 5:03 PM EDT Release to patient->Immediate Tashia Hewitt MD LAB [facility] documented in this encounter Visit Diagnoses Diagnosis Abnormal CT of the chest- Primary Nonspecific (abnormal) findings on radiological and other examination of other intrathoracic organs Morbid obesity with BMI of 50.0-59.9, adult (HCC) Dyslipidemia Other and unspecified hyperlipidemia Abnormal CT of the chest Nonspecific (abnormal) findings on radiological and other examination of other intrathoracic organs Abnormal CT of the chest Nonspecific (abnormal) findings on radiological and other examination of other intrathoracic organs documented in this encounter Care Teams Profiling Machine Set Up Operator Relationship Specialty Start Date End Date Karma Wayne MD [address] [place] [address] PCP - General Internal Medicine 04/17/22 03/10/24 Sadiq Valverde MD [address] [place] [address] [place] [address] PCP - General Family Practice 03/11/24 Rocky Najera MD [address] [place] [address] Specialist Neurology 08/22/22 Tashia Hewitt MD [address] [address] Specialist Pulmonology 08/22/22 Andres Henriquez MD [address] [address] Specialist Rheumatology 08/22/22 Deysi Howe MD [address] [place] [address] [place] [address] Specialist UROGYNECOLOGY 04/29/23 Jassi Vaughan MD [address] [place] [address] [place] [address] Specialist Ophthalmology 04/29/23 documented as of this encounter
--- OUTSIDE RECORDS SUMMARY | 2024-11-06 16:50 | XMS_ITS | Encounter Summary ---
Author Organization [facility] Address [address] [place] [address] Care Team Providers Care Union Carpenter Name Role Phone Jayleen Oneill DO Primary [...] Details Date Type Department Care Team Description 05/01/2019 Yardage Control Clerk Report Medical Records [address] [place] [address] Abstract, Provider Social History Tobacco Use Types [...] on filedocumented in this encounter Care Teams Union Carpenter Relationship Specialty Start Date End Date Jayleen Oneill DO PCP - General Internal Medicine 09/02/14 02/07/21 Trevin Douglas DO PCP - General Internal Medicine 02/08/21 1 Dylan Edmond MD PCP - General Internal Medicine 05/25/21 04/16/22 Karma Wayne MD [address] [place] [address] PCP - General Internal Medicine 04/17/22 03/10/24 Sadiq Valverde MD [address] [place] [address] [place] [address] PCP - General Family Practice 03/11/24 Beto Montes MD Specialist Neurology 08/17/21 08/21/22 Adis Joe PA-C Specialist ORTHOPEDICS 08/17/2106/10 Rocky Najera MD [address] [place] [address] Specialist Neurology 08/22/22 Tashia Hewitt MD [address] [address] Specialist Pulmonology 08/22/22 Andres Henriquez MD [address] [address] Specialist Rheumatology 08/22/22 Deysi Howe MD [address] [place] [address] [place] [address] Specialist UROGYNECOLOGY 04/29/23 Jassi Vaughan MD [address] [place] [address] [place] [address] Specialist Ophthalmology 04/29/23 documented as of this encounter
--- OUTSIDE RECORDS SUMMARY | 2024-11-06 16:50 | XMS_ITS ---
Author Name Matt CERVANTES [facility] Address [address] [place] [address] Phone [phone] [facility] Care Team Providers Care Admission Specialist Name Role Phone Cary Gutierrez Unavailable [phone] Unavailable Unavailable [phone] Reason for Referral Not Available Allergies, adverse [...] TWICE DAILY 2023-12-09 No Data Available pyRIDostigmine [place] 60 mg Tab TAKE 1 TABLET BY [...] Active 2024-03-23 N/A Other problems related to [facility] facilities and other health care Active 2024-03-23 [...] (do not use for phone, instead use 00742-78) [facility] Chronic obstructive pulmonar y disease, unspecifiedBipolar [...] (do not use for phone, instead use 59899-13) [facility] New patient,40-59min; chronic exacerbation, 2 stable chronic or 1 acute illness add add modifier 95 for video (do not use for phone, instead use 68573-46) [facility] New patient,40-59min; chronic exacerbation, 2 stable chronic or 1 acute illness add add modifier 95 for video (do not use for phone, instead use 34223-13) [facility]20[place] New patient,40-59min; chronic exacerbation, 2 stable chronic or 1 acute illness add add modifier 95 for video (do not use for phone, instead use 10202-76) [facility]20[place] New patient,40-59min; chronic exacerbation, 2 stable chronic or 1 acute illness add add modifier 95 for video (do not use for phone, instead use 80038-09) [facility] 03[place]23/20[place] New patient,40-59min; chronic exacerbation, 2 stable chronic or 1 acute illness add add modifier 95 for video (do not use for phone, instead use 83456-50) [facility] 03[place]23/20[place] New patient,40-59min; chronic exacerbation, 2 stable chronic or 1 acute illness add add modifier 95 for video (do not use for phone, instead use 08061-74) [facility] 03/[place]/2024 No Data Available [facility] 04[place]29/2024 Chronic obstructive pulmonar y disease, unspecifiedObstructive sleep apnea (adult) (pediatric)Other problems related to medical facilities and other health careRheumatoid arthritis, unspecified No Data Available [facility] 04/29/2024 No Data Available [facility] 05[place]/2024 Overactive bladderChronic obstructive pulmonary disease, unspecifiedOther problems related to medical facilities and other health care No Data Available [facility] 05/26/2024 No Data Available [facility] 06/19/2024 Chronic obstructive pulmonar y disease, unspecifiedOveractive bladderOther problems related to medical facilities and other health care No Data Available [facility] 06/19/2024 No Data Available [facility] 07[place]15/2024 Chronic obstructive pulmonar y disease, unspecifiedOther problems related to medical facilities and other health care No Data Available [facility] [place] 07/15/20[place] Estab. patient 10-29min; 1 minor problem; add add modifier 95 for video, modifier 93 for phone [facility] [place] 08/21/2024 Injury, unspecified, subsequ ent encounterUnspecified fall, subsequent encounterOther problems related to medical facilities and other health care Estab. patient 10-29min; 1 minor problem; add add modifier 95 for video, modifier 93 for phone [facility] ([place] 08/21/2024 Vital Signs Date of Collection Vitals 2024-03-23 12:42:20 Height - 175.26 cmWe ight - 105.69 kgBody Mass Index (BMI) - 34.41 kg/m2BP Diastolic - 58.0 mm[Hg]BP Systolic - 145.0 mm[Hg] Social History Social History Social History Observation Description Effec tive Time Current Smoking Status Former smoker 2024-10-18 1 Sex Female History of Procedures Procedures Service Procedure code Service date Servicing provider Phone# New patient,40-59min; chronic exacerbation, 2 stable chronic or 1 acute illness add add modifier 95 for video (do not use for phone, instead use 04044-93) [id number] 2024-03-23 No Data Available No Data Availa [...] Available No Data Available No Data Available 2024-04-29 No Data Available No Data Available Medication List Documented (1159F) 1159F 2024-04-29 No Data Available No Data Michelle ilable No Data Available 40353 2024-05-26 No Data Available No Data Available Medication List Documented (1159F) 1159F 2024-05-26 No Data Available No Data Michelle ilable No Data Available 20061 2024-06-19 No Data Available No Data Available Medication List Documented (1159F) 1159F 2024-06-19 No Data Available No Data Michelle ilable No Data Available 2024-07-15 No Data Available No Data Available Medication List Documented (1159F) 1159F 2024-07-15 No Data Available No Data Michelle ilable Estab. patient 10-29min; 1 minor problem; add add modifier 95 for video, modifier 93 for phone [id number] 2024-08-21 No Data Available No Data Availa ble Medication List Documented (1159F) 1159F 2024-08-21 No Data Available No Data Michelle ilable Functional Status Functional Category Effective Dates [...] RFx0 Do NOT substitute - CLAUDINE.Change pyRIDostigmine [place] 60 mg Tab TAKE 1 TABLET BY [...] modifier 95)Continue to see PCP. Follow-up with [facility] as needed for any acute or disease [...] modifier 95)Continue to see PCP. Follow-up with [facility] as needed for any acute or disease [...] sister, fell in July 2024[facility]Why was the member in the [...]
--- OUTSIDE RECORDS SUMMARY | 2024-11-06 16:50 | XMS_ITS | Clinical Summary ---
Author Organization [employer] Address [address] [facility] [address] [place] [address] Care Team Providers Care Guest Services Director Name Role Phone Unavailable Primary Care Provider [...] Obstructive sleep apnea syndrome 05/30/2018 Overview (03/05/2024): [facility] Home Polysomnogram: Date 05/27/2018; AHI 8, Unclassified apneas 0; Obstructive apneas 8; Central apneas 1; Mixed apneas 0; hypopneas 45; average oxygen saturation 94% (lowest 84% without saturations <88% for 5% or more of study) [facility] Polysomnogram treatment study. Date 06/28/2018. SE [address] [...] polysomnogram. - CPAP @ 6 corrective. Overview: [facility] Home Polysomnogram: Date 05/27/2018; AHI 8, Unclassified apneas 0; Obstructive apneas 8; Central apneas 1; Mixed apneas 0; hypopneas 45; average oxygen saturation 94% (lowest 84% without saturations <88% for 5% or more of study) [facility] Polysomnogram treatment study. Date 06/28/2018. SE 61 [...] poliomyelitis 10/04/2014 Overview (03/05/2024): At age 4 Social History Tobacco Use Types Packs/Day Years [...] Procedure Name Priority Date/Time Associated Diagnosis Comments PROPHYLAXIS - ADULT Routine 07/01/2024 3 :00 PM EST INTRAORAL - COMPLETE SERIES OF RADIOGRAPHIC IMAGES Routine 02/10/2024 3:00 PM EDT Dental calculus Secondary dental caries associated with failed or defective dental oriental orthodox PERIODIC ORAL EVALUATION - ESTABLISHED PATIENT Routine 02/10/2024 3:00 PM EDT Dental calculus Secondary dental caries associated with failed or defective dental oriental orthodox from Last 3 Months or Most Recently Relevant to Health Maintenance Insurance CHARLES [place]EREZ [id number] DENTAL - [facility] SCO CHARLES PEREZ [id number] CHARLES PEREZ [id number] CHARLES [place] [id number] [place] [address]
--- OUTSIDE RECORDS SUMMARY | 2024-11-06 16:50 | XMS_ITS | Encounter Summary ---
Author Organization [facility] Address [address] [place] [address] Care Team Providers Care Infrastructure Project Manager Name Role Phone Karma Wayne MD Primary Care Prov ider Rocky Najera MD Unavailable Unavailab Tashia Stubbs MD Unavailable Andres Henriquez MD Unavailable Unavailable Deysi Howe MD Unavailable Jassi Vaughan MD Unavailable Unavailable Sadiq Valverde MD Primary Care Provider Unav ailable Encounter Details Date Type Department Care Team Description 09/02/2023 Orders Only Medical Records [address] [place] [address] Andres Henriquez MD Social History Tobacco Use [...] on filedocumented in this encounter Care Teams Infrastructure Project Manager Relationship Specialty Start Date End Date Karma Wayne MD [address] [place] [address] PCP - General Internal Medicine 04/17/22 03/10/24 Sadiq Valverde MD [address] [place] [address] [place] [address] PCP - General Family Practice 03/11/24 Rocky Najera MD [address] [place] [address] Specialist Neurology 08/22/22 Tashia Hewitt MD [address] [address] Specialist Pulmonology 08/22/22 Andres Henriquez MD [address] [address] Specialist Rheumatology 08/22/22 Deysi Howe MD [address] [place] [address] [place] [address] Specialist UROGYNECOLOGY 04/29/23 Jassi Vaughan MD [address] [place] [address] [place] [address] Specialist Ophthalmology 04/29/23 documented as of this encounter
--- OUTSIDE RECORDS SUMMARY | 2024-11-06 16:50 | XMS_ITS | Encounter Summary ---
Author Organization [facility] Address [address] [place] [address] Care Team Providers Care Entertainer & Comic Name Role Phone Sadiq Valverde MD Primary Care Provider Encounter Details Date Type Department Care Team (Late st Contact Info) Description 08/15/2024 Lab Requisition [facility] - Main Lab [address] [facility] [facility] [place] [address] Yulia Orantes MD [address] [place] [address] Unspecified convulsions (CMS/HCC) Social History Tobacco Use [...] mmol/L LAB CHEMISTRY METHOD 08/17/2024 12:15 PM [facility] Potassium 4.2 3.5 - 5.5 mmol/L LAB CHEMISTRY METHOD 08/17/2024 12:15 PM [facility] Chloride 112(H) 96 - 110 mmol/L LAB CHEMISTRY METHOD 08/17/2024 12:15 PM [facility] CO2 25 21 - 32 mmol/L LAB CHEMISTRY METHOD 08/17/2024 12:15 PM [facility] Anion Gap 4 3 - 11 LAB CHEMISTRY METHOD 08/17/2024 12:15 PM [facility] Glucose 91 70 - 100 mg/dL LAB CHEMISTRY METHOD 08/17/2024 12:15 PM [facility] BUN 23 5 - 25 mg/dL LAB CHEMISTRY METHOD 08/17/2024 12:15 PM [facility] Creatinine 0.80 0.50 - 1.10 mg/dL LAB CHEMISTRY METHOD 08/17/2024 12:15 PM [facility] eGFR 77 >=60 mL/min/1. 73m2 LAB CHEMISTRY METHOD 08/17/2024 12:15 PM [facility] Comment:Calculation based on the??Chronic Kidney Disease Epidemiology Collaboration (CKD-EPI) equation refit??without adjustment for race. BUN/Creatinine Ratio 28.8 LAB CHEMISTRY METHOD 08/17/2024 12:15 PM [facility] Calcium 10.1 8.5 - 10.5 mg/dL LAB CHEMISTRY METHOD 08/17/2024 12:15 PM [facility] Blood Venous blood specimen / Unknown Venipuncture / Unknown 08/17/2024 6:17 AM EST 08/17/2024 10:56 AM EST us Yulia Orantes MD LAB BLOOD ORDERABLES Final Resul t [facility] [address] [place] [address], * (ABNORMAL) Complete blood count (08/17/2024 6:17 AM EST) [facility] WBC 8.5 4.8 - 10.8 K/mcL LAB HEMETOLOGY METHOD 08/17/2024 12:48 PM [facility] RBC 3.90 3.80 - 4.80 M/mcL LAB HEMETOLOGY METHOD 08/17/2024 12:48 PM [facility] Hemoglobin 13.1 11.5 - 16.0 g/dL LAB HEMETOLOGY METHOD 08/17/2024 12:48 PM [facility] Hematocrit 41.4 35.0 - 47.0 % LAB HEMETOLOGY METHOD 08/17/2024 12:48 PM [facility] MCV 107.0(H) 79.0 - 98.0 FL LAB HEMETOLOGY METHOD 08/17/2024 12:48 PM [facility] MCH 33.9(H) 27.0 - 32.0 pcg LAB HEMETOLOGY METHOD 08/17/2024 12:48 PM [facility] MCHC 31.6(L) 32.0 - 37.0 g/dL LAB HEMETOLOGY METHOD 08/17/2024 12:48 PM [facility] RDW 13.1 11.0 - 15.0 % LAB HEMETOLOGY METHOD 08/17/2024 12:48 PM [facility] Platelets 374 130 - 400 K/mcL LAB HEMETOLOGY METHOD 08/17/2024 12:48 PM [facility] MPV 9.9 7.0 - 11.0 FL LAB HEMETOLOGY METHOD 08/17/2024 12:48 PM [facility] NRBC 0.0 <1.0 % LAB HEMETOLOGY METHOD 08/17/2024 12:48 PM [facility] NRBC Absolute 0.00 <0.10 K/mcL LAB HEMETOLOGY METHOD 08/17/2024 12:48 PM EST [facility] Blood Venous blood specimen / Unknown Venipuncture / Unknown 08/17/2024 6:17 AM EST 08/17/2024 10:56 AM EST us Yulia Orantes MD LAB BLOOD ORDERABLES Final Resul t [facility] [address] [place] [address], documented in this encounter Visit Diagnoses Diagnosis Unspecified convulsions (CMS/HCC) documented in this encounter Additional Health Concerns Infection Onset Date Last Indicated Resolved Time Respiratory Rule-Out 09/22/2024 09/21/2024 025 1:02 PM EST documented as of this encounter Care Teams Entertainer & Comic Relationship Specialty Start Date End Date Sadiq Valverde MD [address] [place] [address] Dr Debi [place] PCP - General 03/11/24 documented as of this encounter
--- OUTSIDE RECORDS SUMMARY | 2024-11-06 16:50 | XMS_ITS | Encounter Summary ---
Author Organization [employer] [facility] Address [address] [facility] [place] [address] Care Team Providers Care Ribbing Machine Operator Name Role Phone Karma Wayne MD Primary Care Prov ider Rocky Najera MD Unavailable Unavailab Tashia Stubbs MD Unavailable Andres Henriquez MD Unavailable Unavailable Deysi Howe MD Unavailable Jassi Vaughan MD Unavailable Unavailable Sadiq Valverde MD Primary Care Provider Unav ailable Encounter Details Date Type Department Care Team Description 10/31/2023 Principal Systems Architect Report Medical Records [address] [place] [address] Rocky Najrea MD Social History Tobacco Use Types Packs/Day [...] on filedocumented in this encounter Care Teams Ribbing Machine Operator Relationship Specialty Start Date End Date Karma Wayne MD [address] [place], [place] [phone] PCP - General Internal Medicine 04/17/22 03/10/24 Sadiq Valverde MD [address] [place] [address] [place] [address] PCP - General Family Practice 03/11/24 Rocky Najera MD [address] [place] [address] Specialist Neurology 08/22/22 Tashia Hewitt MD [address] [address] Specialist Pulmonology 08/22/22 Andres Henriquez MD [address] [address] Specialist Rheumatology 08/22/22 Deysi Howe MD [address] [place] [address] [place] [address] Specialist UROGYNECOLOGY 04/29/23 Jassi Vaughan MD [address] [place] [address] [place] [address] Specialist Ophthalmology 04/29/23 documented as of this encounter
--- OUTSIDE RECORDS SUMMARY | 2024-11-06 16:50 | XMS_ITS | Encounter Summary ---
Author Organization [facility] Address [address] [place] [address] Care Team Providers Care Finance Admin Name Role Phone Jayleen Oneill DO Primary [...] Care Team Description 12/29/2018 Refill Adult Medicine [address] [address] Jayleen Oniell DO refill request Social History Tobacco Use [...] 12:46 PM EDT Jovita, please call patient [phone] (home) Needs labs done and appt scheduled [...] N/A Patients current insurance carrier is: Payor: [place] [employer] / Plan: [employer] $0 GSGO [id number] / Product Type: HMO [id number] documented in this encounter Plan of Treatment Not on file documented as of this encounter Results * CREATININE, BLOOD ASSAY (01/07/2019 11:30 AM EDT) CREAT 0.87 0.5 - 1.1 mg/dL 01/07/2019 3:53 PM EDT [facility] GLOMERULAR FILTRATION RATE > 60 01/07/2019 3:53 PM EDT [facility] Comment: If patient is -English, multiply result by 1.21 Chronic Kidney Disease: < 60 ml/min/1.73 square meters Kidney Failure: < 15 ml/min/1.73 square meters 01/07/2019 11:3 0 AM EDT 01/07/2019 11:31 AM EDT Oswaldo Fortune MD LAB Performing Organization Address [facility]/ZIP Co de Phone Number [facility] [employer] * TRANSAMINASE (SGPT)(ALT) UV- (01/07/2019 11:30 AM EDT) SGPT 31 10 - 60 U/L 01/07/2019 3:53 PM EDT [facility] [employer] 01/07/2019 11:3 0 AM EDT 01/07/2019 11:31 AM EDT Oswaldo Fortune MD LAB Performing Organization Address [facility] Co de Phone Number [facility] [employer] * TRANSAMINASE (SGOT)(AST) UV- (01/07/2019 11:30 AM EDT) SGOT 27 10 - 42 U/L 01/07/2019 3:53 PM EDT [facility] [employer] 01/07/2019 11:3 0 AM EDT 01/07/2019 11:31 AM EDT Oswaldo Fortune MD LAB Performing Organization Address City/[facility]/ZIP Co de Phone Number [facility] [employer] * (ABNORMAL) CBC (AUTO DIFF PLATELET) (01/07/2019 11:30 AM EDT) [facility] WHITE BLOOD COUNT 8.9 4.8 - 10.8 x10-3/uL 01/07/2019 3:30 PM EDT [facility] RED BLOOD COUNT 3.8 3.8 - 4.8 x10-6/uL 01/07/2019 3:30 PM EDT [facility] Hemoglobin 13.4 11.5 - 16.0 g/dL 01/07/2019 3:30 PM EDT [facility] Hematocrit 40.8 35 - 47 % 01/07/2019 3:30 PM EDT [facility] MEAN CORPUSCULAR VOLUME 106.8(H) 79 - 98 fL 01/07/2019 3:30 PM EDT [facility] MEAN CORPUSCULAR HEMOGLOBIN 35.1(H) 27 - 32 pg 01/07/2019 3:30 PM EDT [facility] MEAN CORPUSCULAR HGB CONC 32.8 32 - 37 g/dL 01/07/2019 3:30 PM EDT [facility] RED CELL DISTRIBUTION WIDTH 12.9 11 - 15 % 01/07/2019 3:30 PM EDT [facility] PLT COUNT 291 130 - 400 x10-3/uL 01/07/2019 3:30 PM EDT [facility] MEAN PLATELET VOLUME 11.0 7 - 11 fL 01/07/2019 3:30 PM EDT [facility] NRBC % AUTO 0.0 <1 % 01/07/2019 3:30 PM EDT [facility] NEUTROPHILS % 58.4 % 01/07/2019 3:30 PM EDT [facility] LYMPH % 31.3 % 01/07/2019 3:30 PM EDT [facility] MONO % 8.6 % 01/07/2019 3:30 PM EDT [facility] EOS % 1.0 % 01/07/2019 3:30 PM EDT [facility] BASO % 0.4 % 01/07/2019 3:30 PM EDT [facility] IMMATURE GRANULOCYTES % 0.3 % 01/07/2019 3:30 PM EDT [facility] NRBC # AUTO 0.00 <0.1 x10-3/uL 01/07/2019 3:30 PM EDT [facility] NEUT # 5.19 1.5 - 7.0 x10-3/uL [...] Oswaldo Fortune MD LAB Performing Organization Address City/[facility]/ZIP Co de Phone Number [facility] * C-REACTIVE PROTEIN (01/07/2019 11:30 AM EDT) C-REACTIVE PROTEIN 0.33 <0.5 mg/dl 01/07/2019 3:53 PM EDT [facility] 01/07/2019 11:3 0 AM EDT 01/07/2019 11:31 AM EDT Oswaldo Fortune MD LAB [facility] [employer] * RBC SEDIMENTATION RATE, NON-AUTO (01/07/2019 11:30 AM EDT) ERYTHROCYTE SEDIMENTATION RATE 16 0 - 30 mm/hr 01/07/2019 4:05 PM EDT [facility] 01/07/2019 11:3 0 AM EDT 01/07/2019 11:31 AM EDT Oswaldo Fortune MD LAB Performing Organization Address City/[facility]/ZIP Co de Phone Number [facility] documented in this encounter Visit Diagnoses Diagnosis Rheumatoid arthritis involving multiple sites with positive rheumatoid factor (HCC)- Primary Long-term use of immunosuppressant medication Encounter for long-term (current) use of other medications documented in this encounter Care Teams Finance Admin Relationship Specialty Start Date End Date Jayleen Oneill DO PCP - General Internal Medicine 09/02/14 02/07/21 Trevin Douglas DO PCP - General Internal Medicine 02/08/21 Dylan Cruz MD PCP - General Internal Medicine 05/25/21 04/16/22 Karma Wayne MD [address] [place] [address] PCP - General Internal Medicine 04/17/22 03/10/24 Sadiq Valverde MD [address] [place] [address] [place] [address] PCP - General Family Practice 03/11/24 Beto Montes MD Specialist Neurology 08/17/21 08/21/22 Adis Joe PA-C Specialist ORTHOPEDICS 08/17/2106/10 Rocky Najera MD [address] [place] [address] Specialist Neurology 08/22/22 Tashia Hewitt MD [address] [phone] Specialist Pulmonology 08/22/22 Andres Henriquez MD [address] [phone] Specialist Rheumatology 08/22/22 Deysi Howe MD [address] [place] [address] [place] [address] Specialist UROGYNECOLOGY 04/29/23 Jassi Vaughan MD [address] [place] [address] [place] [address] Specialist Ophthalmology 04/29/23 documented as of this encounter
--- OUTSIDE RECORDS SUMMARY | 2024-11-06 16:50 | XMS_ITS | Encounter Summary ---
Author Organization [facility] Address [address] [place] [address] Care Team Providers Care Milk Receiver Name Role Phone Jayleen Oneill DO Primary [...] Date Type Department Care Team Description 10/27/2020 Salon Stylist Report Medical Records [address] [place] [address] Jose Luis Perkins MD Social History Tobacco [...] on filedocumented in this encounter Care Teams Milk Receiver Relationship Specialty Start Date End Date Jayleen Oneill DO PCP - General Internal Medicine 09/02/14 02/07/21 Trevin Douglas DO PCP - General Internal Medicine 02/08/21 Dylan Cruz MD PCP - General Internal Medicine 05/25/21 04/16/22 Karma Wayne MD [address] [place] [address] PCP - General Internal Medicine 04/17/22 03/10/24 Sadiq Valverde MD [address] [place] [address] [place] [address] PCP - General Family Practice 03/11/24 Beto Montes MD Specialist Neurology 08/17/21 08/21/22 Adis Joe PA-C Specialist ORTHOPEDICS 08/17/2106/10 Rocky Najera MD [address] [place] [address] Specialist Neurology 08/22/22 Tashia Hewitt MD [address] [phone] Specialist Pulmonology 08/22/22 Andres Henriquez MD [address] [phone] Specialist Rheumatology 08/22/22 Deysi Howe MD [address] [place] [address] [facility] [place] [address] Specialist UROGYNECOLOGY 04/29/23 Jassi Vaughan MD [address] [place] [address] [place] [address] Specialist Ophthalmology 04/29/23 documented as of this encounter
--- OUTSIDE RECORDS SUMMARY | 2024-11-06 16:50 | XMS_ITS | Encounter Summary ---
Author Organization [facility] Address [address] [facility] [address] Care Team Providers Care Maintenance Engineer Name Role Phone Karma Wayne MD Primary Care Prov ider Rocky Najera MD Unavailable Unavailab Tashia Stubbs MD Unavailable Andres Henriquez MD Unavailable Unavailable Deysi Howe MD Unavailable Jassi Vaughan MD Unavailable Unavailable Sadiq Valverde MD Primary Care Provider Unav ailable Reason for Visit * Reason Comments E-prescribe Rx Request Encounter Details Date Type Department Care Team Description 02/01/2024 Refill Urogynecology [address] [phone] Deysi Howe MD [address] [place] [address] [place] [address] E-prescribe Rx Request Social History Tobacco Use [...] on filedocumented in this encounter Care Teams Maintenance Engineer Relationship Specialty Start Date End Date Karma Wayne MD [address] [place] [address] PCP - General Internal Medicine 04/17/22 03/10/24 Sadiq Valverde MD [address] [place] [address] [place] [address] PCP - General Family Practice 03/11/24 Rocky Najera MD [address] [place] [address] Specialist Neurology 08/22/22 Tashia Hewitt MD [address] [phone] Specialist Pulmonology 08/22/22 Andres Henriquez MD [address] [phone] Specialist Rheumatology 08/22/22 Deysi Howe MD [address] [place] [address] [place] [address] Specialist UROGYNECOLOGY 04/29/23 Jassi Vaughan MD [address] [place] [address] [place] [address] Specialist Ophthalmology 04/29/23 documented as of this encounter
--- OUTSIDE RECORDS SUMMARY | 2024-11-06 16:50 | XMS_ITS | Encounter Summary ---
Author Organization [facility] Address [address] [facility] [place] [address] Care Team Providers Care Picture Painter Name Role Phone Karma Wayne MD Primary Care Prov ider Rocky Najera MD Unavailable Unavailab Tashia Stubbs MD Unavailable Andres Henriquez MD Unavailable Unavailable Deysi Howe MD Unavailable Jassi Vaughan MD Unavailable Unavailable Sadiq Valverde MD Primary Care Provider Unav ailable Encounter Details Date Type Department Care Team Description 11/27/2023 Orders Only Medical Records [address] [place] [address] Andres Henriquez MD Social History Tobacco Use [...] Date/Time Associated Diagnosis Comments OUTSIDE LAB Routine 11/12/2023 documented in this encounter Results * OUTSIDE LAB (11/12/2023) Andres Henriquez MD LAB documented in this encounter Visit Diagnoses Not on filedocumented in this encounter Care Teams Picture Painter Relationship Specialty Start Date End Date Karma Wayne MD [address] [place] [address] PCP - General Internal Medicine 04/17/22 03/10/24 Sadiq Valverde MD [address] [place] [address] [place] [address] PCP - General Family Practice 03/11/24 Rocky Najera MD [address] [place] [address] Specialist Neurology 08/22/22 Tashia Hewitt MD [address] [phone] Specialist Pulmonology 08/22/22 Andres Henriquez MD [address] [phone] Specialist Rheumatology 08/22/22 Deysi Howe MD [address] [place] [address] [place] [address] Specialist UROGYNECOLOGY 04/29/23 Jassi Vaughan MD [address] [place] [address] [place] [address] Specialist Ophthalmology 04/29/23 documented as of this encounter
--- OUTSIDE RECORDS SUMMARY | 2024-11-06 16:50 | XMS_ITS | Encounter Summary ---
Author Organization [facility] Address [address] [place] [address] Care Team Providers Care Sandwich Counter Attendant Name Role Phone Karma Wayne MD Primary Care Prov ider Rocky Najera MD Unavailable Unavailab Tashia Stubbs MD Unavailable Andres Henriquez MD Unavailable Unavailable Deysi Howe MD Unavailable Jassi Vaughan MD Unavailable Unavailable Sadiq Valverde MD Primary Care Provider Unav ailable Encounter Details Date Type Department Care Team Description 12/31/2023 Telephone Adult Medicine [address] [address] Billy Faustin, PA-C [address] [place] [phone] Social History Tobacco Use Types Packs/Day Years [...] staying with alix while Sarah is away. [phone] * Telephone Encounter - Billy Faustin PA-C [...] NEGATIVE NEGATIVE mg/dL 01/01/2024 4:25 PM EDT [facility] BILIRUBIN URINE NEGATIVE NEGATIVE 01/01/2024 4:25 PM [...] - 3 /LPF 01/01/2024 5:00 PM EDT [facility] 01/01/2024 1:43 PM EDT 01/01/2024 1:43 PM EDT Narrative [facility] - 01/01/2024 5:00 PM EDT Release to patient->Immediate Billy Faustin PA-C LAB [facility] documented in this encounter Visit Diagnoses Diagnosis Hematuria, unspecified type- Primary documented in this encounter Care Teams Sandwich Counter Attendant Relationship Specialty Start Date End Date Karma Wayne MD [address] [place] [address] PCP - General Internal Medicine 04/17/22 03/10/24 Sadiq Valverde MD [address] [place] [address] [place] [address] PCP - General Family Practice 03/11/24 Rocky Najera MD [address] [place] [address] Specialist Neurology 08/22/22 Tashia Hewitt MD [address] [phone] Specialist Pulmonology 08/22/22 Andres Henriquez MD [address] [phone] Specialist Rheumatology 08/22/22 Deysi Howe MD [address] [place] [address] [place] [address] Specialist UROGYNECOLOGY 04/29/23 Jassi Vaughan MD [address] [facility] [place] [address] Specialist Ophthalmology 04/29/23 documented as of this encounter
--- OUTSIDE RECORDS SUMMARY | 2024-11-06 16:50 | XMS_ITS | Encounter Summary ---
Author Organization [facility] Address [address] [place] [address] Care Team Providers Care Evaluation Advisor Name Role Phone Trevin Douglas DO Primary [...] Date Type Department Care Team Description 03/03/2021 Environmental Field Office Manager Report Medical Records [address] [place] [address] Beto Montes MD Social History Tobacco Use [...] on filedocumented in this encounter Care Teams Evaluation Advisor Relationship Specialty Start Date End Date Trevin Douglas DO PCP - General Internal Medicine 02/08/21 1 Dylan Edmond MD PCP - General Internal Medicine 05/25/21 04/16/22 Karma Wayne MD [address] [place] [address] PCP - General Internal Medicine 04/17/22 03/10/24 Sadiq Valverde MD [address] [place] [address] [place] [address] PCP - General Family Practice 03/11/24 Beto Montes MD Specialist Neurology 08/17/21 08/21/22 Adis Joe PA-C Specialist ORTHOPEDICS 08/17/2106/10 Rocky Najera MD [address] [place] [address] Specialist Neurology 08/22/22 Tashia Hewitt MD [address] [phone] Specialist Pulmonology 08/22/22 Andres Henriqeuz MD [address] [phone] Specialist Rheumatology 08/22/22 Deysi Howe MD [address] [place] [address] [place] [address] Specialist UROGYNECOLOGY 04/29/23 Jassi Vaughan MD [address] [place] [address] [place] [address] Specialist Ophthalmology 04/29/23 documented as of this encounter
--- OUTSIDE RECORDS SUMMARY | 2024-11-06 16:50 | XMS_ITS | Encounter Summary ---
Author Organization [facility] Address [address] [place] [address] Care Team Providers Care Bean Picker Machine Operator Name Role Phone Jayleen Oneill [...] Team Description 02/21/2017 Orders Only Adult Medicine [address] [address] Jayleen Oneill DO Social History Tobacco Use [...] on filedocumented in this encounter Care Teams Bean Picker Machine Operator Relationship Specialty Start Date End Date Jayleen Oneill, PCP - General Internal Medicine 09/02/14 02/07/21 Trevin Douglas DO PCP - General Internal Medicine 02/08/21 1 Dylan Edmond MD PCP - General Internal Medicine 05/25/21 04/16/22 Karma Wayne MD [address] [place] [address] PCP - General Internal Medicine 04/17/22 03/10/24 Sadiq Valverde MD [address] [place] [address] [place] [address] PCP - General Family Practice 03/11/24 Beto Montes MD Specialist Neurology 08/17/21 08/21/22 Adis Joe PA-C Specialist ORTHOPEDICS 08/17/2106/10 Rocky Najera MD [address] [place] [address] Specialist Neurology 08/22/22 Tashia Hewitt MD [address] [place] [phone] Specialist Pulmonology 08/22/22 Andres Henriquez MD [address] [phone] Specialist Rheumatology 08/22/22 Deysi Howe MD [address] [place] [address] [place] [address] Specialist UROGYNECOLOGY 04/29/23 Jassi Vaughan MD [address] [place] [address] [place] [address] Specialist Ophthalmology 04/29/23 documented as of this encounter
--- OUTSIDE RECORDS SUMMARY | 2024-11-06 16:50 | XMS_ITS | Encounter Summary ---
Author Organization [facility] Address [address] [facility] [place] [address] Care Team Providers Care Tip Mender Name Role Phone Karma Wayne MD Primary Care Prov ider Rocky Najera MD Unavailable Unavailab Tashia Stubbs MD Unavailable Andres Henriquez MD Unavailable Unavailable Deysi Howe MD Unavailable Jassi Vaughan MD Unavailable Unavailable Sadiq Valverde MD Primary Care Provider Unav ailable Reason for Visit * Reason Onset Date Comments medication problems 10/21/2023 Encounter Details Date Type Department Care Team Description 10/21/2023 Telephone Adult Medicine [facility] [address] [place] [address] Karma Wayne MD [address] [place] [phone] medication problems Social History Tobacco Use Types Packs/Day Years [...] encounter Miscellaneous Notes * Telephone Encounter - Karma Vaz MD - 10/21/2023 3:34 PM EST Prescription was corrected. * Telephone Encounter - Maria Del Carmen Compa - 10/21/2023 2:07 PM EST Fluticasone Furoate (Arnuity Ellipta) 100 MCG/ACT AEROSOL POWDER,BREATH ACTIVATED ?? he pharmacist states that the insurance will not cover for 1 puff twice a day, it has to either be changed to 1 puff once daily or a new script be placed for 200 MCG rather than 100 MCG in order for it to be covered. Please advise ?? * Telephone Encounter - Marizol Sherri - 10/21/2023 2:00 PM EST Who is calling? A pharmacist: Pharmacy: [facility]) Pharmacist Name: [facility] Name of the medication Fluticasone Furoate (Arnuity Ellipta) 100 MCG/ACT AEROSOL POWDER,BREATH ACTIVATED What is the specific problem or interaction? The pharmacist states that the insurance will not cover for 1 puff twice a day, it has to either be changed to 1 puff once daily or a new script be placedfor 200 MCG rather than 100 MCG in order for it to be covered. If the patient is having a problem with taking the med - how long has the problem been going on? N/A documented in this encounter Plan of Treatment Not on file documented as of this encounter Visit Diagnoses Not on filedocumented in this encounter Care Teams Tip Mender Relationship Specialty Start Date End Date Karma Wayne MD [address] [place] [address] PCP - General Internal Medicine 04/17/22 03/10/24 Sadiq Valverde MD [address] [place] [address] [place] [address] PCP - General Family Practice 03/11/24 Rocky Najera MD [address] [place] [address] Specialist Neurology 08/22/22 Tashia Hewitt MD [address] [phone] Specialist Pulmonology 08/22/22 Andres Henriquez MD [address] [phone] Specialist Rheumatology 08/22/22 Deysi Howe MD [address] [place] [address] [place] [address] Specialist UROGYNECOLOGY 04/29/23 Jassi Vaughan MD [address] [place] [address] [place] [address] Specialist Ophthalmology 04/29/23 documented as of this encounter
--- OUTSIDE RECORDS SUMMARY | 2024-11-06 16:50 | XMS_ITS | Encounter Summary ---
Author Organization [facility] Address [address] [facility] [place] [address] Care Team Providers Care Counselor Supervisor Name Role Phone Karma Wayne MD Primary Care Prov ider Rocky Najera MD Unavailable Unavailab Tashia Stubbs MD Unavailable Andres Henriquez MD Unavailable Unavailable Deyis Howe MD Unavailable Jassi Vaughan MD Unavailable Unavailable Sadiq Valverde MD Primary Care Provider Unav ailable Encounter Details Date Type Department Care Team Description 05/22/2023 Orders Only Medical Records [address] [place] [address] [facility] [place] [address] Abstract, Provider Social History Tobacco Use Types [...] suspected to have Coronavirus/COVID-19? No / Unsure 04/29/2023 8:33 AM EDT documented as of this encounter Plan of Treatment Not on file documented as of this encounter Procedures Procedure Name Priority Date/Time Associated Diagnosis Comments OUTSIDE LAB Routine 05/08/2023 documented in this encounter Results * OUTSIDE LAB (05/08/2023) Provider Abstract LAB documented in this encounter Visit Diagnoses Not on filedocumented in this encounter Care Teams Counselor Supervisor Relationship Specialty Start Date End Date Karma Wayne MD [address] [place] [address] PCP - General Internal Medicine 04/17/22 03/10/24 Sadiq Valverde MD [address] [place] [address] [place] [address] PCP - General Family Practice 03/11/24 Rocky Najera MD [address] [place] [address] Specialist Neurology 08/22/22 Tashia Hewitt MD [address] [phone] Specialist Pulmonology 08/22/22 Andres Henriquez MD [address] [phone] Specialist Rheumatology 08/22/22 Deysi Howe MD [address] [place] [address] [place] [address] Specialist UROGYNECOLOGY 04/29/23 Jassi Vaughan MD [address] [place] [address] [place] [address] Specialist Ophthalmology 04/29/23 documented as of this encounter
--- OUTSIDE RECORDS SUMMARY | 2024-11-06 16:50 | XMS_ITS | Encounter Summary ---
Author Organization [facility] Address [address] [place] [address] Care Team Providers Care Choir Leader Name Role Phone Sadiq Valverde MD Primary Care Provider Encounter Details Date Type Department Care Team (Late st Contact Info) Description 09/22/2024 Lab Requisition [facility] - Main Lab [address] [place] [address] Yulia Orantes MD [address] [place] [address] Nasal congestion; Headache, unspecified Social History Tobacco [...] Procedure Name Priority Date/Time Associated Diagnosis Comments [id number], RSV, FLU A AND B QUALITATIVE RT-PCR, LOCAL REFERENCE LAB Routine 09/21/2024 12:00 AM EST Nasal congestion Headache, unspecified documented in this encounter Results * [id number], RSV, Influenza A and B qualitative RT-PCR (09/21/2024 12:00 AM EST) SARS COV-2 Not Detected Not Detected LAB MOLECULAR DIAGNOSTICS METHOD 09/22/2024 1:02 PM [facility] Comment: Disclaimer: The manner in which this information is used to guide patient care is the responsibility of the healthcare provider. Testing was performed using the [employer] Alinity m SARS-CoV-2 test. This test has been authorized by [facility] under an Emergency Use Authorization (EUA). This [...] for Healthcare Providers can be found at: https://www.fda.gov/media/586530/download Fact sheet for Patients can be found at: https://www.fda.gov/media/205610/download Influenza A PCR Not Detected Not Detected LAB MOLECULAR DIAGNOSTICS METHOD 09/22/2024 1:02 PM [facility] Influenza B PCR Not Detected Not Detected LAB MOLECULAR DIAGNOSTICS METHOD 09/22/2024 1:02 PM [facility] RSV PCR Not Detected Not Detected LAB MOLECULAR DIAGNOSTICS METHOD 09/22/2024 1:02 PM [facility] Swab Nasopharyngeal structure / Unknown Non-blood Collection / Unknown 09/21/2024 09/22/2024 10:49 AM EST Yulia Orantes MD LAB MICROBIOLOGY - GENERAL ORDER SHARMAINE Final Result [facility] [address] [place] [address], documented in this encounter Visit Diagnoses Diagnosis Nasal congestion Other diseases of nasal cavity and sinuses Headache, unspecified documented in this encounter Additional Health Concerns Infection Onset Date Last Indicated Resolved Time Respiratory Rule-Out 09/22/2024 09/21/2024 025 1:02 PM EST documented as of this encounter Care Teams Choir Leader Relationship Specialty Start Date End Date Sadiq Valverde MD [address] [place] PCP - General 03/11/24 documented as of this encounter
--- OUTSIDE RECORDS SUMMARY | 2024-11-06 16:50 | XMS_ITS | Encounter Summary ---
Author Organization [facility] Address [address] [place] [address] Care Team Providers Care Electric Motor Tester Name Role Phone Jayleen Oneill DO Primary Care Pro vider Unavailable Trevin Douglas DO Primary Care Provider Carin vailable yDlan Edmond MD Primary Care Provider UnaBeto Rogers [...] ONCOLOGY/HEMATOLOGY (IN NETWORK) Jayleen Oneill DO [address] [place] [address] Center, [facility] [address] [place] [address] Referral ID Status Reason Start Date Expiration Date V isits Requested Visits Authorized SEE NOTE Authorized/B ooked 09/29/2020 12/27/2020 1 1 Encounter Details Date Type Department Care Team Description 09/29/2020 Orders Only Adult Medicine [address] [address] Jayleen Oneill DO Social History Tobacco Use [...] on filedocumented in this encounter Care Teams Electric Motor Tester Relationship Specialty Start Date End Date aJyleen Oneill DO PCP - General Internal Medicine 09/02/14 02/07/21 Trevin Douglas DO PCP - General Internal Medicine 02/08/21 1 Dylan Edmond MD PCP - General Internal Medicine 05/25/21 04/16/22 Karma Wayne MD [address] [place] [address] PCP - General Internal Medicine 04/17/22 03/10/24 Sadiq Valverde MD [address] [place] [address] [place] [address] PCP - General Family Practice 03/11/24 Beto Montes MD Specialist Neurology 08/17/21 08/21/22 Adis Joe PA-C Specialist ORTHOPEDICS 08/17/2106/10 Rocky Najera MD [address] [place] [address] Specialist Neurology 08/22/22 Tashia Hewitt MD [address] [place] [phone] Specialist Pulmonology 08/22/22 Andres Henriquez MD [address] [facility] [address] [place] [address] Specialist Rheumatology 08/22/22 Deysi Howe MD [address] [facility] [place] [address] Specialist UROGYNECOLOGY 04/29/23 Jassi Vaughan MD [address] [facility] [place] [address] Specialist Ophthalmology 04/29/23 documented as of this encounter
--- OUTSIDE RECORDS SUMMARY | 2024-11-06 16:50 | XMS_ITS | Clinical Summary ---
Author Organization [address] Address [address] [place] [address] Phone Care Team Providers Care Adapted Physical Education Aide Name Role Phone Sadiq Valverde MD Primary Care Provider Encounters Date Type Department Care Team Description 10/08/2024 Lab Requisition [facility] Lab [address] [place] [phone] Yulia Orantes MD Frequency of micturition 09/22/2024 Lab Requisition [facility] Lab [address] [place] [address] Yulia Orantes MD Nasal congestion; Headache, unspecified 08/21/2024 Lab Requisition [facility] Lab [address] [place] [address] Yulia Orantes MD Unspecified convulsions ([facility]/HCC) 08/15/2024 Lab Requisition [facility] Lab [address] [place] [phone] Yulia Orantes MD Unspecified convulsions (CMS/HCC) 08/09/2024 Lab Requisition [facility] Lab [address] [place] [phone] Yulia Orantes MD Unspecified convulsions (CMS/HCC) from Last 3 Months Immunizations Name Administration Dates Next Due Pfizer SARS-CoV-2 COVID-19, mRNA, LNP-S, preservative free 11/16/2020,10/27/2020 Surgical History Surgery Date Site/Laterality Comments COLONOSCOPY PROCEDURE: HISTORICAL COLONOSCOPY COLONOSCOPY 2004 PROCEDURE: HISTORICAL COLONOSCOPY; COMMENT: date approx; done in [facility], negative. COLONOSCOPY 2014 PROCEDURE: HISTORICAL COLONOSCOPY; COMMENT: RBMG; no polyps BUNIONECTOMY 12/29/2015 Right PROCEDURE: [place] CORRJ HLX VLGS BNCTY SESMDC W/DOUBLE OSTEOTOMY BREAST BIOPSY Right PROCEDURE: BX BREAST; PERC NEEDLE CORE W/IMAG GUID; COMMENT: B9 ANKLE SURGERY Left PROCEDURE: HISTORICAL ANKLE SURGERY; COMMENT: Fusion Medical History Medical History Date Comments RA (rheumatoid arthritis) ([facility]) DX:RA (rheumatoid arthritis) ([facility]) History of post-polio syndrome D X:History of post-polio syndrome Left foot drop DX:Left foot joan p Epilepsy DX:Epilepsy ([facility] ); COMMENT: dr. Cristopher George; now joe Macrocytosis DX:Macrocytosis Patient has healthcare proxy DX: Patient has healthcare proxy DNR (do not resuscitate) DX:DNR (do not resuscitate); COMMENT: dnr/dni Medical orders for life-sust aining treatment (MOLST) form in chart DX:Medical orders for life-sustaining treatment (MOLST) form in chart Myasthenia gravis 04/07/2021 DX:Myasthenia gravis ([facility]); COMMENT: Dx 2020. MuSK antibody positive. Sees Dr. Montes Immunosuppressive therapy with azathioprine or Rituxan is planned. Morbid obesity with BMI of 50.0-59.9, adult ([facility]) 07/04/2018 DX:Morbid obesity with BMI of 50.0-59.9, adult ([facility]) Dysarthria 04/29/2023 DX:Dysarthria Family History Medical History [...] 02/27/2024 2:31 PM EDT Plan of Treatment Health Maintenance Due Date [...] 10/08/2024 9:03 AM EST Frequency of micturition [id number], RSV, FLU A AND B QUALITATIVE RT-PCR, [...] 08/10/2024 6:19 AM EST Unspecified convulsions (CMS/HCC) SCREENING MAMMOGRAPHY BI 2-VIEW BREAST INC [...] Recently Relevant to Health Maintenance Results * (ABNORMAL) Urinalysis with reflex microscopic and culture (10/08/2024 9:03 AM EST) Specific [place] Urine 1.019 1.003 - 1.030 LAB URINALYSIS - AUTOMATED METHOD 10/08/2024 3:17 PM [facility] pH, Urine 6.0 5.0 - 8.0 pH LAB URINALYSIS - AUTOMATED METHOD 10/08/2024 3:17 PM [facility] Leukocytes, Urine Large(A) Negative LAB URINALYSIS - AUTOMATED METHOD 10/08/2024 3:17 PM [facility] Nitrite, Urine Positive(A) Negative LAB URINALYSIS - AUTOMATED METHOD 10/08/2024 3:17 PM [facility] Protein, Urine 30(A) <=Trace mg/dL LAB URINALYSIS - AUTOMATED METHOD 10/08/2024 3:17 PM [facility] Glucose, Urine Negative Negative mg/dL LAB URINALYSIS - AUTOMATED METHOD 10/08/2024 3:17 PM [facility] Ketones, Urine Negative Negative mg/dL LAB URINALYSIS - AUTOMATED METHOD 10/08/2024 3:17 PM [facility] Urobilinogen , Urine 0.2 0.2 - 1.0 mg/dL LAB URINALYSIS - AUTOMATED METHOD 10/08/2024 3:17 PM [facility] Bilirubin, Urine Negative Negative LAB URINALYSIS - AUTOMATED METHOD 10/08/2024 3:17 PM [facility] Blood, Urine Negative Negative LAB URINALYSIS - AUTOMATED METHOD 10/08/2024 3:17 PM [facility] RBC, Urine 3.0 0 - 4 /HPF LAB URINALYSIS - AUTOMATED METHOD 10/08/2024 3:17 PM [facility] WBC, Urine 401.6(H) 0 - 4 /HPF LAB URINALYSIS - AUTOMATED METHOD 10/08/2024 3:17 PM [facility] Squamous Epithelial, Urine 19 0 - 60 /LPF LAB URINALYSIS - AUTOMATED METHOD 10/08/2024 3:17 PM [facility] Crystals, Urine Light Calcium Oxalate crystals. /LPF LAB URINALYSIS - AUTOMATED METHOD 10/08/2024 3:17 PM [facility] Bacteria, Urine Few(A) Negative /HPF LAB URINALYSIS - AUTOMATED METHOD 10/08/2024 3:17 PM [facility] Hyaline Casts, Urine 0.8 0 - 3 /LPF LAB URINALYSIS - AUTOMATED METHOD 10/08/2024 3:17 PM [facility] Urine Urine specimen obtained by clean catch procedure / Unknown 10/08/2024 9:03 AM EST 10/08/2024 10:54 AM EST us Yulia Orantes MD LAB URINE ORDERABLES Edited Resu lt - Final [facility] [address] [place] [address], * Smith urine culture tube (10/08/2024 9:03 AM EST) Extra Tube Hold for add-ons. 10/08/2024 12:01 PM EST [facility] Comment:Auto resulted. Urine Urine specimen obtained by clean catch procedure / Unknown 10/08/2024 9:03 AM EST 10/08/2024 10:54 AM EST us Yulia Orantes MD LAB URINE ORDERABLES Final Resul t [facility] [address] [place] [address], * (ABNORMAL) Culture urine (10/08/2024 9:03 AM EST) Culture, Urine >100,000 CFU/mL Escherichia coli(A) KIRTI 10/10/2024 11:42 AM EST [facility] Urine Urine specimen obtained by [...] Escherichia coli Trimethoprim/Sulfamethoxazole KIRTI >=320 ug/ml: Resistant Yulia Orantes MD LAB MICROBIOLOGY - GENERAL ORDER SHARMAINE Final Result [facility] [address] [place] [address], [place] [phone] * [id number], RSV, Influenza A and B qualitative RT-PCR (09/21/2024 12:00 AM EST) Pathologist [facility] SARS COV-2 Not Detected Not Detected LAB MOLECULAR DIAGNOSTICS METHOD 09/22/2024 1:02 PM EST [facility] Comment: Disclaimer: The manner in which this information is used to guide patient care is the responsibility of the healthcare provider. Testing was performed using the [employer] Alinity m SARS-CoV-2 test. This test has [...] for Healthcare Providers can be found at: https://www.fda.gov/media/188140/download Fact sheet for Patients can be found at: https://www.fda.gov/media/895465/download Influenza A PCR Not Detected Not Detected LAB MOLECULAR DIAGNOSTICS METHOD 09/22/2024 1:02 PM EST [facility] Influenza B PCR Not Detected Not Detected LAB MOLECULAR DIAGNOSTICS METHOD 09/22/2024 1:02 PM EST [facility] RSV PCR Not Detected Not Detected LAB MOLECULAR DIAGNOSTICS METHOD 09/22/2024 1:02 PM EST [facility] Swab Nasopharyngeal structure / Unknown Non-blood Collection / Unknown 09/21/2024 09/22/2024 10:49 AM EST us Yulia Orantes MD LAB MICROBIOLOGY - GENERAL ORDER SHARMAINE Final Result [facility] [address] [place] [address], * (ABNORMAL) Complete blood count (08/24/2024 9:47 AM EST) Only the most recent of3 resultswithin the time period is included. WBC 8.5 4.8 - 10.8 K/mcL LAB HEMETOLOGY METHOD 08/24/2024 2:04 PM [facility] RBC 4.10 3.80 - 4.80 M/mcL LAB HEMETOLOGY METHOD 08/24/2024 2:04 PM [facility] Hemoglobin 14.2 11.5 - 16.0 g/dL LAB HEMETOLOGY METHOD 08/24/2024 2:04 PM [facility] Hematocrit 44.0 35.0 - 47.0 % LAB HEMETOLOGY METHOD 08/24/2024 2:04 PM [facility] MCV 106.5(H) 79.0 - 98.0 FL LAB HEMETOLOGY METHOD 08/24/2024 2:04 PM [facility] MCH 34.4(H) 27.0 - 32.0 pcg LAB HEMETOLOGY METHOD 08/24/2024 2:04 PM [facility] MCHC 32.3 32.0 - 37.0 g/dL LAB HEMETOLOGY METHOD 08/24/2024 2:04 PM [facility] RDW 13.2 11.0 - 15.0 % LAB HEMETOLOGY METHOD 08/24/2024 2:04 PM [facility] Platelets 368 130 - 400 K/mcL LAB HEMETOLOGY METHOD 08/24/2024 2:04 PM [facility] MPV 10.2 7.0 - 11.0 FL LAB HEMETOLOGY METHOD 08/24/2024 2:04 PM EST [facility] NRBC 0.0 <1.0 % LAB HEMETOLOGY METHOD 08/24/2024 2:04 PM [facility] NRBC Absolute 0.00 <0.10 K/mcL LAB HEMETOLOGY METHOD 08/24/2024 2:04 PM [facility] Blood Venous blood specimen / Unknown Venipuncture / Unknown 08/24/2024 9:47 AM EST 08/24/2024 1:30 PM EST us Yulia Orantes MD LAB BLOOD ORDERABLES Final Resul t [facility] [address] [place] [address], [place] [phone] * (ABNORMAL) Basic metabolic panel (08/24/2024 9:47 AM EST) Only the most recent of3 resultswithin the time period is included. Sodium 140 133 - 145 mmol/L LAB CHEMISTRY METHOD 08/24/2024 2:54 PM [facility] Potassium 4.3 3.5 - 5.5 mmol/L LAB CHEMISTRY METHOD 08/24/2024 2:54 PM [facility] Chloride 111(H) 96 - 110 mmol/L LAB CHEMISTRY METHOD 08/24/2024 2:54 PM [facility] CO2 24 21 - 32 mmol/L LAB CHEMISTRY METHOD 08/24/2024 2:54 PM [facility] Anion Gap 5 3 - 11 LAB CHEMISTRY METHOD 08/24/2024 2:54 PM [facility] Glucose 101(H) 70 - 100 mg/dL LAB CHEMISTRY METHOD 08/24/2024 2:54 PM [facility] BUN 18 5 - 25 mg/dL LAB CHEMISTRY METHOD 08/24/2024 2:54 PM EST [facility] Creatinine 0.88 0.50 - 1.10 mg/dL LAB CHEMISTRY METHOD 08/24/2024 2:54 PM EST [facility] eGFR 69 >=60 mL/min/1. 73m2 LAB CHEMISTRY METHOD 08/24/2024 2:54 PM EST [facility] Comment:Calculation based on the??Chronic Kidney Disease Epidemiology Collaboration (CKD-EPI) equation refit??without adjustment for race. BUN/Creatinine Ratio 20.5 LAB CHEMISTRY METHOD 08/24/2024 2:54 PM [facility] Calcium 9.6 8.5 - 10.5 mg/dL LAB CHEMISTRY METHOD 08/24/2024 2:54 PM [facility] Blood Venous blood specimen / Unknown Venipuncture / Unknown 08/24/2024 9:47 AM EST 08/24/2024 1:30 PM EST Yulia Orantes MD LAB BLOOD ORDERABLES Final Resul t [facility] [address] [place] [address], * SCREENING MAMMOGRAPHY BI 2-VIEW BREAST INC [...] loss of bone mineral density compared with 2020, statistically significant at the 95% confidence level. ??No statistically significant change compared with the baseline exam. Left hip: No statistically significant change in bone mineral density compared with 2020. ??7.1% increase in bone mineral density compared with 2015, statistically significant at the 95% confidence level. IMPRESSION: IMPRESSION: ?? Osteoporosis by WHO criteria. The [facility] Department of Internal Medicine recommends using National [...] alternative screening schedule based on anders Briceno., [facility] September 06, 2011 for patients with osteopenia [...] IMPRESSION: IMPRESSION: Osteoporosis by WHO criteria. 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
--- OUTSIDE RECORDS SUMMARY | 2024-11-06 16:50 | XMS_ITS | Encounter Summary ---
Author Organization [facility] Address [address] [place] [address] Care Team Providers Care Dip Painter Name Role Phone Dylan Edmond MD Primary [...] for Visit * Reason Onset Date Comments Follow-up 08/02/2021 Encounter Details Date Type Department Care Team Description 08/02/2021 Telephone Adult Medicine [address] [address] Trevin Douglas DO Follow-up Social History Tobacco Use Types Packs/Day Years [...] have Coronavirus / COVID-19? No / Unsure 07/31/2021 10:06 AM EST documented as of this encounter Miscellaneous Notes * Telephone Encounter - Kerri Montes R.N. - 08/03/2021 10:35 AM EST Call 2 Pt states that she did not go to er. Pt declined appt with Dr. Douglas. Pt states that she willcall back after ed if not better. * Telephone Encounter - Kerri Montes R.N. - 08/02/2021 11:47 AM EST Attempted to reach pt and phone rang and rang, no answer after 2 minutes. * Telephone Encounter - Theodora Clark - 08/02/2021 11:24 AM EST Patient is returing call, Patient says she will be waiting for call back * Telephone Encounter - Kerri Montes R.N. - 08/02/2021 11:14 AM EST Left vm for pt to return my call * Telephone Encounter - Trevin Douglas DO - 08/02/2021 11:09 AM EST As previously documented, I spoke with Chely late in the day yesterday and reviewed her chest x-rayresults with her. She was also tested for Covid and was reportedly negative. At the time of our conversation, Chely sounded increasingly short of breath and I advised her to go to the emergency room.I called the ED this morning and they told me that there was no record of her coming in last night.Called her home but there was no answer. Please give the patient a call at home and see how she is doing clinically and if she needs to be seen in the office for her breathing issues. I will be happy to see her at any time when she would like to stop back in and it could be combined with the annual wellness visit. Thank you. documented in this encounter Plan of Treatment Not on file documented as of this encounter Visit Diagnoses Not on filedocumented in this encounter Care Teams Dip Painter Relationship Specialty Start Date End Date Dylan Edmond MD PCP - General Internal Medicine 05/25/21 04/16/22 Karma Wayne MD [address] [place] [address] PCP - General Internal Medicine 04/17/22 03/10/24 Sadiq Valverde MD [address] [place] [address] [place] [address] PCP - General Family Practice 03/11/24 Beto Montes MD Specialist Neurology 08/17/21 08/21/22 Adis Joe PA-C Specialist ORTHOPEDICS 08/17/2106/10 Rocky Najera MD [address] [place] [address] Specialist Neurology 08/22/22 Tashia Hewitt MD [address] [address] Specialist Pulmonology 08/22/22 Andres Henriquez MD [address] [phone] Specialist Rheumatology 08/22/22 Deysi Howe MD [address] [place] [address] [place] [address] Specialist UROGYNECOLOGY 04/29/23 Jassi Vaughan MD [address] [place] [address] [place] [address] Specialist Ophthalmology 04/29/23 documented as of this encounter
--- OUTSIDE RECORDS SUMMARY | 2024-11-06 16:50 | XMS_ITS | Encounter Summary ---
Author Organization [facility] Address [address] [place] [address] Care Team Providers Care Draughtsman Name Role Phone Sadiq Valverde MD Primary Care Provider Encounter Details Date Type Department Care Team (Late st Contact Info) Description 08/21/2024 Lab Requisition [facility] - Main Lab [address] [facility] [place] [address] Yulia Orantes MD [address] [place] [address] Unspecified convulsions (CMS/HCC) Social History Tobacco Use [...] mmol/L LAB CHEMISTRY METHOD 08/24/2024 2:54 PM [facility] Potassium 4.3 3.5 - 5.5 mmol/L LAB CHEMISTRY METHOD 08/24/2024 2:54 PM [facility] Chloride 111(H) 96 - 110 mmol/L LAB CHEMISTRY METHOD 08/24/2024 2:54 PM [facility] CO2 24 21 - 32 mmol/L LAB CHEMISTRY METHOD 08/24/2024 2:54 PM [facility] Anion Gap 5 3 - 11 LAB CHEMISTRY METHOD 08/24/2024 2:54 PM [facility] Glucose 101(H) 70 - 100 mg/dL LAB CHEMISTRY METHOD 08/24/2024 2:54 PM [facility] BUN 18 5 - 25 mg/dL LAB CHEMISTRY METHOD 08/24/2024 2:54 PM [facility] Creatinine 0.88 0.50 - 1.10 mg/dL LAB CHEMISTRY METHOD 08/24/2024 2:54 PM [facility] eGFR 69 >=60 mL/min/1. 73m2 LAB CHEMISTRY METHOD 08/24/2024 2:54 PM [facility] Comment:Calculation based on the??Chronic Kidney Disease Epidemiology Collaboration (CKD-EPI) equation refit??without adjustment for race. BUN/Creatinine Ratio 20.5 LAB CHEMISTRY METHOD 08/24/2024 2:54 PM [facility] Calcium 9.6 8.5 - 10.5 mg/dL LAB CHEMISTRY METHOD 08/24/2024 2:54 PM [facility] Blood Venous blood specimen / Unknown Venipuncture / Unknown 08/24/2024 9:47 AM EST 08/24/2024 1:30 PM EST us Yulia Orantes MD LAB BLOOD ORDERABLES Final Resul t [facility] [address] [place] [address], [place] [phone] * (ABNORMAL) Complete blood count (08/24/2024 9:47 AM EST) [facility] WBC 8.5 4.8 - 10.8 K/mcL LAB HEMETOLOGY METHOD 08/24/2024 2:04 PM [facility] RBC 4.10 3.80 - 4.80 M/mcL LAB HEMETOLOGY METHOD 08/24/2024 2:04 PM [facility] Hemoglobin 14.2 11.5 - 16.0 g/dL LAB HEMETOLOGY METHOD 08/24/2024 2:04 PM [facility] Hematocrit 44.0 35.0 - 47.0 % LAB HEMETOLOGY METHOD 08/24/2024 2:04 PM [facility] MCV 106.5(H) 79.0 - 98.0 FL LAB HEMETOLOGY METHOD 08/24/2024 2:04 PM [facility] MCH 34.4(H) 27.0 - 32.0 pcg LAB HEMETOLOGY METHOD 08/24/2024 2:04 PM [facility] MCHC 32.3 32.0 - 37.0 g/dL LAB HEMETOLOGY METHOD 08/24/2024 2:04 PM [facility] RDW 13.2 11.0 - 15.0 % LAB HEMETOLOGY METHOD 08/24/2024 2:04 PM [facility] Platelets 368 130 - 400 K/mcL LAB HEMETOLOGY METHOD 08/24/2024 2:04 PM [facility] MPV 10.2 7.0 - 11.0 FL LAB HEMETOLOGY METHOD 08/24/2024 2:04 PM [facility] NRBC 0.0 <1.0 % LAB HEMETOLOGY METHOD 08/24/2024 2:04 PM [facility] NRBC Absolute 0.00 <0.10 K/mcL LAB HEMETOLOGY METHOD 08/24/2024 2:04 PM EST [facility] Blood Venous blood specimen / Unknown Venipuncture / Unknown 08/24/2024 9:47 AM EST 08/24/2024 1:30 PM EST us Yulia Orantes MD LAB BLOOD ORDERABLES Final Resul t [facility] [address] [place] [address], documented in this encounter Visit Diagnoses Diagnosis Unspecified convulsions (CMS/HCC) documented in this encounter Additional Health Concerns Infection Onset Date Last Indicated Resolved Time Respiratory Rule-Out 09/22/2024 09/21/2024 025 1:02 PM EST documented as of this encounter Care Teams Draughtsman Relationship Specialty Start Date End Date Sadiq Valverde MD [address] [place] [address] Dr Debi [place] PCP - General 03/11/24 documented as of this encounter
--- OUTSIDE RECORDS SUMMARY | 2024-11-06 16:50 | XMS_ITS | Encounter Summary ---
Author Organization [facility] Address [address] [place] [address] Care Team Providers Care Outpatient Dietitian Name Role Phone Jayleen Oneill DO Primary [...] Care Team Description 12/14/2019 Telephone Rheumatology - [address] [address] Oswaldo Fortune MD Social History Tobacco Use [...] on filedocumented in this encounter Care Teams Outpatient Dietitian Relationship Specialty Start Date End Date Jayleen Oneill DO PCP - General Internal Medicine 09/02/14 02/07/21 Trevin Douglas DO PCP - General Internal Medicine 02/08/21 Dylan Cruz MD PCP - General Internal Medicine 05/25/21 04/16/22 Karma Wayne MD [address] [place] [address] PCP - General Internal Medicine 04/17/22 03/10/24 Sadiq Valverde MD [address] [place] [address] [place] [address] PCP - General Family Practice 03/11/24 Beto Montes MD Specialist Neurology 08/17/21 08/21/22 Adis Joe PA-C Specialist ORTHOPEDICS 08/17/2106/10 Rocky Najera MD [address] [place] [address] Specialist Neurology 08/22/22 Tashia Hewitt MD [address] [place] [phone] Specialist Pulmonology 08/22/22 Andres Henriquez MD [address] [facility] [address] [place] [address] Specialist Rheumatology 08/22/22 Deysi Howe MD [address] [facility] [place] [address] Specialist UROGYNECOLOGY 04/29/23 Jassi Vaughan MD 4 [facility] [place] [address] Specialist Ophthalmology 04/29/23 documented as of this encounter
--- OUTSIDE RECORDS SUMMARY | 2024-11-06 16:51 | XMS_ITS | Encounter Summary ---
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 [address] [place] [address] Social History Tobacco Use Types Packs/Day Years [...] on filedocumented in this encounter Care Teams Marketing Strategy Manager Relationship Specialty Start Date End Date Jayleen Oneill DO PCP - General Internal Medicine 09/02/14 02/07/21 Trevin Douglas DO PCP - General Internal Medicine 02/08/21 Dylan Cruz MD PCP - General Internal Medicine 05/25/21 04/16/22 Karma Wayne MD [address] [place] [address] PCP - General Internal Medicine 04/17/22 03/10/24 Sadiq Valverde MD [address] [place] [address] Urogynecology [place] [id number] PCP - General Family Practice 03/11/24 Beto Montes MD Specialist Neurology 08/17/21 08/21/22 Adis Joe PA-C Specialist ORTHOPEDICS 08/17/2106/10 Rocky Najera MD [address] [place] [address] Specialist Neurology 08/22/22 Tashia Hewitt MD [address] [phone] Specialist Pulmonology 08/22/22 Andres Henriquez MD [address] [phone] Specialist Rheumatology 08/22/22 Deysi Howe MD [address] [place] [address] [place] [address] Specialist UROGYNECOLOGY 04/29/23 Jassi Vaughan MD [address] [place] [address] [place] [address] Specialist Ophthalmology 04/29/23 documented as of this encounter
--- OUTSIDE RECORDS SUMMARY | 2024-11-06 16:51 | XMS_ITS | Encounter Summary ---
Author Organization [facility] Address [address] [place] [address] Care Team Providers Care Member Services Representative Name Role Phone Jayleen Oneill DO Primary [...] Care Team Description 09/02/2017 Telephone Adult Medicine [address] [address] Jayleen Oneill DO Faxed Order Social History [...] Adalgisa [place] - 09/02/2017 7:09 PM EST [facility] IS FAXING ORDER TO BE SIGNED AND FAX BACK TO [phone] documented in this encounter Plan of Treatment Not on file documented as of this encounter Visit Diagnoses Not on filedocumented in this encounter Care Teams Member Services Representative Relationship Specialty Start Date End Date Jayleen Oneill, PCP - General Internal Medicine 09/02/14 02/07/21 Trevin Douglas DO PCP - General Internal Medicine 02/08/21 1 Dylan Edmond MD PCP - General Internal Medicine 05/25/21 04/16/22 Calvin Vaz, Karma Sweeney MD [address] [place] [address] PCP - General Internal Medicine 04/17/22 03/10/24 Sadiq Valverde MD [address] [place] [address] [place] [address] PCP - General Family Practice 03/11/24 Beto Montes MD Specialist Neurology 08/17/21 08/21/22 Adis Joe PA-C Specialist ORTHOPEDICS 08/17/2106/10 Rocky Najera MD [address] [place] [address] Specialist Neurology 08/22/22 Tasiha Hewitt MD [address] [phone] Specialist Pulmonology 08/22/22 Andres Henriquez MD [address] [phone] Specialist Rheumatology 08/22/22 Deysi Howe MD [address] [place] [address] [place] [address] Specialist UROGYNECOLOGY 04/29/23 Jassi Vaughan MD 4 [facility] [place] [address] Specialist Ophthalmology 04/29/23 documented as of this encounter
--- OUTSIDE RECORDS SUMMARY | 2024-11-06 16:51 | XMS_ITS | Encounter Summary ---
Author Organization [facility] Address [address] [place] [address] Care Team Providers Care Recreation Manager Name Role Phone Jayleen Oneill DO [...] Description 04/13/2015 Business Doc Medical Records [address] [place] [address] Abstract, Provider Social History Tobacco Use Types [...] on filedocumented in this encounter Care Teams Recreation Manager Relationship Specialty Start Date End Date Jayleen Oneill DO PCP - General Internal Medicine 09/02/14 02/07/21 Trevin Douglas DO PCP - General Internal Medicine 02/08/21 Dylan Cruz MD PCP - General Internal Medicine 05/25/21 04/16/22 Karma Wayne MD [address] [place] [address] PCP - General Internal Medicine 04/17/22 03/10/24 Sadiq Valverde MD [address] [place] [address] [place] [address] PCP - General Family Practice 03/11/24 Beto Montes MD Specialist Neurology 08/17/21 08/21/22 Adis Joe PA-C Specialist ORTHOPEDICS 08/17/2106/10 Rocky Najera MD [address] [place] [address] Specialist Neurology 08/22/22 Tashia Hewitt MD [address] [phone] Specialist Pulmonology 08/22/22 Andres Henriquez MD [address] [phone] Specialist Rheumatology 08/22/22 Deysi Howe MD [address] [place] [address] [place] [address] Specialist UROGYNECOLOGY 04/29/23 Jassi Vaughan MD [address] [place] [address] [place] [address] Specialist Ophthalmology 04/29/23 documented as of this encounter
--- OUTSIDE RECORDS SUMMARY | 2024-11-06 16:51 | XMS_ITS | Encounter Summary ---
Author Organization [facility] Address [address] [facility] [place] [place] [address] Care Team Providers Care Sewer Maintenance Supervisor Name Role Phone Jayleen Oneill DO [...] Team Description 08/23/2016 SCAN Medical Records [address] [place] [address] Abstract, Provider Social History Tobacco Use Types [...] on filedocumented in this encounter Care Teams Sewer Maintenance Supervisor Relationship Specialty Start Date End Date Jayleen Oneill DO PCP - General Internal Medicine 09/02/14 02/07/21 Trevin Douglas DO PCP - General Internal Medicine 02/08/21 Dylan Cruz MD PCP - General Internal Medicine 05/25/21 04/16/22 Karma Wayne MD [address] [place] [address] PCP - General Internal Medicine 04/17/22 03/10/24 Sadiq Valverde MD [address] [place] [address] [place] [address] PCP - General Family Practice 03/11/24 Beto Montes MD Specialist Neurology 08/17/21 08/21/22 Adis Joe PA-C Specialist ORTHOPEDICS 08/17/2106/10 Rocky Najera MD [address] [place] [address] Specialist Neurology 08/22/22 Tashia Hewitt MD [address] [phone] Specialist Pulmonology 08/22/22 Andres Henriquez MD [address] [phone] Specialist Rheumatology 08/22/22 Deysi Howe MD [address] [place] [address] [place] [address] Specialist UROGYNECOLOGY 04/29/23 Jassi Vaughan MD [address] [place] [address] [place] [address] Specialist Ophthalmology 04/29/23 documented as of this encounter
--- OUTSIDE RECORDS SUMMARY | 2024-11-06 16:51 | XMS_ITS | Encounter Summary ---
Author Organization [facility] Address [address] [facility] [place] [address] Care Team Providers Care Crisis Intervention Counselor Name Role Phone Jayleen Oneill DO Primary [...] 04/03/2016 Release of Information Medical Records [address] [place] [address] Abstract, Provider Social History Tobacco Use Types [...] on filedocumented in this encounter Care Teams Crisis Intervention Counselor Relationship Specialty Start Date End Date Jayleen Oneill DO PCP - General Internal Medicine 09/02/14 02/07/21 Trevin Dougals DO PCP - General Internal Medicine 02/08/21 Dylan Cruz MD PCP - General Internal Medicine 05/25/21 04/16/22 Karma Wayne MD [address] [place] [address] PCP - General Internal Medicine 04/17/22 03/10/24 Sadiq Valverde MD [address] [place] [address] [place] [address] PCP - General Family Practice 03/11/24 Beto Montes MD Specialist Neurology 08/17/21 08/21/22 Adis Joe PA-C Specialist ORTHOPEDICS 08/17/2106/10 Rocky Najera MD [address] [place] [address] Specialist Neurology 08/22/22 Tashia Hewitt MD [address] [phone] Specialist Pulmonology 08/22/22 Andres Henriquez MD [address] [phone] Specialist Rheumatology 08/22/22 Deysi Howe MD [address] [place] [address] [place] [address] Specialist UROGYNECOLOGY 04/29/23 Jassi Vaughan MD [address] [place] [address] [place] [address] Specialist Ophthalmology 04/29/23 documented as of this encounter
--- OUTSIDE RECORDS SUMMARY | 2024-11-06 16:51 | XMS_ITS | Encounter Summary ---
Author Organization [facility] Address [address] [place] [address] Care Team Providers Care Perl Developer Name Role Phone Jayleen Oneill DO [...] Details Date Type Department Care Team Description 04/16/2016 Superintendent Service Report Medical Records [address] [place] [address] Beto Montes MD Social History Tobacco Use [...] on filedocumented in this encounter Care Teams Perl Developer Relationship Specialty Start Date End Date Jayleen Oneill, PCP - General Internal Medicine 09/02/14 02/07/21 Trevin Douglas DO PCP - General Internal Medicine 02/08/21 Dylan Cruz MD PCP - General Internal Medicine 05/25/21 04/16/22 Karma Wayne MD [address] [place] [address] PCP - General Internal Medicine 04/17/22 03/10/24 Sadiq Valverde MD [address] [place] [address] [place] [address] PCP - General Family Practice 03/11/24 Beto Montes MD Specialist Neurology 08/17/21 08/21/22 Adis Joe PA-C Specialist ORTHOPEDICS 08/17/2106/10 Rocky Najera MD [address] [place] [address] Specialist Neurology 08/22/22 Tashia Hewitt MD [address] [address] Specialist Pulmonology 08/22/22 Andres Henriquez MD [address] [address] Specialist Rheumatology 08/22/22 Deysi Howe MD [address] [place] [address] [place] [address] Specialist UROGYNECOLOGY 04/29/23 Jassi Vaughan MD [address] [place] [address] [place] [address] Specialist Ophthalmology 04/29/23 documented as of this encounter
--- OUTSIDE RECORDS SUMMARY | 2024-11-06 16:51 | XMS_ITS | Encounter Summary ---
Author Organization [facility] Address [address] [place] [address] Care Team Providers Care Structural Biologist Name Role Phone Jayleen Oneill DO Primary [...] Care Team Description 08/20/2017 Telephone Adult Medicine [address] [address] Jayleen Oneill DO hospital follow up Social [...] appointment needed Hospital patient was treated at: [facility] Was this only an ER visit [...] on filedocumented in this encounter Care Teams Structural Biologist Relationship Specialty Start Date End Date Jayleen Oneill DO PCP - General Internal Medicine 09/02/14 02/07/21 Trevin Douglas DO PCP - General Internal Medicine 02/08/21 1 Dylan Edmond MD PCP - General Internal Medicine 05/25/21 04/16/22 Karma Wayne MD [address] [place] [address] PCP - General Internal Medicine 04/17/22 03/10/24 Sadiq Valverde MD [address] [place] [address] [place] [address] PCP - General Family Practice 03/11/24 Beto Montes MD Specialist Neurology 08/17/21 08/21/22 Adis Joe PA-C Specialist ORTHOPEDICS 08/17/2106/10 Rocky Najera MD [address] [place] [address] Specialist Neurology 08/22/22 Tashia Hewitt MD [address] [phone] Specialist Pulmonology 08/22/22 Andres Henriquez MD [address] [phone] Specialist Rheumatology 08/22/22 Deysi Howe MD [address] [place] [address] [place] [address] Specialist UROGYNECOLOGY 04/29/23 Jassi Vaughan MD [address] [place] [address] [place] [address] Specialist Ophthalmology 04/29/23 documented as of this encounter
--- OUTSIDE RECORDS SUMMARY | 2024-11-06 16:51 | XMS_ITS | Encounter Summary ---
Author Organization [facility] Address [address] [place] [address] Care Team Providers Care Printing Machine Operator Tape Rules Name Role Phone Jayleen Oneill DO Primary [...] Care Team Description 09/16/2017 Telephone Adult Medicine [address] [address] Jayleen Oneill DO Faxed Order Social History [...] Telephone Encounter - Adalgisa Mcmanusulices - 09/16/2017 8:52 AM EST [facility] IS FAXING ORDERS TO BE SIGNED AND FAX BACK TO [phone]. ?? documented in this encounter Plan of Treatment Not on file documented as of this encounter Visit Diagnoses Not on filedocumented in this encounter Care Teams Printing Machine Operator Tape Rules Relationship Specialty Start Date End Date Jayleen Oneill, DO PCP - General Internal Medicine 09/02/14 02/07/21 Trevin Douglas DO PCP - General Internal Medicine 02/08/21 1 Dylan Edmond MD PCP - General Internal Medicine 05/25/21 04/16/22 Karma Wayne MD [address] [place] [address] PCP - General Internal Medicine 04/17/22 03/10/24 Sadiq Valverde MD [address] [place] [address] [place] [address] PCP - General Family Practice 03/11/24 Beto Montes MD Specialist Neurology 08/17/21 08/21/22 Adis Joe PA-C Specialist ORTHOPEDICS 08/17/2106/10 Rocky Najera MD [address] [place] [address] Specialist Neurology 08/22/22 Tashia Hewitt MD [address] [phone] Specialist Pulmonology 08/22/22 Andres Henriquez MD [address] [phone] Specialist Rheumatology 08/22/22 Deysi Howe MD [address] [place] [address] [place] [address] Specialist UROGYNECOLOGY 04/29/23 Jassi Vaughan MD [address] [facility] [place] [address] Specialist Ophthalmology 04/29/23 documented as of this encounter
--- OUTSIDE RECORDS SUMMARY | 2024-11-06 16:51 | XMS_ITS | Encounter Summary ---
Author Organization [facility] Address [address] [facility] [place] [place] [address] Care Team Providers Care Assembled Wood Products Repairer Name Role Phone Jayleen Oneill DO Primary Care Pro vider Unavailable Trevin Douglas DO Primary Care Provider Carin vailaDylan Dan MD Primary Care Provider Beto Mejias MD Unavailable Unavail able Adis Joe PA-C Unavailable Carin vailable Karma Wayne MD Primary Care Prov ider Rocky Najera MD Unavailable Unavailab Tashia Stubbs MD Unavailable Andres Henriquez MD Unavailable Unavailable Deysi Howe MD Unavailable Jassi Vaughan MD Unavailable Unavailable Sadiq Valverde MD Primary Care Provider Unav ailable Reason for Visit * Reason Onset Date Comments APPOINTMENT 06/30/2018 Encounter Details Date Type Department Care Team Description 06/30/2018 Telephone Pediatrics - [place] [address] [place] [address] Leticia Garcia FNP [address] [place] [address] APPOINTMENT Social History Tobacco Use Types Packs/Day Years [...] * Telephone Encounter - ROSIE Christianson - 06/30/2018 7:13 PM EST Please move up scheduled appt for sleep apnea FU. All sleep study results are back. documented in this encounter Plan of Treatment Not on file documented as of this encounter Visit Diagnoses Not on filedocumented in this encounter Care Teams Assembled Wood Products Repairer Relationship Specialty Start Date End Date Jayleen Oneill, PCP - General Internal Medicine 09/02/14 02/07/21 Trevin Douglas DO PCP - General Internal Medicine 02/08/21 1 Dylan Edmond MD PCP - General Internal Medicine 05/25/21 04/16/22 Calvin Vaz, Karma Sweeney MD [address] [place] [address] PCP - General Internal Medicine 04/17/22 03/10/24 Sadiq Valverde MD [address] [place] [address] [place] [address] PCP - General Family Practice 03/11/24 Beto Montes MD Specialist Neurology 08/17/21 08/21/22 Adis Joe PA-C Specialist ORTHOPEDICS 08/17/2106/10 Rocky Najera MD [address] [place] [address] Specialist Neurology 08/22/22 Tashia Hewitt MD [address] [phone] Specialist Pulmonology 08/22/22 Andres Henriquez MD [address] [phone] Specialist Rheumatology 08/22/22 Deysi Howe MD [address] [place] [address] [place] [address] Specialist UROGYNECOLOGY 04/29/23 Jassi Vaughan MD [address] [facility] [address] Specialist Ophthalmology 04/29/23 documented as of this encounter
--- OUTSIDE RECORDS SUMMARY | 2024-11-06 16:51 | XMS_ITS | Encounter Summary ---
Author Organization [facility] Address [address] [place] [address] Care Team Providers Care Launch Check Out Name Role Phone Jayleen Oneill DO Primary [...] Details Date Type Department Care Team Description 12/29/2015 Hospital Medical Records [address] [place] [address] Betsey Camacho DPM Social History Tobacco Use Types Packs/Day Years [...] on filedocumented in this encounter Care Teams Launch Check Out Relationship Specialty Start Date End Date Jayleen Oneill, PCP - General Internal Medicine 09/02/14 02/07/21 Trevin Douglas DO PCP - General Internal Medicine 02/08/21 Dylan Cruz MD PCP - General Internal Medicine 05/25/21 04/16/22 Karma Wayne MD [address] [place] [address] PCP - General Internal Medicine 04/17/22 03/10/24 Sadiq Valverde MD [address] [place] [address] [place] [address] PCP - General Family Practice 03/11/24 Beto Montes MD Specialist Neurology 08/17/21 08/21/22 Adis Joe PA-C Specialist ORTHOPEDICS 08/17/2106/10 Rocky Najera MD [address] [place] [address] Specialist Neurology 08/22/22 Tashia Hewitt MD [address] [phone] Specialist Pulmonology 08/22/22 Andres Henriquez MD [address] [phone] Specialist Rheumatology 08/22/22 Deysi Howe MD [address] [place] [address] [place] [address] Specialist UROGYNECOLOGY 04/29/23 Jassi Vaughan MD [address] [place] [address] [place] [address] Specialist Ophthalmology 04/29/23 documented as of this encounter
--- OUTSIDE RECORDS SUMMARY | 2024-11-06 16:51 | XMS_ITS | Encounter Summary ---
Author Organization [facility] Address [address] [place] [address] Care Team Providers Care Promotion Writer Name Role Phone Jayleen Oneill DO Primary [...] 03/21/2019 Orders Only Adult Urgent Care - [address] [address] Jayleen Oneill DO Social History Tobacco Use [...] on filedocumented in this encounter Care Teams Promotion Writer Relationship Specialty Start Date End Date Jayleen Oneill DO PCP - General Internal Medicine 09/02/14 02/07/21 Trevin Douglas DO PCP - General Internal Medicine 02/08/21 1 Dylan Edmond MD PCP - General Internal Medicine 05/25/21 04/16/22 Karma Wayne MD [address] [place] [address] PCP - General Internal Medicine 04/17/22 03/10/24 Sadiq Valverde MD [address] [place] [address] [place] [address] PCP - General Family Practice 03/11/24 Beto Montes MD Specialist Neurology 08/17/21 08/21/22 Adis Joe PA-C Specialist ORTHOPEDICS 08/17/2106/10 Rocky Najera MD [address] [place] [address] Specialist Neurology 08/22/22 Tashia Hewitt MD [address] [phone] Specialist Pulmonology 08/22/22 Andres Henriquez MD [address] [phone] Specialist Rheumatology 08/22/22 Deysi Howe MD [address] [place] [address] [place] [address] Specialist UROGYNECOLOGY 04/29/23 Jassi Vaughan MD [address] [place] [address] [place] [address] Specialist Ophthalmology 04/29/23 documented as of this encounter
--- OUTSIDE RECORDS SUMMARY | 2024-11-06 16:51 | XMS_ITS | Encounter Summary ---
Author Organization [facility] Address [address] [place] [address] Care Team Providers Care Instrument Lens Grinder Name Role Phone Jayleen Oneill DO [...] Details Date Type Department Care Team Description 05/08/2018 Operational Risk Consultant Report Medical Records [address] [place] [address] Beto Montes MD Social History Tobacco Use [...] on filedocumented in this encounter Care Teams Instrument Lens Grinder Relationship Specialty Start Date End Date Jayleen Oneill, PCP - General Internal Medicine 09/02/14 02/07/21 Trevin Douglas DO PCP - General Internal Medicine 02/08/21 1 Dylan Edmond MD PCP - General Internal Medicine 05/25/21 04/16/22 Karma Wayne MD [address] [place] [address] PCP - General Internal Medicine 04/17/22 03/10/24 Sadiq Valverde MD [address] [place] [address] [place] [address] PCP - General Family Practice 03/11/24 Beto Montes MD Specialist Neurology 08/17/21 08/21/22 Adis Jeo PA-C Specialist ORTHOPEDICS 08/17/2106/10 Rocky Najera MD [address] [place] [address] Specialist Neurology 08/22/22 Tashia Hewitt MD [address] [place] [phone] Specialist Pulmonology 08/22/22 Andres Henriquez MD [address] [phone] Specialist Rheumatology 08/22/22 Deysi Howe MD [address] [place] [address] [place] [address] Specialist UROGYNECOLOGY 04/29/23 Jassi Vaughan MD [address] [place] [address] [place] [address] Specialist Ophthalmology 04/29/23 documented as of this encounter
--- OUTSIDE RECORDS SUMMARY | 2024-11-06 16:51 | XMS_ITS | Encounter Summary ---
Author Organization [facility] Address [address] [place] [address] Care Team Providers Care Trade Clerk Name Role Phone Jayleen Oneill DO Primary [...] Care Team Description 09/16/2017 Telephone Adult Medicine [address] [address] Jayleen Oneill DO Faxed Order Social History [...] Adalgisa Mcmanusulices - 09/16/2017 8:51 AM EST [facility] IS FAXING ORDERS TO BE SIGNED AND FAX BACK TO [phone]. ?? documented in this encounter Plan of Treatment Not on file documented as of this encounter Visit Diagnoses Not on filedocumented in this encounter Care Teams Trade Clerk Relationship Specialty Start Date End Date Jayleen Oneill, DO PCP - General Internal Medicine 09/02/14 02/07/21 Trevin Douglas DO PCP - General Internal Medicine 02/08/21 1 Dylan Edmond MD PCP - General Internal Medicine 05/25/21 04/16/22 Karma Wayne MD [address] [place] [address] PCP - General Internal Medicine 04/17/22 03/10/24 Sadiq Valverde MD [address] [place] [address] [place] [address] PCP - General Family Practice 03/11/24 Beto Montes MD Specialist Neurology 08/17/21 08/21/22 Adis Joe PA-C Specialist ORTHOPEDICS 08/17/2106/10 Rocky Najera MD [address] [place] [address] Specialist Neurology 08/22/22 Tashia Hewitt MD [address] [phone] Specialist Pulmonology 08/22/22 Andres Henriquez MD [address] [phone] Specialist Rheumatology 08/22/22 Deysi Howe MD [address] [place] [address] [place] [address] Specialist UROGYNECOLOGY 04/29/23 Jassi Vaughan MD 444 [facility] [place] [address] Specialist Ophthalmology 04/29/23 documented as of this encounter
--- OUTSIDE RECORDS SUMMARY | 2024-11-06 16:51 | XMS_ITS | Encounter Summary ---
Author Organization [facility] Address [address] [place] [address] Care Team Providers Care Upscale Security Officer Name Role Phone Jayleen Oneill DO Primary [...] Date Type Department Care Team Description 08/01/2016 Vending Service Technician Report Medical Records [address] [place] [address] Cristopher Oliver MD Social History Tobacco Use [...] on filedocumented in this encounter Care Teams Upscale Security Officer Relationship Specialty Start Date End Date Jayleen Oneill DO PCP - General Internal Medicine 09/02/14 02/07/21 Trevin Douglas DO PCP - General Internal Medicine 02/08/21 Dylan Cruz MD PCP - General Internal Medicine 05/25/21 04/16/22 Karma Wayne MD [address] [place] [address] PCP - General Internal Medicine 04/17/22 03/10/24 Sadiq Valverde MD [address] [place] [address] [place] [address] PCP - General Family Practice 03/11/24 Beto Montes MD Specialist Neurology 08/17/21 08/21/22 Adis Joe PA-C Specialist ORTHOPEDICS 08/17/2106/10 Rocky Najera MD [address] [place] [address] Specialist Neurology 08/22/22 Tashia Hewitt MD [address] [phone] Specialist Pulmonology 08/22/22 Andres Henriquez MD [address] [phone] Specialist Rheumatology 08/22/22 Deysi Howe MD [address] [place] [address] [place] [address] Specialist UROGYNECOLOGY 04/29/23 Jassi Vaughan MD [address] [place] [address] [place] [address] Specialist Ophthalmology 04/29/23 documented as of this encounter
--- OUTSIDE RECORDS SUMMARY | 2024-11-06 16:51 | XMS_ITS | Encounter Summary ---
Author Organization [facility] Address [address] [place] [address] Care Team Providers Care Fitter Tacker Name Role Phone Jayleen Oneill DO Primary [...] Description 05/30/2018 Orders Only Medical Records [address] [place] [address] Ray Graham MD 175 [facility] [address] [place] [address] Social History Tobacco Use Types [...] on filedocumented in this encounter Care Teams Fitter Tacker Relationship Specialty Start Date End Date Jayleen Oneill, PCP - General Internal Medicine 09/02/14 02/07/21 Trevin Douglas DO PCP - General Internal Medicine 02/08/21 Dylan Cruz MD PCP - General Internal Medicine 05/25/21 04/16/22 Karma Wayne MD [address] [place] [address] PCP - General Internal Medicine 04/17/22 03/10/24 Sadiq Valverde MD [address] [place] [address] [place] [address] PCP - General Family Practice 03/11/24 Beto Montes MD Specialist Neurology 08/17/21 08/21/22 Adis Joe PA-C Specialist ORTHOPEDICS 08/17/2106/10 Rocky Najera MD [address] [place] [address] Specialist Neurology 08/22/22 Tashia Hewitt MD [address] [phone] Specialist Pulmonology 08/22/22 Andres Henriquez MD [address] [phone] Specialist Rheumatology 08/22/22 Deysi Howe MD [address] [place] [address] [place] [address] Specialist UROGYNECOLOGY 04/29/23 Jassi Vaughan MD 444 [facility] [place] [address] Specialist Ophthalmology 04/29/23 documented as of this encounter
--- OUTSIDE RECORDS SUMMARY | 2024-11-06 16:51 | XMS_ITS | Encounter Summary ---
Author Organization [facility] Address [address] [place] [address] Care Team Providers Care Title I Director Name Role Phone Jayleen Oenill DO Primary Care Pro vider Unavailable Trevin [...] Details Date Type Department Care Team Description 06/20/2017 Orders Only Adult Medicine [address] [address] Jayleen Oneill DO Social History Tobacco Use [...] on filedocumented in this encounter Care Teams Title I Director Relationship Specialty Start Date End Date Jayleen Oneill, PCP - General Internal Medicine 09/02/14 02/07/21 Trevin Douglas DO PCP - General Internal Medicine 02/08/21 1 Dylan Edmond MD PCP - General Internal Medicine 05/25/21 04/16/22 Karma Wayne MD [address] [place] [address] PCP - General Internal Medicine 04/17/22 03/10/24 Sadiq Valverde MD [address] [place] [address] [place] [address] PCP - General Family Practice 03/11/24 Beto Montes MD Specialist Neurology 08/17/21 08/21/22 Adis Joe PA-C Specialist ORTHOPEDICS 08/17/2106/10 Rocky Najera MD [address] [place] [address] Specialist Neurology 08/22/22 Tashia Hewitt MD [address] [place] [phone] Specialist Pulmonology 08/22/22 Andres Henriquez MD [address] [phone] Specialist Rheumatology 08/22/22 Deysi Howe MD [address] [place] [address] [place] [address] Specialist UROGYNECOLOGY 04/29/23 Jassi Vaughan MD [address] [place] [address] [place] [address] Specialist Ophthalmology 04/29/23 documented as of this encounter
--- OUTSIDE RECORDS SUMMARY | 2024-11-06 16:51 | XMS_ITS | Encounter Summary ---
Author Organization [facility] Address [address] [facility] [place] [address] Care Team Providers Care Printed Circuit Board Panels Developer Name Role Phone Jayleen Oneill DO [...] Authorized/Booked Specialty Diagnoses / Procedures Referred By Ian t Referred To Contact ORTHOPEDICS / Orthopedic Procedures REFERRAL TO ORTHOPEDICS Jayleen Oneill DO [address] [place] [address] Luke Smith MD [address] [place] [address] [facility] [address] [place] [address] Referral ID Status Reason Start Date Expiration Date V isits Requested Visits Authorized SEE NOTE Authorized/B ooked 07/07/2016 10/18/2016 1 1 Encounter Details Date Type Department Care Team Description 07/07/2016 Orders Only Adult Medicine [address] [address] Jayleen Oneill DO Social History Tobacco Use [...] on filedocumented in this encounter Care Teams Printed Circuit Board Panels Developer Relationship Specialty Start Date End Date Jayleen Oneill DO PCP - General Internal Medicine 09/02/14 02/07/21 Trevin Douglas DO PCP - General Internal Medicine 02/08/21 1 Dylan Edmond MD PCP - General Internal Medicine 05/25/21 04/16/22 Karma Wayne MD [address] [place] [address] PCP - General Internal Medicine 04/17/22 03/10/24 Sadiq Valverde MD [address] [place] [address] [place] [address] PCP - General Family Practice 03/11/24 Beto Montes MD Specialist Neurology 08/17/21 08/21/22 Adis Joe PA-C Specialist ORTHOPEDICS 08/17/2106/10 Rocky Najera MD [address] [place] [address] Specialist Neurology 08/22/22 Tashia Hewitt MD [address] [phone] Specialist Pulmonology 08/22/22 Andres Henriquez MD [address] [phone] Specialist Rheumatology 08/22/22 Dyesi Howe MD 444 [facility] [place] [address] Specialist UROGYNECOLOGY 04/29/23 Jassi Vaughan MD 444 [facility] [place] [address] Specialist Ophthalmology 04/29/23 documented as of this encounter
--- OUTSIDE RECORDS SUMMARY | 2024-11-06 16:51 | XMS_ITS | Encounter Summary ---
Author Organization [facility] Address [address] [place] [address] Care Team Providers Care Sawing And Assembly Supervisor Name Role Phone Jayleen Oneill DO [...] Details Date Type Department Care Team Description 08/18/2017 Hospital Medical Records [address] [place] [address] Terese Nolan MD Social History Tobacco Use Types Packs/Day [...] on filedocumented in this encounter Care Teams Sawing And Assembly Supervisor Relationship Specialty Start Date End Date Jayleen Oneill DO PCP - General Internal Medicine 09/02/14 02/07/21 Trevin Douglas DO PCP - General Internal Medicine 02/08/21 1 Dylan Edmond MD PCP - General Internal Medicine 05/25/21 04/16/22 Karma Wayne MD [address] [place] [address] PCP - General Internal Medicine 04/17/22 03/10/24 Sadiq Valverde MD [address] [place] [address] [place] [address] PCP - General Family Practice 03/11/24 Beto Montes MD Specialist Neurology 08/17/21 08/21/22 Adis Joe PA-C Specialist ORTHOPEDICS 08/17/2106/10 Rocky Najera MD [address] [place] [address] Specialist Neurology 08/22/22 Tashia Hewitt MD [address] [phone] Specialist Pulmonology 08/22/22 Andres Henriquez MD [address] [phone] Specialist Rheumatology 08/22/22 Deysi Howe MD [address] [place] [address] [place] [address] Specialist UROGYNECOLOGY 04/29/23 Jassi Vaughan MD [address] [place] [address] [place] [address] Specialist Ophthalmology 04/29/23 documented as of this encounter
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
--- OUTSIDE RECORDS SUMMARY | 2024-11-06 16:51 | XMS_ITS | Encounter Summary ---
Author Organization [facility] Address [address] [place] [address] Care Team Providers Care Sprinkler Tender Name Role Phone Jayleen Oneill DO [...] Care Team Description 04/27/2018 Refill Rheumatology - [place] [address] [place] [address] Veronica Aggarwal DO E-prescribe Rx Request Social [...] N/A Patients current insurance carrier is: Payor: [facility] / Plan: [employer] $0 [facility] [id number] / Product Type: HMO [id number] documented in this encounter Plan of Treatment Not on file documented as of this encounter Visit Diagnoses Diagnosis Medication monitoring encounter Encounter for therapeutic drug monitoring 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, unspecified laterality (HCC) On methotrexate therapy On sulfasalazine therapy documented in this encounter Care Teams Sprinkler Tender Relationship Specialty Start Date End Date Jayleen Oneill DO PCP - General Internal Medicine 09/02/14 02/07/21 Trevin Douglas DO PCP - General Internal Medicine 02/08/21 1 Dylan Edmond MD PCP - General Internal Medicine 05/25/21 04/16/22 Karma Wayne MD [address] [place] [address] PCP - General Internal Medicine 04/17/22 03/10/24 Sadiq Valverde MD [address] [place] [address] [place] [address] PCP - General Family Practice 03/11/24 Beto Montes MD Specialist Neurology 08/17/21 08/21/22 Adis Joe PA-C Specialist ORTHOPEDICS 08/17/2106/10 Rocky Najera MD [address] [place] [address] Specialist Neurology 08/22/22 Tashia Hewitt MD [address] [phone] Specialist Pulmonology 08/22/22 Andres Henriquez MD [address] [phone] Specialist Rheumatology 08/22/22 Deysi Howe MD [address] [place] [address] [place] [address] Specialist UROGYNECOLOGY 04/29/23 Jassi Vaughan MD [address] [place] [address] [place] [address] Specialist Ophthalmology 04/29/23 documented as of this encounter
== END 2024-11-06 16:09 | disposition home or self-care (01) ==
LOC: HO.HPS 14:37
PROVIDERS: PCP Internal Medicine; Visit Provider Hospitalist
DX: G70.00 Myasthenia gravis without (acute) exacerbation (principal); J30.9 Allergic rhinitis, unspecified; J44.89 Other specified chronic obstructive pulmonary disease; M06.9 Rheumatoid arthritis, unspecified; G47.33 Obstructive sleep apnea (adult) (pediatric)
CPT/HCPCS: 99214; G2211

== ENCOUNTER → 2024-11-06 14:37 | Outpatient (BNVA) | payer OTHER, SELFPAY | PROVIDERS: PCP Internal Medicine; Visit Provider Hospitalist | DX: G70.00 Myasthenia gravis without (acute) exacerbation (principal); G47.33 Obstructive sleep apnea (adult) (pediatric); J44.89 Other specified chronic obstructive pulmonary disease; M06.9 Rheumatoid arthritis, unspecified; J30.9 Allergic rhinitis, unspecified | CPT/HCPCS: 99212 ==